=== PATIENT | female | born 1950 | race Caucasian/White ===

== ENCOUNTER → 2020-11-03 15:04 | Outpatient (BNVA) | payer OTHER, SELFPAY | PROVIDERS: PCP Internal Medicine; Visit Provider Surgery Vascular Surgery | DX: Z76.89 Persons encountering health services in other specified circumstances (principal) ==

== ENCOUNTER 2020-11-17 07:51 | Outpatient (REF) | payer OTHER, SELFPAY ==
--- NOTE | 2020-11-17 07:55 | US_ITS ---
EXAMINATION: RIGHT and LEFT LOWER EXTREMITY VENOUS ULTRASOUND (Reflux Exam) CLINICAL INDICATION: leg pain and varicose veins. COMPARISON: Previous exam most recent May 2020 TECHNIQUE: Color flow triplex imaging and compression Doppler was performed to evaluate both the deep and the superficial systems bilaterally. To evaluate the superficial system, the examination was performed in the upright position. Color-flow Doppler ultrasound and compression ultrasound were utilized. In addition, maneuvers were utilized to demonstrate reflux. FINDINGS: 1. DEEP VENOUS ULTRASOUND OF THE RIGHT LOWER EXTREMITY: Respiratory variation, normal compression and augmented flow are noted in the right common femoral vein as well as the right popliteal vein and there is no evidence of deep venous thrombosis at these locations. There is no evidence of reflux in the deep system in either the common femoral vein or the popliteal vein. There is no evidence of a Boykin's cyst. 2. SUPERFICIAL ULTRASOUND WITH DOPPLER OF RIGHT LOWER EXTREMITY: The right great saphenous vein at the saphenofemoral junction measures 6 mm, at the mid thigh 4 mm, [id number] 4 mm, [id number]-zia-[id number] 4 mm, at mid calf 4 mm and at the ankle measures 3 mm. There is no reflux demonstrated in the right great saphenous vein. The right small saphenous vein measures 3 mm and shows no reflux. There is an accessory medial greater saphenous vein that measures 3 mm and does not demonstrate reflux. There is a project technician in the mid calf that measures 3 mm and does not demonstrate reflux. There is a varicosity in the mid thigh that measures 3 mm and does not demonstrate reflux. 3. DEEP VENOUS ULTRASOUND OF THE LEFT LOWER EXTREMITY: Respiratory variation, normal compression and augmented flow are noted in the left common femoral vein as well as the left popliteal vein and there is no evidence of deep venous thrombosis at these locations. There is no evidence of reflux in the deep system in either the common femoral vein or the popliteal vein. . There is no evidence of a Boykin's cyst. 4. SUPERFICIAL ULTRASOUND WITH DOPPLER OF LEFT LOWER EXTREMITY: Left great saphenous vein at the saphenofemoral junction measures 9 mm, at the mid thigh 4 mm, [id number]-tfp-[id number] 5 mm, xacsd-pdi-hgrc 4 mm, at mid calf to mm and at the ankle measures 3 mm. There is no reflux demonstrated in the left great saphenous vein. The left small saphenous vein measures 3 mm and shows no reflux. There is a medial greater saphenous vein that measures 4 mm and does not demonstrate reflux. There is a project technician in the proximal calf that measures 1 mm and does not demonstrate reflux. There is a varicosity in the proximal thigh that measures 3 mm and does not demonstrate reflux. US/US venous duplex LE BI IMPRESSION: 1. No evidence of reflux or thrombus in the common femoral veins or popliteal veins bilaterally. 2. The saphenous systems are competent bilaterally.
--- NOTE | 2020-11-17 07:55 | US_ITS ---
EXAMINATION: US ABDOMINAL AORTA CLINICAL INFORMATION: Family history of abdominal aortic aneurysm. COMPARISON: None. TECHNIQUE: Grayscale, color Doppler and spectral Doppler evaluation of the abdominal aorta. FINDINGS: The aorta is normal in caliber. The measurements of the aorta in maximum AP and transverse dimensions respectively are as follows: PROXIMAL: 2.0 x 3.3 cm. MID: 1.9 x 2.0 cm. DISTAL: 2.0 x 1.9 cm. The measurements of the common iliac arteries in maximum AP dimension are as follows: RIGHT COMMON ILIAC ARTERY: 1.2 cm. LEFT COMMON ILIAC ARTERY: 1.2 cm. US/US abdominal aortic aneurysm IMPRESSION: Negative for abdominal aortic aneurysm.
== END 2020-11-17 07:52 | disposition home or self-care (01) ==
LOC: HO.US 07:51
PROVIDERS: Visit Provider Surgery Vascular Surgery
DX: I71.4 Abdominal aortic aneurysm, without rupture (principal); I83.893 Varicose veins of bilateral lower extremities with other complications; I83.12 Varicose veins of left lower extremity with inflammation
CPT/HCPCS: 76706; 93970

== ENCOUNTER → 2020-12-03 15:04 | Outpatient (BNVA) | payer OTHER, SELFPAY | PROVIDERS: PCP Internal Medicine; Visit Provider Surgery Vascular Surgery ==

== ENCOUNTER 2021-04-05 07:52 | Outpatient (REF) | payer OTHER, SELFPAY ==
[2021-04-05 08:51] LABS: Estimated Average Glucose 120 mg/dL; Hemoglobin A1c % 5.8 %
[2021-04-05 09:18] LABS: Alanine Aminotransferase 13 U/L (0-31); Albumin Level 3.9 g/dL (3.5-5.0); Alkaline Phosphatase 74 U/L (39-117); Aspartate Amino Transferase 17 U/L (5-31); Bilirubin Direct 0.2 mg/dL (0.0-0.5); Bilirubin Total 0.6 mg/dL (0.0-1.0); Cholesterol 181 mg/dL; Glucose Fasting 101 mg/dL (60-99); HDL Cholesterol 42 mg/dL; LDL Cholesterol Calculated 91 mg/dl; Total Protein 6.6 g/dL (6.5-8.0); Triglycerides 241 mg/dL
[2021-04-05 09:21] LABS: Reflex LDLD? No
== END 2021-04-05 07:53 | disposition home or self-care (01) ==
LOC: HO.LAB 07:52
PROVIDERS: PCP Internal Medicine; Visit Provider Internal Medicine
DX: R73.03 Prediabetes (principal); I70.90 Unspecified atherosclerosis; E78.00 Pure hypercholesterolemia, unspecified
CPT/HCPCS: 36415; 80061; 80076; 82947; 83036

== ENCOUNTER → 2021-04-08 15:04 | Outpatient (BNVA) | payer OTHER, SELFPAY | PROVIDERS: PCP Internal Medicine; Visit Provider Internal Medicine Cardiovascular Disease | DX: I47.1 Supraventricular tachycardia (principal); I10 Essential (primary) hypertension; R00.2 Palpitations | CPT/HCPCS: 93005 ==

== ENCOUNTER 2021-05-21 07:54 | Outpatient (REF) | payer OTHER, SELFPAY ==
[2021-05-21 09:34] LABS: Erythrocyte Sedimentation Rate 13 MM/HR (0-20)
[2021-05-21 09:38] LABS: Thyroid Stimulating Hormone 0.79 uIU/mL (0.32-4.0)
== END 2021-05-21 07:55 | disposition home or self-care (01) ==
LOC: HO.LAB 07:54
PROVIDERS: PCP Internal Medicine; Visit Provider Internal Medicine
DX: M35.3 Polymyalgia rheumatica (principal)
CPT/HCPCS: 36415; 84443; 85652

== ENCOUNTER 2021-06-14 15:03 | Outpatient (REF) | payer OTHER, SELFPAY ==
--- NOTE | ~2021-06-14 | MM_ITS ---
EXAMINATION: MM SCREENING DIGITAL BREAST TOMOSYNTHESIS, BILATERAL CLINICAL INFORMATION: Screening. Asymptomatic. The lifetime risk of breast cancer based on the Tyrer-Cuzick Model is 5%. COMPARISON: Mammography: 04/10/2020, 04/05/2019, 03/14/2018 TECHNIQUE: Digital breast tomosynthesis is performed in both the craniocaudal and mediolateral oblique views along with computer-aided detection (CAD). Synthesized 2D images are generated from the tomosynthesis. Additional bilateral CC and additional bilateral MLO views are provided. FINDINGS: There are scattered areas of fibroglandular density (ACR BI-RADS breast composition Category b). Parenchymal pattern is similar to prior exam. There is no developing density or interval mass or architectural abnormality. Again, there are bilateral vascular calcifications and some round and punctate calcifications anterior breasts. There is no three-dimensional grouping. The axilla and skin contours are unremarkable. No significant changes. MM/MM tomosynthesis screening BI IMPRESSION: There are no significant changes from prior study. ASSESSMENT: BI-RADS 2: Benign RECOMMENDATION: Routine annual mammography screening. This patient's information was entered into a reminder system with a target due date for their next mammogram.
== END 2021-06-14 15:04 | disposition home or self-care (01) ==
LOC: HO.MAMMO 15:03
PROVIDERS: Visit Provider Internal Medicine
DX: Z12.31 Encounter for screening mammogram for malignant neoplasm of breast (principal)
CPT/HCPCS: 77063; 77067

== ENCOUNTER → 2021-06-30 15:04 | Outpatient (BNVA) | payer OTHER, SELFPAY | PROVIDERS: PCP Internal Medicine; Visit Provider Physician Assistant ==

== ENCOUNTER → 2021-07-01 15:08 | Outpatient (BNVA) | payer OTHER, SELFPAY | PROVIDERS: PCP Internal Medicine; Visit Provider Hospitalist ==

== ENCOUNTER 2021-07-13 15:01 | Outpatient (REF) | payer OTHER, SELFPAY ==
--- NOTE | ~2021-07-13 | CT_ITS ---
EXAMINATION: CT CHEST WITHOUT CONTRAST CLINICAL INFORMATION: Small pulmonary nodules. Follow-up abnormal lung findings. COMPARISON: Chest CT from 08/07/2019 and 06/26/2020. TECHNIQUE: Multidetector volumetric CT imaging of the chest was done. Axial MIP volume rendering provided. Sagittal and coronal reformatted images were obtained. This CT examination was performed using dose optimization techniques as appropriate, variously including the following: *Automated exposure control *Adjustment of mA and/or kV according to patient size (this includes techniques or standardized protocols for targeted exams where dose is matched to indication/reason for exam; i.e. extremities or head) *Use of iterative reconstruction technique DLP: 211 mGy-cm FINDINGS: LOCALIZER IMAGES: Obese body habitus. LUNGS AND PLEURA: Trachea and central airways are widely patent and normal in caliber. No evidence of bronchiectasis. There are a few stable noncalcified micronodular foci of the right upper lobe, superior segment of right lower lobe, possibly secretions in peripheral airways. Also, there are old micronodular foci of the posterior left upper lobe along the major fissure (image 181, series 7) and along the pleura of the anterolateral left upper lobe (image 180, series 7) that remain unchanged. No new lung nodule, mass or consolidation. No interstitial lung disease. No pleural effusion. There are a few linear and/or hazy opacities of mild atelectasis in lower lobes and inferior lingula. CARDIOVASCULAR: The heart size is normal. Mild atherosclerosis of the thoracic aorta without aneurysm. Pulmonary arteries are unremarkable for noncontrast examination. No pericardial effusion. MEDIASTINUM AND LOWER NECK: The esophagus is unremarkable. Thyroid gland is not visualized. No mediastinal mass. LYMPHATICS: No pathologic sized lymph nodes. UPPER ABDOMEN: Gallbladder is surgically absent. SKELETAL AND CHEST WALL: Multilevel discovertebral degenerative change of the thoracic spine. No suspicious osseous lesion. CT/CT chest wo con IMPRESSION: * No evidence of interstitial lung disease. * There are a few old pulmonary micronodules that exhibit long-term stability, consistent with benign findings. There are no suspicious nodules that require imaging follow-up.
== END 2021-07-13 15:02 | disposition home or self-care (01) ==
LOC: HO.US 15:01
PROVIDERS: PCP Internal Medicine; Visit Provider Internal Medicine
DX: J96.10 Chronic respiratory failure, unspecified whether with hypoxia or hypercapnia (principal); R91.8 Other nonspecific abnormal finding of lung field; Z82.3 Family history of stroke
CPT/HCPCS: 71250

== ENCOUNTER 2021-07-28 15:07 | Outpatient (REF) | payer OTHER, SELFPAY ==
--- NOTE | ~2021-07-28 | US_ITS ---
EXAMINATION: US EXTRACRANIAL CAROTID DUPLEX, BILATERAL CLINICAL INFORMATION: Neck pain COMPARISON: None TECHNIQUE: Real-time ultrasound and Doppler techniques (integrating B-mode 2-D vascular images, Doppler spectral analysis and color-flow Doppler imaging) were utilized to interrogate the extracranial carotid arteries, the vertebral arteries and proximal subclavian arteries bilaterally. The degree of stenosis is determined by criteria similar to NASCET. FINDINGS: Right Side: 1. There is no atherosclerotic plaque seen in the bifurcation/proximal ICA region. The right ICA is tortuous. 2. The common carotid artery PSV proximally is 107 cm/s and distally 113 cm/s. 3. The proximal internal carotid artery velocities are 83 cm/s systolic and 16 cm/s diastolic. 4. The proximal external carotid artery PSV is 172 cm/s. 5. The vertebral artery shows antegrade flow. 6. The subclavian artery waveforms are normal. Left Side: 1. There is no atherosclerotic plaque seen in the bifurcation/proximal ICA region. 2. The common carotid artery PSV proximally is 97 cm/s and distally 93 cm/s. 3. The proximal internal carotid artery velocities are 106 cm/s systolic and 25 cm/s diastolic. 4. The proximal external carotid artery PSV is 99 cm/s. 5. The vertebral artery shows antegrade flow. 6. The subclavian artery waveforms are normal. US/US carotid duplex BI IMPRESSION: 1. RIGHT: No atherosclerotic plaque. Tortuous right ICA otherwise normal exam. 2. LEFT: No atherosclerotic plaque. Normal exam.
== END 2021-07-28 15:08 | disposition home or self-care (01) ==
LOC: HO.US 15:07
PROVIDERS: PCP Internal Medicine; Visit Provider Internal Medicine
DX: M54.2 Cervicalgia (principal); I10 Essential (primary) hypertension
CPT/HCPCS: 93880

== ENCOUNTER 2021-08-03 12:03 | Outpatient (REF) | payer OTHER, SELFPAY ==
[2021-08-03 15:36] LABS: Anion Gap 10 (12-20); Blood Urea Nitrogen 13 mg/dL (9-16); Calcium 9.1 mg/dL (8.4-10.2); Carbon Dioxide 30 mmol/L (22-29); Chloride 108 mmol/L (96-108); Estimated Glomerular Filt Rate > 60; Glucose Random 90 mg/dL (60-115); Potassium 4.4 mmol/L (3.3-5.1); Sodium 144 mmol/L (135-145)
== END 2021-08-03 12:04 | disposition home or self-care (01) ==
LOC: HO.LAB 12:03
PROVIDERS: PCP Internal Medicine; Visit Provider Hospitalist
DX: J96.10 Chronic respiratory failure, unspecified whether with hypoxia or hypercapnia (principal)
CPT/HCPCS: 36415; 80048

== ENCOUNTER 2021-08-17 07:00 | Outpatient (RCR) | payer OTHER, SELFPAY | END 2021-11-08 10:12 | disposition home or self-care (01) | LOC: HO.PTWFD 07:00 | PROVIDERS: Visit Provider Physician Assistant | DX: M77.8 Other enthesopathies, not elsewhere classified (principal) | CPT/HCPCS: 97035; 97110; 97140; 97150; 97163; 97530; 97535 ==

== ENCOUNTER → 2021-08-20 15:03 | Outpatient (BNVA) | payer OTHER, SELFPAY | PROVIDERS: PCP Internal Medicine; Visit Provider Hospitalist | DX: K21.9 Gastro-esophageal reflux disease without esophagitis (principal); J44.9 Chronic obstructive pulmonary disease, unspecified ==

== ENCOUNTER 2021-11-04 08:01 | Outpatient (REF) | payer OTHER, SELFPAY ==
[2021-11-04 09:15] LABS: Anion Gap 9 (12-20); Blood Urea Nitrogen 11 mg/dL (9-16); Calcium 9.5 mg/dL (8.4-10.2); Carbon Dioxide 31 mmol/L (22-29); Chloride 106 mmol/L (96-108); Estimated Glomerular Filt Rate > 60; Glucose Random 99 mg/dL (60-115); Potassium 4.7 mmol/L (3.3-5.1); Sodium 141 mmol/L (135-145)
== END 2021-11-04 08:02 | disposition home or self-care (01) ==
LOC: HO.LAB 08:01
PROVIDERS: PCP Internal Medicine; Visit Provider Hospitalist
DX: I10 Essential (primary) hypertension (principal)
CPT/HCPCS: 36415; 80048

== ENCOUNTER 2021-11-05 14:06 | Emergency (ER) | payer OTHER, SELFPAY ==
--- NOTE | ~2021-11-05 | XR_ITS ---
EXAMINATION: XR KNEE, LEFT CLINICAL INFORMATION: Pain. Difficulty ambulating. COMPARISON: AP view of both knees standing, 11/05/2019 TECHNIQUE: Four views of the left knee. FINDINGS: There is marked degenerative arthropathy of the knee joint. There is rpvy-fm-ybpo contact of the femur and tibia at the lateral femoral tibial joint. There is flattening and remodeling of the lateral tibial plateau. There are marginal bone spurs of the femur and tibia at this joint space. There are small bone spurs of the femur and tibia at the medial femoral tibial joint. Small degenerative spurs of patella and femur at the patellofemoral joint. No joint effusion. Compared to prior study 11/05/2019 no significant change. 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 No significant change since prior study 11/05/2019.
--- NOTE | ~2021-11-05 | US_ITS ---
EXAMINATION: US VENOUS ULTRASOUND WITH DOPPLER LOWER EXTREMITY, LEFT CLINICAL INFORMATION: Left lower extremity pain COMPARISON: None TECHNIQUE: Ultrasound of the deep veins is performed from the hip to the calf with compression sonography and color and pulse Doppler assessment. Spectral analysis with color-flow imaging is performed. FINDINGS: There is normal venous compression and respiratory variation and augmented flow. The visualized common femoral vein, superficial femoral vein, profunda femoral vein, popliteal vein, and the trifurcation region shows no evidence of deep venous thrombosis. There is no significant popliteal fossa cyst. If the patient's symptoms persist, followup ultrasound in 5 days 7 days might be of value to exclude proximal propagation from a non-visualized calf vein. US/US venous duplex LE LT IMPRESSION: No DVT demonstrated in the left lower extremity.
[2021-11-05 14:08] VITALS: BP 137/100; PULSE 89; RESP 18; TEMP 37.2; O2SAT 95; BMI 34.4
--- NOTE | 2021-11-05 15:47 | ED_ITS ---
HPI - Extremity Problem General Chief complaint: Extremity Problem Stated complaint: L leg pain Time Seen by Provider: 11/05/21 14:11 Source: patient Mode of arrival: ambulatory History of Present Illness HPI Narrative: 71-year-old female with a past medical history of COPD, HTN SVT, prior LLE DVT not on AC, presenting to the emergency department complaining of left lower leg/knee pain and swelling worsening x a couple weeks, exacerbated today with difficulty ambulating secondary to pain. Admits to slight trip around [place], denies direct knee trauma or fall, slipped on ice. Denies fever, chills, SOB, numbness/tingling/weakness. MD Complaint: extremity pain and joint paint Onset (ago): day(s) Pain Consistency: constant Related Data Home Medications Medication Instructions Recorded Confirmed levothyroxine 125 mcg tablet 125 mcg PO DAILY 12/03/20 04/08/21 rosuvastatin 20 mg tablet 20 mg PO BEDTIME 04/08/21 04/08/21 Previous Rx's Medication Instructions Recorded diclofenac sodium 75 mg 75 mg PO BID #60 tab 10/06/20 tablet,delayed release montelukast 10 mg tablet 10 mg PO BEDTIME 30 Days #30 tab 05/17/21 (Singulair) cholecalciferol (vitamin D3) 50 50 mcg PO DAILY 30 Days #30 cap 05/31/21 mcg (2,000 unit) capsule amlodipine 5 mg tablet 5 mg PO DAILY 90 Days #90 tab 06/09/21 Ventolin HFA 90 mcg/actuation 2 puff INHALATION Q4H PRN 30 Days 07/01/21 aerosol inhaler (albuterol sulfate) #8 g NS azithromycin 250 mg tablet 250 mg PO 3XW 28 Days #12 tab 07/01/21 fluticasone fur. 100 mcg-umeclid 1 ea PO DAILY 90 Days #180 ea 08/20/21 62.5 mcg-vilant 25 mcg inhalat.powder (Trelegy Ellipta) furosemide 20 mg tablet (Lasix) 10 mg PO QAM 30 Days #15 tab 08/20/21 metoprolol succinate 50 mg 50 mg PO DAILY #90 tab 08/23/21 tablet,extended release 24 hr Allergies Allergy/AdvReac Type Severity Reaction Status Date / Time aspirin [Aspirin] Allergy Severe TROUBLE Verified 08/20/21 15:07 BREATHING, vomiting Penicillins Allergy Severe THROAT Verified 08/20/21 15:07 CLOSES adhesive tape [ADHESIVE TAPE] Allergy Intermediate RASH/ITCH Verified 08/20/21 15:07 ibuprofen [From MOTRIN] Allergy Intermediate VOMITING Verified 08/20/21 15:07 latex [LATEX] Allergy Intermediate RASH Verified 08/20/21 15:07 penicillin V Allergy Unknown rash Verified 08/20/21 15:07 prednisone Allergy Unknown Unknown Verified 08/20/21 15:07 spider venom [SPIDER BITES] Allergy Unknown SWELLING Verified 08/20/21 15:07 clarithromycin [From Biaxin] AdvReac Intermediate PROJECTILE Verified 08/20/21 15:07 VOMITING Adhesive Tape Allergy Unknown rash Uncoded 07/01/21 15:47 Biaxin Allergy Unknown vomiting, Uncoded 07/01/21 15:47 abd pain eggs Allergy Unknown Unknown Uncoded 07/01/21 15:47 Latex Gloves Allergy Unknown rash Uncoded 07/01/21 15:47 Review of Systems Review of Systems: Constitutional: No Fever, No Chills ENT/Mouth: No Ear Pain, No Nasal Congestion, No sore throat, No Rhinorrhea, No Swallowing Difficulty Cardiovascular: No Chest Pain, No SOB, +Edema Respiratory: No Cough, No Sputum Gastrointestinal: No Nausea, No Vomiting, No Diarrhea, No Constipation, No Abdominal pain Musculoskeletal: + joint pain, No Myalgias, + Joint Swelling Skin: No Skin Lesions, No rash Neuro: No Weakness, No Numbness, No Paresthesias Yes all other systems are reviewed and are negative PMFSH Past Medical History Attestation statement: The following information was validated with the patient. 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[employer] [place] Physical Exam Vital Signs: Vital Signs: Last Vital Signs Temp 98.9 F 11/05/21 14:08 Pulse 89 11/05/21 14:08 Resp 18 11/05/21 14:08 BP 137/100 H 11/05/21 14:08 Pulse Ox 95 11/05/21 14:08 BMI result Body Mass Index 34.4 Const: General: cooperative, healthy appearing and no acute distress Orientation/consciousness: patient oriented x3 Limitations: no limitations HENMT: Head: Yes normal to inspection Ears: hearing grossly normal bilaterally General nose exam: Normal external nose present Face and sinus: Yes normal facial exam Eyes: General: appearance normal, both eyes and all related structures EOM: EOMs intact bilaterally Neck: Neck: Yes normal visual inspection and Yes no meningeal signs Resp: Effort & Inspection: normal respiratory effort and no respiratory distress Cardio: Rate: regular rate Peripheral pulses: dorsalis pedis present Skin: Rashes: no rashes Wounds: no wounds Neuro: General: patient oriented x3 and no meningeal signs Gait exam (Neuro): Normal gait present Extrem: Other: + left knee tenderness to palpation. Flexion and extension intact. Neurovascular intact distally. No deformity or warmth. + left calf tenderness to palpation. 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 No significant change since prior study 11/05/2019. ? US venous duplex LE LT IMPRESSION: No DVT demonstrated in the left lower extremity. >> results discussed with patient including worrisome signs and symptoms and strict return precautions. Nathan wrap applied for comfort/stability. Recommended orthopedic follow-up, she verbalized understanding & feels safe for discharge home MDM - Extremity (Nontraumatic) MDM Narrative Medical decision making narrative: 71-year-old female with a past medical history of COPD, HTN SVT, prior LLE DVT not on AC, presenting to the emergency department complaining of left lower leg/knee pain and swelling worsening x a couple weeks, exacerbated today with difficulty ambulating secondary to pain. On exam hypertensive likely from pain, NAD, physical exam as above, concern for DVT vs knee sprain/tendinitis/osteoarthritis. Low concern for fracture or CHF Plan: Venous duplex ultrasound, x-ray Differential Diagnosis Differential diagnosis: Likely lower extremity edema and deep vein thrombosis of lower extremity Medical Records Attestation: I reviewed the patient's medical records. Lab Data Attestation: I reviewed the patient's lab results. Discharge Plan Discharge Clinical Impression: Left leg pain Patient Disposition: Home, Self-Care Instructions: Leg Pain (ED) Additional Instructions: Your ultrasound was negative for a blood clot. If symptoms persist it is recommended you have a follow-up ultrasound in 5-7 days Your x-ray shows osteoarthritis Please follow-up with orthopedics. Ice and elevate her leg. Continue taking diclofenac and Tylenol at home If symptoms persist or worsen, pain becomes unbearable, if shortness of breath, weakness, numbness or tingling please return to the ED Prescriptions: No Action diclofenac sodium 75 mg tablet,delayed release (DR/EC) 75 mg PO BID Qty: 60 RF: 2 montelukast [Singulair] 10 mg tablet 10 mg PO BEDTIME 30 Days Qty: 30 RF: 11 cholecalciferol (vitamin D3) 50 mcg (2,000 unit) capsule 50 mcg PO DAILY 30 Days Qty: 30 RF: 6 amlodipine 5 mg tablet 5 mg PO DAILY 90 Days Qty: 90 RF: 1 metoprolol succinate 50 mg tablet extended release 24 hr 50 mg PO DAILY Qty: 90 RF: 1 levothyroxine 125 mcg tablet 125 mcg PO DAILY RF: 0 azithromycin 250 mg tablet 250 mg PO 3XW 28 Days Qty: 12 RF: 6 albuterol sulfate [Ventolin HFA] 90 mcg/actuation HFA aerosol inhaler 2 puff inhalation Q4H PRN (Reason: shortness of breath or wheezing) 30 Days Qty: 8 RF: 11 furosemide [Lasix] 20 mg tablet 10 mg PO QAM 30 Days Qty: 15 RF: 8 Trelegy Ellipta 100-62.5-25 mcg blister with device 1 ea PO DAILY 90 Days Qty: 180 RF: 3 rosuvastatin 20 mg tablet 20 mg PO BEDTIME RF: 0 Referrals: Surya Mora MD [Physician] - 1 week
== END 2021-11-05 15:57 | disposition home or self-care (01) ==
PROVIDERS: Emergency Provider Emergency Medicine; PCP Internal Medicine
DX: M79.605 Pain in left leg (principal); R60.0 Localized edema; I10 Essential (primary) hypertension; Z79.899 Other long term (current) drug therapy; Z87.891 Personal history of nicotine dependence
CPT/HCPCS: 73562; 93971; 99283; 99284

== ENCOUNTER → 2022-01-28 07:52 | Outpatient (BNVA) | payer OTHER, SELFPAY | PROVIDERS: PCP Internal Medicine; Visit Provider Internal Medicine Endocrinology, Diabetes & Metabolism | DX: Z13.89 Encounter for screening for other disorder (principal) ==

== ENCOUNTER → 2022-03-18 11:05 | Outpatient (BNVA) | payer OTHER, SELFPAY | PROVIDERS: PCP Internal Medicine; Visit Provider Dietitian, Registered | DX: E66.9 Obesity, unspecified (principal); Z68.35 Body mass index [BMI] 35.0-35.9, adult | CPT/HCPCS: 97802 ==

== ENCOUNTER 2022-03-25 07:58 | Outpatient (REF) | payer OTHER, SELFPAY ==
[2022-03-25 09:19] LABS: Phosphorus 3.9 mg/dL (2.7-4.5)
[2022-03-28 21:01] LABS: Prot Elec - Albumin 3.8 g/dL (3.8-4.8); Prot Elec - Alpha1 0.3 g/dL (0.2-0.3); Prot Elec - Alpha2 0.8 g/dL (0.5-0.9); Prot Elec - Beta 1 0.5 g/dL (0.4-0.6); Prot Elec - Beta 2 0.4 g/dL (0.2-0.5); Prot Elec - Total Protein 6.7 g/dL (6.1-8.1)
== END 2022-03-25 07:59 | disposition home or self-care (01) ==
LOC: HO.LAB 07:58
PROVIDERS: PCP Internal Medicine; Visit Provider Internal Medicine Endocrinology, Diabetes & Metabolism
DX: M81.0 Age-related osteoporosis without current pathological fracture (principal)
CPT/HCPCS: 84100; 84165; 86335

== ENCOUNTER 2022-05-04 07:38 | Outpatient (REF) | payer OTHER, SELFPAY ==
[2022-05-04 07:58] LABS: MANUAL DIFF FLAG NO
[2022-05-04 08:35] LABS: Basophils Absolute Auto 0.1 X10*3/uL (0.0-0.2); Basophils Percent Auto 0.8 % (0-2); Eosinophils Absolute Auto 0.2 X10*3/uL (0.0-0.4); Eosinophils Percent Auto 3.3 % (0-4); Hematocrit 42.5 % (37.0-47.0); Hemoglobin 13.5 g/dl (12.0-16.0); Imm Gran Abs Auto 0.01 X10*3/uL (0.00-0.03); Imm Gran Pct Auto 0.2 % (0.0-0.4); Lymphocytes Absolute Auto 1.5 X10*3/uL (1.2-4.9); Lymphocytes Percent Auto 22.1 % (20-40); Mean Corpuscular HGB Conc 31.8 g/dl (31.0-35.0); Mean Corpuscular Hemoglobin 28.7 pg (27.0-33.0); Mean Corpuscular Volume 90.2 fL (80.0-98.0); Mean Platelet Volume 11.5 fL (9.4-12.3); Monocytes Absolute Auto 0.7 X10*3/uL (0.1-1.2); Monocytes Percent Auto 11.1 % (2-11); Neutrophils Absolute Auto 4.2 x10*3/uL (2.0-8.3); Neutrophils Percent Auto 62.5 % (45-73); Platelet Count 206 X10*3/uL (160-400); Red Blood Count 4.71 X10*6/uL (4.20-5.50); Red Cell Distribution Width 12.9 % (11.0-16.0); White Blood Count 6.7 X10*3/uL (4.8-10.8)
[2022-05-04 08:48] LABS: Appearance Urine CLEAR; Color Urine YELLOW; Glucose Urine UA NEG (NEG); Leukocyte Esterase Urine 2+ (NEG); Nitrite Urine NEG (NEG); PH 5.5 (5.0-8.0); Specific Gravity - Urine >= 1.030 (1.005-1.025); Urine Blood NEG (NEG); Urine Ketones 5 MG/DL (NEG); Urine Protein NEG (NEG-TRACE)
[2022-05-04 08:58] LABS: Squamous Epithelial Cell Urine 4+ /LPF
[2022-05-04 08:58] LABS: Alanine Aminotransferase 12 U/L (0-31); Albumin Level 4.1 g/dL (3.5-5.0); Alkaline Phosphatase 74 U/L (39-117); Anion Gap 12 (12-20); Aspartate Amino Transferase 18 U/L (5-31); Bilirubin Total 0.8 mg/dL (0.0-1.0); Blood Urea Nitrogen 17 mg/dL (9-16); Calcium 9.2 mg/dL (8.4-10.2); Carbon Dioxide 28 mmol/L (22-29); Chloride 106 mmol/L (96-108); Cholesterol 181 mg/dL; Estimated Glomerular Filt Rate > 60; Glucose Fasting 104 mg/dL (60-99); HDL Cholesterol 50 mg/dL; LDL Cholesterol Calculated 99 mg/dl; Potassium 4.6 mmol/L (3.3-5.1); Sodium 141 mmol/L (135-145); Total Protein 6.9 g/dL (6.5-8.0); Triglycerides 164 mg/dL
[2022-05-04 08:59] LABS: Bacteria Urine TRACE /LPF; Mucus Urine 1+ /LPF; RBC Urine 0-2 /HPF (0)
[2022-05-04 09:20] LABS: TSH reflex Free T4 0.76 uIU/mL (0.32-4.0); Vitamin D 25-OH Total 38.6 ng/mL (>30)
== END 2022-05-04 07:39 | disposition home or self-care (01) ==
LOC: HO.LAB 07:38
PROVIDERS: PCP Internal Medicine; Visit Provider Internal Medicine
DX: Z00.00 Encounter for general adult medical examination without abnormal findings (principal); I10 Essential (primary) hypertension; E89.0 Postprocedural hypothyroidism; E78.00 Pure hypercholesterolemia, unspecified; E55.9 Vitamin D deficiency, unspecified; M35.3 Polymyalgia rheumatica
CPT/HCPCS: 36415; 80053; 80061; 81001; 82306; 84443; 85025

== ENCOUNTER → 2022-05-05 14:59 | Outpatient (BNVA) | payer OTHER, SELFPAY | PROVIDERS: PCP Internal Medicine; Referring Provider Internal Medicine; Visit Provider Internal Medicine Cardiovascular Disease | DX: I47.1 Supraventricular tachycardia (principal); R06.02 Shortness of breath | CPT/HCPCS: 93005 ==

== ENCOUNTER 2022-05-09 09:33 | Outpatient (REF) | payer OTHER, SELFPAY ==
[2022-05-09 10:09] LABS: Total Volume 24 Hour Urine 1600 mL
[2022-05-09 10:20] LABS: Creatinine, 24Hr Urine 0.7 G/Day (1.0-2.0); Creatinine, mg/dL 46.27
[2022-05-11 18:21] LABS: Calcium, 24 Hr Urine 147 mg/24 h; Calcium/Creatinine Ratio 196 mg/g creat (30-275); Creatinine 24Hr Urine 0.75 g/24 h (0.50-2.15)
== END 2022-05-09 09:34 | disposition home or self-care (01) ==
LOC: HO.LNP 09:33
PROVIDERS: Visit Provider Internal Medicine Endocrinology, Diabetes & Metabolism
DX: M81.0 Age-related osteoporosis without current pathological fracture (principal)
CPT/HCPCS: 82340; 82570

== ENCOUNTER 2022-05-27 08:09 | Outpatient (REF) | payer OTHER, SELFPAY ==
[2022-05-27 09:15] LABS: Hemoglobin 13.1 g/dl (12.0-16.0); Mean Corpuscular Hemoglobin 28.8 pg (27.0-33.0); Mean Corpuscular Volume 90.1 fL (80.0-98.0); Mean Platelet Volume 11.5 fL (9.4-12.3); Platelet Count 197 X10*3/uL (160-400); Red Blood Count 4.55 X10*6/uL (4.20-5.50); Red Cell Distribution Width 13.2 % (11.0-16.0)
[2022-05-27 10:09] LABS: Anion Gap 13 (12-20); Blood Urea Nitrogen 12 mg/dL (9-16); Carbon Dioxide 28 mmol/L (22-29); Chloride 106 mmol/L (96-108); Estimated Glomerular Filt Rate > 60; Glucose Random 101 mg/dL (60-115); Potassium 4.6 mmol/L (3.3-5.1); Sodium 142 mmol/L (135-145)
== END 2022-05-27 08:10 | disposition home or self-care (01) ==
LOC: HO.LAB 08:09
PROVIDERS: PCP Internal Medicine; Visit Provider Internal Medicine Cardiovascular Disease
DX: I10 Essential (primary) hypertension (principal)
CPT/HCPCS: 36415; 80048; 85027; 85610

== ENCOUNTER 2022-06-28 07:44 | Outpatient (REF) | payer OTHER, SELFPAY ==
[2022-06-28 07:53] LABS: MANUAL DIFF FLAG NO
[2022-06-28 08:50] LABS: Basophils Absolute Auto 0.1 X10*3/uL (0.0-0.2); Basophils Percent Auto 0.6 % (0-2); Eosinophils Absolute Auto 0.3 X10*3/uL (0.0-0.4); Eosinophils Percent Auto 3.8 % (0-4); Hematocrit 42.1 % (37.0-47.0); Hemoglobin 13.5 g/dl (12.0-16.0); Imm Gran Abs Auto 0.03 X10*3/uL (0.00-0.03); Imm Gran Pct Auto 0.4 % (0.0-0.4); Lymphocytes Absolute Auto 1.7 X10*3/uL (1.2-4.9); Lymphocytes Percent Auto 21.2 % (20-40); Mean Corpuscular HGB Conc 32.1 g/dl (31.0-35.0); Mean Corpuscular Hemoglobin 29.2 pg (27.0-33.0); Mean Corpuscular Volume 90.9 fL (80.0-98.0); Mean Platelet Volume 11.6 fL (9.4-12.3); Monocytes Absolute Auto 0.7 X10*3/uL (0.1-1.2); Monocytes Percent Auto 9.4 % (2-11); Neutrophils Absolute Auto 5.1 x10*3/uL (2.0-8.3); Neutrophils Percent Auto 64.6 % (45-73); Platelet Count 199 X10*3/uL (160-400); Red Blood Count 4.63 X10*6/uL (4.20-5.50); Red Cell Distribution Width 13.3 % (11.0-16.0); White Blood Count 7.9 X10*3/uL (4.8-10.8)
[2022-06-28 09:31] LABS: Erythrocyte Sedimentation Rate 7 MM/HR (0-20)
[2022-06-29 11:42] LABS: IgA 275 mg/dL (70-320); IgG 1043 mg/dL (600-1540); IgM 106 mg/dL (50-300)
== END 2022-06-28 07:45 | disposition home or self-care (01) ==
LOC: HO.LAB 07:44
PROVIDERS: PCP Internal Medicine; Visit Provider Hospitalist
DX: J45.909 Unspecified asthma, uncomplicated (principal)
CPT/HCPCS: 36415; 82784; 82785; 85025; 85652; 86003

== ENCOUNTER 2022-06-30 07:35 | Outpatient (REF) | payer OTHER, SELFPAY ==
--- NOTE | ~2022-06-30 | MM_ITS ---
EXAMINATION: MM SCREENING DIGITAL BREAST TOMOSYNTHESIS, BILATERAL CLINICAL INFORMATION: Screening. Asymptomatic. The lifetime risk of breast cancer based on the Tyrer-Cuzick Model is 5%. COMPARISON: Mammography: 06/14/2021, 04/10/2020, 04/05/2019 TECHNIQUE: Digital breast tomosynthesis is performed in both the craniocaudal and mediolateral oblique views along with computer-aided detection (CAD). Synthesized 2D images are generated from the tomosynthesis. FINDINGS: There are scattered areas of fibroglandular density (ACR BI-RADS breast composition Category b). There are no significant masses, abnormal calcifications, or other abnormalities. There is a dermal lesion again seen overlying the posterior upper left breast. Scattered bilateral punctate and vascular calcifications are again noted. The axilla are unremarkable. MM/MM tomosynthesis screening BI IMPRESSION: No mammographic evidence of malignancy. ASSESSMENT: BI-RADS 2: Benign RECOMMENDATION: Routine annual mammography screening. This patient's information was entered into a reminder system with a target due date for their next mammogram.
== END 2022-06-30 07:36 | disposition home or self-care (01) ==
LOC: HO.MAMMO 07:35
PROVIDERS: Visit Provider Internal Medicine
DX: Z12.31 Encounter for screening mammogram for malignant neoplasm of breast (principal)
CPT/HCPCS: 77063; 77067

== ENCOUNTER 2022-07-20 07:53 | Outpatient (REF) | payer OTHER, SELFPAY ==
--- NOTE | 2022-07-20 08:00 | PFT_ITS ---
FLOWS: FEV1 60% of predicted at 1.30 L. FVC 80% of predicted at 1.58 L. FEV1 to FVC ratio of 0.82. No bronchodilator response except in small to medium airways. LUNG VOLUMES: Slow vital capacity 54% of predicted at 1.53 L. The patient was unable to complete rest of lung volume maneuvers. Diffusion capacity is mildly decreased. Diffusion capacity corrects to normal after adjustment for alveolar ventilation. IMPRESSION: No obstructive ventilatory defect. Suggestion of underlying moderate restrictive ventilatory defect. No bronchodilator response except in small to medium airways. Decreased expiratory reserve volume suggests extrathoracic restriction likely secondary to abdominal obesity. Decreased diffusion capacity suggests emphysema. Nakul Gray MD AP/MODL / [id number]
== END 2022-07-20 07:54 | disposition home or self-care (01) ==
LOC: HO.RESP 07:53
PROVIDERS: PCP Internal Medicine; Visit Provider Hospitalist
DX: J44.9 Chronic obstructive pulmonary disease, unspecified (principal)
CPT/HCPCS: 94060; 94729

== ENCOUNTER → 2022-08-03 13:32 | Outpatient (REF) | payer OTHER, SELFPAY | LOC: HO.SL 13:32 | PROVIDERS: Visit Provider Hospitalist | DX: G47.33 Obstructive sleep apnea (adult) (pediatric) (principal) | CPT/HCPCS: 95806 ==

== ENCOUNTER 2022-09-20 08:16 | Emergency (ER) | payer OTHER, SELFPAY ==
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
[2022-09-20 08:17] VITALS: BP 158/63; PULSE 72; RESP 16; TEMP 37.1; O2SAT 96; BMI 35.5
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
[2022-09-20 12:28] VITALS: BP 153/80; PULSE 71; RESP 16; O2SAT 96
== END 2022-09-20 12:30 | disposition home or self-care (01) ==
PROVIDERS: Emergency Provider Emergency Medicine; PCP Internal Medicine
DX: S13.4XXA Sprain of ligaments of cervical spine, initial encounter (principal); R07.81 Pleurodynia; R51.9 Headache, unspecified; M54.2 Cervicalgia; V43.52XA Car driver injured in collision with other type car in traffic accident, initial encounter; Y93.9 Activity, unspecified; Y92.410 Unspecified street and highway as the place of occurrence of the external cause; Y99.9 Unspecified external cause status
CPT/HCPCS: 70450; 71101; 72125; 99283; 99284

== ENCOUNTER 2022-12-01 11:22 | Outpatient (REF) | payer OTHER, SELFPAY ==
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
[2022-12-01 12:59] LABS: MANUAL DIFF FLAG NO
[2022-12-01 14:38] LABS: Basophils Absolute Auto 0.1 X10*3/uL (0.0-0.2); Basophils Percent Auto 0.8 % (0-2); Eosinophils Absolute Auto 0.2 X10*3/uL (0.0-0.4); Hematocrit 41.1 % (37.0-47.0); Hemoglobin 13.5 g/dl (12.0-16.0); Imm Gran Abs Auto 0.01 X10*3/uL (0.00-0.03); Imm Gran Pct Auto 0.1 % (0.0-0.4); Lymphocytes Absolute Auto 2.1 X10*3/uL (1.2-4.9); Mean Corpuscular HGB Conc 32.8 g/dl (31.0-35.0); Mean Corpuscular Hemoglobin 29.4 pg (27.0-33.0); Mean Corpuscular Volume 89.5 fL (80.0-98.0); Mean Platelet Volume 11.1 fL (9.4-12.3); Monocytes Absolute Auto 0.8 X10*3/uL (0.1-1.2); Monocytes Percent Auto 8.9 % (2-11); Neutrophils Absolute Auto 5.5 x10*3/uL (2.0-8.3); Neutrophils Percent Auto 64.2 % (45-73); Platelet Count 209 X10*3/uL (160-400); Red Blood Count 4.59 X10*6/uL (4.20-5.50); White Blood Count 8.6 X10*3/uL (4.8-10.8)
[2022-12-01 15:02] LABS: Anion Gap 13 (12-20); Blood Urea Nitrogen 12 mg/dL (9-16); Calcium 9.5 mg/dL (8.4-10.2); Carbon Dioxide 28 mmol/L (22-29); Chloride 106 mmol/L (96-108); Estimated Glomerular Filt Rate > 60; Glucose Random 85 mg/dL (60-115); Potassium 4.1 mmol/L (3.3-5.1); Sodium 143 mmol/L (135-145)
[2022-12-01 15:09] LABS: Troponin-I High Sensitivity 3.5 ng/L (<3.5-17.0)
[2022-12-01 15:23] LABS: Erythrocyte Sedimentation Rate 12 MM/HR (0-20)
== END 2022-12-01 11:23 | disposition home or self-care (01) ==
LOC: HO.LAB 11:22
PROVIDERS: PCP Internal Medicine; Visit Provider Hospitalist
DX: R07.89 Other chest pain (principal)
CPT/HCPCS: 36415; 71046; 80048; 84484; 85025; 85652

== ENCOUNTER 2022-12-19 07:35 | Outpatient (REF) | payer OTHER, SELFPAY ==
[2022-12-19 08:46] LABS: Alanine Aminotransferase 16 U/L (0-31); Alkaline Phosphatase 77 U/L (39-117); Aspartate Amino Transferase 16 U/L (5-31); Bilirubin Direct 0.2 mg/dL (0.0-0.5); Bilirubin Total 0.9 mg/dL (0.0-1.0); Cholesterol 194 mg/dL; HDL Cholesterol 47 mg/dL; LDL Cholesterol Calculated 101 mg/dl; Total Protein 6.6 g/dL (6.5-8.0); Triglycerides 231 mg/dL
[2022-12-19 11:38] LABS: Reflex LDLD? No
== END 2022-12-19 07:36 | disposition home or self-care (01) ==
LOC: HO.LAB 07:35
PROVIDERS: PCP Internal Medicine; Visit Provider Internal Medicine
DX: E78.00 Pure hypercholesterolemia, unspecified (principal)
CPT/HCPCS: 36415; 80061; 80076

== ENCOUNTER → 2023-02-23 15:08 | Outpatient (BNVA) | payer OTHER, SELFPAY | PROVIDERS: PCP Internal Medicine; Visit Provider Hospitalist ==

== ENCOUNTER 2023-02-24 07:29 | Outpatient (REF) | payer OTHER, SELFPAY ==
--- NOTE | ~2023-02-24 | XR_ITS ---
EXAMINATION: XR CHEST CLINICAL INFORMATION: Cough. COMPARISON: None available. TECHNIQUE: 2 views of the chest were obtained. FINDINGS: The lungs are well-inflated and clear. The heart size and pulmonary vascularity is normal. No gross bony abnormality seen. XR/XR chest 2V IMPRESSION: Unremarkable chest exam.
== END 2023-02-24 07:30 | disposition home or self-care (01) ==
LOC: HO.XRAY 07:29
PROVIDERS: PCP Internal Medicine; Visit Provider Hospitalist
DX: R05.9 Cough, unspecified (principal)
CPT/HCPCS: 71046

== ENCOUNTER 2023-03-03 08:04 | Outpatient (REF) | payer OTHER, SELFPAY ==
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
== END 2023-03-03 08:05 | disposition home or self-care (01) ==
LOC: HO.CT 08:04
PROVIDERS: PCP Internal Medicine; Visit Provider Internal Medicine
DX: N20.0 Calculus of kidney (principal)
CPT/HCPCS: 74176

== ENCOUNTER 2023-05-28 18:22 | Emergency (ER) | payer OTHER, SELFPAY ==
[2023-05-28 18:32] VITALS: BP 170/56; PULSE 74; RESP 18; TEMP 36.8; O2SAT 96; BMI 35.4
--- NOTE | 2023-05-28 18:32 | ED.GENADULT ---
HPI - General Adult General Chief complaint: Abdominal Pain Stated complaint: Right flank pain radiates to the front Time Seen by Provider: 05/28/23 22:34 Source: patient Mode of arrival: ambulatory Limitations: no limitations History of Present Illness HPI narrative: Patient is a 72 year old assigned female at with a history of HTN and SVT presenting to the emergency department today with right flank pain. Patient states that she has had this issue intermittently over the last few months but it seems as though it has been worse lately. 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 Patient denies any dizziness, lightheadedness, nausea, vomiting, fever, chills, blurry vision, double vision, loss of vision, chest pain, difficulty breathing, shortness of breath, back pain, night sweats, pain with urination, increased urinary frequency, increased urinary urgency, blood in her urine or stool, syncope or a near syncopal episode, recent trauma or falls, bowel incontinence, bladder incontinence, bowel retention, bladder retention, or any other complaints at this time. Onset (ago): month(s) Location: right (flank) Severity: mild Relieving factors: none Exacerbating factors: none Associated symptoms: denies other symptoms Treatments prior to arrival: none Related Data Home Medications Medication Instructions Recorded Confirmed levothyroxine 125 mcg tablet 125 mcg PO DAILY 12/03/20 06/28/22 rosuvastatin 20 mg tablet 20 mg PO BEDTIME 04/08/21 06/28/22 ipratropium 0.5 mg-albuterol 3 mg ml inhalation 06/28/22 06/28/22 (2.5 mg base)/3 mL nebulization soln Previous Rx's Medication Instructions Recorded Trelegy Ellipta 200 mcg-62.5 1 inh inhalation DAILY #60 ea 08/15/22 mcg-25 mcg powder for inhalation (kifetoabpcm-cemertbck-hpeoerza) Ventolin HFA 90 mcg/actuation 2 puff PO Q4H PRN for wheezing #18 09/09/22 aerosol inhaler (albuterol sulfate) grams amlodipine 5 mg tablet 5 mg PO DAILY #90 tabs 09/09/22 acetaminophen 500 mg tablet 500 mg PO Q6H PRN fever or pain 09/20/22 (Tylenol Extra Strength) #14 tabs cyclobenzaprine 5 mg tablet 5 mg PO Q8H PRN pain (scale score 09/20/22 7-10) 5 days #14 tabs Daliresp 250 mcg tablet 250 mcg PO DAILY 30 days #30 tabs 10/10/22 (roflumilast) denosumab 60 mg/mL subcutaneous 60 mg subcut [id number] #1 mL 01/10/23 syringe (Prolia) metoprolol succinate 50 mg 50 mg PO DAILY #90 tabs 02/20/23 tablet,extended release 24 hr azithromycin 250 mg tablet 250 mg PO 3XW 28 days #12 tabs 02/23/23 cholecalciferol (vitamin D3) 50 50 mcg PO DAILY 30 days #30 caps 03/21/23 mcg (2,000 unit) capsule montelukast 10 mg tablet 10 mg PO BEDTIME 30 days #30 tabs 03/21/23 (Singulair) Allergies Allergy/AdvReac Type Severity Reaction Status Date / Time aspirin [Aspirin] Allergy Severe TROUBLE Verified 02/23/23 15:32 BREATHING, vomiting Penicillins Allergy Severe THROAT Verified 02/23/23 15:32 CLOSES adhesive tape [ADHESIVE TAPE] Allergy Intermediate RASH/ITCH Verified 02/23/23 15:32 ibuprofen [From MOTRIN] Allergy Intermediate VOMITING Verified 02/23/23 15:32 latex [LATEX] Allergy Intermediate RASH Verified 02/23/23 15:32 penicillin V Allergy Unknown rash Verified 02/23/23 15:32 prednisone Allergy Unknown Unknown Verified 02/23/23 15:32 spider venom [SPIDER BITES] Allergy Unknown SWELLING Verified 02/23/23 15:32 clarithromycin [From Biaxin] AdvReac Intermediate PROJECTILE Verified 02/23/23 15:32 VOMITING Adhesive Tape Allergy Unknown rash Uncoded 02/23/23 15:32 Biaxin Allergy Unknown vomiting, Uncoded 02/23/23 15:32 abd pain eggs Allergy Unknown Unknown Uncoded 02/23/23 15:32 Latex Gloves Allergy Unknown rash Uncoded 02/23/23 15:32 Review of Systems Constitutional: Constitutional: Reports no additional constitutional complaints, Denies chills, Denies fever(s) and Denies night sweats Eyes: Eyes: Reports no additional eye complaints, Denies blurry vision, Denies change in vision, Denies diplopia, Denies eye discharge, Denies loss of vision and Denies eye pain ENT: Denies dizziness Cardiovascular: Cardiovascular: Reports no additional cardiovascular complaints, Denies chest pain, Denies lightheadedness, Denies Loss of Consciousness and Denies dyspnea Respiratory: Respiratory: Reports no additional respiratory complaints and Denies dyspnea Gastrointestinal: Gastrointestinal: Reports no additional gastrointestinal complaints, Denies melena, Denies hematochezia, Denies change in bowel habits and Denies change in stool character Genitourinary: Genitourinary: Denies hematuria, Denies urinary frequency, Denies dysuria, Reports flank pain (right), Denies urinary incontinence, Denies urinary hesitancy and Denies urinary urgency Musculoskeletal: Musculoskeletal: Reports no additional musculoskeletal complaints, Denies numbness and Denies tingling Neurologic: Denies dizziness, Denies loss of vision, Denies numbness and Denies tingling Psychiatric: Psychiatric: Reports no additional psychiatric complaints Endocrine: Endocrine: Reports no additional endocrine complaints Hematologic/Lymphatic: Hematologic/Lymphatic: Reports no additional hematologic/lymphatic complaints Allergic/Immunologic: Allergic/Immunologic: Reports no additional allergic/immunologic complaints [facility] Past Medical History Attestation statement: The following information was validated with the patient. Source: old records reviewed and nursing notes reviewed Medical History Asthma Chest discomfort Chronic respiratory failure COPD (chronic obstructive pulmonary disease) Cough HTN (hypertension) Neck pain Nonsustained ventricular tachycardia Obesity Osteoporosis Pulmonary hypertension Pulmonary nodules SVT (supraventricular tachycardia) Surgical History History of surgery on arm Hx of appendectomy Hx of cardiac cath Hx of cholecystectomy Hx of hysterectomy Hx of knee surgery Family History Family History Father Lung cancer Mother CVA (cerebral vascular accident) Social History Social History Household Members: None Alcohol intake: never Patient Tobacco Use Status: Former Tobacco user Years Smoked: 30 Second Hand Smoke Exposure: No Current occupational status: employed 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 [employer] Physical Exam ED Vital Signs: Vital Signs - 24 hr 05/28/23 18:32 Temperature 98.3 F Pulse Rate 74 Respiratory Rate 18 Blood Pressure 170/56 H Pulse Oximetry 96 Oxygen Delivery Method Room Air BMI result Body Mass Index 35.4 Const General: cooperative, no acute distress, alert and awake Nutritional Appearance: well nourished Orientation/consciousness: patient oriented x3 Limitations: no limitations HENMT Head: Yes normal to inspection and Yes atraumatic Ears: hearing grossly normal bilaterally and external ears normal General nose exam: Normal external nose present, no nasal discharge noted and no epistaxis Face and sinus: Yes normal facial exam, No abrasion and No laceration Mouth: Normal oral and palatal mucosa present, no drooling and no muffled voice Eyes General: appearance normal, both eyes and all related structures Periorbital: periorbital findings normal Eyelids: Yes eyelids normal Conjunctivae: conjunctivae normal Pupils: Equal, round and reactive pupils present EOM: EOMs intact bilaterally Neck Neck: Yes normal visual inspection, Yes full ROM and Yes no lymphadenopathy Chest Chest palpation & inspection: normal inspection of the chest Resp Effort & Inspection: normal respiratory effort and able to speak in complete sentences GI Inspection: Yes normal to inspection Neuro General: patient oriented x3 and moves all extremities Cranial nerves: Yes Equal, round and reactive pupils present Cognition (Neuro): normal cognition Motor exam (neuro): 5/5 motor strength present throughout Sensory Exam: Normal double simultaneous stimulation for sensation Coordination: ozuvih-vz-uszn test normal Extrem General: Yes normal to inspection, Yes full ROM and Yes capillary refill normal Psych Appearance: grossly normal Mental Status: mental status grossly normal Affect: normal affect Attitude: cooperative Thought process: Normal thought process present Thought content: Normal thought content present Insight: Good insight present (Psych) Course Course Course Narrative: RME performed by Airam Randolph PA-C. Patient is a 72 year old assigned female at presenting to the emergency department with right flank pain. Patient states that she is not vaccinated against shingles and has had a CT scan in the past for this issue (03/03/2023). The patient states that she is concerned that cat scan was read wrong considering it comments on an appendix she has not had since she was 14 years old. Labs ordered. Patient placed back in the waiting room pending room availability and results. Medical Decision Making Medical Decision Making MDM Narrative: Patient is a 72 year old assigned female at with a history of HTN, COPD, and SVT presenting to the emergency department today with right flank pain. Patient's physical exam was unremarkable. Patient's blood work was unremarkable. Patient's urine showed no acute process. Patient eloped from the department prior to myself or any of the other emergency department providers were able to explain her physical exam findings, test results, or treatment / treatment plans. Differential Diagnosis Differential Diagnoses: The differential diagnosis associated with the presentation includes Shingles Renal calculi Flank pain Admission/Observation Consideration of admission/observation: Escalation of care including admission/observation considered Patient would have been admitted to the hospital had her work up had any findings where hospital admission was appropriate, her clinical presentation warranted hospital admission, and if she hadn't eloped from the department. Lab Data MDM Lab Attestation statement: I reviewed the patient's lab results. My interpretation of these studies and their corresponding values is that they are grossly normal. 05/28/23 19:14 05/28/23 19:14 Labs: Lab Results 05/28/23 05/28/23 05/28/23 Range/Units 19:14 19:14 19:14 WBC 8.2 (4.8-10.8) X10*3/uL RBC 4.63 (4.20-5.50) X10*6/uL Hgb 13.6 (12.0-16.0) g/dl Hct 42.1 (37.0-47.0) % MCV 90.9 (80.0-98.0) fL MCH 29.4 (27.0-33.0) pg MCHC 32.3 (31.0-35.0) g/dl RDW 13.1 (11.0-16.0) % Plt Count 210 (160-400) X10*3/uL MPV 10.7 (9.4-12.3) fL Immature Gran % (Auto) 0.2 (0.0-0.4) % Neut % (Auto) 63.4 (45-73) % Lymph % (Auto) 21.0 (20-40) % Rhea % (Auto) 11.4 H (2-11) % Eos % (Auto) 3.3 (0-4) % Baso % (Auto) 0.7 (0-2) % Lymph # (Auto) 1.7 (1.2-4.9) X10*3/uL Rhea # (Auto) 0.9 (0.1-1.2) X10*3/uL Eos # (Auto) 0.3 (0.0-0.4) X10*3/uL Baso # (Auto) 0.1 (0.0-0.2) X10*3/uL Abs Immat Gran (auto) 0.02 (0.00-0.03) X10*3/uL Absolute Neuts (auto) 5.2 (2.0-8.3) x10*3/uL Absolute Nucleated RBC 0.000 (0.0-0.012) X10*3/uL Nucleated RBC % (auto) 0.0 (0.0-0.2) /100WBC Sodium 143 (135-145) mmol/L Potassium 4.7 (3.3-5.1) mmol/L Chloride 106 (96-108) mmol/L Carbon Dioxide 25 (22-29) mmol/L Anion Gap 17 (12-20) BUN 14 (9-16) mg/dL Creatinine 0.71 (0.5-1.4) mg/dL Estim Creat Clear Calc 77.0 Estimated GFR > 60 Random Glucose 101 (60-115) mg/dL Calcium 10.0 (8.4-10.2) mg/dL Magnesium 2.3 (1.6-2.6) mg/dL Total Bilirubin 0.5 (0.0-1.0) mg/dL AST 18 (5-31) U/L ALT 15 (0-31) U/L Alkaline Phosphatase 80 (39-117) U/L Total Protein 7.3 (6.5-8.0) g/dL Albumin 4.0 (3.5-5.0) g/dL Urine Color Yellow Urine Appearance Clear Urine pH 5.5 (5.0-9.0) Ur Specific [place] 1.025 (1.005-1.025) Urine Protein Negative (Neg-Trace) mg/dL Urine Glucose (UA) Negative (Negative) mg/dL Urine Ketones Negative (Negative) mg/dL Urine Blood Negative (Negative) Urine Nitrite Negative (Negative) Ur Leukocyte Esterase Negative (Negative) Tests considered The following testing was considered but not selected: Imaging including CT scan was considered however, the patient eloped from the department prior to discussing the need for this type of testing. Chronic Conditions Patient?s care impacted by: Hypertension Discharge Plan Discharge Clinical Impression: Flank pain Patient Disposition: Elopement Prescriptions: No Action Josephlevamshi Ellipta 200-62.5-25 mcg blister with device 1 inh inhalation DAILY Qty: 60 11RF albuterol sulfate [Ventolin HFA] 90 mcg/actuation HFA aerosol inhaler 2 puff PO Q4H PRN (Reason: for wheezing) Qty: 18 12RF amlodipine 5 mg tablet 5 mg PO DAILY Qty: 90 2RF Daliresp 250 mcg tablet 250 mcg PO DAILY 30 Days Qty: 30 11RF Prolia 60 mg/mL syringe 60 mg subcut [id number] Qty: 1 2RF metoprolol succinate 50 mg tablet extended release 24 hr 50 mg PO DAILY Qty: 90 3RF cholecalciferol (vitamin D3) 50 mcg (2,000 unit) capsule 50 mcg PO DAILY 30 Days Qty: 30 6RF montelukast [Singulair] 10 mg tablet 10 mg PO BEDTIME 30 Days Qty: 30 11RF acetaminophen [Tylenol Extra Strength] 500 mg tablet 500 mg PO Q6H PRN (Reason: fever or pain) Qty: 14 0RF cyclobenzaprine 5 mg tablet 5 mg PO Q8H PRN (Reason: pain (scale score 7-10)) 5 Days Qty: 14 0RF levothyroxine 125 mcg tablet 125 mcg PO DAILY rosuvastatin 20 mg tablet 20 mg PO BEDTIME ipratropium-albuterol 0.5 mg-3 mg(2.5 mg base)/3 mL solution for nebulization inhalation azithromycin 250 mg tablet 250 mg PO 3XW 28 Days Qty: 12 6RF Rx Instructions: Take 1 tablet on Monday/Monday/Monday Discharge Date/Time: 05/28/23 23:05
--- NOTE | 2023-05-28 19:14 | MHC.EDTECH ---
This tech brought pt into triage area,labs and a urine specimen were obtained and sent to lab, patient brought back to waiting room.
[2023-05-28 19:20] LABS: MANUAL DIFF FLAG NO
[2023-05-28 19:22] LABS: Basophils Absolute Auto 0.1 X10*3/uL (0.0-0.2); Basophils Percent Auto 0.7 % (0-2); Eosinophils Absolute Auto 0.3 X10*3/uL (0.0-0.4); Eosinophils Percent Auto 3.3 % (0-4); Hematocrit 42.1 % (37.0-47.0); Hemoglobin 13.6 g/dl (12.0-16.0); Imm Gran Abs Auto 0.02 X10*3/uL (0.00-0.03); Imm Gran Pct Auto 0.2 % (0.0-0.4); Lymphocytes Absolute Auto 1.7 X10*3/uL (1.2-4.9); Mean Corpuscular HGB Conc 32.3 g/dl (31.0-35.0); Mean Corpuscular Hemoglobin 29.4 pg (27.0-33.0); Mean Corpuscular Volume 90.9 fL (80.0-98.0); Mean Platelet Volume 10.7 fL (9.4-12.3); Monocytes Absolute Auto 0.9 X10*3/uL (0.1-1.2); Monocytes Percent Auto 11.4 % (2-11); Neutrophils Absolute Auto 5.2 x10*3/uL (2.0-8.3); Neutrophils Percent Auto 63.4 % (45-73); Platelet Count 210 X10*3/uL (160-400); Red Blood Count 4.63 X10*6/uL (4.20-5.50); Red Cell Distribution Width 13.1 % (11.0-16.0); White Blood Count 8.2 X10*3/uL (4.8-10.8)
[2023-05-28 19:23] LABS: Appearance Urine Clear; Color Urine Yellow; Glucose Urine UA Negative (Negative); Leukocyte Esterase Urine Negative (Negative); Nitrite Urine Negative (Negative); PH 5.5 (5.0-9.0); Specific Gravity - Urine 1.025 (1.005-1.025); Urine Blood Negative (Negative); Urine Ketones Negative (Negative); Urine Protein Negative (Neg-Trace)
[2023-05-28 19:44] LABS: Alanine Aminotransferase 15 U/L (0-31); Alkaline Phosphatase 80 U/L (39-117); Anion Gap 17 (12-20); Aspartate Amino Transferase 18 U/L (5-31); Bilirubin Total 0.5 mg/dL (0.0-1.0); Blood Urea Nitrogen 14 mg/dL (9-16); Carbon Dioxide 25 mmol/L (22-29); Chloride 106 mmol/L (96-108); Estimated Glomerular Filt Rate > 60; Glucose Random 101 mg/dL (60-115); Magnesium 2.3 mg/dL (1.6-2.6); Potassium 4.7 mmol/L (3.3-5.1); Sodium 143 mmol/L (135-145); Total Protein 7.3 g/dL (6.5-8.0)
--- NOTE | 2023-05-28 23:04 | PC.NURSE ---
Pt left the bedside and reports will follow up with pcp in the morning as pain has resolved. Refuses vitals at this time. Ambulatory with steady gait.
== END 2023-05-28 23:05 | disposition left against medical advice (07) ==
PROVIDERS: Physician Assistant Medical; Emergency Provider Student in an Organized Health Care Education/Training Program; PCP Internal Medicine
DX: R10.9 Unspecified abdominal pain (principal); I10 Essential (primary) hypertension; Z87.891 Personal history of nicotine dependence; Z79.899 Other long term (current) drug therapy
CPT/HCPCS: 36415; 80053; 81003; 83735; 85025; 99282

== ENCOUNTER 2023-05-29 09:49 | Outpatient (REF) | payer OTHER, SELFPAY ==
--- NOTE | ~2023-05-29 | US_ITS ---
EXAMINATION: US ABDOMEN COMPLETE CLINICAL INFORMATION: Abdominal pain. COMPARISON: Ultrasound from 12/09/[address] scan from 03/03/2023 TECHNIQUE: Real-time imaging of the abdominal viscera. FINDINGS: PANCREAS: Tail obscured by the rest of pancreas is normal. ABDOMINAL AORTA: The proximal, mid, and distal segments are normal in caliber. INFERIOR VENA CAVA: Visualized portions are normal. LIVER: Liver is enlarged with the right lobe of the liver measured 18.4 cm without intrahepatic masses or ductal dilatation seen. GALLBLADDER: Gallbladder is surgically absent . COMMON BILE DUCT: Normal in caliber measuring 0.6 cm in diameter. RIGHT KIDNEY: 14.0 cm No hydronephrosis. No renal calculi or focal parenchymal lesions. There is thinning of cortex and calcifications most likely vascular. LEFT KIDNEY: 12.1 there is no hydronephrosis but caliectasis present. No calcifications masses or thickening of the cortex. . SPLEEN: Normal. The spleen measures 9.8 cm in maximum dimension. FREE FLUID: None. US/US abdomen complete IMPRESSION: Status post cholecystectomy. Mild hepatomegaly.
== END 2023-05-29 09:50 | disposition home or self-care (01) ==
LOC: HO.US 09:49
PROVIDERS: PCP Internal Medicine; Visit Provider Internal Medicine
DX: R10.9 Unspecified abdominal pain (principal)
CPT/HCPCS: 76700

== ENCOUNTER 2023-06-01 10:25 | Outpatient (REF) | payer OTHER, SELFPAY ==
[2023-06-01 13:52] LABS: MANUAL DIFF FLAG NO
[2023-06-01 15:23] LABS: Basophils Absolute Auto 0.1 X10*3/uL (0.0-0.2); Basophils Percent Auto 0.9 % (0-2); Eosinophils Absolute Auto 0.2 X10*3/uL (0.0-0.4); Eosinophils Percent Auto 2.4 % (0-4); Hematocrit 41.2 % (37.0-47.0); Hemoglobin 13.1 g/dl (12.0-16.0); Imm Gran Abs Auto 0.03 X10*3/uL (0.00-0.03); Imm Gran Pct Auto 0.4 % (0.0-0.4); Lymphocytes Absolute Auto 1.5 X10*3/uL (1.2-4.9); Mean Corpuscular HGB Conc 31.8 g/dl (31.0-35.0); Mean Corpuscular Hemoglobin 29.2 pg (27.0-33.0); Mean Platelet Volume 11.3 fL (9.4-12.3); Monocytes Absolute Auto 0.5 X10*3/uL (0.1-1.2); Monocytes Percent Auto 6.9 % (2-11); Neutrophils Absolute Auto 5.5 x10*3/uL (2.0-8.3); Neutrophils Percent Auto 70.4 % (45-73); Platelet Count 215 X10*3/uL (160-400); Red Blood Count 4.48 X10*6/uL (4.20-5.50); White Blood Count 7.8 X10*3/uL (4.8-10.8)
[2023-06-01 16:04] LABS: Alanine Aminotransferase 17 U/L (0-31); Albumin Level 4.1 g/dL (3.5-5.0); Alkaline Phosphatase 79 U/L (39-117); Aspartate Amino Transferase 22 U/L (5-31); Bilirubin Direct 0.2 mg/dL (0.0-0.5); Bilirubin Total 0.6 mg/dL (0.0-1.0); C Reactive Protein < 0.10 mg/dL (< or = 0.50); Total Protein 7.2 g/dL (6.5-8.0)
[2023-06-01 16:30] LABS: Erythrocyte Sedimentation Rate 16 MM/HR (0-20)
[2023-06-01 17:09] LABS: CDiff Gene PCR NEGATIVE (Negative)
[2023-06-01 22:04] LABS: Leukocytes Stool Qualitative NEGATIVE (NEGATIVE)
[2023-06-05 15:43] LABS: Immunoglobulin A 262 mg/dL (70-320)
[2023-06-05 20:28] LABS: Gliadin Deamidated IgA Ab 26.2 U/mL; Gliadin Deamidated IgG Ab 15.4 U/mL; Transglutaminase Ab IgG 2.7 U/mL; Transglutaminase IgA <1.0 U/mL
[2023-06-07 13:42] LABS: Endomysial IgA Antibody Negative (Negative)
== END 2023-06-01 10:26 | disposition home or self-care (01) ==
LOC: HO.LAB 10:25
PROVIDERS: PCP Internal Medicine; Visit Provider Internal Medicine
DX: R10.11 Right upper quadrant pain (principal); K90.0 Celiac disease; R19.7 Diarrhea, unspecified
CPT/HCPCS: 36415; 80076; 82784; 85025; 85652; 86140; 86231; 86258; 86364; 87493; 87507; 89055

== ENCOUNTER 2023-06-02 07:31 | Outpatient (REF) | payer OTHER, SELFPAY ==
[2023-06-02 11:47] LABS: Adenovirus F 40/41 Not Detected (Not Detect.); Astrovirus Not Detected (Not Detect.); Campylobacter Not Detected (Not Detect.); Cryptosporidium Not Detected (Not Detect.); Cyclospora cayetanensis Not Detected (Not Detect.); E. coli EAEC Not Detected (Not Detect.); E. coli EPEC Not Detected (Not Detect.); E. coli ETEC Not Detected (Not Detect.); E. coli STEC Not Detected (Not Detect.); Entamoeba histolytica Not Detected (Not Detect.); Giardia lamblia Not Detected (Not Detect.); Norovirus GI/GII Not Detected (Not Detect.); Plesiomonas shigelloides Not Detected (Not Detect.); Rotavirus A Not Detected (Not Detect.); Salmonella Not Detected (Not Detect.); Sapovirus Not Detected (Not Detect.); Shigella sp./EIEC Not Detected (Not Detect.); Vibrio Not Detected (Not Detect.); Vibrio Cholerae Not Detected (Not Detect.); Yersinia enterocolitica Not Detected (Not Detect.)
== END 2023-06-02 07:32 | disposition home or self-care (01) ==
LOC: HO.LAB 07:31
PROVIDERS: Visit Provider Internal Medicine
DX: R19.7 Diarrhea, unspecified (principal)
CPT/HCPCS: 87507

== ENCOUNTER 2023-06-12 07:18 | Outpatient (REF) | payer OTHER, SELFPAY ==
[2023-06-12 07:39] LABS: MANUAL DIFF FLAG NO
[2023-06-12 08:15] LABS: Basophils Absolute Auto 0.1 X10*3/uL (0.0-0.2); Basophils Percent Auto 0.8 % (0-2); Eosinophils Absolute Auto 0.2 X10*3/uL (0.0-0.4); Eosinophils Percent Auto 2.8 % (0-4); Hematocrit 41.7 % (37.0-47.0); Hemoglobin 13.3 g/dl (12.0-16.0); Imm Gran Abs Auto 0.03 X10*3/uL (0.00-0.03); Imm Gran Pct Auto 0.4 % (0.0-0.4); Lymphocytes Absolute Auto 1.6 X10*3/uL (1.2-4.9); Mean Corpuscular HGB Conc 31.9 g/dl (31.0-35.0); Mean Corpuscular Hemoglobin 29.4 pg (27.0-33.0); Mean Corpuscular Volume 92.3 fL (80.0-98.0); Mean Platelet Volume 11.1 fL (9.4-12.3); Monocytes Absolute Auto 0.7 X10*3/uL (0.1-1.2); Monocytes Percent Auto 8.6 % (2-11); Neutrophils Absolute Auto 5.4 x10*3/uL (2.0-8.3); Neutrophils Percent Auto 67.4 % (45-73); Platelet Count 215 X10*3/uL (160-400); Red Blood Count 4.52 X10*6/uL (4.20-5.50); Red Cell Distribution Width 12.8 % (11.0-16.0); White Blood Count 7.9 X10*3/uL (4.8-10.8)
[2023-06-12 08:55] LABS: Alanine Aminotransferase 13 U/L (0-31); Albumin Level 3.8 g/dL (3.5-5.0); Alkaline Phosphatase 70 U/L (39-117); Anion Gap 10 (12-20); Aspartate Amino Transferase 18 U/L (5-31); Bilirubin Total 0.5 mg/dL (0.0-1.0); Blood Urea Nitrogen 14 mg/dL (9-16); Calcium 9.5 mg/dL (8.4-10.2); Carbon Dioxide 29 mmol/L (22-29); Chloride 109 mmol/L (96-108); Cholesterol 163 mg/dL; Estimated Glomerular Filt Rate > 60; Glucose Fasting 91 mg/dL (60-99); HDL Cholesterol 48 mg/dL; LDL Cholesterol Calculated 80 mg/dl; Potassium 4.2 mmol/L (3.3-5.1); Sodium 144 mmol/L (135-145); Total Protein 6.8 g/dL (6.5-8.0); Triglycerides 178 mg/dL
[2023-06-12 09:04] LABS: Vitamin D 25-OH Total 48.7 ng/mL (>30)
[2023-06-12 09:56] LABS: Appearance Urine Cloudy; Color Urine Yellow; Glucose Urine UA Negative (Negative); Leukocyte Esterase Urine Negative (Negative); Nitrite Urine Negative (Negative); PH 5.5 (5.0-9.0); Urine Blood Negative (Negative); Urine Ketones Negative (Negative); Urine Protein Negative (Neg-Trace)
== END 2023-06-12 07:19 | disposition home or self-care (01) ==
LOC: HO.LAB 07:18
PROVIDERS: PCP Internal Medicine; Visit Provider Internal Medicine
DX: Z00.00 Encounter for general adult medical examination without abnormal findings (principal); I10 Essential (primary) hypertension; E55.9 Vitamin D deficiency, unspecified; E78.00 Pure hypercholesterolemia, unspecified; E89.0 Postprocedural hypothyroidism
CPT/HCPCS: 36415; 80053; 80061; 81003; 82306; 84443; 85025

== ENCOUNTER 2023-07-03 07:32 | Outpatient (REF) | payer OTHER, SELFPAY ==
--- NOTE | ~2023-07-03 | MM_ITS ---
EXAMINATION: MM SCREENING DIGITAL BREAST TOMOSYNTHESIS, BILATERAL CLINICAL INFORMATION: Screening. Asymptomatic. COMPARISON: Mammography: 07/10/2022, 06/14/2021, 04/10/2020, 04/05/2019, and dating back to 2016. TECHNIQUE: Digital breast tomosynthesis is performed in both the craniocaudal and mediolateral oblique views along with computer-aided detection (CAD). Synthesized 2D images are generated from the tomosynthesis. Added full-field 3-D right CC view was included. FINDINGS: There are scattered areas of fibroglandular density (ACR BI-RADS breast composition Category b). There are no suspicious masses, suspicious grouped calcifications, or areas of architectural distortion. The parenchymal pattern is stable from prior exams. There are bilateral vascular and scattered punctate benign-appearing calcifications, which have remained stable from 2016 exams. Dermal lesion again noted posterior upper left breast. No skin changes. No axillary abnormalities. MM/MM tomosynthesis screening BI IMPRESSION: No mammographic evidence of malignancy. Stable benign findings. ASSESSMENT: BI-RADS BI-RADS 2 - Benign Findings RECOMMENDATION: Routine annual mammography screening. 1 year F/U This examination should not preclude the clinical evaluation of a suspicious palpable abnormality. This patient's information was entered into a reminder system with a target due date for their next mammogram.
== END 2023-07-03 07:33 | disposition home or self-care (01) ==
LOC: HO.MAMMO 07:32
PROVIDERS: PCP Internal Medicine; Visit Provider Internal Medicine
DX: Z12.31 Encounter for screening mammogram for malignant neoplasm of breast (principal)
CPT/HCPCS: 77063; 77067

== ENCOUNTER → 2023-07-03 07:45 | Outpatient (BNV) | payer OTHER, SELFPAY | PROVIDERS: PCP Internal Medicine; Visit Provider Radiology Diagnostic Radiology | DX: Z12.31 Encounter for screening mammogram for malignant neoplasm of breast (principal) | CPT/HCPCS: 77063; 77067 ==

== ENCOUNTER 2023-07-04 15:04 | Outpatient (AMB) | payer OTHER, SELFPAY ==
--- NOTE | 2023-07-04 15:05 | A.OFFVIS_ITS ---
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 Allergies aspirin [Aspirin] Allergy (Severe, Verified 02/23/23 15:32) TROUBLE BREATHING, vomiting Penicillins Allergy (Severe, Verified 02/23/23 15:32) THROAT CLOSES adhesive tape [ADHESIVE TAPE] Allergy (Intermediate, Verified 02/23/23 15:32) RASH/ITCH ibuprofen [From MOTRIN] Allergy (Intermediate, Verified 02/23/23 15:32) VOMITING latex [LATEX] Allergy (Intermediate, Verified 02/23/23 15:32) RASH penicillin V Allergy (Unknown, Verified 02/23/23 15:32) rash prednisone Allergy (Unknown, Verified 02/23/23 15:32) Unknown spider venom [SPIDER BITES] Allergy (Unknown, Verified 02/23/23 15:32) SWELLING clarithromycin [From Biaxin] Adverse Reaction (Intermediate, Verified 02/23/23 15:32) PROJECTILE VOMITING Adhesive Tape Allergy (Unknown, Uncoded 02/23/23 15:32) rash Biaxin Allergy (Unknown, Uncoded 02/23/23 15:32) vomiting, abd pain eggs Allergy (Unknown, Uncoded 02/23/23 15:32) Unknown Latex Gloves Allergy (Unknown, Uncoded 02/23/23 15:32) rash Medication List - Last Reconciled 07/04/23 by Nabeel Mackenzie MD acetaminophen (Tylenol Extra Strength) 500 mg PO Q6H PRN amlodipine 5 mg PO DAILY azithromycin 250 mg PO 3XW 28 days cholecalciferol (vitamin D3) 50 mcg PO DAILY 30 days Daliresp (roflumilast) 250 mcg PO DAILY 30 days NS ipratropium-albuterol 0.5 mg-3 mg(2.5 mg base)/3 mL mL inhalation levothyroxine 125 mcg PO DAILY metoprolol succinate ER 50 mg PO DAILY montelukast (Singulair) 10 mg PO BEDTIME 30 days rosuvastatin 20 mg PO BEDTIME Trelegy Ellipta 200-62.5-25 mcg (obwqdtxuchk-klpwburkq-wmvujqfv) 1 inh inhalation DAILY NS Ventolin HFA 90 mcg/actuation (albuterol sulfate) 2 puffs PO Q4H PRN NS HPI HPI Comments History of Present Illness Details Sabine comes for follow-up. About 2 weeks ago at work at work she had sudden-onset shortness of breath. Rapid response was called at work, however she refused to go to the emergency room. She then took inhalers and steroids and symptoms improved. She denies any symptoms of prolonged palpitation irregular heartbeat. No exertional chest pain. Takes all her medications. [facility] Medical History Cough Chest discomfort Pulmonary hypertension Asthma Obesity Neck pain Chronic respiratory failure Pulmonary nodules Nonsustained ventricular tachycardia HTN (hypertension) SVT (supraventricular tachycardia) COPD (chronic obstructive pulmonary disease) Osteoporosis Surgical History Hx of cardiac cath Hx of knee surgery History of surgery on arm Hx of hysterectomy Hx of appendectomy Hx of cholecystectomy Family History Father Lung cancer Mother CVA (cerebral vascular accident) Social History Household Members: None Alcohol intake: never Patient Tobacco Use Status: Former Tobacco user Years Smoked: 30 Second Hand Smoke Exposure: No Current occupational status: employed 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 [employer] Review of Systems Const Denies chills, Denies fatigue, Denies fever(s), Denies frequent falls, Denies weakness, Denies weight gain and Denies weight loss ENT Denies dizziness Card Denies chest pain, Denies leg edema, Denies lightheadedness, Denies palpitations, Denies dyspnea, Denies dyspnea on exertion, Denies orthopnea and Denies other (loss of consciousness) Resp Denies cough, Denies dyspnea and Denies dyspnea on exertion GI Denies hematochezia and Denies change in stool character Musc Denies abnormal gait, Denies muscle weakness, Denies numbness, Denies radiating pain into limb and Denies tingling Neuro Denies abnormal gait, Denies dizziness, Denies frequent falls, Denies numbness, Denies tingling and Denies weakness Endo Denies fatigue and Denies palpitations Physical Exam Vital Signs: Last Vital Signs Pulse 52 07/04/23 15:06 BP 120/72 07/04/23 15:06 BMI result Body Mass Index 34.4 Const General: cooperative, comfortable, no acute distress, alert, awake and well groomed Nutritional Appearance: obese Orientation/consciousness: patient oriented x3 Limitations: no limitations Neck Neck: Yes trachea midline, Yes supple and Yes no JVD Resp Effort & Inspection: normal respiratory effort Auscultation: no rales, no wheezes and diminished lung sounds Cardio Jugular venous distension: no JVD Palpation: normal PMI Rate: regular rate Rhythm: regular rhythm Heart sounds: S1 normal heart sound present and S2 normal heart sound present GI Auscultation: normal bowel sounds Skin General skin exam: no rashes or lesions noted Neuro General: patient oriented x3 and no focal motor deficits Extrem General: Yes no clubbing, cyanosis or edema Office Procedures EKG Details: EKG shows normal sinus rhythm with sinus arrhythmia otherwise normal EKG [id number], Complete Assessment & Plan Assessment & Plan (1) CAD (coronary artery disease): Code(s): I25.10 - Atherosclerotic heart disease of [place] coronary artery without angina pectoris Plan: CAD nonobstructive by cardiac catheterization last year. Unlikely that a recent symptoms shortness of breath which was sudden and severe likely related to home on a heart issues. Most likely mucus plugging from a COPD. Advised to follow- up with the Pulmonary. Continue aggressive risk factor modification. LDL is significantly improved on statin therapy advised to continue the same. Continue aggressive blood pressure control which is currently well optimized. Advised to monitor blood pressure at home maintain a log. Goal blood pressure less than 130/84. (2) SVT (supraventricular tachycardia): Code(s): I47.1 - Supraventricular tachycardia Plan: SVT without any obvious clinical recurrence at this point time. Continue metoprolol therapy. Avoidance of stimulants was discussed. Vagal maneuvers were discussed. Follow up in the clinic in 1 year's time, sooner p.r.n.. Thank you for allowing me to partake in her care Coding Level of Care Code Est Pt Level 4 (19777) Diagnoses CAD (coronary artery disease) I25.10 SVT (supraventricular tachycardia) I47.1 CPT Codes EKG - CPT: 36127-[id number], Complete ([id number])
[2023-07-04 15:06] VITALS: BP 120/72; PULSE 52; BMI 34.4
== END 2023-07-04 15:36 | disposition home or self-care (01) ==
PROVIDERS: PCP Internal Medicine; Referring Provider Internal Medicine; Visit Provider Internal Medicine Cardiovascular Disease
DX: I25.10 Atherosclerotic heart disease of native coronary artery without angina pectoris (principal); I47.1 Supraventricular tachycardia
CPT/HCPCS: 93010; 99214

== ENCOUNTER → 2023-07-04 15:04 | Outpatient (BNVA) | payer OTHER, SELFPAY | PROVIDERS: PCP Internal Medicine; Referring Provider Internal Medicine; Visit Provider Internal Medicine Cardiovascular Disease | DX: I25.10 Atherosclerotic heart disease of native coronary artery without angina pectoris (principal); I47.1 Supraventricular tachycardia; Z79.899 Other long term (current) drug therapy | CPT/HCPCS: 93005 ==

== ENCOUNTER 2023-07-12 15:07 | Outpatient (AMB) | payer OTHER, SELFPAY ==
[2023-07-12 15:09] VITALS: BP 143/67; PULSE 47; BMI 34.7
--- NOTE | 2023-07-12 15:09 | MHC.OFFVIS ---
Intake Vital Signs 07/12/23 15:09 Height 5 ft 4 in Weight 202 lb BMI 34.7 BP 143/67 H Blood Pressure Location Rt brachial Position Sitting Pulse 47 L Intake Visit Reasons: skin lesions b/l arms Intake Note: This patient presents for an assessment for multiple skin lesion bilateral arms. Patient c/o; reports one lesion on left thigh and one skin lesion on the right thigh, reports lesion LT thigh changes color. 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 Accompanied by: Self / Same As Patient Allergies aspirin [Aspirin] Allergy (Severe, Verified 07/12/23 15:10) TROUBLE BREATHING, vomiting Penicillins Allergy (Severe, Verified 07/12/23 15:10) THROAT CLOSES adhesive tape [ADHESIVE TAPE] Allergy (Intermediate, Verified 07/12/23 15:10) RASH/ITCH ibuprofen [From MOTRIN] Allergy (Intermediate, Verified 07/12/23 15:10) VOMITING latex [LATEX] Allergy (Intermediate, Verified 07/12/23 15:10) RASH penicillin V Allergy (Unknown, Verified 07/12/23 15:10) rash prednisone Allergy (Unknown, Verified 07/12/23 15:10) Unknown spider venom [SPIDER BITES] Allergy (Unknown, Verified 07/12/23 15:10) SWELLING clarithromycin [From Biaxin] Adverse Reaction (Intermediate, Verified 07/12/23 15:10) PROJECTILE VOMITING Adhesive Tape Allergy (Unknown, Uncoded 07/12/23 15:10) rash Biaxin Allergy (Unknown, Uncoded 07/12/23 15:10) vomiting, abd pain eggs Allergy (Unknown, Uncoded 07/12/23 15:10) Unknown Latex Gloves Allergy (Unknown, Uncoded 07/12/23 15:10) rash Medication List - Last Reconciled 07/12/23 by Gustavo Park MD acetaminophen (Tylenol Extra Strength) 500 mg PO Q6H PRN amlodipine 5 mg PO DAILY azithromycin 250 mg PO 3XW 28 days cholecalciferol (vitamin D3) 50 mcg PO DAILY 30 days Daliresp (roflumilast) 250 mcg PO DAILY 30 days NS ipratropium-albuterol 0.5 mg-3 mg(2.5 mg base)/3 mL mL inhalation levothyroxine 125 mcg PO DAILY metoprolol succinate ER 50 mg PO DAILY montelukast (Singulair) 10 mg PO BEDTIME 30 days rosuvastatin 20 mg PO BEDTIME Trelegy Ellipta 200-62.5-25 mcg (pxbevoekhuy-ddlqyqfqq-oygctxrp) 1 inh inhalation DAILY NS Ventolin HFA 90 mcg/actuation (albuterol sulfate) 2 puffs PO Q4H PRN NS HPI skin lesions b/l arms HPI Details 73-year-old female here for skin lesions on both thighs. She says that she has had this for more than 5 years. She says that this often bleeds whenever they get irritated especially when scratched. She does not think that this have increased in size but this may have occasional changed in color. She wants this removed therefore. [facility] Medical History (Updated 07/12/23 @ 15:50 by Gustavo Park MD) Skin lesion of lower extremity Cough Chest discomfort Pulmonary hypertension Asthma Obesity Neck pain Chronic respiratory failure Pulmonary nodules Nonsustained ventricular tachycardia HTN (hypertension) SVT (supraventricular tachycardia) COPD (chronic obstructive pulmonary disease) Osteoporosis Surgical History Hx of cardiac cath Hx of knee surgery History of surgery on arm Hx of hysterectomy Hx of appendectomy Hx of cholecystectomy Family History Father Lung cancer Mother CVA (cerebral vascular accident) Social History Household Members: None Alcohol intake: never Patient Tobacco Use Status: Former Tobacco user Years Smoked: 30 Second Hand Smoke Exposure: No Current occupational status: employed 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[employer] [place] Review of Systems Const Denies chills and Denies fever(s) Card Denies chest pain, Denies dyspnea and Denies dyspnea on exertion Resp Denies cough, Denies dyspnea and Denies dyspnea on exertion GI Denies hematochezia and Denies change in bowel habits Denies hematuria Musc Denies back pain and Denies limited range of motion Neuro Denies focal weakness and Denies convulsions Psych Denies depression and Denies mood swings Physical Exam Vital Signs: Last Vital Signs Pulse 47 L 07/12/23 15:09 BP 143/67 H 07/12/23 15:09 BMI result Body Mass Index 34.7 Const General: comfortable and no acute distress Resp Effort & Inspection: normal respiratory effort Cardio Rate: regular rate GI Palpation (GI): Soft to palpation, not firm and nontender Extrem Other: Skin lesion on the left anterior thigh, elevated, about 6 mm in diameter, similar lesion on the right anterior thigh also of the same size Assessment & Plan Assessment & Plan (1) Skin lesion of lower extremity: Code(s): L98.9 - Disorder of the skin and subcutaneous tissue, unspecified Plan: She has skin lesions on the left anterior thigh and right anterior thigh as described above. She wants to proceed with excision. I explained the technique of excision under local anesthesia. I discussed the risks, benefits, and alternatives. I also reviewed with her what to expect postoperatively and she has given consent. This procedure will be done in the office on her next visit. Coding Level of Care Code New Pt Level 3 (73974) Diagnoses Skin lesion of lower extremity L98.9
== END 2023-07-12 15:59 | disposition home or self-care (01) ==
PROVIDERS: PCP Internal Medicine; Visit Provider Surgery
DX: L98.9 Disorder of the skin and subcutaneous tissue, unspecified (principal)
CPT/HCPCS: 99203

== ENCOUNTER → 2023-07-12 15:07 | Outpatient (BNVA) | payer OTHER, SELFPAY | PROVIDERS: PCP Internal Medicine; Visit Provider Surgery ==

== ENCOUNTER 2023-07-20 14:19 | Outpatient (REF) | payer OTHER, SELFPAY | END 2023-07-20 14:20 | disposition home or self-care (01) | LOC: HO.LNP 14:19 | PROVIDERS: PCP Internal Medicine; Visit Provider Surgery | DX: L98.9 Disorder of the skin and subcutaneous tissue, unspecified (principal) | CPT/HCPCS: 88305 ==

== ENCOUNTER 2023-07-27 15:02 | Outpatient (AMB) | payer OTHER, SELFPAY ==
[2023-07-27 15:14] VITALS: PULSE 60; O2SAT 95; BMI 34.7
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
== END 2023-07-27 15:43 | disposition home or self-care (01) ==
PROVIDERS: PCP Internal Medicine; Visit Provider Hospitalist
DX: J45.40 Moderate persistent asthma, uncomplicated (principal); R91.8 Other nonspecific abnormal finding of lung field; J96.11 Chronic respiratory failure with hypoxia; I27.20 Pulmonary hypertension, unspecified; G47.33 Obstructive sleep apnea (adult) (pediatric)
CPT/HCPCS: 99214

== ENCOUNTER → 2023-07-27 15:02 | Outpatient (BNVA) | payer OTHER, SELFPAY | PROVIDERS: PCP Internal Medicine; Visit Provider Hospitalist ==

== ENCOUNTER 2023-07-27 15:43 | Outpatient (REF) | payer OTHER, SELFPAY ==
--- NOTE | ~2023-07-27 | XR_ITS ---
EXAMINATION: XR SHOULDER, LEFT CLINICAL INFORMATION: Chronic obstructive pulmonary disease. COMPARISON: None available. TECHNIQUE: AP external rotation, Grashey, scapular Y, and axillary views of the left shoulder. FINDINGS: Bony alignment and mineralization are normal. The glenohumeral joint is intact and shows mild osteoarthritic change. The acromioclavicular and coracoclavicular intervals are normal. There is very mild osteoarthritic change of the left acromioclavicular joint. No acute fracture or dislocation is seen. There is an old, healed posterolateral left 6th rib fracture. There is no soft tissue calcification or foreign body. No left pneumothorax is seen. XR/XR shoulder LT min 2V IMPRESSION: 1. 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 2. There is very mild osteoarthritic change of the left acromioclavicular joint. 3. No fracture or dislocation is seen.
== END 2023-07-27 15:44 | disposition home or self-care (01) ==
LOC: HO.US 15:43
PROVIDERS: Absent Provider Hospitalist; PCP Internal Medicine; Visit Provider Surgery
DX: R60.0 Localized edema (principal); J44.9 Chronic obstructive pulmonary disease, unspecified
CPT/HCPCS: 73030; 93971

== ENCOUNTER 2023-08-02 06:42 | Outpatient (REF) | payer OTHER, SELFPAY ==
[2023-08-02 08:16] LABS: Anion Gap 15 (12-20); Blood Urea Nitrogen 14 mg/dL (9-16); Calcium 9.6 mg/dL (8.4-10.2); Carbon Dioxide 26 mmol/L (22-29); Chloride 107 mmol/L (96-108); Estimated Glomerular Filt Rate > 60; Glucose Random 96 mg/dL (60-115); Potassium 4.6 mmol/L (3.3-5.1); Sodium 143 mmol/L (135-145)
[2023-08-06 09:38] LABS: Anti Nuclear Antibody Screen NEGATIVE (NEGATIVE)
[2023-08-09 13:38] LABS: Cyclic Citrullinated Peptide <16 UNITS
== END 2023-08-02 06:43 | disposition home or self-care (01) ==
LOC: HO.LAB 06:42
PROVIDERS: Visit Provider Hospitalist
DX: R06.02 Shortness of breath (principal); J45.909 Unspecified asthma, uncomplicated
CPT/HCPCS: 36415; 80048; 85025; 85379; 86038; 86200

== ENCOUNTER 2023-08-03 13:01 | Outpatient (REF) | payer OTHER, SELFPAY ==
--- NOTE | ~2023-08-03 | CT_ITS ---
EXAMINATION: CT ANGIOGRAM OF THE CHEST WITH AND WITHOUT CONTRAST (CT PULMONARY ANGIOGRAM FOR PE) CLINICAL INFORMATION: Reason for Exam R06.02 - Shortness of breath COMPARISON: None available. TECHNIQUE: Prior to contrast administration, noncontrast localization images were obtained. Subsequently, multidetector volumetric imaging was performed from the thoracic inlet to below the diaphragms following the administration of 80 mL Omnipaque 350 intravenous contrast. No contrast reaction reported Sagittal, coronal, and MIP oblique sagittal reformatted images were obtained on the CT workstation, uploaded to PACS, and reviewed. This CT examination was performed using dose optimization techniques as appropriate, variously including the following: *Automated exposure control *Adjustment of mA and/or kV according to patient size (this includes techniques or standardized protocols for targeted exams where dose is matched to indication/reason for exam; i.e. extremities or head) *Use of iterative reconstruction technique Total exam dose-length product 321 mGy-cm FINDINGS: QUALITY OF STUDY/CONTRAST BOLUS: Satisfactory. PULMONARY ARTERIES: No pulmonary emboli. THORACIC AORTA: No aneurysm. LUNG: The lungs are hyperinflated and clear of acute pneumonic process. There are no pulmonary nodules, mass or consolidation. Minimal atelectatic changes are seen in lingula. PLEURA: No pleural effusion or pneumothorax. MEDIASTINUM: Normal heart size. No pericardial effusion. No hilar or mediastinal lymphadenopathy. No evidence of septal bowing or right heart strain. CORONARY ARTERY CALCIFICATION: None visualized on this study. CHEST WALL/AXILLA: No axillary or internal mammary lymphadenopathy. OSSEOUS STRUCTURES: There is exaggerated thoracic kyphosis. There is loss of disc height with ventral spondylosis throughout dorsal spine. No aggressive lytic or sclerotic process seen. UPPER ABDOMEN: Visualized liver and spleen appears unremarkable. No reflux of contrast into the hepatic veins to suggest elevated right heart pressures. CT/CT angio chest PE protocol IMPRESSION: 1. No evidence of PE. 2. No evidence of aortic aneurysm. 3. Hyperinflated lungs without acute process. VTE: negative. .
[2023-08-03] MEDS: iohexoL 350 MG/ML 100 ML INFUS..BTL IV (17:07)
== END 2023-08-03 13:02 | disposition home or self-care (01) ==
LOC: HO.CT 13:01
PROVIDERS: PCP Internal Medicine; Visit Provider Hospitalist
DX: R06.02 Shortness of breath (principal); R78.89 Finding of other specified substances, not normally found in blood; J45.909 Unspecified asthma, uncomplicated
CPT/HCPCS: 36415; 71275; 82785; 86003; Q9967

== ENCOUNTER 2023-08-03 15:04 | Outpatient (AMB) | payer OTHER, SELFPAY ==
--- NOTE | 2023-08-03 15:07 | A.OFFVIS_ITS ---
Intake Intake Visit Reasons: post excision of skin lesions b/l thighs Intake Note: This patient presents for a post-op assessment status post excision of skin lesions bilateral thighs. Patient c/o; reports no changes or complaints at this time. Technical Specialist Required: No Accompanied by: Self / Same As Patient Allergies aspirin [Aspirin] Allergy (Severe, Verified 08/03/23 15:07) TROUBLE BREATHING, vomiting Penicillins Allergy (Severe, Verified 08/03/23 15:07) THROAT CLOSES adhesive tape [ADHESIVE TAPE] Allergy (Intermediate, Verified 08/03/23 15:07) RASH/ITCH ibuprofen [From MOTRIN] Allergy (Intermediate, Verified 08/03/23 15:07) VOMITING latex [LATEX] Allergy (Intermediate, Verified 08/03/23 15:07) RASH penicillin V Allergy (Unknown, Verified 08/03/23 15:07) rash prednisone Allergy (Unknown, Verified 08/03/23 15:07) Unknown spider venom [SPIDER BITES] Allergy (Unknown, Verified 08/03/23 15:07) SWELLING clarithromycin [From Biaxin] Adverse Reaction (Intermediate, Verified 08/03/23 15:07) PROJECTILE VOMITING Adhesive Tape Allergy (Unknown, Uncoded 08/03/23 15:07) rash Biaxin Allergy (Unknown, Uncoded 08/03/23 15:07) vomiting, abd pain eggs Allergy (Unknown, Uncoded 08/03/23 15:07) Unknown Latex Gloves Allergy (Unknown, Uncoded 08/03/23 15:07) rash HPI post excision of skin lesions b/l thighs HPI Details She had undergone excision of skin lesions from both the left and right thighs under local anesthesia last 07/20/2023. She tolerated the procedure well. He currently denies significant complaints. [facility] Medical History (Updated 08/03/23 @ 08:42 by Wilder Mcpherson MD) Shortness of breath Skin lesion of lower extremity Cough Chest discomfort Pulmonary hypertension Asthma Obesity Neck pain Chronic respiratory failure Pulmonary nodules Nonsustained ventricular tachycardia HTN (hypertension) SVT (supraventricular tachycardia) COPD (chronic obstructive pulmonary disease) Osteoporosis Surgical History Hx of cardiac cath Hx of knee surgery History of surgery on arm Hx of hysterectomy Hx of appendectomy Hx of cholecystectomy Family History Father Lung cancer Mother CVA (cerebral vascular accident) Social History Household Members: None Alcohol intake: never Patient Tobacco Use Status: Former Tobacco user Years Smoked: 30 Second Hand Smoke Exposure: No Current occupational status: employed 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 Her path report shows that both skin lesions are verruca vulgaris. Her excision sites are well healed. Her sutures were removed. She can follow on a p.r.n. basis. Coding Level of Care Code Global (01956) Diagnoses Skin lesion of lower extremity L98.9
== END 2023-08-03 15:23 | disposition home or self-care (01) ==
PROVIDERS: PCP Internal Medicine; Visit Provider Surgery
DX: L98.9 Disorder of the skin and subcutaneous tissue, unspecified (principal)
CPT/HCPCS: 99024

== ENCOUNTER 2023-08-25 14:39 | Outpatient (AMB) | payer OTHER, SELFPAY ==
[2023-08-25 14:57] VITALS: PULSE 61; O2SAT 97; BMI 34.7
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
== END 2023-08-25 15:15 | disposition home or self-care (01) ==
PROVIDERS: PCP Internal Medicine; Visit Provider Hospitalist
DX: J45.40 Moderate persistent asthma, uncomplicated (principal); R91.8 Other nonspecific abnormal finding of lung field; J96.11 Chronic respiratory failure with hypoxia; I27.20 Pulmonary hypertension, unspecified; G47.33 Obstructive sleep apnea (adult) (pediatric)
CPT/HCPCS: 99214

== ENCOUNTER → 2023-08-25 14:39 | Outpatient (BNVA) | payer OTHER, SELFPAY | PROVIDERS: PCP Internal Medicine; Visit Provider Hospitalist | DX: K21.9 Gastro-esophageal reflux disease without esophagitis (principal) ==

== ENCOUNTER 2023-10-03 12:11 | Outpatient (REF) | payer OTHER, SELFPAY ==
--- NOTE | 2023-10-03 16:05 | PFT_ITS ---
Flows: FEV1: 83 % of predicted at 1.71 L FVC: 87 % of predicted at 2.33 L FEV1/FVC: 73 % Bronchodilator response: Present Volumes: Patient unable to perform lung volume maneuvers. Diffusion capacity: Normal Impression: Poor patient's effort with testing. Post bronchodilator spirometry is normal. Patient unable to perform lung volume maneuvers. Diffusion capacity is normal. MTDD
== END 2023-10-03 12:12 | disposition home or self-care (01) ==
LOC: HO.RESP 12:11
PROVIDERS: Visit Provider Hospitalist
DX: J44.9 Chronic obstructive pulmonary disease, unspecified (principal)
CPT/HCPCS: 94010; 94727; 94729

== ENCOUNTER → 2023-10-03 16:05 | Outpatient (BNV) | payer OTHER, SELFPAY | PROVIDERS: Visit Provider Internal Medicine Pulmonary Disease | DX: J44.9 Chronic obstructive pulmonary disease, unspecified (principal) | CPT/HCPCS: 94060; 94729 ==

== ENCOUNTER 2023-10-04 13:10 | Outpatient (AMB) | payer OTHER, SELFPAY ==
[2023-10-04 14:00] VITALS: BP 130/60; PULSE 67; TEMP 36.6; O2SAT 96; BMI 34.7
--- NOTE | 2023-10-04 14:00 | AM.OFFWIN_ITS ---
Intake Vital Signs 10/04/23 14:00 Height 5 ft 4 in Weight 202 lb BMI 34.7 BP 130/60 Blood Pressure Location Rt brachial Position Sitting Pulse 67 Pulse Source Pulse Oximeter Temp 97.8 F Temp Source Temporal Artery Scan Pulse Oximetry (%) 96 Oxygen Delivery Method Room Air Intake Visit Reasons: EST/right leg pain (lobby) Intake Note: pt is here today for rt leg pain started monday Patient Tobacco Use Status: Former Tobacco user Allergies aspirin [Aspirin] Allergy (Severe, Verified 10/04/23 14:00) TROUBLE BREATHING, vomiting Penicillins Allergy (Severe, Verified 10/04/23 14:00) THROAT CLOSES adhesive tape [ADHESIVE TAPE] Allergy (Intermediate, Verified 10/04/23 14:00) RASH/ITCH ibuprofen [From MOTRIN] Allergy (Intermediate, Verified 10/04/23 14:00) VOMITING latex [LATEX] Allergy (Intermediate, Verified 10/04/23 14:00) RASH penicillin V Allergy (Unknown, Verified 10/04/23 14:00) rash prednisone Allergy (Unknown, Verified 10/04/23 14:00) Unknown spider venom [SPIDER BITES] Allergy (Unknown, Verified 10/04/23 14:00) SWELLING clarithromycin [From Biaxin] Adverse Reaction (Intermediate, Verified 10/04/23 14:00) PROJECTILE VOMITING Adhesive Tape Allergy (Unknown, Uncoded 08/25/23 14:59) rash Biaxin Allergy (Unknown, Uncoded 08/25/23 14:59) vomiting, abd pain eggs Allergy (Unknown, Uncoded 08/25/23 14:59) Unknown Latex Gloves Allergy (Unknown, Uncoded 08/25/23 14:59) rash Do you need a note to return to daycare/school/sports/work: No HPI HPI Comments History of Present Illness Details Patient is a 73yo F who presents with R knee pain She has hx of LLE DVT unprovoked years ago, off of anticoags She said she recently had a LLE DVT study to r/o DVT due to chronic swelling which was negative Ongoing R knee pain x 6 months Worseing since monday no trauma, falls or recent injury No change in SOB from baseline No RLE swelling Pain with pushing on back of knee and medisl aspect Had leg cramps bilaterally last night which have resolved [facility] Medical History (Updated 10/04/23 @ 16:15 by Georgina Reynoso PA-C) Shortness of breath Skin lesion of lower extremity Cough Chest discomfort Pulmonary hypertension Asthma Obesity Neck pain Chronic respiratory failure Pulmonary nodules Nonsustained ventricular tachycardia HTN (hypertension) SVT (supraventricular tachycardia) COPD (chronic obstructive pulmonary disease) Osteoporosis Surgical History Hx of cardiac cath Hx of knee surgery History of surgery on arm Hx of hysterectomy Hx of appendectomy Hx of cholecystectomy Family History Father Lung cancer Mother CVA (cerebral vascular accident) Social History Household Members: None Alcohol intake: never Patient Tobacco Use Status: Former Tobacco user Years Smoked: 30 Second Hand Smoke Exposure: No Current occupational status: employed 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 [employer] Review of Systems Const Denies chills, Denies fever(s), Denies frequent falls, Denies headache(s) and Denies malaise ENT Denies headache(s) Card Denies chest pain, Denies chest pain at rest, Denies rapid heart rate, Denies leg edema (LLE edema at baseline post surgery and DVT), Denies lightheadedness and Denies dyspnea Resp Denies cough and Denies dyspnea Musc Denies back pain and Reports arthralgias (R knee) Neuro Denies frequent falls and Denies headache(s) Physical Exam Vital Signs: Last Vital Signs Temp 97.8 F 10/04/23 14:00 Pulse 67 10/04/23 14:00 BP 130/60 10/04/23 14:00 Pulse Ox 96 10/04/23 14:00 Oxygen Delivery Method Room Air 10/04/23 14:00 BMI result Body Mass Index 34.7 General: Non-toxic, NAD. Speaking full sentences. Skin: Warm dry throughout LLE edematous compared to R without pitting (pt said baseline) No erythema or ecchymosis or either lower extremity Cardiac: RRR. No calf tenderness bilaterally or pitting edema. MSK: Full ROM extremities.+ tenderness to palpation medial R knee joint line and posterior knee. No patellar tenderness. Neurology: A/O No aphasia or facial droop. Gait without abnormality Psych: Good mood and affect Assessment & Plan Assessment & Plan (1) Knee pain: Code(s): M25.569 - Pain in unspecified knee Qualifiers: Chronicity: acute Laterality: right Qualified Code(s): M25.561 - Pain in right knee (2) Osteoarthritis: Code(s): M19.90 - Unspecified osteoarthritis, unspecified site Qualifiers: Osteoarthritis location: knee Osteoarthritis type: unspecified Plan Patient seen and evaluated. No cellulitis or specific RLE calf tenderness on exam We reviewed xray images together + extensive narrowing medial joint line and osteophyte formation Discussed s/s that warrant ER eval for DVT r/o and she is aware she is aware one was not ruled out in office Ortho follow up Monday Patient gave verbal understanding and had no additional questions or concerns at time of discharge All questions answered Orders: Orders XR knee RT 3V 10/04/23 M25.569 - Pain in unspecified knee Coding Level of Care Code Est Pt Level 3 (58301) Diagnoses Acute pain of right knee M25.561 Chronicity: acute Laterality: right Osteoarthritis M19.90 Osteoarthritis location: knee Osteoarthritis type: unspecified
== END 2023-10-04 15:13 | disposition home or self-care (01) ==
PROVIDERS: PCP Internal Medicine; Visit Provider Physician Assistant
DX: M25.561 Pain in right knee (principal); M19.90 Unspecified osteoarthritis, unspecified site
CPT/HCPCS: 99213

== ENCOUNTER 2023-10-04 14:23 | Outpatient (REF) | payer OTHER, SELFPAY ==
--- NOTE | ~2023-10-04 | XR_ITS ---
EXAMINATION: XR KNEE, RIGHT CLINICAL INFORMATION: Knee pain. COMPARISON: None available. TECHNIQUE: Four views of the right knee. FINDINGS: The bone mineralization is within normal limits. There is moderate medial knee degenerative change with loss of joint space, subchondral sclerotic and cystic change as well as osteophyte formation. There is minimal lateral and patellofemoral degenerative change with minimal osteophyte formation and minimal loss of joint space. There is a minimal joint effusion. There is no acute fracture. The soft tissues are unremarkable. XR/XR knee RT 3V IMPRESSION: Moderate medial knee degenerative change. Minimal lateral and patellofemoral compartment degenerative change. Minimal joint effusion. No acute osseous abnormality. There appears to be minimal joint fluid.
== END 2023-10-04 14:24 | disposition home or self-care (01) ==
LOC: HO.HMGCX 14:23
PROVIDERS: PCP Internal Medicine; Visit Provider Physician Assistant
DX: M25.561 Pain in right knee (principal)
CPT/HCPCS: 73562

== ENCOUNTER 2023-11-07 06:31 | Emergency (ER) | payer OTHER, SELFPAY ==
--- NOTE | 2023-11-07 | ECG_ITS ---
Test Reason : CHEST PAIN Blood Pressure : / mmHG Vent. Rate : 072 BPM Atrial Rate : 072 BPM P-R Int : 124 ms QRS Dur : 084 ms QT Int : 370 ms P-R-T Axes : 058 -06 014 degrees QTc Int : 405 ms Normal sinus rhythm Normal ECG No previous ECGs available Referred By: Generic ED Physician Electronically Signed By:CHUY WISE
--- NOTE | ~2023-11-07 | CT_ITS ---
EXAMINATION: CT ANGIOGRAM OF THE CHEST WITH AND WITHOUT CONTRAST (CT PULMONARY ANGIOGRAM FOR PE) CLINICAL INFORMATION: concern for PE, chest pain COMPARISON: CTA chest August 03, 2023 TECHNIQUE: Prior to contrast administration, noncontrast localization images were obtained. Subsequently, multidetector volumetric imaging was performed from the thoracic inlet to below the diaphragms following the administration of 65 mL Omnipaque 350 intravenous contrast. No contrast reaction reported Sagittal, coronal, and MIP oblique sagittal reformatted images were obtained on the CT workstation, uploaded to PACS, and reviewed. This CT examination was performed using dose optimization techniques as appropriate, variously including the following: *Automated exposure control *Adjustment of mA and/or kV according to patient size (this includes techniques or standardized protocols for targeted exams where dose is matched to indication/reason for exam; i.e. extremities or head) *Use of iterative reconstruction technique Total exam dose-length product 341 mGy-cm FINDINGS: The heart is mildly enlarged. There is no pericardial effusion. No appreciable coronary artery calcifications. Normal caliber thoracic aorta. No pulmonary arterial filling defect to suggest pulmonary embolus. No gross mediastinal or hilar lymphadenopathy. No pathologically enlarged axillary lymph nodes. Central airways are patent although some mild peripheral mucous plugging is noted. Evaluation of fine parenchymal detail is limited due to respiratory motion artifact, however, no gross lobar consolidation is identified. No pleural effusion or pneumothorax is present. Some mild lingular atelectasis is suspected. Evaluation for pulmonary nodules is suboptimal given respiratory motion artifact, however, no large pulmonary mass is identified. Visualized portions of the upper abdomen are grossly unremarkable. Diffuse osteopenia. Mild to moderate degenerative changes of the spine. CT/CT angio chest PE protocol IMPRESSION: 1. No pulmonary arterial filling defect to suggest pulmonary embolus. 2. Evaluation of fine parenchymal detail is limited due to respiratory motion artifact, however, no gross lobar consolidation is identified.
[2023-11-07 06:58] VITALS: BP 152/73; PULSE 64; RESP 20; TEMP 36.7; O2SAT 95; BMI 36.1
[2023-11-07 06:58] LABS: MANUAL DIFF FLAG NO
--- NOTE | 2023-11-07 06:58 | ED.GENADULT ---
HPI - General Adult General Chief complaint: Chest Pain Stated complaint: chest pain Time Seen by Provider: 11/07/23 06:58 Source: patient and family Mode of arrival: ambulatory Limitations: no limitations History of Present Illness HPI narrative: Patient is a 73 year old assigned female at with a history of COPD, HTN, DVT (not currently anticoagulated), and SVT presenting to the emergency department today with epigastric pain. Patient states that yesterday she began to have epigastric pain that went into her chest, feels nauseous, and states that when she lays flat the pain is worse. Patient denies any dizziness, lightheadedness, vomiting, fever, chills, blurry vision, double vision, loss of vision, difficulty breathing, shortness of breath, back pain, night sweats, pain with urination, increased urinary frequency, increased urinary urgency, blood in her urine or stool, syncope or a near syncopal episode, recent trauma or falls, bowel incontinence, bladder incontinence, bowel retention, bladder retention, or any other complaints at this time. Onset (ago): hour(s) (2 hours) Location: chest and abdomen Pain Consistency: constant Relieving factors: none Exacerbating factors: none Associated symptoms: chest pain and nausea/vomiting Treatments prior to arrival: none Related Data Home Medications Medication Instructions Recorded Confirmed levothyroxine 125 mcg tablet 125 mcg PO DAILY 12/03/20 07/12/23 rosuvastatin 20 mg tablet 20 mg PO BEDTIME 04/08/21 07/12/23 ipratropium 0.5 mg-albuterol 3 mg ml inhalation 06/28/22 07/12/23 (2.5 mg base)/3 mL nebulization soln Previous Rx's Medication Instructions Recorded acetaminophen 500 mg tablet 500 mg PO Q6H PRN fever or pain 09/20/22 (Tylenol Extra Strength) #14 tabs metoprolol succinate 50 mg 50 mg PO DAILY #90 tabs 02/20/23 tablet,extended release 24 hr cholecalciferol (vitamin D3) 50 50 mcg PO DAILY 30 days #30 caps 03/21/23 mcg (2,000 unit) capsule montelukast 10 mg tablet 10 mg PO BEDTIME 30 days #30 tabs 03/21/23 (Singulair) amlodipine 5 mg tablet 5 mg PO DAILY #90 tabs 08/09/23 epinephrine 0.3 mg/0.3 mL 0.3 mg (0.3 mL) IM Q10M PRN 07/27/23 injection, auto-injector (EpiPen anaphylaxis 30 days #2 ea 2-Ken) roflumilast 500 mcg tablet 500 mcg PO DAILY 30 days #30 tabs 07/27/23 Trelegy Ellipta 200 mcg-62.5 1 inh inhalation DAILY #60 ea 08/21/23 mcg-25 mcg powder for inhalation (nftqfihskfy-qnirypbfj-dghnawsn) azithromycin 250 mg tablet 250 mg PO 3XW #12 tabs 10/24/23 Ventolin HFA 90 mcg/actuation 2 puff inhalation Q4H PRN for 10/26/23 aerosol inhaler (albuterol sulfate) wheezing 30 days #18 grams Allergies Allergy/AdvReac Type Severity Reaction Status Date / Time aspirin [Aspirin] Allergy Severe TROUBLE Verified 11/07/23 07:02 BREATHING, vomiting Penicillins Allergy Severe THROAT Verified 11/07/23 07:02 CLOSES adhesive tape [ADHESIVE TAPE] Allergy Intermediate RASH/ITCH Verified 11/07/23 07:02 ibuprofen [From MOTRIN] Allergy Intermediate VOMITING Verified 11/07/23 07:02 latex [LATEX] Allergy Intermediate RASH Verified 11/07/23 07:02 penicillin V Allergy Unknown rash Verified 11/07/23 07:02 prednisone Allergy Unknown Unknown Verified 11/07/23 07:02 spider venom [SPIDER BITES] Allergy Unknown SWELLING Verified 11/07/23 07:02 clarithromycin [From Biaxin] AdvReac Intermediate PROJECTILE Verified 11/07/23 07:02 VOMITING Adhesive Tape Allergy Unknown rash Uncoded 08/25/23 14:59 Biaxin Allergy Unknown vomiting, Uncoded 08/25/23 14:59 abd pain eggs Allergy Unknown Unknown Uncoded 08/25/23 14:59 Latex Gloves Allergy Unknown rash Uncoded 08/25/23 14:59 Review of Systems Constitutional: Constitutional: Reports no additional constitutional complaints, Denies chills, Denies fever(s) and Denies night sweats Eyes: Eyes: Reports no additional eye complaints, Denies blurry vision, Denies change in vision, Denies diplopia, Denies eye discharge, Denies loss of vision and Denies eye pain ENT: Denies dizziness Cardiovascular: Cardiovascular: Reports no additional cardiovascular complaints, Reports chest pain, Denies lightheadedness, Denies Loss of Consciousness and Denies dyspnea Respiratory: Respiratory: Reports no additional respiratory complaints and Denies dyspnea Gastrointestinal: Gastrointestinal: Reports no additional gastrointestinal complaints, Reports abdominal pain, Denies melena, Denies hematochezia, Denies change in bowel habits, Denies change in stool character, Reports nausea and Denies vomiting Genitourinary: Genitourinary: Denies hematuria, Denies urinary frequency, Denies dysuria, Denies urinary incontinence, Denies urinary hesitancy and Denies urinary urgency Musculoskeletal: Musculoskeletal: Reports no additional musculoskeletal complaints, Denies numbness and Denies tingling Neurologic: Denies dizziness, Denies loss of vision, Denies numbness and Denies tingling Psychiatric: Psychiatric: Reports no additional psychiatric complaints Endocrine: Endocrine: Reports no additional endocrine complaints Hematologic/Lymphatic: Hematologic/Lymphatic: Reports no additional hematologic/lymphatic complaints Allergic/Immunologic: Allergic/Immunologic: Reports no additional allergic/immunologic complaints PMFSH Past Medical History Attestation statement: The following information was validated with the patient. Source: old records reviewed and nursing notes reviewed Onset Date is defined in the Problem List Problems that require an onset date and time if occurred within 24 hrs of arrival to the ED Aortic Dissection and Rupture; Neurologic impairment; Cardiopulmonary Arrest; Endotracheal Intubation; Insertion or Replacement of Mechanical Circulatory Assist Device Medical History Shortness of breath Skin lesion of lower extremity Cough Chest discomfort Pulmonary hypertension Asthma Obesity Neck pain Chronic respiratory failure Pulmonary nodules Nonsustained ventricular tachycardia HTN (hypertension) SVT (supraventricular tachycardia) COPD (chronic obstructive pulmonary disease) Osteoporosis Surgical History Hx of cardiac cath Hx of knee surgery History of surgery on arm Hx of hysterectomy Hx of appendectomy Hx of cholecystectomy Family History Family History Father Lung cancer Mother CVA (cerebral vascular accident) Social History Social History Household Members: None Alcohol intake: never Patient Tobacco Use Status: Former Tobacco user Years Smoked: 30 Smoked in Last 30 Days: No Second Hand Smoke Exposure: No Use of substances other than those prescribed or required for medical reasons: No Advance Directives: Yes Advance Directives Information Provided: Yes Advance Directives on File: No Current occupational status: employed 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[employer] [place] Physical Exam ED Vital Signs: Vital Signs - 24 hr 11/07/23 06:58 11/07/23 07:28 11/07/23 09:49 Temperature 98.1 F 97.8 F Pulse Rate 64 67 61 Respiratory Rate 20 18 17 Blood Pressure 152/73 H 143/56 H 142/60 H Pulse Oximetry 95 97 95 Oxygen Delivery Method Room Air Room Air Room Air BMI result Body Mass Index 36.1 Const General: cooperative, no acute distress, alert and awake Nutritional Appearance: well nourished Orientation/consciousness: patient oriented x3 Limitations: no limitations HENMT Head: Yes normal to inspection and Yes atraumatic Ears: hearing grossly normal bilaterally and external ears normal General nose exam: Normal external nose present, no nasal discharge noted and no epistaxis Face and sinus: Yes normal facial exam, No abrasion and No laceration Mouth: Normal oral and palatal mucosa present, no drooling and no muffled voice Eyes General: appearance normal, both eyes and all related structures Periorbital: periorbital findings normal Eyelids: Yes eyelids normal Conjunctivae: conjunctivae normal Pupils: Equal, round and reactive pupils present EOM: EOMs intact bilaterally Neck Neck: Yes normal visual inspection, Yes full ROM and Yes no lymphadenopathy Chest Chest palpation & inspection: normal inspection of the chest Resp Effort & Inspection: normal respiratory effort and able to speak in complete sentences Auscultation: clear to auscultation bilaterally Cardio Rate: regular rate Rhythm: regular rhythm GI Inspection: Yes normal to inspection Palpation (GI): Soft to palpation, not firm, nontender and no guarding Neuro General: patient oriented x3 and moves all extremities Cranial nerves: Yes Equal, round and reactive pupils present Cognition (Neuro): normal cognition Motor exam (neuro): 5/5 motor strength present throughout Sensory Exam: Normal double simultaneous stimulation for sensation Coordination: fqtemh-[id number] test normal Extrem General: Yes normal to inspection, Yes full ROM and Yes capillary refill normal Psych Appearance: grossly normal Mental Status: mental status grossly normal Affect: normal affect Attitude: cooperative Thought process: Normal thought process present Thought content: Normal thought content present Insight: Good insight present (Psych) Medications Administered Discontinued Medications Generic Name Dose Route Start Last Admin Trade Name Suhail PRN Reason Stop Dose Admin Al Hydroxide/Mg Hydroxide 15 ml 11/07/23 09:23 11/07/23 09:56 Magnesium Hydrox/Alum Hydrox 30 Ml Oral.Susp PO 11/07/23 09:24 Not Given ONCE ONE Iohexol 65 ml 11/07/23 08:42 11/07/23 08:42 Iohexol 350 Mg/Ml 75 Ml Infus..Btl IV 11/07/23 08:43 65 ml ONCE ONE Administration Pantoprazole Sodium 40 mg 11/07/23 09:23 11/07/23 09:57 Pantoprazole Sodium 40 Mg/10 Ml Vial IVPUSH 11/07/23 09:24 40 mg ONCE ONE Administration Medical Decision Making Medical Decision Making [facility] Narrative: Patient is a 73 year old assigned female at with a history of COPD, HTN, DVT (not currently anticoagulated), and SVT presenting to the emergency department today with epigastric pain that radiates into the chest. Patient's physical exam was unremarkable. Patient's blood work was unremarkable. Patient's EKG was unremarkable. Patient's chest CT PE study showed no acute process. I explained my physical exam findings as well as all test results to the patient. I answered all questions asked by the patient. I stressed the importance of the patient taking her medication as prescribed. I stressed the importance of the patient following up with her primary care provider. I stressed the importance of the patient returning to the emergency department immediately if her symptoms were to worsen or if she were to develop any dizziness, shortness of breath, difficulty breathing, chest pain, blurry vision, loss of vision, nausea, vomiting, abdominal pain, fever, chills, back pain, or any other complaints. Patient verbalized agreement and understanding with this treatment plan and discharge. Differential Diagnosis Differential Diagnoses: The differential diagnosis associated with the presentation includes STEMI NSTEMI Chest pain Epigastric pain GERD Admission/Observation Consideration of admission/observation: Escalation of care including admission/observation considered Patient would have been admitted to the hospital had her work up had any findings where hospital admission was appropriate and her clinical presentation warranted hospital admission. Lab Data [facility] Lab Attestation statement: I reviewed the patient's lab results. My interpretation of these results are in the [facility] Rationale portion of this note. 11/07/23 06:52 11/07/23 06:52 Labs: Lab Results 11/07/23 11/07/23 Range/Units 06:52 08:52 WBC 6.7 (4.8-10.8) X10*3/uL RBC 4.49 (4.20-5.50) X10*6/uL Hgb 13.0 (12.0-16.0) g/dl Hct 40.3 (37.0-47.0) % MCV 89.8 (80.0-98.0) fL MCH 29.0 (27.0-33.0) pg MCHC 32.3 (31.0-35.0) g/dl RDW 13.2 (11.0-16.0) % Plt Count 202 (160-400) X10*3/uL MPV 10.8 (9.4-12.3) fL Immature Gran % (Auto) 0.3 (0.0-0.4) % Neut % (Auto) 65.3 (45-73) % Lymph % (Auto) 22.0 (20-40) % [place] % (Auto) 8.4 (2-11) % Eos % (Auto) 3.2 (0-4) % Baso % (Auto) 0.8 (0-2) % Lymph # (Auto) 1.5 (1.2-4.9) X10*3/uL [place] # (Auto) 0.6 (0.1-1.2) X10*3/uL Eos # (Auto) 0.2 (0.0-0.4) X10*3/uL Baso # (Auto) 0.1 (0.0-0.2) X10*3/uL Abs Immat Gran (auto) 0.02 (0.00-0.03) X10*3/uL Absolute Neuts (auto) 4.4 (2.0-8.3) x10*3/uL Absolute Nucleated RBC 0.000 (0.0-0.012) X10*3/uL Nucleated RBC % (auto) 0.0 (0.0-0.2) /100WBC Sodium 142 (135-145) mmol/L Potassium 4.3 (3.3-5.1) mmol/L Chloride 108 (96-108) mmol/L Carbon Dioxide 29 (22-29) mmol/L Anion Gap 9 L (12-20) BUN 12 (9-16) mg/dL Creatinine 0.71 (0.5-1.4) mg/dL Estim Creat Clear Calc 65.7 Estimated GFR > 60 Random Glucose 116 H (60-115) mg/dL Calcium 9.2 (8.4-10.2) mg/dL Total Bilirubin 0.5 (0.0-1.0) mg/dL AST 16 (5-31) U/L ALT 13 (0-31) U/L Alkaline Phosphatase 69 (39-117) U/L Troponin I High Sens < 2.7 < 2.7 (<3.5-17.0) ng/L B-Natriuretic Peptide 68 (<100) pg/mL Total Protein 6.9 (6.5-8.0) g/dL Albumin 3.8 (3.5-5.0) g/dL Independent Interpretation I performed an independent interpretation of an: EKG and CT Scan Interpretation: My interpretation is in agreement with the radiologist's impression of this imaging study. EXAMINATION: CT ANGIOGRAM OF THE CHEST WITH AND WITHOUT CONTRAST (CT PULMONARY ANGIOGRAM FOR PE) CLINICAL INFORMATION: concern for PE, chest pain COMPARISON: CTA chest August 03, 2023 TECHNIQUE: Prior to contrast administration, noncontrast localization images were obtained. Subsequently, multidetector volumetric imaging was performed from the thoracic inlet to below the diaphragms following the administration of 65 mL Omnipaque 350 intravenous contrast. No contrast reaction reported Sagittal, coronal, and MIP oblique sagittal reformatted images were obtained on the CT workstation, uploaded to PACS, and reviewed. This CT examination was performed using dose optimization techniques as appropriate, variously including the following: *Automated exposure control *Adjustment of mA and/or kV according to patient size (this includes techniques or standardized protocols for targeted exams where dose is matched to indication/reason for exam; i.e. extremities or head) *Use of iterative reconstruction technique Total exam dose-length product 341 mGy-cm FINDINGS: The heart is mildly enlarged. There is no pericardial effusion. No appreciable coronary artery calcifications. Normal caliber thoracic aorta. No pulmonary arterial filling defect to suggest pulmonary embolus. No gross mediastinal or hilar lymphadenopathy. No pathologically enlarged axillary lymph nodes. Central airways are patent although some mild peripheral mucous plugging is noted. Evaluation of fine parenchymal detail is limited due to respiratory motion artifact, however, no gross lobar consolidation is identified. No pleural effusion or pneumothorax is present. Some mild lingular atelectasis is suspected. Evaluation for pulmonary nodules is suboptimal given respiratory motion artifact, however, no large pulmonary mass is identified. Visualized portions of the upper abdomen are grossly unremarkable. Diffuse osteopenia. Mild to moderate degenerative changes of the spine. CT/CT angio chest PE protocol IMPRESSION: 1. No pulmonary arterial filling defect to suggest pulmonary embolus. 2. Evaluation of fine parenchymal detail is limited due to respiratory motion artifact, however, no gross lobar consolidation is identified. Dictated By: Kayode Trivedi MD Signed By: Electronically signed by Kayode Trivedi MD 11/07/23 0911 Vent. Rate: 072 BPM Atrial Rate: 072 BPM P-R Int: 124 ms QRS Dur: 084 ms QT Int: 370 ms P-R-T Axes: 058 -06 014 degrees QTc Int: 405 ms Normal sinus rhythm Normal ECG No previous ECGs available DD/ [id number] Radiology Impression Discussion of test interpretation with radiology: I have reviewed the radiologist's reading. Chronic Conditions Patient?s care impacted by: Hypertension Critical Care Time Critical Care Time Critical Care Time: Yes Total Critical Care Time: 35 Attestation: I spent 35 minutes of Critical Care Time with this patient. This does not include time spent on separately reported billable procedures. Discharge Plan Discharge Clinical Impression: Epigastric pain Patient Disposition: Home, Self-Care Instructions: Epigastric Pain (ED) Additional Instructions: Follow up with your primary care provider and a GI specailist. Return to the emergency department immediately if your symptoms worsen or if you develop any dizziness, shortness of breath, difficulty breathing, chest pain, blurry vision, loss of vision, nausea, vomiting, abdominal pain, fever, chills, back pain, or any other complaints. Prescriptions: No Action metoprolol succinate 50 mg tablet extended release 24 hr 50 mg PO DAILY Qty: 90 3RF cholecalciferol (vitamin D3) 50 mcg (2,000 unit) capsule 50 mcg PO DAILY 30 Days Qty: 30 6RF montelukast [Singulair] 10 mg tablet 10 mg PO BEDTIME 30 Days Qty: 30 11RF amlodipine 5 mg tablet 5 mg PO DAILY Qty: 90 3RF Trelegy Ellipta 200-62.5-25 mcg blister with device 1 inh inhalation DAILY Qty: 60 11RF azithromycin 250 mg tablet 250 mg PO 3XW Qty: 12 0RF albuterol sulfate [Ventolin HFA] 90 mcg/actuation HFA aerosol inhaler 2 puff inhalation Q4H PRN (Reason: for wheezing) 30 Days Qty: 18 11RF acetaminophen [Tylenol Extra Strength] 500 mg tablet 500 mg PO Q6H PRN (Reason: fever or pain) Qty: 14 0RF levothyroxine 125 mcg tablet 125 mcg PO DAILY rosuvastatin 20 mg tablet 20 mg PO BEDTIME ipratropium-albuterol 0.5 mg-3 mg(2.5 mg base)/3 mL solution for nebulization inhalation epinephrine [EpiPen 2-Ken] 0.3 mg/0.3 mL auto-injector 0.3 mg IM Q10M PRN (Reason: anaphylaxis) 30 Days Qty: 2 6RF Rx Instructions: for 2 doses roflumilast 500 mcg tablet 500 mcg PO DAILY 30 Days Qty: 30 11RF Referrals: [facility] [place] Gastroenterology Services [Provider Group] (Call to establish and follow up with a GI specialist. ) Wili Caballero MD [Primary Care Provider] - Stand Alone Forms: Work/School Release Interventions: ED Discharge Assessment Last Done: 11/07/23 10:05 Discharge Date/Time: 11/07/23 10:06 Print Language: Polish
[2023-11-07 07:03] LABS: Basophils Absolute Auto 0.1 X10*3/uL (0.0-0.2); Basophils Percent Auto 0.8 % (0-2); Eosinophils Absolute Auto 0.2 X10*3/uL (0.0-0.4); Eosinophils Percent Auto 3.2 % (0-4); Hematocrit 40.3 % (37.0-47.0); Imm Gran Abs Auto 0.02 X10*3/uL (0.00-0.03); Imm Gran Pct Auto 0.3 % (0.0-0.4); Lymphocytes Absolute Auto 1.5 X10*3/uL (1.2-4.9); Mean Corpuscular HGB Conc 32.3 g/dl (31.0-35.0); Mean Corpuscular Volume 89.8 fL (80.0-98.0); Mean Platelet Volume 10.8 fL (9.4-12.3); Monocytes Absolute Auto 0.6 X10*3/uL (0.1-1.2); Monocytes Percent Auto 8.4 % (2-11); Neutrophils Absolute Auto 4.4 x10*3/uL (2.0-8.3); Neutrophils Percent Auto 65.3 % (45-73); Platelet Count 202 X10*3/uL (160-400); Red Blood Count 4.49 X10*6/uL (4.20-5.50); Red Cell Distribution Width 13.2 % (11.0-16.0); White Blood Count 6.7 X10*3/uL (4.8-10.8)
[2023-11-07 07:12] LABS: Alanine Aminotransferase 13 U/L (0-31); Albumin Level 3.8 g/dL (3.5-5.0); Alkaline Phosphatase 69 U/L (39-117); Anion Gap 9 (12-20); Aspartate Amino Transferase 16 U/L (5-31); Bilirubin Total 0.5 mg/dL (0.0-1.0); Blood Urea Nitrogen 12 mg/dL (9-16); Calcium 9.2 mg/dL (8.4-10.2); Carbon Dioxide 29 mmol/L (22-29); Chloride 108 mmol/L (96-108); Creatinine Clr Calc Pharmacy 65.7; Estimated Glomerular Filt Rate > 60; Glucose Random 116 mg/dL (60-115); Potassium 4.3 mmol/L (3.3-5.1); Sodium 142 mmol/L (135-145); Total Protein 6.9 g/dL (6.5-8.0)
[2023-11-07 07:21] LABS: Troponin-I High Sensitivity < 2.7 ng/L (<3.5-17.0)
[2023-11-07 07:28] VITALS: BP 143/56; PULSE 67; RESP 18; O2SAT 97
--- NOTE | 2023-11-07 07:50 | PC.NURSE ---
20g iv inserted LAC. pt tolerated well, line patent. pt reports 6/10 mid-sternal pain, she says the pain is less than it was prior to coming in. pt waiting to go to CT scan at this time.
[2023-11-07 07:54] LABS: B Type Natriuretic Peptide 68 pg/mL (<100)
--- NOTE | 2023-11-07 08:35 | PC.NURSE ---
pt was taken to CT and she was brought back by the bag presser that reported her iv infiltrated. RAC swollen and tender to touch, no redness present. compress applied. iv was removed, new iv placed in LAC, pt tolerated well, line patent. pt back to CT scan at this time.
[2023-11-07] MEDS: iohexoL 350 MG/ML 75 ML INFUS..BTL 65 ML IV (08:42)
[2023-11-07 09:37] LABS: Troponin-I High Sensitivity < 2.7 ng/L (<3.5-17.0)
[2023-11-07 09:49] VITALS: BP 142/60; PULSE 61; RESP 17; TEMP 36.6; O2SAT 95
[2023-11-07] MEDS: Pantoprazole Sodium 40 MG/10 ML VIAL IVPUSH (09:57)
== END 2023-11-07 10:06 | disposition home or self-care (01) ==
PROVIDERS: Physician Assistant Medical; Emergency Provider Emergency Medicine; PCP Internal Medicine
DX: R10.13 Epigastric pain (principal); R11.2 Nausea with vomiting, unspecified; R06.02 Shortness of breath; I10 Essential (primary) hypertension; J44.9 Chronic obstructive pulmonary disease, unspecified
CPT/HCPCS: 36415; 71275; 80053; 83880; 84484; 85025; 93005; 96374; 99284; 99285; C9113; Q9967

== ENCOUNTER → 2023-11-07 06:39 | Outpatient (BNV) | payer OTHER, SELFPAY | PROVIDERS: Emergency Provider Emergency Medicine; PCP Internal Medicine; Visit Provider Internal Medicine | DX: R07.9 Chest pain, unspecified (principal) | CPT/HCPCS: 93010 ==

== ENCOUNTER → 2023-12-12 14:58 | Outpatient (REF) | payer OTHER, SELFPAY ==
--- NOTE | 2023-12-12 15:01 | CA_ITS ---
Transthoracic Echocardiogram Patient (Last, First, Middle): Sabine Mosqueda A Gender: Female Date of : 1950 Age: 73 Procedure Date: 12/12/2023 Procedure Type: Transthoracic Echocardiogram Location: OP Height: 162.56 cm Weight: 90.72 kg BSA: 1.96 m2 Heart Rate: bpm BP: 136 / 68 mmHg Machine Assistant: MAKENZIE Referring MD: Nabeel Mackenzie MD Vessel Captain: Nabeel Mackenzie MD Symptoms: I25.10 - Atherosclerotic heart disease of [place] coronary artery without... Study Quality: Technically Difficult ECG Rhythm: Sinus Conclusions: - 1. Normal LV ejection fraction 55-60% 2. Mildly dilated left atrium 3. Cardiac valvular Dopplers within normal limits 4. Normal RV systolic pressure Findings Left Ventricle Normal left ventricular size, thickness, and systolic function. The visually estimated ejection fraction is between 55-60%. Spectral Doppler is indicative of a normal filling pattern. Right Ventricle The right ventricle was not well visualized. Atria The left atrium is mildly dilated. Interatrial shunt cannot be excluded. The right atrium was not well visualized. Aortic Valve The aortic valve was not well visualized. There is no aortic valve stenosis. There is no aortic valve regurgitation. Mitral Valve Likely normal mitral valve structure and function. There is no mitral valve regurgitation. There is no mitral valve stenosis. Pulmonic Valve The pulmonic valve was not well visualized. There is trace pulmonic valve regurgitation. Tricuspid Valve Likely normal tricuspid valve structure and function. There is trace tricuspid valve regurgitation. The right ventricular systolic pressure is normal. The right ventricular systolic pressure is 23 mmHg. Normal right atrial pressure. There is no evidence of pulmonary hypertension. Great Vessels All visible segments of the aorta are normal in size. The pulmonary artery was not well visualized. There is no dilatation of the ascending aorta measuring 3.40 cm. Venous The inferior vena cava is normal in size and collapses greater than 50% with inspiration. Pericardium/Pleural The pericardium was not well visualized. Measurements 2D Linear Measurements IVSd: 1.05 0.6-0.9/0.6-1.0 cm LVIDd: 4.17 3.9-5.3/4.2-5.9 cm LVIDd Index: 2.13 2.4-3.2/2.2-3.1 cm/m2 LVIDs: 2.31 2.0-3.6 cm LVPWd: 0.76 0.7-1.1 cm LA Diam: 3.20 2.7-3.8/3.0-4.0 cm LAIDs Index: 1.63 1.5-2.3 cm/m2 LV Mass: 146.43 67-162/88-224 g LV Mass Index: 74.71 43-95/49-115 g/m2 LVOT Diam: 2.00 3.0+(-)1.3 cm 2D Systolic Function EF 4C: 55.90 >55% EF 2C: 60.40 >55% EF BiP: 57.40 >55% Mitral Valve MV Pk E: 0.76 MV PK A: 0.63 MV Decel Time: 244.00 E/A: 1.20 E'Lateral: 10.80 E'Medial: 7.51 E/E' Med: 10.10 E/E' Lat: 7.00 PHT: 72.00 MVA PHT: 3.06 Decel [place]: 3.10 Aortic Valve AoV Pk Mika: 1.55 AoV Mn Mika: 1.01 AoV VTI: 0.37 AoV Pk Grad: 10.00 Aov Mn Grad: 5.00 ELIANE Cont.VTI: 2.44 LVOT LVOT Pk Mika: 1.13 LVOT Mn Mika: 0.70 LVOT VTI: 0.29 LVOT Pk Grad: 5.00 LVOT Mn Grad: 2.00 LVOT Diam: 2.00 LVOT Area: 3.14 Diastolic Function MV Pk E: 0.76 MV Pk A: 0.63 E/A: 1.20 E'Medial: 7.51 E/E' Med: 10.10 E' Laterial: 10.80 E/E' Lat: 7.00 Right Ventricle TAPSE (mm): 21.20 TVS' Mika: 10.70 Tricuspid Valve TR Pk Mika: 2.21 TR Pk Grad: 20.00 RA Press: 3.00 RVSP: 23.00 Great Vessels Aorta Sinus of Valsalva: 3.31 2.0-3.[address] [place]: 2.70 1.7-3.4 cm Ao Asc: 3.40 2.1-3.4 cm Updated in Other Vendor System with Status of Final Nabeel Mackenzie MD electronically signed on 12/13/2023 1:20:12 PM with status of Final
== END ==
LOC: HO.CARD 14:58
PROVIDERS: PCP Internal Medicine; Visit Provider Internal Medicine Cardiovascular Disease
DX: I25.10 Atherosclerotic heart disease of native coronary artery without angina pectoris (principal); I27.20 Pulmonary hypertension, unspecified; G47.33 Obstructive sleep apnea (adult) (pediatric)
CPT/HCPCS: 93306

== ENCOUNTER → 2023-12-12 15:01 | Outpatient (BNV) | payer OTHER, SELFPAY | PROVIDERS: PCP Internal Medicine; Visit Provider Internal Medicine Cardiovascular Disease | DX: I25.10 Atherosclerotic heart disease of native coronary artery without angina pectoris (principal) | CPT/HCPCS: 93306 ==

== ENCOUNTER 2023-12-15 07:27 | Outpatient (REF) | payer OTHER, SELFPAY ==
[2023-12-15 09:08] LABS: Alanine Aminotransferase 12 U/L (0-31); Albumin Level 3.9 g/dL (3.5-5.0); Alkaline Phosphatase 70 U/L (39-117); Aspartate Amino Transferase 16 U/L (5-31); Bilirubin Direct 0.2 mg/dL (0.0-0.5); Bilirubin Total 0.5 mg/dL (0.0-1.0); Cholesterol 177 mg/dL (<200); HDL Cholesterol 47 mg/dL (>40); LDL Cholesterol Calculated 99 mg/dL (<100); Total Protein 6.9 g/dL (6.5-8.0); Triglycerides 159 mg/dL (<150)
[2023-12-15 09:37] LABS: Reflex LDLD? No
== END 2023-12-15 07:28 | disposition home or self-care (01) ==
LOC: HO.LAB 07:27
PROVIDERS: PCP Internal Medicine; Visit Provider Internal Medicine
DX: E78.00 Pure hypercholesterolemia, unspecified (principal)
CPT/HCPCS: 36415; 80061; 80076

== ENCOUNTER → 2023-12-25 07:51 | Outpatient (REF) | payer OTHER, SELFPAY ==
--- NOTE | 2023-12-25 07:54 | CA_ITS ---
Acquisition Time: 2023-12-25 08:06:14 Total Exercise Time: 00:02:14 Test Indications: CHEST PAIN Medications: LEVOTHYROXINE ALBUTEROL METOPROLOL AMLODIPINE TRELOGY ELLIPTA ROFLUMILAST Protocol: SHONDA Max HR: 110 BPM 75% of Pred: 145 BPM Max BP: 180/048 mmHG Max Work Load: 4.6 METS Exercise stress test exercise 2 min 14 sec of Shonda protocol achieving 73% MPHR, with moderate to severe SOB, no change in chronic 3/10 chest pain, with isolated PVCs, with resting 132/68 and peak BP 180/48, with nondiagnositic EKGs. Breathing returned to normal with rest. Test reviewed with Dr. Molina. Pharmacological stress test recomended if further testing is required. Referred By: Wili Caballero Overread By: Nathalie Downing
== END ==
LOC: HO.CARD 07:51
PROVIDERS: PCP Internal Medicine; Visit Provider Internal Medicine
DX: R07.2 Precordial pain (principal)
CPT/HCPCS: 93017

== ENCOUNTER → 2023-12-25 07:54 | Outpatient (BNV) | payer OTHER, SELFPAY | PROVIDERS: PCP Internal Medicine; Visit Provider Nurse Practitioner | DX: R07.9 Chest pain, unspecified (principal); R06.02 Shortness of breath | CPT/HCPCS: 93016; 93018 ==

== ENCOUNTER 2023-12-26 07:22 | Outpatient (REF) | payer OTHER, SELFPAY ==
[2023-12-26 08:27] LABS: TSH reflex Free T4 1.73 uIU/mL (0.32-4.0)
== END 2023-12-26 07:23 | disposition home or self-care (01) ==
LOC: HO.LAB 07:22
PROVIDERS: PCP Internal Medicine; Visit Provider Internal Medicine
DX: E89.0 Postprocedural hypothyroidism (principal)
CPT/HCPCS: 36415; 84443

== ENCOUNTER 2024-01-16 14:47 | Outpatient (AMB) | payer OTHER, SELFPAY ==
[2024-01-16 14:50] VITALS: BMI 36.1
--- NOTE | 2024-01-16 14:50 | A.OFFVIS_ITS ---
Intake Vital Signs 01/16/24 14:50 Height 5 ft Weight 185 lb BMI 36.1 Intake Visit Reasons: Newprob- Rt knee pain Intake Note: Sbaine is a 73 year old female who presents with complaints of progressively worsening right knee pain. She describes her pain as sharp and severe in nature, 08/01. Her pain has gotten worse over the last few years in spite of continued non operative treatments. She has had injections in the past which gave her minimal relief. She states that her right knee will give out several times per day. She has taken Tylenol and anti-inflammatory medicines which gave her minimal relief. The patient's has done physical therapy exercises which aggravated her symptoms. She has difficulty walking even short distances be cause of her pain. At this point her right knee pain is interfering with her activities of daily living and her ability to sleep well through the night. Patient reports her pain has been going on for about 2 years and is a 10 on the 1-10 pain scale. She reports she has broken her knee twice about 10 years ago. She states she has had cortisone injections that did not help.. Allergies aspirin [Aspirin] Allergy (Severe, Verified 01/16/24 15:00) TROUBLE BREATHING, vomiting Penicillins Allergy (Severe, Verified 01/16/24 15:00) THROAT CLOSES adhesive tape [ADHESIVE TAPE] Allergy (Intermediate, Verified 01/16/24 15:00) RASH/ITCH ibuprofen [From MOTRIN] Allergy (Intermediate, Verified 01/16/24 15:00) VOMITING latex [LATEX] Allergy (Intermediate, Verified 01/16/24 15:00) RASH penicillin V Allergy (Unknown, Verified 01/16/24 15:00) rash prednisone Allergy (Unknown, Verified 01/16/24 15:00) Unknown spider venom [SPIDER BITES] Allergy (Unknown, Verified 01/16/24 15:00) SWELLING clarithromycin [From Biaxin] Adverse Reaction (Intermediate, Verified 01/16/24 15:00) PROJECTILE VOMITING Adhesive Tape Allergy (Unknown, Uncoded 08/25/23 14:59) rash Biaxin Allergy (Unknown, Uncoded 08/25/23 14:59) vomiting, abd pain eggs Allergy (Unknown, Uncoded 08/25/23 14:59) Unknown Latex Gloves Allergy (Unknown, Uncoded 08/25/23 14:59) rash Medication List - Last Reconciled 01/16/24 by Chemo Wallis MD acetaminophen (Tylenol Extra Strength) 500 mg PO Q6H PRN amlodipine 5 mg PO DAILY azithromycin 250 mg PO 3XW cholecalciferol (vitamin D3) 50 mcg PO DAILY 30 days doxycycline hyclate 100 mg PO BID 10 days epinephrine (EpiPen 2-Ken) 0.3 mg (0.3 mL) IM Q10M PRN 30 days ipratropium-albuterol 0.5 mg-3 mg(2.5 mg base)/3 mL mL inhalation levothyroxine 125 mcg PO DAILY metoprolol succinate ER 50 mg PO DAILY montelukast (Singulair) 10 mg PO BEDTIME 30 days prednisone PO daily; Take 2 tabs daily x 5 days, then 1 tab daily x 5 days 10 days roflumilast 500 mcg PO DAILY 30 days rosuvastatin 20 mg PO BEDTIME Trelegy Ellipta 200-62.5-25 mcg ([id number]) 1 inh inhalation DAILY NS Ventolin HFA 90 mcg/actuation (albuterol sulfate) 2 puffs inhalation Q4H PRN 30 days NS PFSH Medical History Shortness of breath Skin lesion of lower extremity Cough Chest discomfort Pulmonary hypertension Asthma Obesity Neck pain Chronic respiratory failure Pulmonary nodules Nonsustained ventricular tachycardia HTN (hypertension) SVT (supraventricular tachycardia) COPD (chronic obstructive pulmonary disease) Osteoporosis Surgical History Hx of cardiac cath Hx of knee surgery History of surgery on arm Hx of hysterectomy Hx of appendectomy Hx of cholecystectomy Family History Father Lung cancer Mother CVA (cerebral vascular accident) Social History Household Members: None Alcohol intake: never Patient Tobacco Use Status: Former Tobacco user Years Smoked: 30 Second Hand Smoke Exposure: No Current occupational status: employed 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[employer] [place] Physical Exam Vital Signs: BMI result Body Mass Index 36.1 Const Other: Well-nourished well-developed very friendly female awake alert and oriented x3 in no acute distress Extrem Other: Bilateral lower extremity examination shows good capillary refill, no skin lesions noted, normal sensation light touch Right knee examination shows a minimal effusion, palpable crepitus with range of motion, pain with range of motion, range of motion from -3 degrees to 115 degrees, no instability Results Reviewed Results Reviewed: X-rays of the patient's right knee show end-stage degenerative joint disease with grade 4 [id number] arthritis in the medial compartment, subchondral sclerosis, osteophyte formation, no acute bony abnormalities Assessment & Plan Assessment & Plan (1) Arthritis of right knee: Code(s): M17.11 - Unilateral primary osteoarthritis, right knee Plan Ms. Mosqueda presents with right knee pain due to end-stage degenerative joint disease. I had a lengthy discussion with the patient regarding the treatment options. At this point she has failed continued non operative treatments. The risks and benefits of right total knee replacement surgery were discussed at length with the patient. The patient is interested in proceeding with surgery later this year. She will contact my office to pick a surgery date. I will see her back prior to her surgery to answer any final questions that she might have. Feel free to call me at any time should questions regarding her orthopedic management arise. Thank you very much for asking me to see this very friendly patient. I spent 20 minutes in reviewing the patient's records and imaging studies, seeing the patient and documenting in the medical record. Coding Level of Care Code New Pt Level 2 (00281) Diagnoses Arthritis of right knee M17.11
== END 2024-01-16 15:28 | disposition home or self-care (01) ==
PROVIDERS: PCP Internal Medicine; Visit Provider Orthopaedic Surgery
DX: M17.11 Unilateral primary osteoarthritis, right knee (principal)
CPT/HCPCS: 99202

== ENCOUNTER → 2024-01-16 14:47 | Outpatient (BNVA) | payer OTHER, SELFPAY | PROVIDERS: PCP Internal Medicine; Visit Provider Orthopaedic Surgery ==

== ENCOUNTER 2024-02-12 08:29 | Outpatient (AMB) | payer OTHER, SELFPAY ==
--- NOTE | 2024-02-12 08:37 | MHC.OFFVIS ---
Vital Signs 02/12/24 08:41 Weight 200 lb Intake Visit Reasons: ?PRP Candidate: R TKA сергей/ 07/29/24 Intake Note: Sabine is a 73 year old female who presents today for a follow up visit to discuss having PRP in the right knee. She is booked for a Right TKA 07/29/24. She would like to postpone the TKA as long as possible so she is looking to have PRP in the right knee Allergies aspirin [Aspirin] Allergy (Severe, Verified 02/12/24 08:41) TROUBLE BREATHING, vomiting Penicillins Allergy (Severe, Verified 02/12/24 08:41) THROAT CLOSES adhesive tape [ADHESIVE TAPE] Allergy (Intermediate, Verified 02/12/24 08:41) RASH/ITCH ibuprofen [From MOTRIN] Allergy (Intermediate, Verified 02/12/24 08:41) VOMITING latex [LATEX] Allergy (Intermediate, Verified 02/12/24 08:41) RASH penicillin V Allergy (Unknown, Verified 02/12/24 08:41) rash prednisone Allergy (Unknown, Verified 02/12/24 08:41) Unknown spider venom [SPIDER BITES] Allergy (Unknown, Verified 02/12/24 08:41) SWELLING clarithromycin [From Biaxin] Adverse Reaction (Intermediate, Verified 02/12/24 08:41) PROJECTILE VOMITING Adhesive Tape Allergy (Unknown, Uncoded 08/25/23 14:59) rash Biaxin Allergy (Unknown, Uncoded 08/25/23 14:59) vomiting, abd pain eggs Allergy (Unknown, Uncoded 08/25/23 14:59) Unknown Latex Gloves Allergy (Unknown, Uncoded 08/25/23 14:59) rash HPI HPI ?PRP Candidate: R LUANNE rushing/ 07/29/24: Details: Sabine is a 73 year old female who presents today for a follow up visit to discuss having PRP in the right knee. She is booked for a Right TKA 07/29/24. She would like to postpone the TKA as long as possible so she is looking to have PRP in the right knee. [facility] Medical History Shortness of breath Skin lesion of lower extremity Cough Chest discomfort Pulmonary hypertension Asthma Obesity Neck pain Chronic respiratory failure Pulmonary nodules Nonsustained ventricular tachycardia HTN (hypertension) SVT (supraventricular tachycardia) COPD (chronic obstructive pulmonary disease) Osteoporosis Surgical History Hx of cardiac cath Hx of knee surgery History of surgery on arm Hx of hysterectomy Hx of appendectomy Hx of cholecystectomy Family History Father Lung cancer Mother CVA (cerebral vascular accident) Social History Household Members: None Alcohol intake: never Patient Tobacco Use Status: Former Tobacco user Years Smoked: 30 Second Hand Smoke Exposure: No Current occupational status: employed 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 Right knee medial compartment loss of joint space and c/w moderate to severe OA Assessment & Plan Assessment & Plan (1) Arthritis of right knee: Code(s): M17.11 - Unilateral primary osteoarthritis, right knee Category: Medical Plan: This is a 73 yo with right knee OA. We discussed non surgical treatment options including PRP. Her quality of life is diminished. She was under the impression that PRP is curative which it is not. I recommend she continue with TKA as scheduled. She agrees.
== END 2024-02-12 08:59 | disposition home or self-care (01) ==
PROVIDERS: PCP Internal Medicine; Visit Provider Orthopaedic Surgery
DX: M17.11 Unilateral primary osteoarthritis, right knee (principal)
CPT/HCPCS: 99214

== ENCOUNTER → 2024-02-12 08:29 | Outpatient (BNVA) | payer OTHER, SELFPAY | PROVIDERS: PCP Internal Medicine; Visit Provider Orthopaedic Surgery ==

== ENCOUNTER 2024-02-13 15:00 | Outpatient (AMB) | payer OTHER, SELFPAY ==
[2024-02-13 15:07] VITALS: PULSE 62; O2SAT 96; BMI 38.8
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
== END 2024-02-13 15:58 | disposition home or self-care (01) ==
PROVIDERS: PCP Internal Medicine; Visit Provider Hospitalist
DX: J45.40 Moderate persistent asthma, uncomplicated (principal); R91.8 Other nonspecific abnormal finding of lung field; J96.11 Chronic respiratory failure with hypoxia; I27.20 Pulmonary hypertension, unspecified; G47.33 Obstructive sleep apnea (adult) (pediatric)
CPT/HCPCS: 99214

== ENCOUNTER → 2024-02-13 15:00 | Outpatient (BNVA) | payer OTHER, SELFPAY | PROVIDERS: PCP Internal Medicine; Visit Provider Hospitalist ==

== ENCOUNTER → 2024-03-19 08:21 | Outpatient (REF) | payer OTHER, SELFPAY ==
--- NOTE | ~2024-03-19 | NM_ITS ---
Lexiscan Myocardial perfusion study Indication: Chest pain, preoperative evaluation Technique: The patient was brought in for a Lexiscan perfusion study on 03/19/2024 and was injected 0.4 mg of Lexiscan intravenously. Within a minute of this injection 30 mCi of sestamibi was given intravenously. Images were obtained using the SPECT gamma camera interlaced with the gating device. Images were obtained in supine position. Resting perfusion study was performed on 03/21/2024. Patient was administered 30 mCi of sestamibi intravenously at rest. Images were then obtained in supine position. Images were processed with the software and compared side to side in short axis, horizontal long axis and vertical long axis views. Total DLP 153mGy-cm. Findings: Raw acquisition reviewed. The stress perfusion study showed diminished tracer uptake in the lateral wall. There is improvement with CT attenuation correction seen just to of soft tissue attenuation artifact. The gated study shows normal LV systolic function-gated LVEF 45%, but visually appears in the normal range. LV cavity is normal in size. The gated study shows normal wall thickening and contraction of segments. Resting study shows no significant perfusion abnormality stress that diminished tracer uptake in the inferolateral wall. There is improvement with CT attenuation correction is a distal of diaphragmatic attenuation artifact. Gating at rest reveals normal wall motion with ejection fraction at 58%. The findings are consistent with no clear reversible or fixed perfusion abnormality. NM/NM radha perf SPECT rest & str Impression: 1. Myocardial perfusion imaging study shows normal myocardial perfusion. 2. Gated LVEF is 58% during rest. Visually normal during stress. 3. Transient ischemic dilatation not present. EKG component of the test reported separately.
--- NOTE | 2024-03-19 08:25 | CA_ITS ---
Acquisition Time: 2024-03-19 08:20:55 Total Exercise Time: 00:02:00 Test Indications: Chest Pain Medications: SEE EMAR Protocol: LEXISCAN Max HR: 090 BPM 62% of Pred: 145 BPM Max BP: 152/064 mmHG Max Work Load: 1.0 METS Pharmacological stress test with Lexiscan injeciton while sititng and kicking her legs, with mild to moderate SOB, no chest discomfort, without arrhythmias, with normotensive response to injection, with nondiagnoisitic EKGs. Aminophylline 75mg IVP given to reverse Lexiscan. Nuclear images pending. Test reviewed with Dr. Russell. Referred By: Wili Caballero Overread By: Nathalie Downing
== END ==
LOC: HO.CARD 08:21
PROVIDERS: PCP Internal Medicine; Visit Provider Internal Medicine
DX: R07.2 Precordial pain (principal)
CPT/HCPCS: 78452; 93017; A9500; J0280; J2785

== ENCOUNTER → 2024-03-19 08:25 | Outpatient (BNV) | payer OTHER, SELFPAY | PROVIDERS: PCP Internal Medicine; Visit Provider Nurse Practitioner | DX: R07.9 Chest pain, unspecified (principal) | CPT/HCPCS: 78452; 93016; 93018 ==

== ENCOUNTER 2024-05-08 06:51 | Outpatient (REF) | payer OTHER, SELFPAY ==
[2024-05-08 09:33] LABS: Erythrocyte Sedimentation Rate 19 MM/HR (0-20)
== END 2024-05-08 06:52 | disposition home or self-care (01) ==
LOC: HO.LAB 06:51
PROVIDERS: Visit Provider Internal Medicine
DX: R13.19 Other dysphagia (principal)
CPT/HCPCS: 36415; 85652

== ENCOUNTER 2024-06-14 07:01 | Outpatient (REF) | payer OTHER, SELFPAY ==
[2024-06-14 07:11] LABS: MANUAL DIFF FLAG NO
[2024-06-14 07:41] LABS: Basophils Absolute Auto 0.1 X10*3/uL (0.0-0.2); Basophils Percent Auto 0.9 % (0-2); Eosinophils Absolute Auto 0.2 X10*3/uL (0.0-0.4); Hemoglobin 13.8 g/dl (12.0-16.0); Imm Gran Abs Auto 0.03 X10*3/uL (0.00-0.03); Imm Gran Pct Auto 0.4 % (0.0-0.4); Lymphocytes Absolute Auto 1.5 X10*3/uL (1.2-4.9); Lymphocytes Percent Auto 19.5 % (20-40); Mean Corpuscular HGB Conc 32.9 g/dl (31.0-35.0); Mean Corpuscular Hemoglobin 29.7 pg (27.0-33.0); Mean Corpuscular Volume 90.5 fL (80.0-98.0); Mean Platelet Volume 10.8 fL (9.4-12.3); Monocytes Absolute Auto 0.7 X10*3/uL (0.1-1.2); Monocytes Percent Auto 8.7 % (2-11); Neutrophils Absolute Auto 5.3 x10*3/uL (2.0-8.3); Neutrophils Percent Auto 67.5 % (45-73); Platelet Count 208 X10*3/uL (160-400); Red Blood Count 4.64 X10*6/uL (4.20-5.50); Red Cell Distribution Width 13.2 % (11.0-16.0); White Blood Count 7.9 X10*3/uL (4.8-10.8)
[2024-06-14 07:54] LABS: Appearance Urine Cloudy; Color Urine Yellow; Glucose Urine UA Negative (Negative); Leukocyte Esterase Urine Negative (Negative); Nitrite Urine Negative (Negative); PH 6.5 (5.0-9.0); Specific Gravity - Urine 1.015 (1.005-1.025); Urine Blood Negative (Negative); Urine Ketones Negative (Negative); Urine Protein Negative (Neg-Trace)
[2024-06-14 08:07] LABS: Alanine Aminotransferase 11 U/L (0-31); Albumin Level 3.8 g/dL (3.5-5.0); Alkaline Phosphatase 74 U/L (39-117); Anion Gap 11 (12-20); Aspartate Amino Transferase 15 U/L (5-31); Bilirubin Total 0.5 mg/dL (0.0-1.0); Blood Urea Nitrogen 12 mg/dL (9-16); Calcium 9.6 mg/dL (8.4-10.2); Carbon Dioxide 30 mmol/L (22-29); Chloride 107 mmol/L (96-108); Cholesterol 175 mg/dL (<200); Estimated Glomerular Filt Rate > 60; Glucose Fasting 111 mg/dL (60-99); HDL Cholesterol 53 mg/dL (>40); LDL Cholesterol Calculated 83 mg/dL (<100); Sodium 144 mmol/L (135-145); Total Protein 6.8 g/dL (6.5-8.0); Triglycerides 199 mg/dL (<150)
[2024-06-14 08:11] LABS: Bacteria Urine None Seen (None Seen); Hyaline Casts Urine 0-2 /LPF (0-2); RBC Urine 0-2 /HPF (0-2); WBC Urine 0-5 /HPF (0-5)
[2024-06-14 08:23] LABS: TSH reflex Free T4 1.06 uIU/mL (0.32-4.0); Vitamin D 25-OH Total 45.1 ng/mL (>30)
== END 2024-06-14 07:02 | disposition home or self-care (01) ==
LOC: HO.LAB 07:01
PROVIDERS: PCP Internal Medicine; Visit Provider Internal Medicine
DX: Z00.00 Encounter for general adult medical examination without abnormal findings (principal); E55.9 Vitamin D deficiency, unspecified; I10 Essential (primary) hypertension; E78.00 Pure hypercholesterolemia, unspecified; E89.0 Postprocedural hypothyroidism
CPT/HCPCS: 36415; 80053; 80061; 81001; 82306; 84443; 85025

== ENCOUNTER 2024-06-30 09:39 | Emergency (ER) | payer OTHER, SELFPAY ==
--- NOTE | ~2024-06-30 | XR_ITS ---
EXAMINATION: XR CHEST CLINICAL INFORMATION: Chest pain COMPARISON: Chest radiograph 02/24/2023 TECHNIQUE: 2 views of the chest were obtained. FINDINGS: Unchanged minimal left basilar atelectasis or scarring. Otherwise clear lungs. No pleural effusion or pneumothorax. Cardiomediastinal silhouette is unchanged. Redemonstrated remote, healed left posterolateral fifth and sixth rib fractures. XR/XR chest 2V IMPRESSION: No acute cardiopulmonary abnormality. Electronically signed by: Maximilian Alexander MD 06/30/2024 10:37 AM EDT
--- NOTE | ~2024-06-30 | CT_ITS ---
EXAMINATION: CT ANGIOGRAM CHEST CLINICAL INFORMATION: Shortness of breath. Chest pain. COMPARISON: Multiple priors with last chest CT of 11/07/2023 TECHNIQUE: Multiple axial images were obtained through the chest after the administration of 65 mL of Omnipaque 350 intravenous contrast. Extensive vascular post-processing including two-dimensional and three-dimensional reformatted images were created and reviewed on an independent workstation. This CT examination was performed using dose optimization techniques as appropriate, variously including the following: *Automated exposure control *Adjustment of mA and/or kV according to patient size (this includes techniques or standardized protocols for targeted exams where dose is matched to indication/reason for exam; i.e. extremities or head) *Use of iterative reconstruction technique DLP: 439 mGy-cm FINDINGS: There is satisfactory opacification pulmonary arterial tree. There is no evidence of pulmonary embolism. Aorta is normal in caliber. No definite coronary artery calcifications are noted on this examination. Cardiac size is normal. No pericardial or pleural effusions. No pneumothorax. No evidence of pathologically enlarged mediastinal or hilar lymph nodes. Trachea and central bronchi are well aerated. No evidence of significant pulmonary nodule, masses or opacities. Streaky densities in the lingula and anterior left lower lobe at the lung bases represent atelectasis. A 0.3 cm pleural-based nodule in the left upper lobe anterolaterally (series 6 image 140) is a stable finding since multiple previous CT scans including CT scan of 08/07/2019 and no further imaging follow-up of this finding is warranted. There is no evidence of axillary or internal mammary chain adenopathy. Visualized chest wall soft tissues are unremarkable. Left renal peripelvic cysts are noted. No adrenal mass. CT/CT angio chest PE protocol IMPRESSION: No evidence of pulmonary embolism. No acute pulmonary process. VTE: Negative Fleischner guidelines were followed. Electronically signed by: Jenn Townsend MD 06/30/2024 01:54 PM EDT
--- NOTE | 2024-06-30 09:41 | ECG_ITS ---
Test Reason : cp Blood Pressure : / mmHG Vent. Rate : 088 BPM Atrial Rate : 088 BPM P-R Int : 080 ms QRS Dur : 086 ms QT Int : 356 ms P-R-T Axes : 109 -15 063 degrees QTc Int : 430 ms Sinus rhythm with short NJ Minimal voltage criteria for LVH, may be normal variant ( R in aVL ) Nonspecific ST abnormality Abnormal ECG When compared with ECG of 07-NOV-2023 06:39, NJ interval has decreased ST now depressed in Lateral leads Referred By: Generic ED Physician Electronically Signed By:VICKI LOGAN
[2024-06-30 09:51] VITALS: BP 148/77; PULSE 88; RESP 19; TEMP 36.6; O2SAT 95; BMI 34.3
[2024-06-30 10:03] VITALS: BP 156/70; PULSE 90; RESP 16; TEMP 37; O2SAT 95
[2024-06-30 10:05] VITALS: PULSE 83
[2024-06-30 10:17] LABS: MANUAL DIFF FLAG NO
[2024-06-30 10:18] LABS: Basophils Percent Auto 0.2 % (0-2); Eosinophils Absolute Auto 0.1 X10*3/uL (0.0-0.4); Eosinophils Percent Auto 1.1 % (0-4); Hematocrit 43.3 % (37.0-47.0); Imm Gran Abs Auto 0.04 X10*3/uL (0.00-0.03); Imm Gran Pct Auto 0.4 % (0.0-0.4); Lymphocytes Absolute Auto 0.9 X10*3/uL (1.2-4.9); Lymphocytes Percent Auto 8.2 % (20-40); Mean Corpuscular HGB Conc 32.3 g/dl (31.0-35.0); Mean Corpuscular Volume 89.6 fL (80.0-98.0); Mean Platelet Volume 10.5 fL (9.4-12.3); Monocytes Absolute Auto 0.7 X10*3/uL (0.1-1.2); Monocytes Percent Auto 6.4 % (2-11); Neutrophils Absolute Auto 9.5 x10*3/uL (2.0-8.3); Neutrophils Percent Auto 83.7 % (45-73); Platelet Count 201 X10*3/uL (160-400); Red Blood Count 4.83 X10*6/uL (4.20-5.50); White Blood Count 11.3 X10*3/uL (4.8-10.8)
[2024-06-30 10:25] LABS: INTERNATIONAL NORM RATIO 0.9 (0.9-1.1)
[2024-06-30 10:31] LABS: Alanine Aminotransferase 15 U/L (0-31); Albumin Level 4.2 g/dL (3.5-5.0); Alkaline Phosphatase 79 U/L (39-117); Anion Gap 15 (12-20); Aspartate Amino Transferase 21 U/L (5-31); Bilirubin Total 0.8 mg/dL (0.0-1.0); Blood Urea Nitrogen 10 mg/dL (9-16); Calcium 9.8 mg/dL (8.4-10.2); Carbon Dioxide 26 mmol/L (22-29); Chloride 107 mmol/L (96-108); Creatinine Clr Calc Pharmacy 67.9; Estimated Glomerular Filt Rate > 60; Glucose Random 110 mg/dL (60-115); Potassium 4.9 mmol/L (3.3-5.1); Sodium 143 mmol/L (135-145); Total Protein 7.4 g/dL (6.5-8.0)
[2024-06-30 10:38] LABS: Troponin-I High Sensitivity 4.9 ng/L (<3.5-17.0)
--- NOTE | 2024-06-30 11:22 | ED_ITS ---
HPI - Chest Pain General Chief Complaint: Chest Pain Stated Complaint: Chest pain Time Seen by Provider: 06/30/24 11:20 Source: patient Mode of arrival: ambulatory Limitations: no limitations History of Present Illness ED Provider: Airam Randolph PA-C HPI narrative: Patient is a 73 year old assigned female at with a history of COPD, HTN, DVT (not currently anticoagulated), and SVT presenting to the emergency department today with chest pain. Patient states that she has had chest pain on and off for the last 4 months. Patient states that she had a stress test that was normal and saw a GI specialist who said it is not acid reflux. Patient denies any dizziness, lightheadedness, abdominal pain, nausea, vomiting, fever, chills, blurry vision, double vision, loss of vision, difficulty breathing, shortness of breath, back pain, night sweats, pain with urination, increased urinary frequency, increased urinary urgency, blood in her urine or stool, syncope or a near syncopal episode, recent trauma or falls, bowel incontinence, bladder incontinence, or any other complaints at this time. Pain radiation: none Relieving factors: nothing Exacerbating factors: nothing Related Data Home Medications ?Medication ?Instructions ?Recorded ?Confirmed levothyroxine 125 mcg tablet 125 mcg PO DAILY 12/03/20 01/16/24 rosuvastatin 20 mg tablet 20 mg PO BEDTIME 04/08/21 01/16/24 ipratropium 0.5 mg-albuterol 3 mg ml inhalation 06/28/22 01/16/24 (2.5 mg base)/3 mL nebulization soln omeprazole 20 mg capsule,delayed 20 mg PO DAILY 02/13/24 release Previous Rx's ?Medication ?Instructions ?Recorded acetaminophen 500 mg tablet 500 mg PO Q6H PRN fever or pain 09/20/22 (Tylenol Extra Strength) #14 tabs cholecalciferol (vitamin D3) 50 50 mcg PO DAILY 30 days #30 caps 03/21/23 mcg (2,000 unit) capsule epinephrine 0.3 mg/0.3 mL 0.3 mg (0.3 mL) IM Q10M PRN 07/27/23 injection, auto-injector (EpiPen anaphylaxis 30 days #2 ea 2-Ken) Trelegy Ellipta 200 mcg-62.5 1 inh inhalation DAILY #60 ea 08/21/23 mcg-25 mcg powder for inhalation (zhyhlfzjnex-jmwsrgkkf-rwylpkqu) Ventolin HFA 90 mcg/actuation 2 puff inhalation Q4H PRN for 10/26/23 aerosol inhaler (albuterol sulfate) wheezing 30 days #18 grams metoprolol succinate 50 mg 50 mg PO DAILY #90 tabs 03/04/24 tablet,extended release 24 hr doxycycline hyclate 100 mg capsule 100 mg PO BID 10 days #20 caps 04/01/24 prednisone 10 mg tablet See Rx Instructions PO DAILY 10 04/01/24 days #15 tabs amlodipine 5 mg tablet 5 mg PO DAILY #90 tabs 06/03/24 azithromycin 250 mg tablet 250 mg PO 3XW #12 tabs 06/08/24 roflumilast 500 mcg tablet 500 mcg PO DAILY 30 days #30 tabs 06/21/24 montelukast 10 mg tablet 10 mg PO BEDTIME #30 tabs 06/27/24 Allergies Allergy/AdvReac Type Severity Reaction Status Date / Time aspirin [Aspirin] Allergy Severe TROUBLE Verified 06/30/24 09:53 BREATHING, vomiting Penicillins Allergy Severe THROAT Verified 06/30/24 09:53 CLOSES adhesive tape [ADHESIVE TAPE] Allergy Intermediate RASH/ITCH Verified 06/30/24 09:53 ibuprofen [From MOTRIN] Allergy Intermediate VOMITING Verified 06/30/24 09:53 latex [LATEX] Allergy Intermediate RASH Verified 06/30/24 09:53 penicillin V Allergy Unknown rash Verified 06/30/24 09:53 spider venom [SPIDER BITES] Allergy Unknown SWELLING Verified 06/30/24 09:53 chlorhexidine Allergy Rash, Verified 06/30/24 09:53 itchiness peanut Allergy Angioedema Verified 06/30/24 09:53 clarithromycin [From Biaxin] AdvReac Intermediate PROJECTILE Verified 06/30/24 09:53 VOMITING Adhesive Tape Allergy Unknown rash Uncoded 06/30/24 09:53 Biaxin Allergy Unknown vomiting, Uncoded 06/30/24 09:53 abd pain eggs Allergy Unknown Unknown Uncoded 06/30/24 09:53 Latex Gloves Allergy Unknown rash Uncoded 06/30/24 09:53 Review of Systems 2 Constitutional: Constitutional: Reports no additional constitutional complaints, Denies chills, Denies fever(s) and Denies night sweats Eyes: Eyes: Reports no additional eye complaints, Denies blurry vision, Denies change in vision, Denies diplopia, Denies eye discharge, Denies loss of vision and Denies eye pain ENT: Denies dizziness Cardiovascular: Cardiovascular: Reports no additional cardiovascular complaints, Reports chest pain, Denies lightheadedness, Denies Loss of Consciousness and Denies dyspnea Respiratory: Respiratory: Reports no additional respiratory complaints and Denies dyspnea Gastrointestinal: Gastrointestinal: Reports no additional gastrointestinal complaints, Denies abdominal pain, Denies melena, Denies hematochezia, Denies change in bowel habits and Denies change in stool character Genitourinary: Genitourinary: Denies hematuria, Denies urinary frequency, Denies dysuria, Denies urinary incontinence, Denies urinary hesitancy and Denies urinary urgency Musculoskeletal: Musculoskeletal: Reports no additional musculoskeletal complaints, Denies numbness and Denies tingling Neurologic: Denies dizziness, Denies loss of vision, Denies numbness and Denies tingling Psychiatric: Psychiatric: Reports no additional psychiatric complaints Endocrine: Endocrine: Reports no additional endocrine complaints Hematologic/Lymphatic: Hematologic/Lymphatic: Reports no additional hematologic/lymphatic complaints Allergic/Immunologic: Allergic/Immunologic: Reports no additional allergic/immunologic complaints [facility] Past Medical History Attestation statement: The following information was validated with the patient. Source: old records reviewed and nursing notes reviewed Medical History Shortness of breath Skin lesion of lower extremity Cough Chest discomfort Pulmonary hypertension Asthma Obesity Neck pain Chronic respiratory failure Pulmonary nodules Nonsustained ventricular tachycardia HTN (hypertension) SVT (supraventricular tachycardia) COPD (chronic obstructive pulmonary disease) Osteoporosis Surgical History Hx of cardiac cath Hx of knee surgery History of surgery on arm Hx of hysterectomy Hx of appendectomy Hx of cholecystectomy Family History Family History Father Lung cancer Mother CVA (cerebral vascular accident) Social History Social History Household Members: None Alcohol intake: never Patient Tobacco Use Status: Former Tobacco user Years Smoked: 30 Smoked in Last 30 Days: No Second Hand Smoke Exposure: No Use of substances other than those prescribed or required for medical reasons: No Advance Directives: No Advance Directives Information Provided: No Do you have a plan to hurt others: No Plan Current occupational status: employed 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 [place] Physical Exam 2 Vital Signs: Vital Signs: Last Vital Signs Temp 98.3 F 06/30/24 14:14 Pulse 67 06/30/24 14:14 Resp 16 06/30/24 14:14 BP 145/67 H 06/30/24 14:14 Pulse Ox 97 06/30/24 14:14 O2 Del Method Room Air 06/30/24 14:14 BMI result Body Mass Index 34.3 Const: General: cooperative, no acute distress, alert and awake Nutritional Appearance: well nourished Orientation/consciousness: patient oriented x3 Limitations: no limitations HEENT: Head: Yes normal to inspection and Yes atraumatic Ears: hearing grossly normal bilaterally and external ears normal General nose exam: Normal external nose present, no nasal discharge noted and no epistaxis Face and sinus: Yes normal facial exam, No abrasion and No laceration Mouth: Normal oral and palatal mucosa present, no drooling and no muffled voice Eyes: General: appearance normal, both eyes and all related structures P eriorbital: periorbital findings normal Eyelids: Yes eyelids normal C onjunctivae: conjunctivae normal Pupils: Equal, round and reactive pupils present EOM: EOMs intact bilaterally Neck: Neck: Yes normal visual inspection, Yes full ROM and Yes no lymphadenopathy Chest: Chest palpation & inspection: normal inspection of the chest Resp: Effort & Inspection: normal respiratory effort and able to speak in complete sentences GI: Inspection: Yes normal to inspection Neuro: General: patient oriented x3 and moves all extremities Cranial nerves: Yes Equal, round and reactive pupils present Cognition (Neuro): n ormal cognition Extrem: General: Yes normal to inspection, Yes full ROM and Yes capillary refill normal Psych: Appearance: grossly normal Mental Status: mental status grossly normal Affect: normal affect Attitude: cooperative Thought process: N ormal thought process present Thought content: Normal thought content present Insight: Good insight present (Psych) Medications Administered Discontinued Medications Generic Name Dose Route Start Last Admin Trade Name Freq PRN Reason Stop Dose Admin Iohexol 65 ml 06/30/24 12:06 06/30/24 12:06 Iohexol 350 Mg/Ml 100 Ml Infus..Btl IV 06/30/24 12:07 65 ml ONCE ONE Administration Medical Decision Making Medical Decision Making [facility] Narrative: Patient is a 73 year old assigned female at with a history of COPD, HTN, DVT (not currently anticoagulated), and SVT presenting to the emergency department today with chest pain. Patient's physical exam was unremarkable. Patient's blood work was unremarkable. Patient's EKG was unremarkable. Patient's chest x-ray and CT PE showed no acute process. I explained my physical exam findings as well as all test results to the patient. I answered all questions asked by the patient. I stressed the importance of the patient taking her medication as directed (either prescribed or as the over the counter packaging recommends). 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 I stressed the importance of the patient returning to the emergency department immediately if her symptoms were to worsen or if she were to develop any dizziness, shortness of breath, difficulty breathing, chest pain, blurry vision, loss of vision, nausea, vomiting, abdominal pain, fever, chills, back pain, or any other complaints. Patient verbalized agreement and understanding with this treatment plan and discharge. Differential Diagnosis Differential Diagnoses: The differential diagnosis associated with the presentation includes Chest pain NSTEMI STEMI Costochondritis GERD Admission/Observation Consideration of admission/observation: Escalation of care including admission/observation considered Patient would have been admitted to the hospital had her work up had any findings where hospital admission was appropriate and her clinical presentation warranted hospital admission. Lab Data [facility] Lab Attestation statement: I reviewed the patient's lab results. My interpretation of these results are in the [facility] Rationale portion of this note. 06/30/24 10:12 06/30/24 10:12 Labs: Lab Results 06/30/24 06/30/24 06/30/24 Range/Units 10:12 11:43 13:21 WBC 11.3 H (4.8-10.8) X10*3/uL RBC 4.83 (4.20-5.50) X10*6/uL Hgb 14.0 (12.0-16.0) g/dl Hct 43.3 (37.0-47.0) % MCV 89.6 (80.0-98.0) fL MCH 29.0 (27.0-33.0) pg MCHC 32.3 (31.0-35.0) g/dl RDW 13.0 (11.0-16.0) % Plt Count 201 (160-400) X10*3/uL MPV 10.5 (9.4-12.3) fL Immature Gran % (Auto) 0.4 (0.0-0.4) % Neut % (Auto) 83.7 H (45-73) % Lymph % (Auto) 8.2 L (20-40) % Bracken % (Auto) 6.4 (2-11) % Eos % (Auto) 1.1 (0-4) % Baso % (Auto) 0.2 (0-2) % Lymph # (Auto) 0.9 L (1.2-4.9) X10*3/uL Bracken # (Auto) 0.7 (0.1-1.2) X10*3/uL Eos # (Auto) 0.1 (0.0-0.4) X10*3/uL Baso # (Auto) 0.0 (0.0-0.2) X10*3/uL Abs Immat Gran (auto) 0.04 H (0.00-0.03) X10*3/uL Absolute Neuts (auto) 9.5 H (2.0-8.3) x10*3/uL Absolute Nucleated RBC 0.000 (0.0-0.012) X10*3/uL Nucleated RBC % (auto) 0.0 (0.0-0.2) /100WBC PT 11.0 L (11.1-13.3) SEC INR 0.9 (0.9-1.1) Sodium 143 (135-145) mmol/L Potassium 4.9 D (3.3-5.1) mmol/L Chloride 107 (96-108) mmol/L Carbon Dioxide 26 (22-29) mmol/L Anion Gap 15 (12-20) BUN 10 (9-16) mg/dL Creatinine 0.78 (0.5-1.4) mg/dL Estim Creat Clear Calc 67.9 Estimated GFR > 60 Random Glucose 110 (60-115) mg/dL Calcium 9.8 (8.4-10.2) mg/dL Total Bilirubin 0.8 (0.0-1.0) mg/dL AST 21 (5-31) U/L ALT 15 (0-31) U/L Alkaline Phosphatase 79 (39-117) U/L Troponin I High Sens 4.9 D 10.0 D 6.6 (<3.5-17.0) ng/L Total Protein 7.4 (6.5-8.0) g/dL Albumin 4.2 (3.5-5.0) g/dL Independent Interpretation I performed an independent interpretation of an: EKG, Plain X-Ray and CT Scan Interpretation: My interpretation is in agreement with the radiologist's impression of these imaging studies. - EXAMINATION: XR CHEST CLINICAL INFORMATION: Chest pain COMPARISON: Chest radiograph 02/24/2023 TECHNIQUE: 2 views of the chest were obtained. FINDINGS: Unchanged minimal left basilar atelectasis or scarring. Otherwise clear lungs. No pleural effusion or pneumothorax. Cardiomediastinal silhouette is unchanged. Redemonstrated remote, healed left posterolateral fifth and sixth rib fractures. XR/XR chest 2V IMPRESSION: No acute cardiopulmonary abnormality. Electronically signed by: Maximilian Alexander MD 06/30/2024 10:37 AM EDT Dictated By: Maximilian Alexander MD Signed By: Electronically signed by Maximilian Alexander MD 06/30/24 1037 - EXAMINATION: CT ANGIOGRAM CHEST CLINICAL INFORMATION: Shortness of breath. Chest pain. COMPARISON: Multiple priors with last chest CT of 11/07/2023 TECHNIQUE: Multiple axial images were obtained through the chest after the administration of 65 mL of Omnipaque 350 intravenous contrast. Extensive vascular post- processing including two-dimensional and three-dimensional reformatted images were created and reviewed on an independent workstation. This CT examination was performed using dose optimization techniques as appropriate, variously including the following: *Automated exposure control *Adjustment of mA and/or kV according to patient size (this includes techniques or standardized protocols for targeted exams where dose is matched to indication/reason for exam; i.e. extremities or head) *Use of iterative reconstruction technique DLP: 439 mGy-cm FINDINGS: There is satisfactory opacification pulmonary arterial tree. There is no evidence of pulmonary embolism. Aorta is normal in caliber. No definite coronary artery calcifications are noted on this examination. Cardiac size is normal. No pericardial or pleural effusions. No pneumothorax. No evidence of pathologically enlarged mediastinal or hilar lymph nodes. Trachea and central bronchi are well aerated. No evidence of significant pulmonary nodule, masses or opacities. Streaky densities in the lingula and anterior left lower lobe at the lung bases represent atelectasis. A 0.3 cm pleural-based nodule in the left upper lobe anterolaterally (series 6 image 140) is a stable finding since multiple previous CT scans including CT scan of 08/07/2019 and no further imaging follow-up of this finding is warranted. There is no evidence of axillary or internal mammary chain adenopathy. Visualized chest wall soft tissues are unremarkable. Left renal peripelvic cysts are noted. No adrenal mass. CT/CT angio chest PE protocol IMPRESSION: No evidence of pulmonary embolism. No acute pulmonary process. VTE: Negative Fleischner guidelines were followed. Electronically signed by: Jenn Townsend MD 06/30/2024 01:54 PM EDT Dictated By: Jenn Townsend MD Signed By: Electronically signed by Jenn Townsend MD 06/30/24 1354 - Vent. Rate: 088 BPM Atrial Rate: 088 BPM P-R Int: 080 ms QRS Dur: 086 ms QT Int: 356 ms P-R-T Axes: 109 -15 063 degrees QTc Int: 430 ms Sinus rhythm with short MS Minimal voltage criteria for LVH, may be normal variant (R in aVL) Borderline ECG When compared with ECG of 07-NOV-2023 06:39, MS interval has decreased ST now depressed in Lateral leads DD/ [id number] Radiology Impression Discussion of test interpretation with radiology: I have reviewed the radiologist's reading. Chronic Conditions Patient?s care impacted by: Hypertension Discharge Plan Discharge Clinical Impression: Chest pain Patient Disposition: Home, Self-Care Instructions: Chest Pain (DC) Additional Instructions: Follow up with your primary care provider. Return to the emergency department immediately if your symptoms worsen or if you develop any dizziness, shortness of breath, difficulty breathing, chest pain, blurry vision, loss of vision, nausea, vomiting, abdominal pain, fever, chills, back pain, or any other complaints. Prescriptions: No Action cholecalciferol (vitamin D3) 50 mcg (2,000 unit) capsule 50 mcg PO DAILY 30 Days Qty: 30 6RF Trelegy Ellipta 200-62.5-25 mcg blister with device 1 inh inhalation DAILY Qty: 60 11RF albuterol sulfate [Ventolin HFA] 90 mcg/actuation HFA aerosol inhaler 2 puff inhalation Q4H PRN (Reason: for wheezing) 30 Days Qty: 18 11RF metoprolol succinate 50 mg tablet extended release 24 hr 50 mg PO DAILY Qty: 90 1RF prednisone 10 mg tablet See Rx Instructions PO DAILY 10 Days Qty: 15 0RF Rx Instructions: PO daily; Take 2 tabs daily x 5 days, then 1 tab daily x 5 days doxycycline hyclate 100 mg capsule 100 mg PO BID 10 Days Qty: 20 0RF amlodipine 5 mg tablet 5 mg PO DAILY Qty: 90 3RF azithromycin 250 mg tablet 250 mg PO 3XW Qty: 12 0RF roflumilast 500 mcg tablet 500 mcg PO DAILY 30 Days Qty: 30 11RF montelukast 10 mg tablet 10 mg PO BEDTIME Qty: 30 0RF acetaminophen [Tylenol Extra Strength] 500 mg tablet 500 mg PO Q6H PRN (Reason: fever or pain) Qty: 14 0RF levothyroxine 125 mcg tablet 125 mcg PO DAILY rosuvastatin 20 mg tablet 20 mg PO BEDTIME ipratropium-albuterol 0.5 mg-3 mg(2.5 mg base)/3 mL solution for nebulization inhalation epinephrine [EpiPen 2-Ken] 0.3 mg/0.3 mL auto-injector 0.3 mg IM Q10M PRN (Reason: anaphylaxis) 30 Days Qty: 2 6RF Rx Instructions: for 2 doses omeprazole 20 mg capsule,delayed release(DR/EC) 20 mg PO DAILY Referrals: Wili Caballero MD [Primary Care Provider] - Interventions: ED Discharge Assessment Last Done: 06/30/24 14:14 Discharge Date/Time: 06/30/24 14:15 Print Language: Swedish
[2024-06-30 12:00] VITALS: BP 137/69; PULSE 69; RESP 20; O2SAT 96
[2024-06-30] MEDS: iohexoL 350 MG/ML 100 ML INFUS..BTL 65 ML IV (12:06)
[2024-06-30 13:44] LABS: Troponin-I High Sensitivity 6.6 ng/L (<3.5-17.0)
[2024-06-30 14:14] VITALS: BP 145/67; PULSE 67; RESP 16; TEMP 36.8; O2SAT 97
== END 2024-06-30 14:15 | disposition home or self-care (01) ==
PROVIDERS: Physician Assistant Medical; Emergency Provider Emergency Medicine Emergency Medical Services; PCP Internal Medicine
DX: R07.89 Other chest pain (principal); R06.02 Shortness of breath; I10 Essential (primary) hypertension; Z86.718 Personal history of other venous thrombosis and embolism; Z87.891 Personal history of nicotine dependence; Z79.899 Other long term (current) drug therapy
CPT/HCPCS: 36415; 71046; 71275; 80053; 84484; 85025; 85610; 93005; 99284; 99285; Q9967

== ENCOUNTER 2024-07-04 15:07 | Outpatient (AMB) | payer OTHER, SELFPAY ==
--- NOTE | 2024-07-04 15:10 | MHC.OFFVIS ---
Vital Signs 07/04/24 15:12 Height 5 ft 4 in Weight 200 lb 9.93 oz BMI 34.4 BP 110/68 Blood Pressure Location Lt brachial Position Sitting Pulse 59 Intake Visit Reasons: 1yr follow up/Pre-op Rt TKA w/ Dr. Wallis 07/29 Intake Note: 1 year follow-up Pre-op Rt TKA on 07/29 c/o pain in chest and tight needs was in the ED last week [employer] Installer Required: No Allergies aspirin [Aspirin] Allergy (Severe, Verified 06/30/24 09:53) TROUBLE BREATHING, vomiting Penicillins Allergy (Severe, Verified 06/30/24 09:53) THROAT CLOSES adhesive tape [ADHESIVE TAPE] Allergy (Intermediate, Verified 06/30/24 09:53) RASH/ITCH ibuprofen [From MOTRIN] Allergy (Intermediate, Verified 06/30/24 09:53) VOMITING latex [LATEX] Allergy (Intermediate, Verified 06/30/24 09:53) RASH penicillin V Allergy (Unknown, Verified 06/30/24 09:53) rash spider venom [SPIDER BITES] Allergy (Unknown, Verified 06/30/24 09:53) SWELLING chlorhexidine Allergy (Verified 06/30/24 09:53) Rash, itchiness peanut Allergy (Verified 06/30/24 09:53) Angioedema clarithromycin [From Biaxin] Adverse Reaction (Intermediate, Verified 06/30/24 09:53) PROJECTILE VOMITING Adhesive Tape Allergy (Unknown, Uncoded 06/30/24 09:53) rash Biaxin Allergy (Unknown, Uncoded 06/30/24 09:53) vomiting, abd pain eggs Allergy (Unknown, Uncoded 06/30/24 09:53) Unknown Latex Gloves Allergy (Unknown, Uncoded 06/30/24 09:53) rash Medication List - Last Reconciled 07/04/24 by Nabeel Mackenzie MD acetaminophen (Tylenol Extra Strength) 500 mg PO Q6H PRN amlodipine 5 mg PO DAILY azithromycin 250 mg PO 3XW cholecalciferol (vitamin D3) 50 mcg PO DAILY 30 days epinephrine (EpiPen 2-Ken) 0.3 mg (0.3 mL) IM Q10M PRN 30 days ipratropium-albuterol 0.5 mg-3 mg(2.5 mg base)/3 mL mL inhalation levothyroxine 125 mcg PO DAILY metoprolol succinate ER 50 mg PO DAILY montelukast 10 mg PO BEDTIME omeprazole 20 mg PO DAILY prednisone PO daily; Take 2 tabs daily x 5 days, then 1 tab daily x 5 days 10 days roflumilast 500 mcg PO DAILY 30 days rosuvastatin 20 mg PO BEDTIME Trelegy Ellipta 200-62.5-25 mcg (endpqummlot-ivteckbow-iunmfqtl) 1 inh inhalation DAILY NS Ventolin HFA 90 mcg/actuation (albuterol sulfate) 2 puffs inhalation Q4H PRN 30 days NS HPI Comments Details: Sabine comes for follow-up. She continues to have intermittent episode of severe chest pressure mostly happening at nighttime when she wakes up from it and recently went to the hospital for the same. Her troponins are within normal limits. EKG did not show any acute ischemic changes. She got concerned about the symptoms and comes for follow-up. She was scheduled for a knee surgery but is currently thinking about it. She had a myocardial perfusion imaging in February which was within normal limits. She is taking all her medications. No prolonged palpitation irregular heartbeat. No lightheadedness, syncope. [facility] Medical History Shortness of breath Skin lesion of lower extremity Cough Chest discomfort Pulmonary hypertension Asthma Obesity Neck pain Chronic respiratory failure Pulmonary nodules Nonsustained ventricular tachycardia HTN (hypertension) SVT (supraventricular tachycardia) COPD (chronic obstructive pulmonary disease) Osteoporosis Surgical History Hx of cardiac cath Hx of knee surgery History of surgery on arm Hx of hysterectomy Hx of appendectomy Hx of cholecystectomy Family History Father Lung cancer Mother CVA (cerebral vascular accident) Social History Household Members: None Alcohol intake: never Patient Tobacco Use Status: Former Tobacco user Years Smoked: 30 Second Hand Smoke Exposure: No Current occupational status: employed 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[employer] [place] Review of Systems Const Denies chills, Denies fatigue, Denies fever(s), Denies frequent falls, Denies weakness, Denies weight gain and Denies weight loss ENT Denies dizziness Card Denies chest pain, Denies leg edema, Denies lightheadedness, Denies palpitations, Denies dyspnea, Denies dyspnea on exertion, Denies orthopnea and Denies other (loss of consciousness) Resp Denies cough, Denies dyspnea and Denies dyspnea on exertion GI Denies hematochezia and Denies change in stool character Musc Denies abnormal gait, Denies muscle weakness, Denies numbness, Denies radiating pain into limb and Denies tingling Neuro Denies abnormal gait, Denies dizziness, Denies frequent falls, Denies numbness, Denies tingling and Denies weakness Endo Denies fatigue and Denies palpitations Physical Exam Vital Signs: Last Vital Signs Pulse 59 07/04/24 15:12 BP 110/68 07/04/24 15:12 BMI result Body Mass Index 34.4 Const General: cooperative, comfortable, no acute distress, alert, awake and well groomed Nutritional Appearance: obese Orientation/consciousness: patient oriented x3 Limitations: no limitations Neck Neck: Yes trachea midline, Yes supple and Yes no JVD Resp Effort & Inspection: normal respiratory effort Auscultation: no rales, no wheezes and diminished lung sounds Cardio Jugular venous distension: no JVD Palpation: normal PMI Rate: regular rate Rhythm: regular rhythm Heart sounds: S1 normal heart sound present and S2 normal heart sound present GI Auscultation: normal bowel sounds Skin General skin exam: no rashes or lesions noted Neuro General: patient oriented x3 and no focal motor deficits Extrem General: Yes no clubbing, cyanosis or edema Assessment & Plan Assessment & Plan (1) Recurrent chest pain: Code(s): R07.9 - Chest pain, unspecified Plan: Recurrent chest pain this elderly woman who is very anxious about this issue. She was recently presented emergency room with severe chest pain with negative troponins and no significant EKG changes. A myocardial perfusion imaging in February is within normal limits. I do not think her chest pain is cardiac in origin but would consider coronary CTA for extreme precautions if she is interested. She says she knows that this is not cardiac in origin. She has also had GI workup in his been told that the pain is not GI in origin. Consider esophageal spasm. Will discuss with Dr. Choi about the same. (2) SVT (supraventricular tachycardia): Code(s): I47.1 - Supraventricular tachycardia Category: Medical Plan: SVT without any obvious clinical recurrence at this point time. Continue metoprolol therapy. Avoidance of stimulants was discussed. No change in therapy. Vagal maneuvers were discussed. (3) CAD (coronary artery disease): Code(s): I25.10 - Atherosclerotic heart disease of [place] coronary artery without angina pectoris Category: Medical Plan: CAD nonobstructive by cardiac catheterization 2 years ago with follow-up myocardial perfusion imaging last year which is within normal limits. Unlikely that her chest pain syndrome as about represents myocardial ischemia. Continue aggressive risk factor modification. Low-dose aspirin therapy and high-intensity statin therapy to continue. Target goal LDL less than 70 mg/dL. Blood pressure is well optimized. Continue maintain activity level as tolerated. She has to undergo noncardiac surgery with knee replacement, she is currently optimized to undergo the procedure with low risk for perioperative cardiovascular morbidity mortality. Will follow up in the clinic in 1 year's time, sooner p.r.n.. Thank you for allowing me to partake in her care Coding Level of Care Code Est Pt Level 4 (90751) Diagnoses Recurrent chest pain R07.9 SVT (supraventricular tachycardia) I47.1 CAD (coronary artery disease) I25.10
[2024-07-04 15:12] VITALS: BP 110/68; PULSE 59; BMI 34.4
== END 2024-07-04 15:44 | disposition home or self-care (01) ==
PROVIDERS: PCP Internal Medicine; Visit Provider Internal Medicine Cardiovascular Disease
DX: R07.9 Chest pain, unspecified (principal); I47.10 Supraventricular tachycardia, unspecified; I25.10 Atherosclerotic heart disease of native coronary artery without angina pectoris
CPT/HCPCS: 99214

== ENCOUNTER → 2024-07-04 15:07 | Outpatient (BNVA) | payer OTHER, SELFPAY | PROVIDERS: PCP Internal Medicine; Visit Provider Internal Medicine Cardiovascular Disease ==

== ENCOUNTER 2024-07-08 07:29 | Outpatient (REF) | payer OTHER, SELFPAY ==
--- NOTE | ~2024-07-08 | MM_ITS ---
EXAMINATION: MM SCREENING DIGITAL BREAST TOMOSYNTHESIS, BILATERAL CLINICAL INFORMATION: Screening. Asymptomatic. COMPARISON: Mammography: Comparison is made with available priors TECHNIQUE: Digital breast mammography with tomosynthesis is performed in both the craniocaudal and mediolateral oblique views along with computer-aided detection (CAD). FINDINGS: There are scattered areas of fibroglandular density (ACR BI-RADS breast composition Category b). There are no significant masses, abnormal calcifications, or other abnormalities. MM/MM tomosynthesis screening BI IMPRESSION: No mammographic evidence of malignancy. ASSESSMENT: BI-RADS BI-RADS 1 - Negative RECOMMENDATION: Routine annual mammography screening. 1 year F/U This examination should not preclude the clinical evaluation of a suspicious palpable abnormality. This patient's information was entered into a reminder system with a target due date for their next mammogram. Electronically signed by: Shannan Swanson DO 07/19/2024 09:11 AM EDCal
== END 2024-07-08 07:30 | disposition home or self-care (01) ==
LOC: HO.MAMMO 07:29
PROVIDERS: PCP Internal Medicine; Visit Provider Internal Medicine
DX: Z12.31 Encounter for screening mammogram for malignant neoplasm of breast (principal)
CPT/HCPCS: 77063; 77067

== ENCOUNTER → 2024-07-08 07:45 | Outpatient (BNV) | payer OTHER, SELFPAY | PROVIDERS: PCP Internal Medicine; Visit Provider Internal Medicine | DX: Z12.31 Encounter for screening mammogram for malignant neoplasm of breast (principal) | CPT/HCPCS: 77063; 77067 ==

== ENCOUNTER 2024-07-12 14:51 | Outpatient (AMB) | payer OTHER, SELFPAY ==
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
[2024-07-12 14:55] VITALS: BP 124/70; PULSE 60; O2SAT 97; BMI 34.3
== END 2024-07-12 15:49 | disposition home or self-care (01) ==
PROVIDERS: PCP Internal Medicine; Visit Provider Hospitalist
DX: J45.40 Moderate persistent asthma, uncomplicated (principal); R91.8 Other nonspecific abnormal finding of lung field; J96.11 Chronic respiratory failure with hypoxia; I27.20 Pulmonary hypertension, unspecified; G47.33 Obstructive sleep apnea (adult) (pediatric)
CPT/HCPCS: 99214

== ENCOUNTER → 2024-07-12 14:51 | Outpatient (BNVA) | payer OTHER, SELFPAY | PROVIDERS: PCP Internal Medicine; Visit Provider Hospitalist ==

== ENCOUNTER 2024-08-26 12:48 | Outpatient (AMB) | payer OTHER, SELFPAY ==
--- NOTE | 2024-08-26 12:50 | A.OFFVIS_ITS ---
Vital Signs 08/26/24 13:01 Height 5 ft 4 in Weight 202 lb BMI 34.7 BP 123/62 Blood Pressure Location Rt brachial Position Sitting Respiration 16 Pulse 85 Pulse Source Pulse Oximeter Pulse Oximetry (%) 98 Oxygen Delivery Method Room Air Intake Visit Reasons: RT hand pain/CM Intake Note: Patient presents for RT hand pain. Feeling pain on both arm and spine. Been feeling chronic pain for 3 years. Prednisone works only short term. Allergies aspirin [Aspirin] Allergy (Severe, Verified 07/12/24 14:58) TROUBLE BREATHING, vomiting Penicillins Allergy (Severe, Verified 07/12/24 14:58) THROAT CLOSES adhesive tape [ADHESIVE TAPE] Allergy (Intermediate, Verified 07/12/24 14:58) RASH/ITCH ibuprofen [From MOTRIN] Allergy (Intermediate, Verified 07/12/24 14:58) VOMITING latex [LATEX] Allergy (Intermediate, Verified 07/12/24 14:58) RASH penicillin V Allergy (Unknown, Verified 07/12/24 14:58) rash spider venom [SPIDER BITES] Allergy (Unknown, Verified 07/12/24 14:58) SWELLING chlorhexidine Allergy (Verified 07/12/24 14:58) Rash, itchiness peanut Allergy (Verified 07/12/24 14:58) Angioedema clarithromycin [From Biaxin] Adverse Reaction (Intermediate, Verified 07/12/24 14:58) PROJECTILE VOMITING Adhesive Tape Allergy (Unknown, Uncoded 07/12/24 14:58) rash Biaxin Allergy (Unknown, Uncoded 07/12/24 14:58) vomiting, abd pain eggs Allergy (Unknown, Uncoded 07/12/24 14:58) Unknown Latex Gloves Allergy (Unknown, Uncoded 07/12/24 14:58) rash Medication List - Last Reconciled 08/26/24 by Clifford Rosenberg MD acetaminophen (Tylenol Extra Strength) 500 mg PO Q6H PRN albuterol sulfate 2.5 mg (3 mL) inhalation Q6H PRN 30 days amlodipine 5 mg PO DAILY azithromycin 250 mg PO 3XW cholecalciferol (vitamin D3) 50 mcg PO DAILY 30 days epinephrine (EpiPen 2-Ken) 0.3 mg (0.3 mL) IM Q10M PRN 30 days ipratropium-albuterol 0.5 mg-3 mg(2.5 mg base)/3 mL mL inhalation levothyroxine 125 mcg PO DAILY metoprolol succinate ER 50 mg PO DAILY montelukast 10 mg PO BEDTIME prednisone PO daily; Take 2 tabs daily x 5 days, then 1 tab daily x 5 days 10 days roflumilast (Daliresp) 500 mcg PO DAILY rosuvastatin 20 mg PO BEDTIME Trelegy Ellipta 200-62.5-25 mcg (qfmjxqrijpn-hdhpwwtlg-jiqxyrrj) 1 inh inhalation DAILY NS Ventolin HFA 90 mcg/actuation (albuterol sulfate) 2 puffs inhalation Q4H PRN 30 days NS HPI Comments Details: This is a 74-year-old female who presents for evaluation of arm pain. She states that it started in 2019 after her COVID vaccine. She states that she has a constant right arm pain. She has generalized morning stiffness lasting 90 minutes. Denies any swollen joints. She states that Tylenol provides little relief. She was prescribed print courses of prednisone for arthritis and for her known COPD. Prednisone generally provide some relief. [facility] Medical History Shortness of breath Skin lesion of lower extremity Cough Chest discomfort Pulmonary hypertension Asthma Obesity Neck pain Chronic respiratory failure Pulmonary nodules Nonsustained ventricular tachycardia HTN (hypertension) SVT (supraventricular tachycardia) COPD (chronic obstructive pulmonary disease) Osteoporosis Surgical History Hx of cardiac cath Hx of knee surgery History of surgery on arm Hx of hysterectomy Hx of appendectomy Hx of cholecystectomy Family History Father Lung cancer Mother CVA (cerebral vascular accident) Social History Household Members: None Alcohol intake: never Patient Tobacco Use Status: Former Tobacco user Years Smoked: 30 Second Hand Smoke Exposure: No Current occupational status: employed 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[employer] [place] Review of Systems Musc Details: Muscle pain Reports arthralgias, Denies joint swelling and Reports stiffness Physical Exam Vital Signs: Last Vital Signs Pulse 85 08/26/24 13:01 Resp 16 08/26/24 13:01 BP 123/62 08/26/24 13:01 Pulse Ox 98 08/26/24 13:01 Oxygen Delivery Method Room Air 08/26/24 13:01 BMI result Body Mass Index 34.7 Const General: cooperative, healthy appearing and comfortable Nutritional Appearance: obese Orientation/consciousness: patient oriented x3 Limitations: no limitations HEENT Head: Yes normocephalic and Yes atraumatic Mouth: moist mucous membranes Resp Effort & Inspection: normal respiratory effort and able to speak in complete sentences Cardio Rate: regular rate Skin General skin exam: no rashes or lesions noted Neuro General: patient oriented x3 Extrem Other: Significant osteoarthritic changes of both hand but no active synovitis Normal Range of motion of hands, shoulders without pain Right elbow pain with full flexion and extension Slightly limited neck rotation to the left Tenderness in the right trapezius muscle area Proximal muscle strength 5/5 all 4 extremities Negative empty can test, infraspinatus test, Speed's test and lift-off test bilaterally Normal nailfold capillaroscopy Assessment & Plan Assessment & Plan (1) Generalized osteoarthritis: Code(s): M15.9 - Polyosteoarthritis, unspecified Category: Medical Plan: This is a 74-year-old female who presents for evaluation of bilateral arm pain. Upon evaluation I do not see any signs suggestive of an autoimmune rheumatic disease. Clinical picture rather consistent with generalized osteoarthritis. I will order PT for neck, shoulders, occupational therapy for right tennis elbow. Advised patient to finish therapy and if there is no improvement I will refer her to pain management Follow-up with Rheumatology as needed Plan I spent 30 minutes reviewing patient's chart, evaluating patient, counseling patient and documenting in the chart Orders: Orders PT Evaluation and Treatment Today M19.011 - Primary osteoarthritis, right shoulder, M19.012 - Primary osteoarthritis, left shoulder, M50.30 - Other cervical disc degeneration, unspecified cervical region OT Evaluation and Treatment Today M77.11 - Lateral epicondylitis, right elbow Coding Level of Care Code New Pt Level 3 (81844) Diagnoses Generalized osteoarthritis M15.9
[2024-08-26 13:01] VITALS: BP 123/62; PULSE 85; RESP 16; O2SAT 98; BMI 34.7
== END 2024-08-26 13:26 | disposition home or self-care (01) ==
LOC: HO.RHE 12:49
PROVIDERS: PCP Internal Medicine; Visit Provider Student in an Organized Health Care Education/Training Program
DX: M15.9 Polyosteoarthritis, unspecified (principal)
CPT/HCPCS: 99203

== ENCOUNTER → 2024-08-26 12:48 | Outpatient (BNVA) | payer OTHER, SELFPAY | PROVIDERS: PCP Internal Medicine; Visit Provider Student in an Organized Health Care Education/Training Program ==

== ENCOUNTER 2024-10-15 07:00 | Outpatient (RCR) | payer OTHER, SELFPAY ==
[2024-09-23 08:46] VITALS: BP 110/60; PULSE 52; O2SAT 94
--- NOTE | 2024-09-23 12:14 | MHC.PT.EP ---
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 Pt exhibits signs and sx consistent with cervical radiculopathy, C5/C6 region/OA/postural syndrome. Pt was trialed with manual C-tx with relief of these levels with centralization expressed of R UE>L UE. 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 Pt would benefit from attending skilled PT services at a frequency of 2x/week x 4-6 weeks to address impairments, implement HEP to reduce neck/arm pain. Pt was educated re: impact of postural sx. Pt was advised to trial a lumbar support roll, initiate postural awareness, was educated re: posture and impact of radiating sx. Frequency and Duration: The patient will be seen 2x/week x 4-6 weeks Short Term Goals: 1.Centralize burning sx of R UE radiating to height of the lateral shoulder (IR: radiating down below forearm). 2.Pt will implement postural awareness for work station/ADLs/IADLS/home setting. 3. Pt will improve strength of erector spinae to maintain erect posture. 4. Pt will reduce frequency of sleep disturbance secondary to radiating neck sx. 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 Pt will demonstrate I HEP and self care program. 2. Pt will demonstrate strength of R shoulder ER to 4-/5 B. 3. Pt will demonstrate sit to stand on first attempt with R shoulder pain <2/10. 4. Pt will strengthen middle trap. Treatment Plan: Modalities to reduce pain, spasms and effusion. Manual therapy to restore motion and function. Therapeutic exercise to improve strength and flexibility. Neuromuscular re-education for posture and balance. Therapeutic activities to return to functional activities of daily living. Electronically signed by: Georgina Jones PT, DPT Please sign and return to therapist. Thank you for your referral.
== END 2024-11-15 08:44 | disposition home or self-care (01) ==
LOC: HO.PTWFD 07:00
PROVIDERS: PCP Internal Medicine; Visit Provider Student in an Organized Health Care Education/Training Program
DX: M50.30 Other cervical disc degeneration, unspecified cervical region (principal); M19.011 Primary osteoarthritis, right shoulder; M19.012 Primary osteoarthritis, left shoulder
CPT/HCPCS: 97110; 97140; 97162; 97535

== ENCOUNTER 2024-10-30 07:15 | Outpatient (RCR) | payer OTHER, SELFPAY ==
--- NOTE | 2024-09-09 08:20 | MHC.OT.EP ---
[address] [phone] Occupational Therapy Plan of Care Patient Name: Sabine Mosqueda Date of Evaluation: 09/09/24 Diagnosis: Right Tennis Elbow Pain Location: Constant discomfort, ache right arm Still waking up from nighttime Tenderness over right lateral eblow and dorsal forearm at WAD Pain Score: 3 Pain Scale Used: Numeric (0 - 10) Aggravating Factors: Sleeping on her right side Alleviating Factors: Tylenol PRN, (prednisone in the past w/ good relief), heating pad occasionally Assessment: 74 yo female presents w/ right shoulder pain, radiates from under arm at times and also reports burning pain in her right elbow. She has had PT for frozen shoulder in the past, and has referral to PT for shoulder (scheduled Sep 23). Dr Rosenberg has referred her to OT for assessment of tennis elbow. On assessment today, she has s/s consistent with right lateral epicondylitis, including tenderness over lat epi and dorsal forearm over extensor wad. 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 We will continue OT services to address elbow pain, I anticipate she will do well and has PT scheduled for further management of right shoulder and neck. Frequency and Duration: The patient will be seen 2x/wk for 4 werks Short Term Goals: Ind w/ HEP Ind w/ CFB wear Pt to complete self work site assessment and discuss concerns w/ OT Ind w/ use of ice and heat appropriately Long-Term Goals: Progress to strengthening problem Right GG >20lb Good follow through w/ joint protection technqiues Treatment Plan: Therapeutic Exercise Therapeutic Activity Home Exercise Program Splinting Patient Education ADL Training Ultrasound Iontophoresis MHP Joint Mobilization Soft Tissue Mobilization Kinesiotaping CFB wear, work site assessment PRN Electronically Signed By: Kelsey Hayward OTR/L CHT Please Sign and return to therapist. Thank you once again for your referral.
== END 2024-12-20 10:04 | disposition home or self-care (01) ==
LOC: HO.OT 07:15
PROVIDERS: PCP Internal Medicine; Visit Provider Student in an Organized Health Care Education/Training Program
DX: M77.11 Lateral epicondylitis, right elbow (principal)
CPT/HCPCS: 97035; 97110; 97140; 97165; 97535

== ENCOUNTER 2024-11-14 15:04 | Outpatient (AMB) | payer OTHER, SELFPAY ==
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
[2024-11-14 15:20] VITALS: BP 140/66; PULSE 59; O2SAT 95; BMI 33.7
== END 2024-11-14 16:04 | disposition home or self-care (01) ==
PROVIDERS: PCP Internal Medicine; Visit Provider Hospitalist
DX: J45.41 Moderate persistent asthma with (acute) exacerbation (principal); R91.8 Other nonspecific abnormal finding of lung field; J96.11 Chronic respiratory failure with hypoxia; I27.20 Pulmonary hypertension, unspecified; G47.33 Obstructive sleep apnea (adult) (pediatric)
CPT/HCPCS: 99214

== ENCOUNTER → 2024-11-14 15:04 | Outpatient (BNVA) | payer OTHER, SELFPAY | PROVIDERS: PCP Internal Medicine; Visit Provider Hospitalist ==

== ENCOUNTER 2024-11-15 07:46 | Outpatient (REF) | payer OTHER, SELFPAY ==
[2024-11-15 10:27] LABS: Erythrocyte Sedimentation Rate 14 MM/HR (0-20)
[2024-11-15 11:14] LABS: Vitamin B12 201 pg/mL (200-900)
[2024-11-18 15:04] LABS: IgA 270 mg/dL (70-320); IgG 971 mg/dL (600-1540); IgM 92 mg/dL (50-300)
[2024-11-19 01:38] LABS: VITAMIN D (1,25 OH) D3 49 pg/mL; Vit D (1,25-Dihydroxy) Total 49 pg/mL (18-72); Vitamin D (1,25 OH) D2 <8 pg/mL
[2024-11-19 06:43] LABS: Immunoglobulin E 7 kU/L (<OR=114)
[2024-11-20 15:08] LABS: Vitamin D 25-OH, D2 <4 ng/mL; Vitamin D 25-OH, D3 37 ng/mL; Vitamin D 25-OH, Total 37 ng/mL (30-100)
== END 2024-11-15 07:47 | disposition home or self-care (01) ==
LOC: HO.LAB 07:46
PROVIDERS: PCP Internal Medicine; Visit Provider Hospitalist
DX: R05.9 Cough, unspecified (principal); J45.41 Moderate persistent asthma with (acute) exacerbation
CPT/HCPCS: 36415; 82306; 82607; 82652; 82746; 82784; 82785; 85652

== ENCOUNTER 2024-11-24 15:54 | Emergency (ER) | payer OTHER, SELFPAY ==
--- NOTE | ~2024-11-24 | XR_ITS ---
CLINICAL HISTORY: Pneumonia? 1 view chest x-ray Comparison: 06/30/2024 Findings: The lungs are clear. Heart size is normal. No acute fracture. IMPRESSION: 1. No acute findings. This document has been electronically signed by: Bryce Fagan MD on 11/24/2024 16:46:36
[2024-11-24 16:05] VITALS: BP 120/55; PULSE 74; RESP 22; TEMP 37.2; O2SAT 95; BMI 33.5
--- NOTE | 2024-11-24 16:09 | ECG_ITS ---
Test Reason : SOB Blood Pressure : */* mmHG Vent. Rate : 71 BPM Atrial Rate : 71 BPM P-R Int : 118 ms QRS Dur : 84 ms QT Int : 370 ms P-R-T Axes : 58 -3 32 degrees QTcB Int : 402 ms Normal sinus rhythm Normal ECG When compared with ECG of 30-Jun-2024 09:39, AR interval has increased ST no longer depressed in Lateral leads Referred By: Adi Hart Electronically Signed By: Maxi Molina
--- NOTE | 2024-11-24 16:10 | ED.GENADULT ---
HPI - General Adult General Chief complaint: Dyspnea Stated complaint: COPD/SOB Time Seen by Provider: 11/24/24 16:34 Source: patient Mode of arrival: ambulatory Limitations: no limitations History of Present Illness ED Provider: Jaqueline Fields NP HPI narrative: Patient is a 74-year-old female with past medical history of COPD, pulmonary hypertension, hypertension, DVT no chronic anticoagulation, SVT, osteoporosis presenting to emergency department for evaluation of shortness of breath and cough. She states that she has been ill for approximately 1 month now she has been followed by her television cameraman. She was initially prescribed a course of doxycycline and prednisone 20 mg to be taken daily, although she does admit that she only takes 10 daily due to the 20 mg preventing her from being able to sleep at night. She was not noticing much improvement. She followed back up with her television cameraman 10 days ago, reports that she was given again additional course of prednisone 20 mg daily of which she is only taking 10 mg, and a 2nd antibiotic she states that she was advised ?it may cause trouble with your joints? and she ultimately elected not to take it as she is currently undergoing physical therapy due to joint pain and did not want to make matters worse. She reports that last night she noticed her cough and shortness of breath to be increased from what it has been. She states she did not have a ride here otherwise she would have came last night. She has had intermittent tactile fever, with productive cough clear phlegm. Symptoms worse on exertion, associated orthopnea. Admits that she has not had her nebulizer machine for a few months as it is broken but she has been taking her rescue inhalers. Denies PND. Denies sore throat, difficulty swallowing, neck pain palpitations, nausea, vomiting, abdominal pain, numbness or tingling of the extremities, recent lower extremity pain or swelling. Related Data Home Medications ?Medication ?Instructions ?Recorded ?Confirmed levothyroxine 125 mcg tablet 125 mcg PO DAILY 12/03/20 07/04/24 rosuvastatin 20 mg tablet 20 mg PO BEDTIME 04/08/21 07/04/24 ipratropium 0.5 mg-albuterol 3 mg ml inhalation 06/28/22 07/04/24 (2.5 mg base)/3 mL nebulization soln roflumilast 500 mcg tablet 500 mcg PO DAILY 08/26/24 (Daliresp) Previous Rx's ?Medication ?Instructions ?Recorded acetaminophen 500 mg tablet 500 mg PO Q6H PRN fever or pain 09/20/22 (Tylenol Extra Strength) #14 tabs cholecalciferol (vitamin D3) 50 50 mcg PO DAILY 30 days #30 caps 03/21/23 mcg (2,000 unit) capsule epinephrine 0.3 mg/0.3 mL 0.3 mg (0.3 mL) IM Q10M PRN 07/27/23 injection, auto-injector (EpiPen anaphylaxis 30 days #2 ea 2-Ken) prednisone 10 mg tablet See Rx Instructions PO DAILY 10 04/01/24 days #15 tabs amlodipine 5 mg tablet 5 mg PO DAILY #90 tabs 06/03/24 azithromycin 250 mg tablet 250 mg PO 3XW #12 tabs 07/08/24 albuterol sulfate 2.5 mg/3 mL 2.5 mg (3 mL) inhalation Q6H PRN 07/12/24 (0.083 %) solution for nebulization shortness of breath or wheezing 30 days #180 mL metoprolol succinate 50 mg 50 mg PO DAILY #90 tabs 09/04/24 tablet,extended release 24 hr doxycycline hyclate 100 mg capsule 100 mg PO BID 10 days #20 caps 10/22/24 prednisone 20 mg tablet 20 mg PO DAILY 10 days #15 tabs 10/22/24 azelastine 137 mcg (0.1 %) nasal 2 spray intranasal BID 30 days #30 11/14/24 spray mL levofloxacin 500 mg tablet 500 mg PO DAILY 8 days #8 tabs 11/14/24 prednisone 20 mg tablet See Rx Instructions PO DAILY 10 11/14/24 days #15 tabs Trelegy Ellipta 200 mcg-62.5 1 ea PO DAILY #60 ea 11/20/24 mcg-25 mcg powder for inhalation (xayajkvvzgk-hwjkupgho-pvftsrom) Ventolin HFA 90 mcg/actuation 2 puff inhalation Q4H PRN for 11/21/24 aerosol inhaler (albuterol sulfate) wheezing 30 days #18 grams montelukast 10 mg tablet 10 mg PO BEDTIME #30 tabs 11/21/24 oseltamivir 75 mg capsule (Tamiflu) 75 mg PO BID 5 days #10 caps 11/24/24 Allergies Allergy/AdvReac Type Severity Reaction Status Date / Time aspirin [Aspirin] Allergy Severe TROUBLE Verified 11/24/24 16:07 BREATHING, vomiting Penicillins Allergy Severe THROAT Verified 11/24/24 16:07 CLOSES adhesive tape [ADHESIVE TAPE] Allergy Intermediate RASH/ITCH Verified 11/24/24 16:07 ibuprofen [From MOTRIN] Allergy Intermediate VOMITING Verified 11/24/24 16:07 latex [LATEX] Allergy Intermediate RASH Verified 11/24/24 16:07 penicillin V Allergy Unknown rash Verified 11/24/24 16:07 spider venom [SPIDER BITES] Allergy Unknown SWELLING Verified 11/24/24 16:07 chlorhexidine Allergy Rash, Verified 11/24/24 16:07 itchiness peanut Allergy Angioedema Verified 11/24/24 16:07 clarithromycin [From Biaxin] AdvReac Intermediate PROJECTILE Verified 11/24/24 16:07 VOMITING garlic Allergy Mild Flushing Uncoded 11/14/24 15:24 Adhesive Tape Allergy Unknown rash Uncoded 11/14/24 15:24 Biaxin Allergy Unknown vomiting, Uncoded 11/14/24 15:24 abd pain eggs Allergy Unknown Unknown Uncoded 11/14/24 15:24 Latex Gloves Allergy Unknown rash Uncoded 11/14/24 15:24 Review of Systems Review of Systems: Yes all other systems are reviewed and are negative PMFSH Past Medical History Attestation statement: The following information was validated with the patient. Source: old records reviewed Medical History Shortness of breath Skin lesion of lower extremity Cough Chest discomfort Pulmonary hypertension Asthma Obesity Neck pain Chronic respiratory failure Pulmonary nodules Nonsustained ventricular tachycardia HTN (hypertension) SVT (supraventricular tachycardia) COPD (chronic obstructive pulmonary disease) Osteoporosis Surgical History Hx of cardiac cath Hx of knee surgery History of surgery on arm Hx of hysterectomy Hx of appendectomy Hx of cholecystectomy Family History Family History Father Lung cancer Mother CVA (cerebral vascular accident) Social History Social History Household Members: None Alcohol intake: never Patient Tobacco Use Status: Former Tobacco user Years Smoked: 30 Second Hand Smoke Exposure: No Advance Directives: No Advance Directives Information Provided: No Do you have a plan to hurt others: No Plan Current occupational status: employed 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 No acute distress.?Normal affect. Eyes: Pupils equal, round and reactive to light.? ENT: Pharynx normal.?? Neck: Normal inspection.? Neck supple.?? CVS: Heart sounds normal. Normal heart rate and rhythm.? Pulses normal.?? Respiratory: No respiratory distress.? Lung sounds tight with expiratory wheezing Abdomen: Soft and non-tender. Normoactive bowel sounds. Skin: Skin warm and dry.? Normal skin color.? Extremities: No lower extremity edema.? No calf ttp? Neuro: Moves all extremities spontaneously. Sensation intact bilaterally. No focal neuro deficits. Ambulates with normal steady gait. Course Course Course Narrative: RmE: 24-year-old female presents to ED for coughing shortness of breath fever and chills. Patient has history of COPD. Patient is not hypoxic but not speaking in full sentences. Mild tripoding. Case discussed with charge nurse for patient to be brought to the ED. Reevaluation(s) Reevaluation #1: CBC is without leukocytosis anemia or thrombocytopenia. No electrolyte derangement. No MARTHA. LFTs within normal range. High sensitive troponin within normal range. She is influenza A positive. CXR is without evidence of pneumonia. I suspect this is likely exacerbating her COPD, discussed use of Tamiflu indications for use and potential side effects and continued use of her prednisone. Unfortunately she does not have a nebulizer machine which I feel that she would benefit from, she who with her television cameraman to get a new 1 prescribed. Medications Administered Discontinued Medications Generic Name Dose Route Start Last Admin Trade Name Freq PRN Reason Stop Dose Admin Acetaminophen 975 mg 11/24/24 17:32 11/24/24 18:26 Acetaminophen 325 Mg Tablet PO 11/24/24 17:33 975 mg ONCE ONE Administration Albuterol Sulfate 5 mg/ 0 mg 11/24/24 16:54 11/24/24 16:58 Albuterol/Ipratropium 3 ml INHALE 11/24/24 16:55 7.5 each ONCE ONE Administration Methylprednisolone Sodium Succinate 80 mg 11/24/24 16:54 11/24/24 17:27 Methylprednisolone Sod Succ 125 Mg/2 Ml Vial IVPUSH 11/24/24 16:55 80 mg ONCE ONE Administration Medical Decision Making Medical Decision Making MDM Narrative: Patient is a 74-year-old female with past medical history of COPD, pulmonary hypertension, hypertension, DVT no chronic anticoagulation, SVT, osteoporosis who presents emergency department for evaluation of ongoing shortness of breath and cough over the past month as per HPI. She has taken a single course of doxycycline that was prescribed on 10/22/2024 for a 10 day course, she is currently taking prednisone 10 mg daily and has a few days left, although of note her television cameraman has advised that she take 20 mg daily but due to her insomnia she has elected to take a lower dose. She is notably dyspneic with minimal exertion but improves quickly once sitting. She has no room-air hypoxia, she is not tachypneic, she is able to speak clear full sentences. She has an audible bronchospastic cough intermittently. No tachycardia. She is afebrile. Currently does not appear to be in respiratory distress, there was mentioned during initial triage that she had presented tripoding though she did walk into the emergency department. No rashes or lesions urticaria no angioedema, not consistent with allergic reaction/anaphylaxis as etiology for her symptoms. Denies associated chest pain, lower extremity redness pain or swelling, history of VTE/malignancy to suggest ACS, CHF, pericardial effusion, or pulmonary embolism. No palpitations or history of known arrhythmias. No recent trauma or injury, no tracheal deviation, unlikely tension pneumothorax. No acute bleeding or known anemia, no associated dizziness fatigue or chest pain to suggest acute anemia. With history of COPD, may be persistent COPD exacerbation. Differential Diagnosis Differential Diagnoses: The differential diagnosis associated with the presentation includes (See narrative above) Admission/Observation Consideration of admission/observation: Escalation of care including admission/observation considered (See narrative above and course narrative for further detail) Lab Data [facility] Lab Attestation statement: I reviewed the patient's lab results. (See course narrative) 11/24/24 16:33 11/24/24 16:33 Labs: Lab Results 11/24/24 Range/Units 16:33 WBC 6.9 (4.8-10.8) X10*3/uL RBC 4.46 (4.20-5.50) X10*6/uL Hgb 12.9 (12.0-16.0) g/dl Hct 39.0 (37.0-47.0) % MCV 87.4 (80.0-98.0) fL MCH 28.9 (27.0-33.0) pg MCHC 33.1 (31.0-35.0) g/dl RDW 13.1 (11.0-16.0) % Plt Count 169 (160-400) X10*3/uL MPV 10.3 (9.4-12.3) fL Immature Gran % (Auto) 0.3 (0.0-0.4) % Neut % (Auto) 83.8 H (45-73) % Lymph % (Auto) 5.9 L (20-40) % [place] % (Auto) 9.5 (2-11) % Eos % (Auto) 0.1 (0-4) % Baso % (Auto) 0.4 (0-2) % Lymph # (Auto) 0.4 L (1.2-4.9) X10*3/uL [place] # (Auto) 0.7 (0.1-1.2) X10*3/uL Eos # (Auto) 0.0 (0.0-0.4) X10*3/uL Baso # (Auto) 0.0 (0.0-0.2) X10*3/uL Abs Immat Gran (auto) 0.02 (0.00-0.03) X10*3/uL Absolute Neuts (auto) 5.8 (2.0-8.3) x10*3/uL Absolute Nucleated RBC 0.000 (0.0-0.012) X10*3/uL Nucleated RBC % (auto) 0.0 (0.0-0.2) /100WBC PT 10.9 (10.9-12.4) SEC INR 0.9 (0.9-1.1) APTT 26.9 (26.0-36.8) SEC Sodium 140 (135-145) mmol/L Potassium 4.5 (3.3-5.1) mmol/L Chloride 107 (96-108) mmol/L Carbon Dioxide 25 (22-29) mmol/L Anion Gap 13 (12-20) BUN 10 (9-16) mg/dL Creatinine 0.67 (0.5-1.4) mg/dL Estim Creat Clear Calc 76.9 Estimated GFR > 60 Random Glucose 104 (60-115) mg/dL Calcium 9.5 (8.4-10.2) mg/dL Total Bilirubin 0.4 (0.0-1.0) mg/dL AST 31 (5-31) U/L ALT 12 (0-31) U/L Alkaline Phosphatase 83 (39-117) U/L Troponin I High Sens 4.4 (<3.5-17.0) ng/L B-Natriuretic Peptide 211 H (<100) pg/mL Total Protein 7.2 (6.5-8.0) g/dL Albumin 3.9 (3.5-5.0) g/dL Influenza Type A (PCR) POSITIVE A (Negative) Influenza Type B (PCR) NEGATIVE (Negative) RSV RNA Qual (PCR) NEGATIVE (Negative) SARS-CoV-2 RNA (RT-PCR) NEGATIVE (Negative) Independent Interpretation I performed an independent interpretation of an: EKG (EKG revealing normal sinus rhythm with ventricular rate of 71, QTC 402, no ST elevation) and Plain X-Ray (No consolidation or infiltrate) Radiology Impression Discussion of test interpretation with radiology: I have reviewed the radiologist's reading. Radiologist Impression: 1 view chest x-ray Comparison: 06/30/2024 Findings: The lungs are clear. Heart size is normal. No acute fracture. IMPRESSION: 1. No acute findings. External Record Review External record reviewed: Outpatient record Chronic Conditions Patient?s care impacted by: Other (See narrative above) Discharge Plan Discharge Clinical Impression: Influenza A COPD (chronic obstructive pulmonary disease) Qualifiers: COPD type: chronic bronchitis Chronic bronchitis type: simple Qualified Code(s): J41.0 - Simple chronic bronchitis Patient Disposition: Home, Self-Care Instructions: Influenza (ED), COPD (Chronic Obstructive Pulmonary Disease) (ED) Prescriptions: New oseltamivir [Tamiflu] 75 mg capsule 75 mg PO BID 5 Days Qty: 10 0RF No Action cholecalciferol (vitamin D3) 50 mcg (2,000 unit) capsule 50 mcg PO DAILY 30 Days Qty: 30 6RF prednisone 10 mg tablet See Rx Instructions PO DAILY 10 Days Qty: 15 0RF Rx Instructions: PO daily; Take 2 tabs daily x 5 days, then 1 tab daily x 5 days amlodipine 5 mg tablet 5 mg PO DAILY Qty: 90 3RF azithromycin 250 mg tablet 250 mg PO 3XW Qty: 12 3RF metoprolol succinate 50 mg tablet extended release 24 hr 50 mg PO DAILY Qty: 90 3RF doxycycline hyclate 100 mg capsule 100 mg PO BID 10 Days Qty: 20 0RF prednisone 20 mg tablet 20 mg PO DAILY 10 Days Qty: 15 0RF Rx Instructions: Take 2 tabs daily x 5 days, then 1 tablet daily x 5 days Trelegy Ellipta 200-62.5-25 mcg blister with device 1 ea PO DAILY Qty: 60 0RF montelukast 10 mg tablet 10 mg PO BEDTIME Qty: 30 0RF albuterol sulfate [Ventolin HFA] 90 mcg/actuation HFA aerosol inhaler 2 puff inhalation Q4H PRN (Reason: for wheezing) 30 Days Qty: 18 10RF acetaminophen [Tylenol Extra Strength] 500 mg tablet 500 mg PO Q6H PRN (Reason: fever or pain) Qty: 14 0RF levothyroxine 125 mcg tablet 125 mcg PO DAILY rosuvastatin 20 mg tablet 20 mg PO BEDTIME ipratropium-albuterol 0.5 mg-3 mg(2.5 mg base)/3 mL solution for nebulization inhalation levofloxacin 500 mg tablet 500 mg PO DAILY 8 Days Qty: 8 0RF prednisone 20 mg tablet See Rx Instructions PO DAILY 10 Days Qty: 15 0RF Rx Instructions: PO daily; Take 2 tabs daily x 5 days, then 1 tablet daily x 5 days azelastine 137 mcg (0.1 %) spray,non-aerosol 2 spray intranasal BID 30 Days Qty: 30 6RF Rx Instructions: administer into each nostril epinephrine [EpiPen 2-Ken] 0.3 mg/0.3 mL auto-injector 0.3 mg IM Q10M PRN (Reason: anaphylaxis) 30 Days Qty: 2 6RF Rx Instructions: for 2 doses albuterol sulfate 2.5 mg /3 mL (0.083 %) solution for nebulization 2.5 mg inhalation Q6H PRN (Reason: shortness of breath or wheezing) 30 Days Qty: 180 11RF roflumilast [Daliresp] 500 mcg tablet 500 mcg PO DAILY Referrals: Wili Caballero MD [Primary Care Provider] - Stand Alone Forms: Work/School Release Interventions: ED Discharge Assessment Last Done: 11/24/24 18:55 Discharge Date/Time: 11/24/24 18:56 Print Language: Icelandic
[2024-11-24 16:39] LABS: MANUAL DIFF FLAG NO
[2024-11-24 16:45] LABS: Basophils Percent Auto 0.4 % (0-2); Eosinophils Percent Auto 0.1 % (0-4); Hemoglobin 12.9 g/dl (12.0-16.0); Imm Gran Abs Auto 0.02 X10*3/uL (0.00-0.03); Imm Gran Pct Auto 0.3 % (0.0-0.4); Lymphocytes Absolute Auto 0.4 X10*3/uL (1.2-4.9); Lymphocytes Percent Auto 5.9 % (20-40); Mean Corpuscular HGB Conc 33.1 g/dl (31.0-35.0); Mean Corpuscular Hemoglobin 28.9 pg (27.0-33.0); Mean Corpuscular Volume 87.4 fL (80.0-98.0); Mean Platelet Volume 10.3 fL (9.4-12.3); Monocytes Absolute Auto 0.7 X10*3/uL (0.1-1.2); Monocytes Percent Auto 9.5 % (2-11); Neutrophils Absolute Auto 5.8 x10*3/uL (2.0-8.3); Neutrophils Percent Auto 83.8 % (45-73); Platelet Count 169 X10*3/uL (160-400); Red Blood Count 4.46 X10*6/uL (4.20-5.50); Red Cell Distribution Width 13.1 % (11.0-16.0); White Blood Count 6.9 X10*3/uL (4.8-10.8)
[2024-11-24 16:55] LABS: INTERNATIONAL NORM RATIO 0.9 (0.9-1.1); Prothrombin Time 10.9 SEC (10.9-12.4)
[2024-11-24 16:58] VITALS: PULSE 68; RESP 18; O2SAT 95
[2024-11-24 16:58] LABS: Partial Thromboplastin Time 26.9 SEC (26.0-36.8)
[2024-11-24] MEDS: Albuterol Sulfate 5 MG, Albuterol/Iprat 2.5/0.5MG 3 ML 3 ML INHALE (16:58)
[2024-11-24 17:01] LABS: B Type Natriuretic Peptide 211 pg/mL (<100)
[2024-11-24 17:02] LABS: Troponin-I High Sensitivity 4.4 ng/L (<3.5-17.0)
[2024-11-24 17:03] LABS: Alanine Aminotransferase 12 U/L (0-31); Albumin Level 3.9 g/dL (3.5-5.0); Anion Gap 13 (12-20); Aspartate Amino Transferase 31 U/L (5-31); Bilirubin Total 0.4 mg/dL (0.0-1.0); Blood Urea Nitrogen 10 mg/dL (9-16); Calcium 9.5 mg/dL (8.4-10.2); Carbon Dioxide 25 mmol/L (22-29); Chloride 107 mmol/L (96-108); Creatinine Clr Calc Pharmacy 76.9; Estimated Glomerular Filt Rate > 60; Glucose Random 104 mg/dL (60-115); Potassium 4.5 mmol/L (3.3-5.1); Sodium 140 mmol/L (135-145); Total Protein 7.2 g/dL (6.5-8.0)
[2024-11-24 17:23] LABS: Alkaline Phosphatase 83 U/L (39-117)
[2024-11-24] MEDS: methylPREDNISolone Sod Succ 125 MG/2 ML VIAL 80 MG IVPUSH (17:27)
[2024-11-24 17:55] LABS: Influenza A PCR POSITIVE (Negative); Influenza B PCR NEGATIVE (Negative); Resp Syncy Virus RNA Qual PCR NEGATIVE (Negative); SARS COV2 PCR INHOUSE NEGATIVE (Negative)
[2024-11-24] MEDS: Acetaminophen 325 MG TABLET 975 MG PO (18:26)
[2024-11-24 18:55] VITALS: BP 146/99; PULSE 89; RESP 14; TEMP 3.2; TEMP 37.7; O2SAT 96
== END 2024-11-24 18:56 | disposition home or self-care (01) ==
PROVIDERS: Physician Assistant; Emergency Provider Emergency Medicine; PCP Internal Medicine
DX: J10.1 Influenza due to other identified influenza virus with other respiratory manifestations (principal); J44.9 Chronic obstructive pulmonary disease, unspecified; R06.02 Shortness of breath; R05.9 Cough, unspecified; R50.9 Fever, unspecified; Z03.818 Encounter for observation for suspected exposure to other biological agents ruled out; Z87.891 Personal history of nicotine dependence; Z86.718 Personal history of other venous thrombosis and embolism
CPT/HCPCS: 0241U; 36415; 71045; 80053; 83880; 84484; 85025; 85610; 85730; 93005; 94640; 96374; 99284; J2919

== ENCOUNTER → 2024-11-24 16:09 | Outpatient (BNV) | payer OTHER, SELFPAY | PROVIDERS: Emergency Provider Emergency Medicine; PCP Internal Medicine; Visit Provider Specialist | DX: R06.02 Shortness of breath (principal) | CPT/HCPCS: 71045 ==

== ENCOUNTER 2024-12-12 07:17 | Outpatient (REF) | payer OTHER, SELFPAY ==
--- OUTSIDE RECORDS SUMMARY | 2024-12-12 07:19 | XMS_ITS ---
Author Organization Wili Caballero MD Address [address] [place], [place] [id number] Care Team Providers Care Heel Gummer Name Role Phone Ada Wili Primary Care Provider [phone] REASON FOR VISIT refill Medications Medication SIG (Take, Route, Fr equency, Duration) Notes Start Date End Date Status predniSONE 10 MG 1 tablet Orally Once a day for 5 days 11/29/2024 Active Encounters Encounter Location Date Provider Diagnosis Wili Caballero MD [address] [place], [place] [id number] 11/29/2024 Wili Caballero Plan Of Treatment Medication Medication Name Sig Start Date Stop Date Notes predniSONE 10 MG 1 tablet Orally Once a day for 5 days 04/2025 Next Appt Details Provider Name:Wili robin, 03/25/2025 10:00:00 AM, [address], [address] [place] [address], [phone], Provider Name:Wili Grey ier, 06/24/2025 07:15:00 AM, [address], [address], [place], [phone], Provider Name:Wili Grey ier, 06/30/2025 03:30:00 PM, [address], [address], [place], [phone], Progress Notes * BEBE PARKDOB:1950 (74 yo F)Acc No.[id number]:11/29/2024 Patient:?BEBE PARK :1950???Age:74 Y???Sex:Female Address:[address] [place] [address], [place], [address] * Refills? Start predniSONE Tablet, 10 MG, Orally, 5 Tablet, 1 tablet, Once a day, 5 days * true * Date:? Generated for Isela avendano/Ila/eTransmitting on:?12/12/2024 07:19 AM EST
--- OUTSIDE RECORDS SUMMARY | 2024-12-12 07:19 | XMS_ITS ---
Author Organization [facility] Address [address] [place] [phone] Care Team Providers Care Edge Beader Name Role Phone Ada CARRILLO, Wili Primary Care Provider Jake Vazquez [phone] REASON FOR VISIT Patient presents today for epigastric pain Encounters Encounter Location Date Provider Diagnosis [facility] [address] [place] [address] 09/24/2024 Jake Choi PLAN OF TREATMENT No Information
--- OUTSIDE RECORDS SUMMARY | 2024-12-12 07:19 | XMS_ITS ---
Author Organization Wili Caballero MD Address [address] [place] [id number] Care Team Providers Care Scrub Tech Name Role Phone Ada Wili Primary Care Provider [phone] REASON FOR VISIT FASTING LIPIDS Encounters Encounter Location Date Provider Diagnosis Wili Caballero MD [address] [place] [id number] 12/12/2024 Wili Caballero Pure hypercholestero lemia E78.00 Assessments Encounter Date Diagnosis (ICD Code) Assessment Notes Treatment Notes Treatment Clinical Notes Section Notes 12/12/2024 Pure hypercholesterolemia (ICD-10 - E78.00) Plan Of Treatment Pending Test Test Name Order Date Liver Panel 12/12/2024 Lipid Panel with Reflex 12/12/2024 Next Appt Details Provider Name:Wili Grey ier, 03/25/2025 10:00:00 AM, [address], [address] [place] [address], [phone], Provider Name:Wili Grey ier, 06/24/2025 07:15:00 AM, [address], [address], [place], [phone], Provider Name:Wili Grey ier, 06/30/2025 03:30:00 PM, [address], [address], [place], [phone], Progress Notes * KOREY PARKNIKDOB:1950 (74 yo F)Acc No.[id number]:12/12/2024 Progress Note Patient:?BEBE PARK Provider:?Wili Caballero MD :1950???Age:74 Y???Sex:Female D ate:12/12/2024 Address:[address] [place], [place] [id number] Subjective: * Chief Complaints: * ???1. FASTING LIPIDS. * Medical History:? Objective: * Vitals:? Assessment: * Assessment: 1.?Pure hypercholesterolemia - E78.00 (Primary)??? Plan: * Treatment: * * The named appointment provid er may or may not be the originator of this progress note, and it is not deemed complete until electronically signed by the appointment provider. Sign off status: Pending * Provider:?Wili Caballero MD Date:?0 12/12/2024 Generated for Isela avendano/Ila/Codiesmitting on:?12/12/2024 07:19 AM EST
--- OUTSIDE RECORDS SUMMARY | 2024-12-12 07:20 | XMS_ITS | Clinical Summary ---
Author Organization [facility] Address [address] [place] [address] Care Team Providers Care Cosmetology Educator Name Role Phone Wili Caballero MD Primary Care Provider [phone] Social History Tobacco Use Types Packs/Day Years Used Date Smoking Tobacco: Never Assessed Comments Unknown Sex and Gender Information Value Date Recorded Sex Assigned at Not on file Legal Sex Female 3:06 PM EDT Gender Identity Not on file Sexual Orientation Not on file Plan of Treatment Health Maintenance Due Date Last Done Comments Bone Density Screening 1950 HIV Screening 1950 DTaP,Tdap,and Td Vaccines (1 - Tdap) 1966 Zoster Vaccines (1 of 2) 1998 Pneumococcal Vaccine, 65+ Ye ars (1 of 1 - PCV) 2013 COVID-19 Vaccine (2023-2 5 season) 2024 Influenza Vaccine (#1) 2024 Colorectal Cancer Screening Discontinued FIT-DNA (Cologuard) Discontinued 01/19/2022 CT Colonography Discontinued Colonoscopy Discontinued FIT Discontinued FOBT Discontinued Flex Sigmoidoscopy - 5y Discontinued HPV Vaccines Aged Out No longer eligi ble based on patient's age to complete this topic Hepatitis A Vaccines Aged Out No long er eligible based on patient's age to complete this topic Meningococcal Vaccine Aged Out No margarita laura eligible based on patient's age to complete this topic Insurance ANTHEM - OUT OF STATE MEDICARE PART A ONLY Care Teams Cosmetology Educator Relationship Specialty Start Date End Date Wili Caballero MD [address] [place] [address] DRIVE [address] [place] [address] PCP - General Internal Medicine 03/31/22
--- OUTSIDE RECORDS SUMMARY | 2024-12-12 07:20 | XMS_ITS ---
Author Organization [facility] Address [address] [place] [address] Care Team Providers Care Aviation Electrician Name Role Phone Wili Caballero MD Primary Care Provider Jake Vazquez Unavailable [phone] REASON FOR VISIT medication that you gave her Encounters Encounter Location Date Provider Diagnosis [facility] [address] [place] [address] 11/12/2024 Jake Choi PLAN OF TREATMENT No Information
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
--- OUTSIDE RECORDS SUMMARY | 2024-12-12 07:20 | XMS_ITS ---
Author Organization [facility] Address [address] [place] [address] Care Team Providers Care Medical Insurance Clerk Name Role Phone Ada CARRILLO, Wili Primary Care Provider Jake Vazquez Unavailable [phone] ALLERGIES Allergen (clinical drug ingredient) Drug/Non Drug [...] Unknown Drug Allergy Activ e REASON FOR VISIT Patient presents today for epigastric pain MEDICATIONS Medication SIG (Take, Route, Frequency, Duration) Notes Start Date End Date Status Omeprazole 20 MG 1 Orally Every morni ng for 30 day(s) 12/01/2023 Active Vitamin D 50 MCG (2000 UT) 1 capsule Ora lly Once a day for 30 day(s) Active Trelegy Ellipta 200-62.5-25 MCG/ACT INHALE 1 PUFF BY MOUTH ONCE DAILY Inhalation for 30 Active Azithromycin 250 MG Oral for 28 Active amLODIPine Besylate 5 MG TAKE 1 TABLET B Y MOUTH ONCE DAILY Oral for 30 Active Metoprolol Succinate ER 50 MG 1 tablet Orally Once a day Active Ventolin HFA 108 (90 Base) MCG/ACT 2 puffs as needed Inhalation every 4 hrs/prn Active Omeprazole 20 MG take 1 in the early evening every evening or every other evening Orally Once every evening or every other evening for 30 day(s) 11/12/2024 Active Montelukast Sodium 10 MG 1 tablet in the evening Orally Once a day Active predniSONE 5 MG 3 tablet Orally prn Active Levothyroxine Sodium 125 MCG 1 tablet on an empty stomach in the morning Orally Once a day Active Rosuvastatin Calcium 20 MG 1 tablet Oral ly Once a day Active SOCIAL HISTORY Tobacco Use: Social History Observation [...] W/U Status Risk SNOMED Code Notes Problem Xiphoid pain (R07.89) Active confirmed Chest pain (53672906) Problem Colon cancer screening (Z12.11) Active confirmed Colon cancer screening (521959774) VITAL SIGNS BMI 33.47 kg/m2 11/12/2024 Blood pressure systolic 00 mm Hg 11/12/19 25 Blood pressure diastolic 00 mm Hg 025 Height 64 in 11/12/2024 Weight 195 lbs 11/12/2024 Encounters Encounter Location Date Provider Diagnosis [facility] [address] [place] [address] 11/12/2024 Jake Choi Nausea R11.0 ; Abdominal pain, epigastric R10.13 ; GERD without esophagitis K21.9 ; Xiphoid pain R07.89 and Colon cancer screening Z12.11 ASSESSMENTS Encounter Date Diagnosis Assessment Notes Treatment [...] definitely need a colonoscopy PLAN OF TREATMENT Medication Medication Name Sig Start Date Stop Date Notes Omeprazole 20 MG take 1 in the early evening every evening or every other evening Orally Once every evening or every other evening for 30 day(s) 11/12/2024 Treatment Notes Assessment Notes Nausea Use a 20mg omeprazol e every other evening to try to prevent any night time reflux and morning nausea/vomiting. Let me know if you need a prescription Xiphoid pain Use a heating pad an d Tylenol for the xiphoid pain under the breastbone Colon cancer screening Get a Cologuard t est through Dr. Caballero's office and let me know the results either way_ _if it is positive you would definitely need a colonoscopy Next Appt Details Follow Up: prn, Reason: Progress Notes * Examination Category Sub-Category Detail Notes General Examination GENERAL APPEARANCE: pleasant , well nourished, well developed, in no acute distress EYES: sclera non-icteric NECK/THYROID: no cervical lymphade nopathy, neck supple HEART: S1, S2 normal CHEST: She does have tender ness to palpation along the costochondral joints at the sternum LUNGS: clear to auscultatio n bilaterally ABDOMEN: normal bowel sounds, no guarding or rigidity, no guarding or rigidity, no masses palpable, soft, nontender, nondistended NEUROLOGIC: alert and oriented SKIN: nonjaundiced, no spi hemanth angiomata EXTREMITIES: no edema ORAL CAVITY: mucosa moist
--- OUTSIDE RECORDS SUMMARY | 2024-12-12 07:20 | XMS_ITS ---
Author Organization Wili Caballero MD Address [address] [place], [place] [id number] Care Team Providers Care Certified Retinal Angiographer Name Role Phone Wili Caballero Primary Care Provider Allergies Allergen (clinical drug ingredient) Drug/Non Drug Allergy documented on EMR Reaction Allergy Type Onset Date Status Biaxin vomiting Drug Allergy Active aspirin Aspirin vomiting Drug Allergy Active eggs (uncoded) throat swelling Allergy Active Spider Bites welt Allergy Active peanut oil Peanut Oil tongue swells Drug Allergy A ctive Penicillin G Benzathine throat closes Drug Allergy Active Motrin vomiting Drug Allergy Active atorvastatin Lipitor myalgia Drug Allergy Acti ve REASON FOR VISIT follow up appt from telehealth visit from 11-26-2024, c/o cough Medications Medication SIG (Take, Route, Frequency, Duration) Notes Start Date End Date Status amLODIPine Besylate 5 MG 1 tablet Orally Once a day Active Vitamin D3 50 MCG (1999) 1 capsule Orally once a aday 05/15/2018 Active Rosuvastatin Calcium 20 MG Take 1 tablet by mouth once daily Active Roflumilast 500 MCG 1 tablet Orally Once a day for 30 day(s) Active Omeprazole 20 MG 1 capsule 30 minutes before morning meal Orally Once a day for 30 day(s) Active Tamiflu 75 MG 1 capsule Orally Twi ce a day Not-Taking Metoprolol Succinate ER 50 MG 1 tablet Orally Once a day Active Doxycycline Hyclate 100 MG 1 capsule Ora lly Twice a day for 10 days 09/06/2024 Not-Taking Daliresp 500 MCG 1 tablet Orally QOD Not-Taking predniSONE 10 MG 1 tablet Orally Once a day for 5 days 11/29/2024 Active Azithromycin 250 MG 1 tab QOD QOD Active Levothyroxine Sodium 125 MCG TAKE 1 TABLET BY MOUTH ONCE DAILY IN THE MORNING ON AN EMPTY STOMACH for 90 Active Ventolin HFA 108 (90 Base) MCG/ACT 2 puffs as needed Inhalation every 4 hrs Active Trelegy Ellipta 100-62.5-25 MCG/INH 1 puff Inhalation Once a day Active Ipratropium-Albuterol 0.5-2.5 (3) MG/3ML 3 ml Inhalation Four times a day 11/18/2016 Active Montelukast Sodium 10 MG 1 tablet in the evening Orally Once a day Active Encounters Encounter Location Date Provider Diagnosis Wili Caballero MD [address] [place] [address] [place] [phone] 12/02/2024 Wili Caballero Mild persistent asthma without complication J45.30 Assessments Encounter Date Diagnosis (ICD Code) Assessment Notes Treatment Notes Treatment Clinical Notes Section Notes 12/02/2024 Mild persistent asthma without complication (ICD-10 - J45.30) is tdoing well/ coming off prednisone Plan Of Treatment Treatment Notes Assessment Notes Mild persistent asthma without complicat ion is tdoing well/ coming off prednisone Next Appt Details Provider Name:Wili robin, 03/25/2025 10:00:00 AM, [address] [place] [address], [address], [phone], Provider Name:Wili robin, 06/24/2025 07:15:00 AM, [address] [place] [address], [place] [address], [place], [phone], Provider Name:Wili Grey ier, 06/30/2025 03:30:00 PM, [address] [facility], [address], [place], [place], [phone], Progress Notes * BEBE PARKDOB:1950 (74 yo F)Acc No.[id number]:12/02/2024 Patient:?BEBE PARK Provider:?Wili Caballero MD :1950???Age:74 Y???Sex:Female D ate:12/02/2024 Address:[address] [place] [address], [id number] Subjective: * Chief Complaints: * ???Follow up appt from teleh ealth visit from 5C/o cough * HPI: ???Symptom(s):?Telehealth?Location of provider rendering services:?[address], [address],?Location of patient:?at address listed in demographics for today's visit,?Patient identification confirmed using:?Name, ,?Telehealth method:?Telephone only. Patient not visible to care provider.,?Consent:?Patient verbally consented to treatment, Patient verbally consented to billing insurance company, Patient informed of any privacy concerns related to method of visit,?Total time spend talking with patient (minutes)?18.?patient is a 74 yo female audio telehealth visit? here for follow up of recent visit. is back at work. breathing better. feels safer at work. prednisone has 2 left. and will stop. after next 2 pills. * ROS:?General/Constitutional:?Denies?Chills.?Denies?Fatigue.?Denies?Fever.?Denies?Headache.?ENT:?Patient denies?decreased sense of smell, any loss of taste, sore throat.?Denies?Sore throat.?Respiratory:?Admits?Cough.?Denies?Shortness of breath at rest.?Admits?Shortness of breath with exertion.?Admits?Sputum production.?Admits?Wheezing.?Gastrointestinal:?Denies?Diarrhea.?Denies?Nausea.?Musculoskeletal:?Patient denies?muscle aches.?Peripheral Vascular:?Patient denies?red and blue toes.? * Medical History:? * Surgical History:? * Hospitalization/Major Diagno stic Procedure:? * Medications:?TakingMetoprolo l Succinate ER 50 MG Tablet Extended Release 24 Hour 1 tablet Orally Once a day amLODIPine Besylate 5 MG Tablet 1 tablet Orally Once a day Vitamin D3 50 MCG (1999 UT) Capsule 1 capsule Orally once a aday Rosuvastatin Calcium 20 MG Tablet Take 1 tablet by mouth once daily Roflumilast 500 MCG Tablet 1 tablet Orally Once a day Omeprazole 20 MG Capsule Delayed Release 1 capsule 30 minutes before morning meal Orally Once a day Montelukast Sodium 10 MG Tablet 1 tablet in the evening Orally Once a day Azithromycin 250 MG Tablet 1 tab QOD QOD M W F Levothyroxine Sodium 125 MCG Tablet TAKE 1 TABLET BY MOUTH ONCE DAILY IN THE MORNING ON AN EMPTY STOMACH Ventolin HFA 108 (90 Base) MCG/ACT Aerosol Solution 2 puffs as needed Inhalation every 4 hrs Trelegy Ellipta 100-62.5-25 MCG/INH Aerosol Powder Breath Activated 1 puff Inhalation Once a day Ipratropium-Albuterol 0.5-2.5 (3) MG/3ML Solution 3 ml Inhalation Four times a day predniSONE 10 MG Tablet 1 tablet Orally Once a day Taking Metoprolol Succinate ER 50 MG Tablet Extended Release 24 Hour 1 tablet Orally Once a day Taking amLODIPine Besylate 5 MG Tablet 1 tablet Orally Once a day Taking Vitamin D3 50 MCG (1999 UT) Capsule 1 capsule Orally once a aday Taking Rosuvastatin Calcium 20 MG Tablet Take 1 tablet by mouth once daily Taking Roflumilast 500 MCG Tablet 1 tablet Orally Once a day Taking Omeprazole 20 MG Capsule Delayed Release 1 capsule 30 minutes before morning meal Orally Once a day Taking Montelukast Sodium 10 MG Tablet 1 tablet in the evening Orally Once a day Taking Azithromycin 250 MG Tablet 1 tab QOD QOD M W F Taking Levothyroxine Sodium 125 MCG Tablet TAKE 1 TABLET BY MOUTH ONCE DAILY IN THE MORNING ON AN EMPTY STOMACH Taking Ventolin HFA 108 (90 Base) MCG/ACT Aerosol Solution 2 puffs as needed Inhalation every 4 hrs Taking Trelegy Ellipta 100-62.5-25 MCG/INH Aerosol Powder Breath Activated 1 puff Inhalation Once a day Taking Ipratropium-Albuterol 0.5- 2.5 (3) MG/3ML Solution 3 ml Inhalation Four times a day Taking predniSONE 10 MG Tablet 1 tablet Orally Once a day Not-Taking/PRNTamiflu 75 MG Capsule 1 capsule Orally Twice a day Doxycycline Hyclate 100 MG Capsule 1 capsule Orally Twice a day Daliresp 500 MCG Tablet 1 tablet Orally QOD Medication List reviewed and reconciled with the patientNot-Taking/PRN Tamiflu 75 MG Capsule 1 capsule Orally Twice a day Not-Taking/PRN Doxycycline Hyclate 100 MG Capsule 1 capsule Orally Twice a day Not-Taking/PRN Daliresp 500 MCG Tablet 1 tablet Orally QOD Medication List reviewed and reconciled with the patient * Allergies:?Penicillin G Anant athine: throat closesAspirin: vomitingMotrin: vomitingBiaxin: vomitingLipitor: myalgiaeggs: throat swellingSpider Bites: weltPeanut Oil: tongue swellsyes[Allergies Verified] Objective: * Vitals:? Assessment: * Assessment: 1.?Mild persistent asthma wi thout complication - J45.30 (Primary)??? Plan: * Treatment: * Procedure Codes:? * * Sign off status: Completed true * Provider:?Wili Caballero MD Date:?0 12/02/2024 Generated for Isela avendano/Ila/eTransmitting on:?12/12/2024 07:20 AM EST History and Physical Notes * HPI (History of Present Illness) Category Sub-Category Detail Notes Category Not es Symptom(s) Telehealth Location of [facility] ider rendering services:: [address], [address] patient is a 74 yo female audio telehealth visit here for follow up of recent visit. is back at work. breathing better. feels safer at work. prednisone has 2 left. and will stop. after next 2 pills Location of patient:: at address listed in demographics for today's visit Patient identification confirmed using:: Name, Telehealth method:: Telephone only. Deepa ent not visible to care provider. Consent:: Patient verbally c onsented to treatment, Patient verbally consented to billing insurance company, Patient informed of any privacy concerns related to method of visit Total time spend talking with patient (m inutes): 18
[2024-12-12 07:49] LABS: Alanine Aminotransferase 14 U/L (0-31); Albumin Level 3.9 g/dL (3.5-5.0); Alkaline Phosphatase 82 U/L (39-117); Aspartate Amino Transferase 21 U/L (5-31); Bilirubin Direct 0.3 mg/dL (0.0-0.5); Bilirubin Total 0.8 mg/dL (0.0-1.0); Cholesterol 169 mg/dL (<200); HDL Cholesterol 55 mg/dL (>40); LDL Cholesterol Calculated 84 mg/dL (<100); Total Protein 7.4 g/dL (6.5-8.0); Triglycerides 152 mg/dL (<150)
[2024-12-12 08:36] LABS: Reflex LDLD? No
== END 2024-12-12 07:18 | disposition home or self-care (01) ==
LOC: HO.LAB 07:17
PROVIDERS: PCP Internal Medicine; Visit Provider Internal Medicine
DX: E78.00 Pure hypercholesterolemia, unspecified (principal)
CPT/HCPCS: 36415; 80061; 80076

== ENCOUNTER 2024-12-24 15:02 | Outpatient (AMB) | payer OTHER, SELFPAY ==
[2024-12-24 15:14] VITALS: BP 136/60; PULSE 53; O2SAT 95; BMI 33.9
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
--- OUTSIDE RECORDS SUMMARY | 2024-12-24 19:04 | XMS_ITS | Clinical Summary ---
Author Organization [facility] Address [address] [place] [address] Care Team Providers Care Wincher Name Role Phone Wili Caballero MD Primary Care Provider Social History Tobacco Use Types Packs/Day Years [...] STATE MEDICARE PART A ONLY Care Teams Wincher Relationship Specialty Start Date End Date Wili Caballero MD [address] [place] [address] DRIVE [address] [place] [address] PCP - General Internal Medicine 03/31/22
== END 2024-12-24 15:49 | disposition home or self-care (01) ==
PROVIDERS: PCP Internal Medicine; Visit Provider Hospitalist
DX: M79.89 Other specified soft tissue disorders (principal); J45.41 Moderate persistent asthma with (acute) exacerbation; R91.8 Other nonspecific abnormal finding of lung field; J96.11 Chronic respiratory failure with hypoxia; I27.20 Pulmonary hypertension, unspecified; G47.33 Obstructive sleep apnea (adult) (pediatric); R53.82 Chronic fatigue, unspecified
CPT/HCPCS: 99214

== ENCOUNTER → 2024-12-24 15:02 | Outpatient (BNVA) | payer OTHER, SELFPAY | PROVIDERS: PCP Internal Medicine; Visit Provider Hospitalist ==

== ENCOUNTER 2024-12-26 15:14 | Outpatient (REF) | payer OTHER, SELFPAY ==
--- NOTE | ~2024-12-26 | US_ITS ---
EXAMINATION: US TRIPLEX LOWER EXTREMITY, LEFT CLINICAL INFORMATION: Pain and edema and left lower extremity. COMPARISON: DVT ultrasound dated July 27, 2023. TECHNIQUE: Color-flow triplex imaging with spectral analysis and compression Doppler were performed on the left lower extremity. FINDINGS: There is normal phasic flow on color stability in the left common femoral vein and left greater saphenous vein. There is no phasic flow or compressibility throughout the remaining interrogated vessels from the left superficial femoral vein, profunda, popliteal or posterior tibialis vein. . There is no Boykin's cyst. US/US venous duplex LE LT IMPRESSION: Acute extensive thrombus extending from the left superficial femoral vein profunda to the popliteal veins. Positive exam. Dr. Wilder Mcpherson medical record coder, Venita, received the results by the radiologist Dr. Sprague, via telephone on December 26, 2024 at 3:51 PM Electronically signed by: Case Sprague MD 12/26/2024 03:51 PM [facility]
--- OUTSIDE RECORDS SUMMARY | 2024-12-26 18:43 | XMS_ITS ---
Author Organization Wili Caballero MD Address [address] [place], [place] [phone] Care Team Providers Care Monogram Operator Name Role Phone Ada Wili Primary Care Provider REASON FOR VISIT refill Medications Medication SIG (Take, Route, Fr equency, Duration) Notes Start Date End Date Status predniSONE 10 MG 1 tablet Orally Once a day for 5 days 11/29/2024 Active Encounters Encounter Location Date Provider Diagnosis Wili Caballero MD [address] [place], [place] [phone] 11/29/2024 Wili Caballero Plan Of Treatment Medication Medication Name Sig Start Date Stop Date Notes predniSONE 10 MG 1 tablet Orally Once a day for 5 days 04/2025 Next Appt Details Provider Name:Wili robin, 03/25/2025 10:00:00 AM, [address], [address] [place] [address], [phone], Provider Name:Wili Grey ier, 06/24/2025 07:15:00 AM, [address], [address], [place], [phone], Provider Name:Wili Grey ier, 06/30/2025 03:30:00 PM, [address], [address], [place], [phone], Progress Notes * BEBE PARKDOB:1950 (74 yo F)Acc No.[id number]:11/29/2024 Patient:?BEBE PARK :1950???Age:74 Y???Sex:Female Address:[address] [place] [address], [place], [address] * Refills? Start predniSONE Tablet, 10 MG, Orally, 5 Tablet, 1 tablet, Once a day, 5 days * true * Date:? Generated for Isela avendano/Ila/eTransmitting on:?12/26/2024 06:42 PM EST
--- OUTSIDE RECORDS SUMMARY | 2024-12-26 18:43 | XMS_ITS ---
Author Organization [facility] Address [address] [place] [phone] Care Team Providers Care Electric Motor Assembler Name Role Phone Ada CARRILLO, Wili Primary Care Provider Jake Vazquez [phone] REASON FOR VISIT Patient presents today for epigastric pain Encounters Encounter Location Date Provider Diagnosis [facility] [address] [facility] [address] [place] [phone] 09/24/2024 Jake Choi Plan Of Treatment No Information Progress Notes * VIVIAN BEBE ADOB: [birth year] (74 yo F)Acc No.[id number]:09/24/2024 Progress Notes Patient:?BEBE PARK Provider:?Jake Choi MD :1950???Age:74 Y???Sex:Female D ate:09/24/2024 Address:[address] [place], [place] [phone] Pcp:Wili Caballero MD Subjective: * Chief Complaints: * ???1. Patient presents today for epigastric pain. * Medical History:? Objective: * Vitals:? Assessment: Plan: * Treatment: * * The named appointment provid er may or may not be the originator of this progress note, and it is not deemed complete until electronically signed by the appointment provider. Sign off status: Pending * Provider:?Jake Choi MD Date:? 024 Generated for Isela avendano/Ila/eTransmitting on:?12/26/2024 06:42 PM EST
--- OUTSIDE RECORDS SUMMARY | 2024-12-26 18:43 | XMS_ITS ---
Author Organization Wili Caballero MD Address [address] [place], [place] [phone] Care Team Providers Care Elevator Supervisor Name Role Phone Wili Caballero Primary Care Provider Results Component Value Reference Range Notes Liver Panel Reviewed date:12/12/2024 04:57:08 PM Interpretation: Performing Lab:[facility], [address] [place] [id number] Notes/Report: Bilirubin Total 0.8 0.0-1.0 mg/dL Bilirubin Direct 0.3 0.0-0.5 mg/dL Aspartate Amino Transferase 21 5-31 U/L Alanine Aminotransferase 14 0-31 U/L Total Protein 7.4 6.5-8.0 g/dL Albumin Level 3.9 3.5-5.0 g/dL Alkaline Phosphatase 82 39-117 U/L Lipid Panel with Reflex Reviewed date:12/12/2024 04:57:32 PM Interpretation: Performing Lab:[facility], [address] [place] [phone] Notes/Report: Triglycerides 152 <150 mg/dL Desirable Triglyceride: less than 150 mg/dL Borderline High Triglyceride 150-199 mg/dL High Triglyceride: 200-499 mg/dL Very High Triglyceride: greater than or equal to 5OO mg/dL Cholesterol 169 <200 mg/dL Desirable Cholesterol: less than 200 mg/dL Borderline High Cholesterol: 200-239 mg/dL High Cholesterol: greater than 239 mg/dL LDL Cholesterol Calculated 84 <100 mg/dL Desirable LDL: less than 100 mg/dL Near Optimal/Above Optimal LDL: 110-129 mg/dL Borderline High LDL: 130-159 mg/dL High LDL: 160-189 mg/dL Very High LDL: greater than or equal to 190 mg/dL HDL Cholesterol 55 >40 mg/dL Desirable HDL: greater than 40 mg/dL Note: This HDL assay may give artificially low results in patients with liver disease. REASON FOR VISIT FASTING LIPIDS Encounters Encounter Location Date Provider Diagnosis Wili Caballero MD [address] [place] [address] [place] [phone] 12/12/2024 Wili Caballero Pure hypercholestero lemia E78.00 Assessments Encounter Date Diagnosis (ICD Code) Assessment Notes Treatment Notes Treatment Clinical Notes Section Notes 12/12/2024 Pure hypercholesterolemia (ICD-10 - E78.00) Plan Of Treatment Next Appt Details Provider Name:Wili robin, 03/25/2025 10:00:00 AM, [address] [place] [address], [address], [phone], Provider Name:Wili robin, 06/24/2025 07:15:00 AM, [address] [place] [address], [address], [phone], Provider Name:Wili robin, 06/30/2025 03:30:00 PM, [address] [place] [address], [address], [phone], Progress Notes * JOSSUE PARK:1950 (74 yo F)Acc No.[id number]:12/12/2024 Progress Note Patient:?BEBE PARK Number:[id number] Provider:?Wili Caballero MD :1950???Age:74 Y???Sex:Female D ate:12/12/2024 Address:[address] [place], [place] [address] Subjective: * Chief Complaints: * ???1. FASTING [...] Caballero MD Date:?0 12/12/2024 Generated for Isela avendano/Ila/Aminahitting on:?12/26/2024 06:42 PM EST
--- OUTSIDE RECORDS SUMMARY | 2024-12-26 18:43 | XMS_ITS | Clinical Summary ---
Author Organization [facility] Address [address] [place] [address] Care Team Providers Care Mechanical Design Technician Name Role Phone Wili Caballero MD Primary [...] STATE MEDICARE PART A ONLY Care Teams Mechanical Design Technician Relationship Specialty Start Date End Date Wili Caballero MD [address] [place] [address] DRIVE [address] [place] [address] PCP - General Internal Medicine 03/31/22
--- OUTSIDE RECORDS SUMMARY | 2024-12-26 18:43 | XMS_ITS ---
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 2022, recent normal laboratories, her clinical history, and good clinical appearance, I don't think she needs any further imaging studies or laboratories at this time in regard to the discomfort, nausea, and vomiting. In regard to her somewhat irregular bowel movements and presumed diagnosis of celiac disease we did review that it would be best to stay on a gluten-free diet. However, she has not stayed on a gluten-free diet since the diagnosis over 5 years ago and does not describe any plan or desire to do so. We did review colorectal cancer screening and I did recommend again that she undergo a colonoscopy since she has never had one done and that is felt to be the best preventive for colon cancer. However, she does not want to do the procedure and I therefore recommended she at least obtain a Cologuard test through your office. I did advise her to let me know the results either way, but if it is positive she would definitely need a colonoscopy on that basis. At this point, if things otherwise remain stable from a GI standpoint, I advised Bebe to see me on a p.r.n. basis. Bebe was very comfortable with this plan. Thank you again for allowing me to have participated in Bebe's care. Please do not hesitate to contact me if I can be of any further assistance in the future. Plan: * Treatment: 2.?GERD without esophagitis? Start Omeprazole Capsule Delayed Release, 20 MG, take 1 in the early evening every evening or every other evening, Orally, Once every evening or every other evening, 30 day(s), 30, Refills 11.?? 3.?Xiphoid pain? Notes: Use a heating pad and Tylenol for the xiphoid pain under the breastbone?? 4.?Colon cancer screening? Notes: Get a Cologuard test through Dr. Caballero's office and let me know the results either way_ _if it is positive you would definitely need a colonoscopy?? * Procedure Codes:?1036F TOBAC CO NON-TXHYU0890 BP SCR NOT PRFRM REC REASON NOS * Preventive Medicine:? ??Counseling:?Care goal follow-up plan:?Above Normal BMI Follow-up?Giving encouragement to exercise,?BMI management provided?No.? ??Urinary Incontinence:?Urinary Incontinence?Assessment:?Present,?Plan of care documented:?No, reason not specified.? ??Screenings:?Fall Risk Screening?Fall Risk Assessment:?No falls in the past year,?Screening:?No falls in the past year,?Assessment:?Not performed, no reason specified,?Plan of Care:?Not documented, no reason specified.? * Follow Up:?prn * * Sign off status: Completed true * Provider:?Jake Choi MD Date:? 025 Generated for Isela avendano/Ila/Christel on:?12/26/2024 06:43 PM EST History and Physical Notes * HPI (History of Present Illness) Category Sub-Category Detail Notes Category Not es incontinence I saw Bebe in followup today in regard to her intermittent nausea and vomiting, epigastric discomfort, celiac disease, and discussion of colorectal cancer screening. I last saw Bebe in November of 2023, at which time she was having issues with some upper abdominal and lower chest discomfort that I ultimately felt was related to some costochondritis as opposed to any specific GI problem. Prior to that she did have some studies in 2022, including an abdominal ultrasound and CT scan, both of which were negative for any findings to suggest an etiology of abdominal discomfort. Specifically, there was no evidence of any biliary or pancreatic disease. She also saw her grazing aide, Dr. Mackenzie, in June of 2024 who did not feel her symptoms were related to any cardiac source either. She does continue to have intermittent symptoms of epigastric discomfort that she actually localizes to the region of the xiphoid process. She also has some intermittent discomfort under her right ribs that she notices with coughing. The discomfort around the xiphoid process is intermittent and not particularly associated with eating. She describes that if the discomfort is there and she eats a meal it will not particularly worsen. However, the discomfort in the area of the xiphoid process will worsen if she pushes on the area with her hand. She describes that her bowel movements are fairly regular although she does have occasional diarrhea. She has not noticed any hematochezia nor melena. She has never had a colonoscopy due to her refusal of the procedure. However, she did turn in a negative Cologuard test in 2018. She did have duodenal biopsies consistent with celiac disease but does not adhere to anything close to a strict gluten-free diet by her description. Aside from the discomfort in the region of the xiphoid process she really does not have any other abdominal pains or discomfort. She denies any associated jaundice, increasing abdominal distention, nor any unintentional weight loss. She does describe at least several episodes per week of some morning nausea and vomiting. This will not awaken her but she does notice it to come on after being awake for a while. She denies any nocturnal symptoms of heartburn and does try not to eat too close to bedtime. She denies any significant heartburn nor dysphagia. She uses omeprazole only very occasionally and sporadically. Laboratories several months ago revealed a normal CBC, chemistries and renal function, and LFTs. Examination Category Sub-Category Detail Notes Category Not es General Examination GENERAL APPEARANCE: pleasant , well nourished, well developed, in no acute distress A EYES: sclera non-icteric NECK/THYROID: no cervical lymphade [...]
--- OUTSIDE RECORDS SUMMARY | 2024-12-26 18:43 | XMS_ITS ---
Author Organization [facility] Address [address] [place] [address] Care Team Providers Care Embedded Firmware Engineer Name Role Phone Ada CARRILLO, Wili Primary Care Provider Jake Vazquez [phone] REASON FOR VISIT medication that you gave her Encounters Encounter Location Date Provider Diagnosis [facility] [address] [place] [address] 11/12/2024 Jake Choi Plan Of Treatment No Information Progress Notes * BEBE PARK ADOB: [birth year] (74 yo F)Acc No.[id number]:11/12/2024 Patient:?BEBE PARK :1950???Age:74 Y???Sex:Female Address:[address] [place] [address] * true * Date:? Generated for Isela avendano/Ila/eTransmitting on:?12/26/2024 06:43 PM EST
--- OUTSIDE RECORDS SUMMARY | 2024-12-26 18:43 | XMS_ITS | Patient Health Record ---
Author Organization [facility] Address [address] [place] [address] Care Team Providers Care Data Analyst Etl Developer Name Role Phone Ada CARRILLO, Wili Primary Care Provider Jkae Vazquez Unavailable [phone] Allergies Allergen (clinical drug ingredient) Drug/Non Drug [...] Activ e Penicillin Unknown Drug Allergy Active Reason For Referral No Information Medications Medication SIG (Take, Route, Frequency, Duration) [...] 5 MG 3 tablet Orally prn Active Immunizations Vaccine Route Administration Date Status Comme nts Influenza Unknown 04/05/2019 Refused Social History Tobacco Use: Social History Observation [...] Notes: Nonsmoker since 1989; no alc ohol Nonsmoker since 1989; no alc ohol Nonsmoker since 1989; no alc ohol Nonsmoker since 1989; no alc ohol Nonsmoker since 1989; no alc ohol Problems Problem Type SNOMED Code ICD Code Onset Dates Problem Status W/U Status Risk Notes Problem Colon cancer screening (932046678) Colon cancer screening (Z12.11) Active confirmed Problem 745850892 Celiac disease (K90.0) Active confirmed Problem 73625764 Intestinal malabsorption, 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) Active confirmed Problem 41439827 Other chest pain (R07.89) Active confirmed Problem 471106697 Nausea (R11.0) Active confirmed Problem 62450543 Abdominal pain, epigastric (R10.13) Active confirmed Problem 416189926 Abdominal pain, right upper quadrant (R10.11) Active confirmed Problem 89027042 Diarrhea, unspecified type (R19.7) Active confirmed Problem 088335010 GERD without esophagitis (K21.9) Active confirmed Problem 49481164 Mucosal abnormality of duodenum (K31.9) Active confirmed Problem 60717208 Diarrhea of presumed infectious origin (R19.7) Active confirmed Problem Chest pain (45180919) Xiphoid pain (R07.89) Active confirmed Vital Signs Blood pressure diastolic 00 mm Hg 11/12/2024 Height 64 in 11/12/2024 Blood pressure systolic 00 mm Hg 11/12/2024 Weight 195 lbs 11/12/2024 BMI 33.47 kg/m2 11/12/2024 Encounters Encounter Location Date Provider Diagnosis [facility] [address] [place] [address] 11/12/2024 Jake Choi Nausea R11.0 ; Abdominal pain, epigastric R10.13 ; GERD without esophagitis K21.9 ; Xiphoid pain R07.89 and Colon cancer screening Z12.11 [facility] [address] [facility] [place] [address] 05/01/2024 Jake Choi [facility] [address] [place] [address] 08/20/2024 Jake Choi [facility] [address] [place], [place] [address] [place] [address] 09/24/2024 Jake Choi [facility] [address] [place] [phone] 11/12/2024 Jake Choi Assessments Encounter Date Diagnosis (ICD Code) Assessment [...] did advise her that this may be employee's representative of some nocturnal reflux that is [...] did advise her that this may be employee's representative of some nocturnal reflux that is [...] did advise her that this may be employee's representative of some nocturnal reflux that is [...] did advise her that this may be employee's representative of some nocturnal reflux that is [...] did advise her that this may be employee's representative of some nocturnal reflux that is [...] assistance in the future. Plan Of Treatment Pending Test Test Name Order Date LIVER PROFILE 05/31/2023 CRP 05/31/2023 CBC w DIFF 05/31/2023 SED RATE (ESR) 05/31/2023 CELIAC PANEL #10 10/19/2017 CELIAC PANEL #10 05/31/2023 STOOL WBC 05/31/2023 C DIFFICILE RFLX PCR 05/31/2023 Future Test Test Name Order Date UPPER GI ENDOSCOPY 07/07/2017 Insurance Providers Payer Name Payer Address Payer Phone Subscriber Number Group Number Insured Name Patient Relationship to Insured Coverage Start Date Coverage End Date [employer] [place] [address] [address] [place] [address] [id number] BEBE PARK Self - patient is the insured Medical (General) History Medical History History ICD Code Denies SC,DM,CVA,renal disease SVT COPD Hypertension Cardiac cath approx [...]
--- OUTSIDE RECORDS SUMMARY | 2024-12-26 18:44 | XMS_ITS ---
Author Organization Wili Caballero MD Address [address] [place], [place] [phone] Care Team Providers Care Loin Puller Name Role Phone Wili Caballero Primary Care Provider Allergies Allergen (clinical drug ingredient) Drug/Non Drug Allergy documented on EMR Reaction Allergy Type Onset Date Status Motrin vomiting Drug Allergy Active atorvastatin Lipitor myalgia Drug Allergy Acti ve Biaxin vomiting Drug Allergy Active aspirin Aspirin vomiting Drug Allergy Active eggs (uncoded) throat swelling Allergy Active Spider Bites welt Allergy Active peanut oil Peanut Oil tongue swells Drug Allergy A ctive Penicillin G Benzathine throat closes Drug Allergy Active REASON FOR VISIT follow up appt from [...] Location Date Provider Diagnosis Wili Caballero MD [address] [place] [address] [place] [phone] 12/02/2024 Wili Caballero Mild persistent asthma without [...] Details Provider Name:Wili robin, 03/25/2025 10:00:00 AM, [address] [place] [address], [address], [phone], Provider Name:Wili robin, 06/24/2025 07:15:00 AM, [address] [place] [address], [place] [address], [place], [place], [phone], Provider Name:Wili Grey ier, 06/30/2025 03:30:00 PM, [address] [facility], [address], [place], [place], [phone], Progress Notes * BEBE PARKDOB:1950 (74 yo F)Acc No.[id number]:12/02/2024 Patient:?BEBE PARK Provider:?Wili Caballero MD :1950???Age:74 Y???Sex:Female D ate:12/02/2024 Address:[address] [place] [address], [facility] Subjective: * Chief Complaints: * ???Follow up appt from teleh ealth visit from 5C/o cough * HPI: ???Symptom(s):?Telehealth?Location of provider rendering services:?[address], [address],?Location of patient:?at address listed [...] * Sign off status: Completed true * Provider:?iWli Caballero MD Date:?0 12/02/2024 Generated for Isela avendano/Ila/eTransmitting on:?12/26/2024 06:43 PM EST History and Physical Notes * HPI (History of Present Illness) Category Sub-Category Detail Notes Category Not es Symptom(s) Telehealth Location of [facility] ider rendering services:: [address], [address] [...]
== END 2024-12-26 15:15 | disposition home or self-care (01) ==
LOC: HO.HMGCX 15:14
PROVIDERS: PCP Internal Medicine; Visit Provider Hospitalist
DX: R60.0 Localized edema (principal)
CPT/HCPCS: 93971

== ENCOUNTER → 2024-12-26 15:15 | Outpatient (BNV) | payer OTHER, SELFPAY | PROVIDERS: PCP Internal Medicine; Visit Provider Radiology Diagnostic Radiology | DX: I82.412 Acute embolism and thrombosis of left femoral vein (principal) | CPT/HCPCS: 93971 ==

== ENCOUNTER 2025-01-27 07:19 | Outpatient (REF) | payer OTHER, SELFPAY ==
--- NOTE | ~2025-01-27 | US_ITS ---
CLINICAL HISTORY: I82.409 - Acute embolism and thrombosis of unspecified deep veins of uns... Venous duplex ultrasound left lower extremity Comparison: 01/15/2025 Findings: The visualized deep veins are fully compressible with normal Doppler color flow and spectral tracings. There is recanalization of a chronic left popliteal deep vein thrombosis. No popliteal cyst. IMPRESSION: 1. Negative for acute left lower extremity deep vein thrombosis. This document has been electronically signed by: Bryce Fagan MD on 01/27/2025 08:55:35
--- OUTSIDE RECORDS SUMMARY | 2025-01-27 07:22 | XMS_ITS ---
Author Organization Wili Caballero MD Address [address] [place] [phone] Care Team Providers Care Presto Log Operator Name Role Phone Ada Wili Primary Care Provider REASON FOR VISIT DT Encounters Encounter Location Date Provider Diagnosis Wili Caballero MD [address] [place] [address] [address] [place] [phone] 12/27/2024 Wili Caballero Plan Of Treatment Next Appt Details Provider Name:Wili Grey ier, 03/25/2025 10:00:00 AM, [address] [place] [address], [place] [address], [place], [place], [phone], Provider Name:Wili robin, 06/24/2025 07:15:00 AM, [address] [place] [address], [address] [place] [address], [phone], Provider Name:Wili robin, 06/30/2025 03:30:00 PM, [address], [address], [place], [phone], Progress Notes * BEBE PARKDOB:1950 (74 yo F)Acc No.[id number]:12/27/2024 Patient:?BEBE PARK :1950???Age:74 Y???Sex:Female Address:[address] [place] [address], [place], [address] * true * Date:? Generated for Isela avendano/Ila/eTransmitting on:?01/27/2025 07:22 AM EDT
--- OUTSIDE RECORDS SUMMARY | 2025-01-27 07:22 | XMS_ITS ---
Author Organization [facility] Address [address] [place] [address] Care Team Providers Care Black Oxide Coating Equipment Tender Name Role Phone Ada CARRILLO, Wili Primary Care Provider Jake Vazquez Unavailable [phone] Allergies Allergen (clinical drug ingredient) Drug/Non Drug [...] W/U Status Risk Notes Problem Chest pain (83041225) Xiphoid pain (R07.89) Active confirmed Problem Colon cancer screening (469791737) Colon cancer screening (Z12.11) Active confirmed Vital Signs Blood pressure systolic 00 mm Hg 11/12/19 25 Blood pressure diastolic 00 mm Hg 025 Height 64 in 11/12/2024 Weight 195 lbs 11/12/2024 BMI 33.47 kg/m2 11/12/2024 Encounters Encounter Location Date Provider Diagnosis [facility] [address] [place] [phone] 11/12/2024 Jake Choi Nausea R11.0 ; Abdominal [...] did advise her that this may be outside sales account representative of some nocturnal reflux that is [...] did advise her that this may be outside sales account representative of some nocturnal reflux that is [...] did advise her that this may be outside sales account representative of some nocturnal reflux that is [...] did advise her that this may be outside sales account representative of some nocturnal reflux that is [...] did advise her that this may be outside sales account representative of some nocturnal reflux that is [...] BEBE PARK ADOB: [birth year] (74 yo F)Acc No.[id number]:11/12/2024 Progress Notes Patient:?BEBE PARK A Provider:?Jake Choi MD :1950???Age:74 Y???Sex:Female D ate:11/12/2024 Address:[id number] Pcp:Wili Caballero MD Subjective: * Chief Complaints: [...] or pancreatic disease. She also saw her admissions manager, Dr. Mackenzie, in June of 2024 who [...] year??No,?Points?0,?Interpretation?Negative.?Miscellaneous:?Marital status: . 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 ???Nonsmoker since 1989; [...] did advise her that this may be outside sales account representative of some nocturnal reflux that is [...] a colonoscopy?? * Procedure Codes:?1036F TOBAC CO NON-RDTYX3007 BP SCR NOT PRFRM REC REASON NOS [...] MD Date:? 025 Generated for Isela avendano/Ila/Christel on:?01/27/2025 07:22 AM EDT History and Physical Notes * HPI (History [...] or pancreatic disease. She also saw her admissions manager, Dr. Mackenzie, in June of 2024 who [...]
--- OUTSIDE RECORDS SUMMARY | 2025-01-27 07:22 | XMS_ITS ---
Author Organization [facility] Address [address] [place] [address] Care Team Providers Care Footwear Machinery Instructor Name Role Phone Ada CARRILLO, Wili Primary Care Provider Jake Vazquez [phone] REASON FOR VISIT Patient presents today for epigastric pain Encounters Encounter Location Date Provider Diagnosis [facility] [address] [place] [address] 09/24/2024 Jake Choi Plan Of Treatment No Information Progress Notes * VIVIAN BEBE ADOB: [birth year] (74 yo F)Acc No.[id number]:09/24/2024 Progress Notes Patient:?BEBE PARK Provider:?Jake Choi MD :1950???Age:74 Y???Sex:Female D ate:09/24/2024 Address:[address] [place], [place] [phone] Pcp:Wili Caballero MD Subjective: * Chief Complaints: [...] MD Date:? 024 Generated for Isela avendano/Ila/eTransmitting on:?01/27/2025 07:21 AM EDT
--- OUTSIDE RECORDS SUMMARY | 2025-01-27 07:22 | XMS_ITS ---
Author Organization [facility] Address [address] [place] [address] Care Team Providers Care Locomotive Oiler Name Role Phone Ada CARRILLO, Wili Primary Care Provider Jake Vazquez [phone] REASON FOR VISIT medication that you gave her Encounters Encounter Location Date Provider Diagnosis [facility] [address] [place] [address] 11/12/2024 Jake Choi Plan Of Treatment No Information Progress Notes * BEBE PARK ADOB: [birth year] (74 yo F)Acc No.[id number]:11/12/2024 Patient:?BEBE PARK :1950???Age:74 Y???Sex:Female Address:[address] [place] [address] * true * Date:? Generated for Isela avendano/Ila/eTransmitting on:?01/27/2025 07:22 AM EDT
--- OUTSIDE RECORDS SUMMARY | 2025-01-27 07:22 | XMS_ITS ---
Author Organization Wili Caballero MD Address [address] [place] [phone] Care Team Providers Care Hi Low Truck Driver Name Role Phone Ada Wili Primary Care Provider REASON FOR VISIT COLOGUARD Encounters Encounter Location Date Provider Diagnosis Wili Caballero MD [address] [place] [phone] 01/09/2025 Wili Caballero Colon cancer screening Z12.11 Assessments Encounter Date Diagnosis (ICD Code) Assessment Notes Treatment Notes Treatment Clinical Notes Section Notes 01/09/2025 Colon cancer screening (ICD-10 - Z12.11) Plan Of Treatment Pending Test Test Name Order Date COLOGUARD 01/09/2025 Next Appt Details Provider Name:Wili robin, 03/25/2025 10:00:00 AM, [address], [address] [place] [address], [phone], Provider Name:Wili Grey ier, 06/24/2025 07:15:00 AM, [address], [address], [place], [place], [phone], Provider Name:Wili Grey ier, 06/30/2025 03:30:00 PM, [address], [address], [place], [phone], Progress Notes * BEBE PARKDOB:1950 (74 yo F)Acc No.[id number]:01/09/2025 Patient:?BEBE PARK :1950???Age:74 Y???Sex:Female Address:[address] [place] [address], [place], [address] Subjective: * Chief Complaints: * ???COLOGUARD * Medical History:? * Surgical History:? * Hospitalization/Major Diagno stic Procedure:? * Medications:? Objective: * Vitals:? * Physical Examination:? Assessment: * Assessment: 1.?Colon cancer screening - Z12.11??? Plan: * Treatment: * Procedure Codes:? * true * Date:? Generated for Isela avendano/Ila/eTransmitting on:?01/27/2025 07:21 AM EDT
--- OUTSIDE RECORDS SUMMARY | 2025-01-27 07:22 | XMS_ITS ---
Author Organization Wili Caballero MD Address [address] [place], [place] [phone] Care Team Providers Care Warp Dyeing Vat Tender Name Role Phone Wili Caballero Primary Care Provider [phone] Results Component Value Reference Range Notes Liver Panel Reviewed date:12/12/2024 04:57:08 PM Interpretation: Performing Lab:[facility], [address] [place] [id number] Notes/Report: Bilirubin Total 0.8 0.0-1.0 mg/dL Bilirubin Direct 0.3 0.0-0.5 mg/dL Aspartate Amino Transferase 21 5-31 U/L Alanine Aminotransferase 14 0-31 U/L Total Protein 7.4 6.5-8.0 g/dL Albumin Level 3.9 3.5-5.0 g/dL Alkaline Phosphatase 82 39-117 U/L Lipid Panel with Reflex Reviewed date:12/12/2024 04:57:32 PM Interpretation: Performing Lab:[facility], [address] [place] [address] Notes/Report: Triglycerides 152 <150 mg/dL Desirable Triglyceride: [...] Location Date Provider Diagnosis Wili Caballero MD [address] [place] [address] [place] [phone] 12/12/2024 Wili Caballero Pure hypercholestero lemia E78.00 Assessments Encounter Date Diagnosis (ICD Code) Assessment Notes Treatment Notes Treatment Clinical Notes Section Notes 12/12/2024 Pure hypercholesterolemia (ICD-10 - E78.00) Plan Of Treatment Next Appt Details Provider Name:Wili robin, 03/25/2025 10:00:00 AM, [address] [place] [address], [address], [phone], Provider Name:Wili robin, 06/24/2025 07:15:00 AM, [address] [place] [address], [address], [phone], Provider Name:Wili robin, 06/30/2025 03:30:00 PM, [address] [place] [address], [address], [phone], Progress Notes * JOSSUE PARK:1950 (74 yo F)Acc No.[id number]:12/12/2024 Progress Note Patient:?BEBE PARK Number:[id number] Provider:?Wili Caballero MD :1950???Age:74 Y???Sex:Female D ate:12/12/2024 Address:[address] [place], [place] [address] [facility] Subjective: * Chief Complaints: * ???1. FASTING [...] MD Date:?0 12/12/2024 Generated for Isela avendano/Ila/Aminahitting on:?01/27/2025 07:21 AM EDT
--- OUTSIDE RECORDS SUMMARY | 2025-01-27 07:22 | XMS_ITS | Patient Health Record ---
Author Organization [facility] Address [address] [place] [id number] Care Team Providers Care Stereoplotter Operator Name Role Phone Ada CARRILLO, Wili Primary Care Provider Jake Vazquez Unavailable [phone] Allergies Allergen (clinical drug ingredient) Drug/Non Drug [...] roflumilast Daliresp Unknown Drug Allergy Activ e Reason For Referral No Information Medications Medication [...] Status Risk Notes Problem Colon cancer screening (768973849) Colon cancer screening (Z12.11) Active confirmed Problem 207181990 Celiac disease (K90.0) Active confirmed Problem 95355963 Intestinal malabsorption, 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) Active confirmed Problem 63152713 Other chest pain (R07.89) Active confirmed Problem 213901395 Nausea (R11.0) Active confirmed Problem 06056260 Abdominal pain, epigastric (R10.13) Active confirmed Problem 704626418 Abdominal pain, right upper quadrant (R10.11) Active confirmed Problem 97947444 Diarrhea, unspecified type (R19.7) Active confirmed Problem 301334973 GERD without esophagitis (K21.9) Active confirmed Problem 47017762 Mucosal abnormality of duodenum (K31.9) Active confirmed Problem 22204464 Diarrhea of presumed infectious origin (R19.7) Active confirmed Problem Chest pain (92224612) Xiphoid pain (R07.89) Active confirmed Vital Signs Blood pressure diastolic 00 mm Hg 11/12/2024 Height 64 in 11/12/2024 Blood pressure systolic 00 mm Hg 11/12/2024 Weight 195 lbs 11/12/2024 BMI 33.47 kg/m2 11/12/2024 Encounters Encounter Location Date Provider Diagnosis [facility] [address] [place] [address] 11/12/2024 Jake Choi Nausea R11.0 ; Abdominal pain, epigastric R10.13 ; GERD without esophagitis K21.9 ; Xiphoid pain R07.89 and Colon cancer screening Z12.11 [facility] [address] [facility] [place] [address] 05/01/2024 Jake Choi [facility] [address] [place] [phone] 08/20/2024 Jake Choi [facility] [address] [place], [place] [address] [place] [address] 09/24/2024 Jake Choi [facility] [address] [place] [phone] 11/12/2024 Jake Choi Assessments Encounter Date Diagnosis [...] did advise her that this may be insurance account representative of some nocturnal reflux that [...] did advise her that this may be insurance account representative of some nocturnal reflux that [...] did advise her that this may be insurance account representative of some nocturnal reflux that [...] did advise her that this may be insurance account representative of some nocturnal reflux that [...] did advise her that this may be insurance account representative of some nocturnal reflux that [...] Coverage End Date [employer] [place] [address] [address] [place] [address] [id number] [place] Self - patient is the insured Medical (General) History Medical History History ICD Code Denies VA,DM,CVA,renal disease SVT COPD Hypertension Cardiac cath approx [...]
--- OUTSIDE RECORDS SUMMARY | 2025-01-27 07:22 | XMS_ITS ---
Author Name 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
--- OUTSIDE RECORDS SUMMARY | 2025-01-27 07:22 | XMS_ITS | Clinical Summary ---
Author Organization [facility] Address [address] [place] [address] Care Team Providers Care Edge Polisher Name Role Phone Wili Caballero MD Primary Care Provider [phone] Social History Tobacco Use Types Packs/Day Years [...] DTaP,Tdap,and Td Vaccines (1 - Tdap) 1966 Pneumococcal Vaccine, 50+ Ye ars (1 of 1 - PCV) 1998 Zoster Vaccines (1 of 2) 1998 COVID-19 Vaccine ( - 2023-2 5 season) 2024 Influenza Vaccine (Season Ended) 2025 Colorectal Cancer Screening Discontinued FIT-DNA (Cologuard) Discontinued [...] patient's age [place] [address] ANTHEM - OUT OF STATE MEDICARE PART A ONLY Care Teams Edge Polisher Relationship Specialty Start Date End Date Wili Caballero MD [address] [place] [address] [address] [place] [address] PCP - General Internal Medicine 03/31/22
== END 2025-01-27 07:20 | disposition home or self-care (01) ==
LOC: HO.US 07:19
PROVIDERS: PCP Internal Medicine; Visit Provider Hospitalist
DX: I82.402 Acute embolism and thrombosis of unspecified deep veins of left lower extremity (principal)
CPT/HCPCS: 93971

== ENCOUNTER → 2025-01-27 07:21 | Outpatient (BNV) | payer OTHER, SELFPAY | PROVIDERS: PCP Internal Medicine; Visit Provider Specialist | DX: I82.402 Acute embolism and thrombosis of unspecified deep veins of left lower extremity (principal) | CPT/HCPCS: 93971 ==

== ENCOUNTER 2025-02-06 15:08 | Outpatient (AMB) | payer OTHER, SELFPAY ==
[2025-02-06 15:17] VITALS: BMI 33.8
--- NOTE | 2025-02-06 15:17 | A.OFFVIS_ITS ---
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 First r/o DVT US this year done on 12/27/24 and 01/27/25. Pt has Left LE swelling and discoloration. Potato Chip Processing Supervisor Required: No Accompanied by: Self / Same As Patient Allergies aspirin [Aspirin] Allergy (Severe, Verified 02/06/25 15:28) TROUBLE BREATHING, vomiting Penicillins Allergy (Severe, Verified 02/06/25 15:28) THROAT CLOSES adhesive tape [ADHESIVE TAPE] Allergy (Intermediate, Verified 02/06/25 15:28) RASH/ITCH banana Allergy (Intermediate, Verified 02/06/25 15:28) Hives ibuprofen [From MOTRIN] Allergy (Intermediate, Verified 02/06/25 15:28) VOMITING latex [LATEX] Allergy (Intermediate, Verified 02/06/25 15:28) RASH penicillin V Allergy (Unknown, Verified 02/06/25 15:28) rash spider venom [SPIDER BITES] Allergy (Unknown, Verified 02/06/25 15:28) SWELLING chlorhexidine Allergy (Verified 02/06/25 15:28) Rash, itchiness peanut Allergy (Verified 02/06/25 15:28) Angioedema clarithromycin [From Biaxin] Adverse Reaction (Intermediate, Verified 02/06/25 15:28) PROJECTILE VOMITING garlic Allergy (Mild, Uncoded 02/06/25 15:28) Flushing Adhesive Tape Allergy (Unknown, Uncoded 02/06/25 15:28) rash Biaxin Allergy (Unknown, Uncoded 02/06/25 15:28) vomiting, abd pain eggs Allergy (Unknown, Uncoded 02/06/25 15:28) Unknown Latex Gloves Allergy (Unknown, Uncoded 02/06/25 15:28) rash HPI HPI 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 She had actually seen us back in 2020 regarding venous insufficiency. At that time it was noted that she had a prior history of DVT in 2016. Most recently she had been worked up by pulmonology and was noted to have a new acute DVT on 12/26/2024. It was extensive thrombus from the left SFV profundus and popliteal veins. She had a follow-up ultrasound on 01/27/2025. She now presents for routine lower extremity evaluation. [facility] Medical History DVT (deep venous thrombosis) Shortness of breath Skin lesion of lower extremity Cough Chest discomfort Pulmonary hypertension Asthma Obesity Neck pain Chronic respiratory failure Pulmonary nodules Nonsustained ventricular tachycardia HTN (hypertension) SVT (supraventricular tachycardia) COPD (chronic obstructive pulmonary disease) Osteoporosis Surgical History Hx of cardiac cath Hx of knee surgery History of surgery on arm Hx of hysterectomy Hx of appendectomy Hx of cholecystectomy Family History Father Lung cancer Mother CVA (cerebral vascular accident) Social History Household Members: None Alcohol intake: never Patient Tobacco Use Status: Former Tobacco user Years Smoked: 30 Second Hand Smoke Exposure: No Current occupational status: employed 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[employer] [place] Review of Systems Const All systems reviewed & are unremarkable except as noted in HPI and below Reports no additional complaints ENT Reports Normal hearing present Card Denies chest pain, Denies chest pain at rest, Denies chest pain with activity and Denies pedal edema Resp Denies cough GI Denies abdominal pain Musc Denies abnormal gait, Denies muscle cramps and Denies radiating pain into limb Skin/Breast Denies skin ulcer and Denies wounds Neuro Reports Normal hearing present and Denies abnormal gait Psych Reports no additional complaints Physical Exam Vital Signs: BMI result Body Mass Index 33.8 Const General: cooperative, healthy appearing and comfortable Orientation/consciousness: oriented to person, oriented to place and oriented to time HEENT Head: Yes normal to inspection Neck Neck: Yes normal visual inspection Carotids: no bruits Chest Chest palpation & inspection: normal inspection of the chest Resp Effort & Inspection: normal respiratory effort and able to speak in complete sentences Auscultation: clear to auscultation bilaterally, no crackles, no rales, no rhonchi and no wheezes Cardio Rate: regular rate Rhythm: regular rhythm Heart sounds: S1 normal heart sound present and S2 normal heart sound present Bruits: no carotid bruits Peripheral pulses: Peripheral pulses 2+ throughout GI Inspection: Yes normal to inspection Skin Wounds: no wounds Hair: normal Neuro General: oriented to person, oriented to place and oriented to time Cranial nerves: Yes CN's II-XII intact bilaterally and Yes Normal hearing present Cognition (Neuro): normal cognition Motor exam (neuro): 5/5 motor strength present throughout Extrem Other: venous exam: +2 edema left lower extremity General: No clubbing, No cyanosis and Yes edema Psych Appearance: grossly normal Mental Status: mental status grossly normal Speech and movement: Normal speech and movement present Results Reviewed Results Reviewed: Venous ultrasounds from 12/26 and 01/27/2025 were both reviewed. Written report and images Assessment & Plan Assessment & Plan (1) DVT (deep venous thrombosis): Code(s): I82.409 - Acute embolism and thrombosis of unspecified deep veins of unspecified lower extremity Category: Medical Qualifiers: DVT location: lower extremity Affected thrombotic vein of extremity: femoral Chronicity: chronic Laterality: left Qualified Code(s): I82.512 - Chronic embolism and thrombosis of left femoral vein Plan: In short patient recurrent DVT of the left lower extremity. Unclear etiology of this. At the current time would recommend routine conservative measures including compression, elevation and exercise. I did provide her written information and also information regarding appropriate use of compression and where to purchase compression as well. In terms of the DVT I do believe anticoagulation is appropriate for her. I have placed a consultation for Hematology-Oncology regarding this recurrent DVT and potential hypercoagulable states. In terms of a colonoscopy I would wait 6 months from the positive finding of 12/26/2024. I do think she would be stable for colonoscopy after 06/28/2025. This is subject to Hematology-Oncology workup and results. This was all related to the patient. Thank you for allowing us to assist in her care. If there are any questions or concerns please do not hesitate to contact us. Orders: Referrals Hematology & Oncology Referral I82.512 - Chronic embolism and thrombosis of left femoral vein Coding Level of Care Code Est Pt Level 4 (59256) Diagnoses Chronic deep vein thrombosis (DVT) of femoral vein of left lower extremity I82.512 DVT location: lower extremity Affected thrombotic vein of extremity: femoral Chronicity: chronic Laterality: left
--- OUTSIDE RECORDS SUMMARY | 2025-02-06 17:53 | XMS_ITS | Clinical Summary ---
Author Organization [facility] Address [address] [place] [address] Care Team Providers Care Farm Labor Contractor Name Role Phone Wili Caballero MD Primary [...] [place] [address] AN[employer]M - OUT OF STATE MEDICARE PART A ONLY Care Teams Farm Labor Contractor Relationship Specialty Start Date End Date Wili Caballero MD [address] [place] [address] [address] [place] [address] PCP - General Internal Medicine 03/31/22
== END 2025-02-06 16:19 | disposition home or self-care (01) ==
LOC: HO.HVS 15:09
PROVIDERS: PCP Internal Medicine; Visit Provider Surgery Vascular Surgery
DX: I82.512 Chronic embolism and thrombosis of left femoral vein (principal)
CPT/HCPCS: 99214

== ENCOUNTER → 2025-02-20 08:02 | Outpatient (BNV) | payer OTHER, SELFPAY | PROVIDERS: PCP Internal Medicine; Visit Provider Internal Medicine Medical Oncology | DX: I82.402 Acute embolism and thrombosis of unspecified deep veins of left lower extremity (principal) | CPT/HCPCS: 99204 ==

== ENCOUNTER 2025-03-27 09:46 | Outpatient (REF) | payer OTHER, SELFPAY ==
--- OUTSIDE RECORDS SUMMARY | 2025-03-27 11:04 | XMS_ITS | Clinical Summary ---
Author Organization [facility] Address [address] [place] [address] Care Team Providers Care Ring Attacher Name Role Phone Wili Caballero MD Primary Care Provider [phone] Social History Tobacco Use Types Packs/Day Years [...] [place] this [place] [address] [employer] - OUT OF STATE MEDICARE PART A ONLY Care Teams Ring Attacher Relationship Specialty Start Date End Date Wili Caballero MD [address] [place] [address] [address] [place] [address] PCP - General Internal Medicine 03/31/22
== END 2025-03-27 09:47 | disposition home or self-care (01) ==
LOC: HO.LAB 09:46
PROVIDERS: PCP Internal Medicine; Visit Provider Nurse Practitioner Family
DX: R89.9 Unspecified abnormal finding in specimens from other organs, systems and tissues (principal)
CPT/HCPCS: 36415; 82378

== ENCOUNTER 2025-03-28 15:02 | Outpatient (AMB) | payer OTHER, SELFPAY ==
[2025-03-28 15:10] VITALS: BP 132/50; PULSE 73; O2SAT 96; BMI 32.4
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
== END 2025-03-28 15:52 | disposition home or self-care (01) ==
PROVIDERS: PCP Internal Medicine; Visit Provider Hospitalist
DX: K92.2 Gastrointestinal hemorrhage, unspecified (principal); R63.4 Abnormal weight loss; R10.84 Generalized abdominal pain; M79.89 Other specified soft tissue disorders; J45.41 Moderate persistent asthma with (acute) exacerbation; R91.8 Other nonspecific abnormal finding of lung field; J96.11 Chronic respiratory failure with hypoxia; I27.20 Pulmonary hypertension, unspecified; G47.33 Obstructive sleep apnea (adult) (pediatric); R53.82 Chronic fatigue, unspecified
CPT/HCPCS: 99215; 99417

== ENCOUNTER → 2025-03-28 15:02 | Outpatient (BNVA) | payer OTHER, SELFPAY | PROVIDERS: PCP Internal Medicine; Visit Provider Hospitalist | DX: M79.89 Other specified soft tissue disorders (principal) ==

== ENCOUNTER → 2025-04-08 07:16 | Outpatient (BNV) | payer OTHER, SELFPAY | PROVIDERS: PCP Internal Medicine; Visit Provider Radiology Diagnostic Radiology | DX: I82.512 Chronic embolism and thrombosis of left femoral vein (principal); I82.532 Chronic embolism and thrombosis of left popliteal vein | CPT/HCPCS: 93971 ==

== ENCOUNTER 2025-04-08 08:27 | Outpatient (REF) | payer OTHER, SELFPAY ==
--- NOTE | ~2025-04-08 | US_ITS ---
EXAMINATION: US TRIPLEX LOWER EXTREMITY, LEFT CLINICAL INFORMATION: Left leg DVT. COMPARISON: Ultrasound left leg venous study 01/27/2025 04/11/2025. TECHNIQUE: Color-flow triplex imaging with spectral analysis and compression Doppler were performed on the left lower extremity. FINDINGS: This persistent chronic clot visualized in the duplicated mid and distal superficial femoral vein extending to the popliteal vein there is flow visualized around the clot in the popliteal as well as superficial femoral veins. The common femoral, distal popliteal, posterior tibial and peroneal veins are patent. There is no Boykin's cyst. US/US venous duplex LE IMPRESSION: Chronic clot within the mid, distal SFV and popliteal veins. Electronically signed by: Endy Cohen MD 04/08/2025 08:18 AM EDT
[2025-04-08 15:58] LABS: Anion Gap 11 (12-20); Blood Urea Nitrogen 14 mg/dL (9-16); Calcium 9.9 mg/dL (8.4-10.2); Carbon Dioxide 29 mmol/L (22-29); Chloride 107 mmol/L (96-108); Estimated Glomerular Filt Rate > 60; Glucose Random 102 mg/dL (60-115); Potassium 4.6 mmol/L (3.3-5.1); Sodium 142 mmol/L (135-145)
== END 2025-04-08 08:28 | disposition home or self-care (01) ==
LOC: HO.US 08:27
PROVIDERS: PCP Internal Medicine; Visit Provider Hospitalist
DX: R10.9 Unspecified abdominal pain (principal); I82.402 Acute embolism and thrombosis of unspecified deep veins of left lower extremity
CPT/HCPCS: 36415; 80048; 93971

== ENCOUNTER 2025-04-09 10:27 | Outpatient (REF) | payer OTHER, SELFPAY ==
--- NOTE | ~2025-04-09 | CT_ITS ---
EXAMINATION: CT ABDOMEN AND PELVIS WITH CONTRAST CLINICAL INFORMATION: Abdominal pain COMPARISON: March 03, 2023 TECHNIQUE: Multidetector volumetric images were obtained from the superior aspect of the liver through the pubic symphysis following administration 85 mL of Omnipaque 350 intravenous contrast. Sagittal and coronal reformatted images were obtained on the technologist's workstation. Oral contrast: No This CT examination was performed using dose optimization techniques as appropriate, variously including the following: *Automated exposure control *Adjustment of mA and/or kV according to patient size (this includes techniques or standardized protocols for targeted exams where dose is matched to indication/reason for exam; i.e. extremities or head) *Use of iterative reconstruction technique DLP: 448 mGY*cm FINDINGS: LUNG BASES: Minimal focal opacity is present in the lingula adjacent to major fissure, unchanged. LIVER, GALLBLADDER, AND BILIARY TREE: There is decreased attenuation of the liver consistent with fatty change. The gallbladder is surgically absent. Cholecystectomy clips are present. PANCREAS: Unremarkable. SPLEEN: Unremarkable. ADRENAL GLANDS: Unremarkable. KIDNEYS AND URETERS: Parapelvic cysts are present bilaterally. There is a simple renal cyst in the lower pole right kidney. There is no hydronephrosis or hydroureter. BLADDER: Unremarkable. GASTROINTESTINAL TRACT: The small and large bowel are unremarkable. The appendix is not well demonstrated. No inflammatory changes are present near the cecum. ABDOMINAL WALL: Small umbilical hernia contains low attenuating adipose tissue. LYMPH NODES: Normal. VASCULAR: Mild multifocal atherosclerotic calcific lesions are present in the abdominal aorta and iliac arteries. PELVIC VISCERA: The left ovary is unremarkable. The right ovary and uterus are not visualized. OSSEOUS STRUCTURES: Again noted are degenerative changes in the lumbar spine with sclerosis and vacuum phenomena with endplate osteophytes and disc space narrowing L4-5 and L5-S1. Mild changes are also present at T12-L1. There is also facet sclerosis and osteophytes at L4-5 and L5-S1. There are small marginal osteophytes involving the joints. There is vacuum phenomenon and osteophytes involving the SI joints, more on the left. CT/CT abdomen pelvis w IV con IMPRESSION: No acute abnormality. Fatty liver, mild Hysterectomy and suspected right oophorectomy. 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 Fleischner guidelines were followed. Electronically signed by: Liang Dang MD 04/09/2025 11:20 AM EDT
[2025-04-09] MEDS: iohexoL 350 MG/ML 100 ML INFUS..BTL 85 ML IV (11:01)
--- OUTSIDE RECORDS SUMMARY | 2025-04-09 11:54 | XMS_ITS | Clinical Summary ---
Author Organization [facility]ly [facility] Address [address] [place] [address] Care Team Providers Care Geothermal Technician Name Role Phone Wili Caballero MD [...] [place] this [place] [address] [employer] - OUT OF STATE MEDICARE PART A ONLY Care Teams Geothermal Technician Relationship Specialty Start Date End Date Wili Caballero MD [address] [place] [address] [address] [place] [address] PCP - General Internal Medicine 03/31/22
== END 2025-04-09 10:28 | disposition home or self-care (01) ==
LOC: HO.CT 10:27
PROVIDERS: PCP Internal Medicine; Visit Provider Hospitalist
DX: R10.9 Unspecified abdominal pain (principal); K92.2 Gastrointestinal hemorrhage, unspecified; R63.4 Abnormal weight loss
CPT/HCPCS: 74177; Q9967

== ENCOUNTER → 2025-04-09 10:29 | Outpatient (BNV) | payer OTHER, SELFPAY | PROVIDERS: PCP Internal Medicine; Visit Provider Radiology Diagnostic Radiology | DX: M46.1 Sacroiliitis, not elsewhere classified (principal); M16.10 Unilateral primary osteoarthritis, unspecified hip | CPT/HCPCS: 74177 ==

== ENCOUNTER 2025-05-09 11:35 | Outpatient (AMB) | payer OTHER, SELFPAY ==
--- NOTE | 2025-05-09 11:47 | MHC.OFFVIS ---
Vital Signs 05/09/25 11:48 Height 5 ft 4 in Weight 184 lb BMI 31.6 BP 138/62 Blood Pressure Location Lt brachial Position Sitting Pulse 63 Pulse Oximetry (%) 97 Oxygen Delivery Method Room Air Intake Visit Reasons: positive cologuard Intake Note: Patient new consult for positive cologuard. Patient cc: abdominal cramps with bloating, chronic cough due COPD, and between diarrhea and constipation on and off with some spot of blood. Refrigeration Systems Installer Required: No Accompanied by: Self / Same As Patient Allergies aspirin (Aspirin) Allergy (Severe, Verified 05/09/25 11:53) TROUBLE BREATHING, vomiting Penicillins Allergy (Severe, Verified 05/09/25 11:53) THROAT CLOSES adhesive tape (ADHESIVE TAPE) Allergy (Intermediate, Verified 05/09/25 11:53) RASH/ITCH banana Allergy (Intermediate, Verified 05/09/25 11:53) Hives ibuprofen (From MOTRIN) Allergy (Intermediate, Verified 05/09/25 11:53) VOMITING latex (LATEX) Allergy (Intermediate, Verified 05/09/25 11:53) RASH penicillin V Allergy (Unknown, Verified 05/09/25 11:53) rash spider venom (SPIDER BITES) Allergy (Unknown, Verified 05/09/25 11:53) SWELLING chlorhexidine Allergy (Verified 05/09/25 11:53) Rash, itchiness garlic Allergy (Verified 05/09/25 11:53) Sneezing peanut Allergy (Verified 05/09/25 11:53) Angioedema clarithromycin (From Biaxin) Adverse Reaction (Intermediate, Verified 05/09/25 11:53) PROJECTILE VOMITING garlic Allergy (Mild, Uncoded 02/06/25 15:28) Flushing Adhesive Tape Allergy (Unknown, Uncoded 02/06/25 15:28) rash Biaxin Allergy (Unknown, Uncoded 02/06/25 15:28) vomiting, abd pain eggs Allergy (Unknown, Uncoded 02/06/25 15:28) Unknown Latex Gloves Allergy (Unknown, Uncoded 02/06/25 15:28) rash HPI HPI positive cologuard: Details: 74 year old? female with past medical history of DVT, osteoarthritis, CAD, GARRET, pulmonary hypertension, asthma, palpitations, hypertension, SVT, AAA, lymphedema, COPD, osteoporosis is here today for pre colonoscopy screening.? Patient was sent to us by her PCP.? This is her first colonoscopy screening.? Patient had positive Cologuard. Patient reports diagnosed with celiac disease. Patient is not following gluten free diet. Reports occasional abdominal bloating and epigastric pain. Bowels very sometimes loose and frequent sometimes constipation. Denies any personal or family history of gastrointestinal disease, colon polyps, or CRC.? Denies history of difficulty with sedation or anesthesia in the past.? History of sleep apnea.? History of stents in the past. Patient currently is on Xarelto. Has appointment with her autotransfusionist in June. Will call for risk stratification. Patient is also seen gas welder apprentice. She has a history of asthma and COPD. Uses inhalers as needed. Patient noticed that since she started Xarelto she is using the inhalers less..?? No history of infectious? diseases like hepatitis A, B, C, HIV or tuberculosis.? FOR[facility]LY [facility], [facility] Medical History (Updated 05/09/25 @ 19:05 by Tiny Mera [facility]) Celiac disease GERD (gastroesophageal reflux disease) Abdominal pain DVT (deep venous thrombosis) Shortness of breath Skin lesion of lower extremity Cough Chest discomfort Pulmonary hypertension Asthma Obesity Neck pain Chronic respiratory failure Pulmonary nodules Nonsustained ventricular tachycardia HTN (hypertension) SVT (supraventricular tachycardia) COPD (chronic obstructive pulmonary disease) Osteoporosis Surgical History Hx of cardiac cath Hx of knee surgery History of surgery on arm Hx of hysterectomy Hx of appendectomy Hx of cholecystectomy Family History Father Lung cancer Mother CVA (cerebral vascular accident) Social History Household Members: None Housing: Condominium Are you a primary personal care worker to a significant other at home: Yes Do you presently have visiting nurse or other home services: No Alcohol intake: never Patient Tobacco Use Status: Former Tobacco user Tobacco use type: Cigarette Years Smoked: 30 Second Hand Smoke Exposure: No service: No Current occupational status: employed 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 [employer] Review of Systems Const Denies weight gain and Denies weight loss ENT Reports no additional complaints, Denies dysphagia and Denies odynophagia Card Reports no additional complaints Resp Reports no additional complaints GI Reports abdominal pain, Denies belching, Denies melena, Reports bloating, Denies change in bowel habits, Reports constipation, Denies dysphagia, Denies excessive flatus, Denies dyspepsia, Denies heartburn, Denies diarrhea, Reports loose stools (Occasional), Denies nausea, Denies odynophagia and Denies vomiting Reports no additional complaints Musc Reports no additional complaints Neuro Reports no additional complaints Psych Reports no additional complaints Endo Reports no additional complaints Physical Exam Vital Signs: Last Vital Signs Pulse 63 05/09/25 11:48 BP 138/62 05/09/25 11:48 Pulse Ox 97 05/09/25 11:48 Oxygen Delivery Method Room Air 05/09/25 11:48 BMI result Body Mass Index 31.6 Const General: healthy appearing, no acute distress and well developed Nutritional Appearance: well nourished and obese Orientation/consciousness: patient oriented x3 Resp Effort & Inspection: normal respiratory effort, able to speak in complete sentences, no tracheal deviation and symmetric chest movement Auscultation: clear to auscultation bilaterally Cardio Rate: regular rate GI Inspection: Yes normal to inspection, No distended and Yes obesity Palpation (GI): Soft to palpation, not firm, nontender and No hepatosplenomegaly present Auscultation: normal bowel sounds General: Yes no CVA tenderness Back/Spine/Pelvis Back: no CVA tenderness Skin General skin exam: elasticity normal, turgor normal and dry skin Neuro General: patient oriented x3 Psych Appearance: grossly normal Mental Status: mental status grossly normal Assessment & Plan Assessment & Plan (1) Abdominal pain: Code(s): R10.9 - Unspecified abdominal pain Category: Medical Qualifiers: Abdominal location: generalized Qualified Code(s): R10.84 - Generalized abdominal pain (2) Screen for colon cancer: Code(s): Z12.11 - Encounter for screening for malignant neoplasm of colon (3) Positive colorectal cancer screening using Cologuard test: Code(s): R19.5 - Other fecal abnormalities (4) GERD (gastroesophageal reflux disease): Code(s): K21.9 - Gastro-esophageal reflux disease without esophagitis Category: Medical Qualifiers: Esophagitis presence: esophagitis presence not specified Qualified Code(s): K21.9 - Gastro-esophageal reflux disease without esophagitis (5) Celiac disease: Code(s): K90.0 - Celiac disease Category: Medical Plan Patient denies any GI, cardiac or respiratory symptoms. However patient does reports chronic postprandial loose stools and then constipation. History of cholecystectomy in 2016.? Denies any issues with anesthesia in the past.? History of sleep apnea.? No history infectious diseases in the past or present.? Patient is on Xarelto. Patient may stop Xarelto 2 days before procedure. Message will be sent to Dr. Mackenzie for risk stratification before procedure.? No family or personal history of colon cancer or polyps.? Patient denies melena, hematochezia, unintentional weight loss or ribbon like stools.? Discussed at length the pre-procedure,? prep, diet & medications as well as what to expect prior, during and after the procedure.?? Stressed the importance of good bowel prep.? Recommended the use of Vaseline or Calmoseptine OTC & baby wipes with bowel movements to promote comfort.? ?Patient verbalizes understanding and agrees to plan of care.? She was given the opportunity to ask questions and all questions answered.? We will see her after the procedure.? Orders: Orders Transglutaminase Ab IgG Today R10.9 - Unspecified abdominal pain Vitamin B12 and Folate Today R19.7 - Diarrhea, unspecified Transglutaminase IgA Today R10.9 - Unspecified abdominal pain Vitamin D 25-OH (D2 and D3) Today E55.9 - Vitamin D deficiency, unspecified Medications: New bisacodyl (Dulcolax (bisacodyl)) Start taking 2 tablet every night 7 days before the procedure and 1 day before procedure take 4 tablets at noon time followed by MiraLax prep 10 mg (2 x 5 mg) PO BEDTIME 16 tabs 0RF Z12.11 - Encounter for screening for malignant neoplasm of colon polyethylene glycol 3350 (Miralax) As directed by gastroenterology department at [facility] 238 grams PO ONCE 238 grams 0RF Z12.11 - Encounter for screening for malignant neoplasm of colon Coding Level of Care Code New Pt Level 3 (10080) Diagnoses Generalized abdominal pain R10.84 Abdominal location: generalized Screen for colon cancer Z12.11 Positive colorectal cancer screening using Cologuard test R19.5 Gastroesophageal reflux disease, unspecified whether esophagitis present K21.9 Esophagitis presence: esophagitis presence not specified Celiac disease K90.0 Time Spent (min) 50 Comment 35 minutes spent with patient and additional 15 minutes spent reviewing her records
[2025-05-09 11:48] VITALS: BP 138/62; PULSE 63; O2SAT 97; BMI 31.6
--- OUTSIDE RECORDS SUMMARY | 2025-05-09 11:58 | XMS_ITS ---
Author Name [facility] Organization Unknown Encounters Encounter Type Encounter Reason Primary Diagnosis Location Date Ambulatory Age-related oste oporosis without current pathological fracture [facility] 04/26/2022 Care Team Organization Name Specialty Phone Email Start Date End Da te [facility] Primary Care 202104/26/2022 [facility] JERMAINE BRUCE Primary Care 2021
--- OUTSIDE RECORDS SUMMARY | 2025-05-09 11:58 | XMS_ITS | Clinical Summary ---
Author Organization [facility] Address [address] [place] [address] Care Team Providers Care Field Foreman Name Role Phone Wili Caballero MD Primary [...] - 2023-2 5 season) 2024 Influenza Vaccine (#1) 2025 Colorectal Cancer Screening Discontinued FIT-DNA (Cologuard) [...] to [place] [address] ANTHEM - OUT OF STATE MEDICARE PART A ONLY Care Teams Field Foreman Relationship Specialty Start Date End Date Wili Caballero MD [address] [place] [address] [address]IVE [address] [place] [address] PCP - General Internal Medicine 03/31/22
== END 2025-05-09 12:51 | disposition home or self-care (01) ==
LOC: HO.HGI 11:35
PROVIDERS: PCP Internal Medicine; Visit Provider Nurse Practitioner Family
DX: R10.84 Generalized abdominal pain (principal); R19.5 Other fecal abnormalities; K21.9 Gastro-esophageal reflux disease without esophagitis; K90.0 Celiac disease
CPT/HCPCS: 99203

== ENCOUNTER 2025-05-14 06:38 | Outpatient (REF) | payer OTHER, SELFPAY ==
--- NOTE | ~2025-05-14 | XR_ITS ---
EXAMINATION: XR CHEST 2 VIEWS HISTORY: R05.9 - Cough, unspecified COMPARISON: Comparison is made with the prior examination dated 11/24/2024. FINDINGS: PA and lateral views of the chest are submitted. There is linear scarring in the lingula. The lungs are otherwise clear. There is no pleural effusion, pneumothorax, or pulmonary vascular congestion. The heart is enlarged. The aorta is calcified. There is degenerative disc disease of the spine. XR/XR chest 2V IMPRESSION: Cardiomegaly. No acute cardiopulmonary abnormality. Electronically signed by: Jake Thomas MD 05/14/2025 07:14 AM EDT
--- OUTSIDE RECORDS SUMMARY | 2025-05-14 06:41 | XMS_ITS | Clinical Summary ---
Author Organization [facility] Address [address] [place] [address] Care Team Providers Care Glass Etcher Helper Name Role Phone Wili Caballero MD Primary [...] to [place] [address] ANTHEM - OUT OF STATE MEDICARE PART A ONLY Care Teams Glass Etcher Helper Relationship Specialty Start Date End Date Wili Caballero MD [address] [place] [address] [address]IVE [address] [place] [address] PCP - General Internal Medicine 03/31/22
== END 2025-05-14 06:39 | disposition home or self-care (01) ==
LOC: HO.XRAY 06:38
PROVIDERS: PCP Internal Medicine; Visit Provider Internal Medicine
DX: R05.9 Cough, unspecified (principal); J45.41 Moderate persistent asthma with (acute) exacerbation
CPT/HCPCS: 71046

== ENCOUNTER → 2025-05-14 06:45 | Outpatient (BNV) | payer OTHER, SELFPAY | PROVIDERS: PCP Internal Medicine; Visit Provider Radiology Diagnostic Radiology | DX: R05.9 Cough, unspecified (principal) | CPT/HCPCS: 71046 ==

== ENCOUNTER 2025-05-27 14:18 | Outpatient (AMB) | payer OTHER, SELFPAY ==
--- NOTE | 2025-05-27 14:44 | AM.OFFWIN_ITS ---
Intake Vital Signs 05/27/25 14:47 Height 5 ft 4 in Weight 188 lb BMI 32.3 BP 136/58 L Blood Pressure Location Rt brachial Position Sitting Pulse 59 Pulse Source Pulse Oximeter Temp 97.9 F Temp Source Oral Pulse Oximetry (%) 95 Intake Visit Reasons: EP Pain behind ear, down cheek + eye Intake Note: presents pain with pain behind right ear to base of earlobe and up into jawline, also notes RT eye blurriness- pain worsens with head rotation to the right. Also c/o occasionally protruding lump between breasts. Patient Tobacco Use Status: Former Tobacco user Allergies aspirin (Aspirin) Allergy (Severe, Verified 05/27/25 14:50) TROUBLE BREATHING, vomiting Penicillins Allergy (Severe, Verified 05/27/25 14:50) THROAT CLOSES adhesive tape (ADHESIVE TAPE) Allergy (Intermediate, Verified 05/27/25 14:50) RASH/ITCH banana Allergy (Intermediate, Verified 05/27/25 14:50) Hives ibuprofen (From MOTRIN) Allergy (Intermediate, Verified 05/27/25 14:50) VOMITING latex (LATEX) Allergy (Intermediate, Verified 05/27/25 14:50) RASH penicillin V Allergy (Unknown, Verified 05/27/25 14:50) rash spider venom (SPIDER BITES) Allergy (Unknown, Verified 05/27/25 14:50) SWELLING chlorhexidine Allergy (Verified 05/27/25 14:50) Rash, itchiness garlic Allergy (Verified 05/27/25 14:50) Sneezing peanut Allergy (Verified 05/27/25 14:50) Angioedema clarithromycin (From Biaxin) Adverse Reaction (Intermediate, Verified 05/27/25 14:50) PROJECTILE VOMITING garlic Allergy (Mild, Uncoded 02/06/25 15:28) Flushing Adhesive Tape Allergy (Unknown, Uncoded 02/06/25 15:28) rash Biaxin Allergy (Unknown, Uncoded 02/06/25 15:28) vomiting, abd pain eggs Allergy (Unknown, Uncoded 02/06/25 15:28) Unknown Latex Gloves Allergy (Unknown, Uncoded 02/06/25 15:28) rash Medication List - Last Reconciled 05/27/25 by Jeana Castillo PA-C acetaminophen (Tylenol Extra Strength) 500 mg PO Q6H PRN albuterol sulfate 2.5 mg (3 mL) inhalation Q6H PRN 30 days amlodipine 5 mg PO DAILY azithromycin 250 mg PO 3XW bisacodyl (Dulcolax (bisacodyl)) 10 mg (2 x 5 mg) PO BEDTIME cholecalciferol (vitamin D3) 50 mcg PO DAILY 30 days enoxaparin (Lovenox) 80 mg (0.8 mL) subcut Q12H 3 days epinephrine (EpiPen 2-Ken) 0.3 mg (0.3 mL) IM Q10M PRN 30 days ipratropium-albuterol 0.5 mg-3 mg(2.5 mg base)/3 mL 0.5 mL inhalation DAILY levothyroxine 125 mcg PO DAILY metoprolol succinate ER 50 mg PO DAILY montelukast 10 mg PO BEDTIME polyethylene glycol 3350 (Miralax) 238 grams PO ONCE rivaroxaban (Xarelto) 20 mg PO DAILY roflumilast (Daliresp) 500 mcg PO DAILY rosuvastatin 20 mg PO BEDTIME Trelegy Ellipta 200-62.5-25 mcg (llxxudayvvc-nfgdywhvu-uczxubfc) 1 ea PO DAILY NS Ventolin HFA 90 mcg/actuation (albuterol sulfate) 2 puffs inhalation Q4H PRN 30 days NS Do you need a note to return to daycare/school/sports/work: No HPI HPI Comments History of Present Illness Details History - The patient is a 74-year-old female pr esenting with pain behind the right ear and swelling of the mastoid bone. - Worsening pain located on the mastoid bone, present for weeks. - Associated swelling causes discomfort with glasses. - Pain extends to jaw and cheek, has ass ociated blurry vision, clarified this was not just watery eyes. denies other visual changes. - No fever or drainage, echo sensation n oted but no changes in hearing. - History of blood clots, currently on R ivaroxaban. - No hx of diabetes. Physical Exam General: Cooperative, healthy appearing, comfortable, no acute distress and well developed Orientation: Patient oriented x3 Limitations: No limitations Head: Swelling and pain noted on the mastoid bone behind the ear Ears: Hearing grossly normal bilaterally, TMs normal, EAC's normal, TTP right mastoid with some edema Nose: Normal External nose present Face and sinus: Normal facial exam, no sinus tenderness Mouth: normal, moist oral mucosa Eyes: Blurry vision reported Neck: Normal visual inspection and Yes full ROM Respiratory: Normal respiratory effort and able to speak in complete sentences. Skin: no rashes or lesions noted Neuro: Patient oriented x3 Extremities: moving all extremities normally [facility] Medical History (Updated 05/27/25 @ 15:08 by Jeana Castillo PA-C) Celiac disease GERD (gastroesophageal reflux disease) Abdominal pain DVT (deep venous thrombosis) Shortness of breath Skin lesion of lower extremity Cough Chest discomfort Pulmonary hypertension Asthma Obesity Neck pain Chronic respiratory failure Pulmonary nodules Nonsustained ventricular tachycardia HTN (hypertension) SVT (supraventricular tachycardia) COPD (chronic obstructive pulmonary disease) Osteoporosis Surgical History Hx of cardiac cath Hx of knee surgery History of surgery on arm Hx of hysterectomy Hx of appendectomy Hx of cholecystectomy Family History Father Lung cancer Mother CVA (cerebral vascular accident) Social History Household Members: None Housing: Condominium Are you a primary care professionals to a significant other at home: Yes Do you presently have visiting nurse or other home services: No Alcohol intake: never Patient Tobacco Use Status: Former Tobacco user Tobacco use type: Cigarette Years Smoked: 30 Second Hand Smoke Exposure: No service: No Current occupational status: employed 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 [employer] Review of Systems Const All systems reviewed & are unremarkable except as noted in HPI and below Physical Exam Vital Signs: Last Vital Signs Temp 97.9 F 05/27/25 14:47 Pulse 59 05/27/25 14:47 BP 136/58 L 05/27/25 14:47 Pulse Ox 95 05/27/25 14:47 BMI result Body Mass Index 32.3 Assessment & Plan Assessment & Plan (1) Pain of mastoid region: Code(s): H92.09 - Otalgia, unspecified ear Qualifiers: Laterality: right Qualified Code(s): H92.01 - Otalgia, right ear Plan: Plan Patient was informed and verbally consented to the use of an ambient scribe for clinic note documentation during this visit 1. possbile mastoiditis - No evidence of OM or OE bilaterally. - Urgent CT scan recommended. - Emergency room visit advised to rule out mastoiditis. - Called [employer] [facility] [facility] [employer] ED with expect at 3:10pm, spoke with DASHAWN Frias Coding Level of Care Code Est Pt Level 5 (70922) Diagnoses Pain of right mastoid H92.01 Laterality: right
[2025-05-27 14:47] VITALS: BP 136/58; PULSE 59; TEMP 36.6; O2SAT 95; BMI 32.3
--- OUTSIDE RECORDS SUMMARY | 2025-05-27 14:58 | XMS_ITS | Clinical Summary ---
Author Organization [facility] Address [address] [place] [address] Care Team Providers Care Story Teller Name Role Phone Wili Caballero MD Primary [...] to [place] [address] AN[employer]M - OUT OF STATE MEDICARE PART A ONLY Care Teams Story Teller Relationship Specialty Start Date End Date Wili Caballero MD [address] [place] [address] [address]IVE [address] [place] [address] PCP - General Internal Medicine 03/31/22
== END 2025-05-27 16:10 | disposition home or self-care (01) ==
PROVIDERS: PCP Internal Medicine; Visit Provider Physician Assistant
DX: H92.01 Otalgia, right ear (principal)

== ENCOUNTER 2025-05-27 15:25 | Emergency (ER) | payer OTHER, SELFPAY ==
--- NOTE | ~2025-05-27 | CT_ITS ---
CT TEMPORAL BONES WITHOUT CONTRAST HISTORY: Right mastoid pain. TECHNIQUE: CT scan of the temporal bones was performed without intravenous contrast. Coronal and sagittal reformations were generated. COMPARISON: None available. FINDINGS: RIGHT TEMPORAL BONE: On the right, the external auditory canal is intact. The middle ear cavity is normally pneumatized and aerated. Tegmen tympani is intact. The ossicles are unremarkable. The 7th cranial nerve canal demonstrates a normal course. The mastoid air cells are unremarkable. The mastoid antrum is aerated. No inner ear dysplasia is seen. The bony otic capsule is normally mineralized. The cochlea has the appropriate number of turns. No evidence of semicircular canal dehiscence. LEFT TEMPORAL BONE: On the left, the external auditory canal is intact. The middle ear cavity is normally pneumatized and aerated. The tegmen tympani is intact. The ossicles are unremarkable. The 7th cranial nerve canal demonstrates a normal course. The mastoid air cells are unremarkable. The mastoid antrum is aerated. No inner ear dysplasia is seen. The bony otic capsule is normally mineralized. The cochlea has the appropriate number of turns. No evidence of semicircular canal dehiscence. PARANASAL SINUSES: Normal in pneumatized bilaterally. CT/CT mastoid IMPRESSION: Normal CT temporal bones. Electronically signed by: Naman Downing MD 05/27/2025 04:46 PM EDT
--- NOTE | 2025-05-27 15:27 | ED_ITS ---
HPI - General Adult General Chief complaint: Ear Problems Stated complaint: Behind R ear pain/sent from Time Seen by Provider: 05/27/25 20:05 Source: patient, RN notes reviewed and old records reviewed Limitations: no limitations History of Present Illness ED Provider: Monica Mcrae PA-C HPI narrative: 74 yo female with history of DVT, CAD, GARRET, HTN, SVT, COPD presenting from Urgent Care for evaluation of acute on chronic right mastoid pain, r/o mastoiditis. she has seen Dr. Soares in the past for similar pain, it started several months ago. yesterday pain got worse and now radiates into the face, neck and eye. mild right blurred vision in the right eye this morning. no fevers. no redness or warmth of the area. she reports pain when she wears her glasses. no hearing loss, drainage. no URI symptoms. no lymphadenopathy MD complaint: right mastoid pain and swelling Onset (ago): day(s) Severity: moderate Severity scale (1-10): 6 Quality: aching Pain Consistency: intermittent Relieving factors: none Exacerbating factors: other (palpation) Associated symptoms: denies other symptoms Treatments prior to arrival: none Related Data Home Medications ?Medication ?Instructions ?Recorded ?Confirmed levothyroxine 125 mcg tablet 125 mcg PO DAILY 12/03/20 05/27/25 rosuvastatin 20 mg tablet 20 mg PO BEDTIME 04/08/21 ipratropium 0.5 mg-albuterol 3 mg 0.5 ml inhalation DA MAHNAZ 06/28/22 05/27/25 (2.5 mg base)/3 mL nebulization soln roflumilast 500 mcg tablet 500 mcg PO DAILY 08/26/24 0 05/27/25 (Daliresp) Previous Rx's ?Medication ?Instructions ?Recorded acetaminophen 500 mg tablet 500 mg PO Q6H PRN fever or pain 09/20/22 (Tylenol Extra Strength) #14 tabs cholecalciferol (vitamin D3) 50 50 mcg PO DAILY 30 day s #30 caps 03/21/23 mcg (2,000 unit) capsule epinephrine 0.3 mg/0.3 mL 0.3 mg (0.3 mL) IM Q10M PRN 07/27/23 injection, auto-injector (EpiPen anaphylaxis 30 days # 2 ea 2-Ken) amlodipine 5 mg tablet 5 mg PO DAILY #90 tabs 06/03 albuterol sulfate 2.5 mg/3 mL 2.5 mg (3 mL) inhalation Q6H PRN 07/12/24 (0.083 %) solution for nebulization shortness of breat h or wheezing 30 days #180 mL metoprolol succinate 50 mg 50 mg PO DAILY #90 tabs tablet,extended release 24 hr Ventolin HFA 90 mcg/actuation 2 puff inhalation Q4H MI N for 11/21/24 aerosol inhaler (albuterol sulfate) wheezing 30 days # 18 grams rivaroxaban 20 mg tablet (Xarelto) 20 mg PO DAILY #30 tabs 04/10/25 Trelegy Ellipta 200 mcg-62.5 1 ea PO DAILY #60 ea 07/05/16 mcg-25 mcg powder for inhalation (kvnocuzfaax-pehbntwyy-ehgcitwp) bisacodyl 5 mg tablet,delayed 10 mg (2 x 5 mg) PO BEDT MARY #16 05/09/25 release (Dulcolax (bisacodyl)) tabs polyethylene glycol 3350 17 238 g PO ONCE #238 grams 0 05/09/25 gram/dose oral powder (Miralax) enoxaparin 80 mg/0.8 mL 80 mg (0.8 mL) subcut Q12H 3 days 05/13/25 subcutaneous syringe (Lovenox) #4.8 mL azithromycin 250 mg tablet 250 mg PO 3XW #12 tabs 04/23 07/17 montelukast 10 mg tablet 10 mg PO BEDTIME #30 tabs azithromycin 250 mg tablet See Rx Instructions PO .COM PLEX #6 05/27/25 (Zithromax Z-Ken) tabs Allergies Allergy/AdvReac Type Severity Reaction Status Date / Time aspirin (Aspirin) Allergy Severe TROUBLE Verified 05/27/25 15:32 BREATHING, vomiting Penicillins Allergy Severe THROAT Verified 05/27/25 15:32 CLOSES adhesive tape (ADHESIVE TAPE) Allergy Intermediate RASH/ITCH Verified 05/27/25 15:32 banana Allergy Intermediate Hives Verified 05/27/25 15:32 ibuprofen (From MOTRIN) Allergy Intermediate VOMITING Verified 05/27/25 15:32 latex (LATEX) Allergy Intermediate RASH Verified 05/27/25 15:32 penicillin V Allergy Unknown rash Verified 05/27/25 15:32 spider venom (SPIDER BITES) Allergy Unknown SWELLING Verified 05/27/25 15:32 chlorhexidine Allergy Rash, Verified 05/27/25 15:32 itchiness garlic Allergy Sneezing Verified 05/27/25 15:32 peanut Allergy Angioedema Verified 05/27/25 15:32 clarithromycin (From Biaxin) AdvReac Intermediate PROJECTILE Verified 05/27/25 15:32 VOMITING garlic Allergy Mild Flushing Uncoded 02/06/25 15:28 Adhesive Tape Allergy Unknown rash Uncoded 02/06/25 15:28 Biaxin Allergy Unknown vomiting, Uncoded 02/06/25 15:28 abd pain eggs Allergy Unknown Unknown Uncoded 02/06/25 15:28 Latex Gloves Allergy Unknown rash Uncoded 02/06/25 15:28 Review of Systems Review of Systems: Yes all other systems are reviewed and are negative PMFSH Past Medical History Medical History (Updated 05/27/25 @ 20:06 by LIBAN Lui) Celiac disease GERD (gastroesophageal reflux disease) Abdominal pain DVT (deep venous thrombosis) Shortness of breath Skin lesion of lower extremity Cough Chest discomfort Pulmonary hypertension Asthma Obesity Neck pain Chronic respiratory failure Pulmonary nodules Nonsustained ventricular tachycardia HTN (hypertension) SVT (supraventricular tachycardia) COPD (chronic obstructive pulmonary disease) Osteoporosis Surgical History Hx of cardiac cath Hx of knee surgery History of surgery on arm Hx of hysterectomy Hx of appendectomy Hx of cholecystectomy Family History Family History Father Lung cancer Mother CVA (cerebral vascular accident) Social History Social History Household Members: None Housing: Condominium Are you a primary customer care agent to a significant other at home: Yes Do you presently have visiting nurse or other home services: No Alcohol intake: never Patient Tobacco Use Status: Former Tobacco user Tobacco use type: Cigarette Years Smoked: 30 Second Hand Smoke Exposure: No Advance Directives: Yes Advance Directives Information Provided: No Advance Directives on File: No service: No Current occupational status: employed 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 Oriented X3. No acute distress. Head: normocephalic, atraumatic. Eyes: Pupils equal, round and reactive to light. EOMI, no scleral injection ENT: Pharynx normal. No tonsillar swelling or exudate. normal inspection of bilateral external ears, EAC and TMs. right mastoid with mild fullness/gen swelling and tenderness. no erythema, no warmth, no crepitus. nontender left mastoid Neck: Normal inspection. Neck supple. no LAD. CVS: Normal heart rate and rhythm. Respiratory: No respiratory distress. speaking in complete sentences Skin: Skin warm and dry. Normal skin color. Normal skin turgor. No rashes. Extremities: No lower extremity edema. No joint swelling. Neuro/psych: Oriented X 3. grossly normal. nonfocal. Normal speech and cognition. Vital Signs: Vital Signs - 24 hr 05/27/25 15:30 Temperature 98.2 F Pulse Rate 88 Respiratory Rate 16 Blood Pressure 156/66 H Pulse Oximetry 96 Oxygen Delivery Method Room Air BMI result Body Mass Index 32.3 Medical Decision Making Medical Decision Making MDM Narrative: 74-year-old female presents to the ER for evaluation of acute on chronic right mastoid pain. She reports the pain for the last couple of days has been radiating to the face, eye, down the neck slightly. She reports pain with wearing her glasses and swelling in the area. No dental pain. No fevers. No erythema or warmth on examination. She does have tenderness over the right mastoid compared to the left. She was sent in from urgent care for a CT scan. CT scan of the mastoid was unremarkable. She is on prophylactic azithromycin for severe pulmonary disease. She has multiple antibiotic allergies. She may have lymphadenopathy contributing to tenderness and swelling in this area. No overt infection. Patient currently denying vision changes, stating she is using her glasses and vision is at her baseline. Declining visual acuity test at this time. She would like to be discharged home. Will prescribe empiric Z-Ken for potential lymphadenitis. She was encouraged to follow up with her primary care doctor and ear nose and throat provider. Return precautions were discussed. Patient agrees with plan all questions were answered. Differential Diagnosis Differential Diagnoses: The differential diagnosis associated with the presentation includes mastoiditis, lymphadenopathy, otitis media, otitis externa. soft tissue or bony mass Independent Interpretation I performed an independent interpretation of an: CT Scan Interpretation: mastoid appears normal Radiology Impression Discussion of test interpretation with radiology: I have reviewed the radiologist's reading. External Record Review External record reviewed: Prior outpatient radiology and Primary care record Prescription Management I considered prescription management with: Pain Medication and Antibiotic Chronic Conditions Patient?s care impacted by: Other (COPD) Critical Care Time Critical Care Time Critical Care Time: No Discharge Plan Discharge Clinical Impression: Ear pain, right Patient Disposition: Home, Self-Care Instructions: Earache (ED) Additional Instructions: Your CT scan was normal Take the Z-pack as prescribed then resume your /W/ schedule two days later Follow up with your doctor as soon as possible If you develop new or worsening symptoms call 911 or come back to the ER for further evaluation. Prescriptions: New azithromycin [Zithromax Z-Ken] 250 mg tablet See Rx Instructions .ROUTE .COMPLEX Qty: 6 0RF Rx Instructions: take 500 mg today (day 1), then 250 mg for 4 days (days 2-5) No Action cholecalciferol (vitamin D3) 50 mcg (2,000 unit) capsule 50 mcg PO DAILY 30 Days Qty: 30 6RF amlodipine 5 mg tablet 5 mg PO DAILY Qty: 90 3RF metoprolol succinate 50 mg tablet extended release 24 hr 50 mg PO DAILY Qty: 90 3RF albuterol sulfate [Ventolin HFA] 90 mcg/actuation HFA aerosol inhaler 2 puff inhalation Q4H PRN (Reason: for wheezing) 30 Days Qty: 18 10RF Xarelto 20 mg tablet 20 mg PO DAILY Qty: 30 11RF Rx Instructions: must administer with evening meal Trelegy Ellipta 200-62.5-25 mcg blister with device 1 ea PO DAILY Qty: 60 0RF enoxaparin [Lovenox] 80 mg/0.8 mL syringe 80 mg subcut Q12H 3 Days Qty: 4.8 0RF Rx Instructions: start 24 hours after stopping the Xarelto. azithromycin 250 mg tablet 250 mg PO 3XW Qty: 12 0RF montelukast 10 mg tablet 10 mg PO BEDTIME Qty: 30 0RF acetaminophen [Tylenol Extra Strength] 500 mg tablet 500 mg PO Q6H PRN (Reason: fever or pain) Qty: 14 0RF levothyroxine 125 mcg tablet 125 mcg PO DAILY rosuvastatin 20 mg tablet 20 mg PO BEDTIME ipratropium-albuterol 0.5 mg-3 mg(2.5 mg base)/3 mL solution for nebulization 0.5 ml inhalation DAILY bisacodyl [Dulcolax (bisacodyl)] 5 mg tablet,delayed release (DR/EC) 10 mg PO BEDTIME Qty: 16 0RF Rx Instructions: Start taking 2 tablet every night 7 days before the procedure and 1 day before procedure take 4 tablets at noon time followed by MiraLax prep polyethylene glycol 3350 [Miralax] 17 gram/dose powder 238 g PO ONCE Qty: 238 0RF Rx Instructions: As directed by gastroenterology department at [facility] epinephrine [EpiPen 2-Ken] 0.3 mg/0.3 mL auto-injector 0.3 mg IM Q10M PRN (Reason: anaphylaxis) 30 Days Qty: 2 6RF Rx Instructions: for 2 doses albuterol sulfate 2.5 mg /3 mL (0.083 %) solution for nebulization 2.5 mg inhalation Q6H PRN (Reason: shortness of breath or wheezing) 30 Days Qty: 180 11RF roflumilast [Daliresp] 500 mcg tablet 500 mcg PO DAILY Print Language: Uzbek
[2025-05-27 15:30] VITALS: BP 156/66; PULSE 88; RESP 16; TEMP 36.8; O2SAT 96; BMI 32.3
[2025-05-28 01:20] VITALS: BP 156/66; PULSE 88; RESP 16; TEMP 36.8; O2SAT 96
== END 2025-05-27 20:18 | disposition home or self-care (01) ==
PROVIDERS: Emergency Provider Emergency Medicine Emergency Medical Services; PCP Internal Medicine
DX: H92.01 Otalgia, right ear (principal); G47.33 Obstructive sleep apnea (adult) (pediatric); J44.9 Chronic obstructive pulmonary disease, unspecified; I10 Essential (primary) hypertension; I25.10 Atherosclerotic heart disease of native coronary artery without angina pectoris
CPT/HCPCS: 70481; 99282; 99284

== ENCOUNTER → 2025-05-27 15:26 | Outpatient (BNV) | payer OTHER, SELFPAY | PROVIDERS: PCP Internal Medicine; Visit Provider Radiology Diagnostic Radiology | DX: H95.89 Other postprocedural complications and disorders of the ear and mastoid process, not elsewhere classified (principal) | CPT/HCPCS: 70481 ==

== ENCOUNTER 2025-06-12 06:20 | Day surgery (SDC) | payer OTHER, SELFPAY ==
--- OUTSIDE RECORDS SUMMARY | 2025-05-14 14:49 | XMS_ITS | Clinical Summary ---
Author Organization [facility] Address [address] [place] [address] Care Team Providers Care Respiratory Therapy Director Name Role Phone iWli Caballero MD Primary Care Provider [phone] Social History Tobacco Use Types Packs/Day Years [...] to [place] this [place] [address] [employer]M - OUT OF STATE MEDICARE PART A ONLY Care Teams Respiratory Therapy Director Relationship Specialty Start Date End Date Wili Caballero MD [address] [place] [address] [address] [place] [address] PCP - General Internal Medicine 03/31/22
[2025-06-10 08:38] VITALS: BMI 31.6
--- NOTE | 2025-06-11 09:05 | P.CONAN_ITS ---
HPI - Anesthesia Eval Consult details Narrative: 74yo F for Upper Endoscopy and Colonoscopy Pulmo optmized. Follow[place] [facility] [place] Pulmo for COPD. Stable pulmo at 03/2025 office visit Cardiac optimized per workload. Follows [facility] [place] Cardiology for unobstructive CAD, SVT without recurrence. Stable at 06/2024 office visit with 1 year f/u Xarelto with lovenox bridge for unprovoked DVT PMFSH Active Problems Active Problems: All Active Problems Pain of mastoid region (Acute) Weight loss (Acute) GIB (gastrointestinal bleeding) (Acute) Deep vein thrombosis, lower left extremity (Acute) Chronic fatigue (Acute) Leg swelling (Acute) Generalized osteoarthritis (Acute) Arthritis of right knee (Acute) Osteoarthritis (Acute) Knee pain (Acute) Blood D-dimer assay positive (Acute) Shortness of breath (Acute) Swelling of extremity (Acute) Skin lesion of lower extremity (Acute) CAD (coronary artery disease) (Acute) Cough (Acute) GARRET (obstructive sleep apnea) (Acute) Tendonitis of both shoulders (Acute) Palpitations (Acute) AAA (abdominal aortic aneurysm) without rupture (Acute) Lymphedema (Acute) Varicose veins of left lower extremity with inflammation (Acute) Celiac disease (Acute) GERD (gastroesophageal reflux disease) (Acute) Abdominal pain (Acute) DVT (deep venous thrombosis) (Acute) Chest discomfort (Acute) Pulmonary hypertension (Acute) Asthma (Acute) Neck pain (Acute) Chronic respiratory failure (Acute) Pulmonary nodules (Acute) HTN (hypertension) (Acute) SVT (supraventricular tachycardia) (Acute) COPD (chronic obstructive pulmonary disease) (Acute) Osteoporosis (Acute) Past Medical History Medical History CAD (coronary artery disease) AAA (abdominal aortic aneurysm) without rupture GARRET (obstructive sleep apnea) Celiac disease GERD (gastroesophageal reflux disease) Abdominal pain DVT (deep venous thrombosis) Pulmonary hypertension Asthma Obesity Neck pain Chronic respiratory failure Pulmonary nodules Nonsustained ventricular tachycardia HTN (hypertension) SVT (supraventricular tachycardia) COPD (chronic obstructive pulmonary disease) Osteoporosis Family History Family History Father Lung cancer Mother CVA (cerebral vascular accident) Surgical History Surgical History Hx of cardiac cath Hx of knee surgery History of surgery on arm Hx of hysterectomy Hx of appendectomy Hx of cholecystectomy Social History Social History Household Members: None Housing: Condominium Are you a primary healthcare administrative assistant to a significant other at home: Yes Do you presently have visiting nurse or other home services: No Alcohol intake: never Patient Tobacco Use Status: Former Tobacco user Tobacco use type: Cigarette Years Smoked: 30 Second Hand Smoke Exposure: No service: No Current occupational status: employed 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[place] Meds Allergies Allergy/AdvReac Type Severity Reaction Status Date / Time aspirin (Aspirin) Allergy Severe TROUBLE Verified 06/12/25 06:45 BREATHING, vomiting peanut Allergy Severe Angioedema Verified 06/12/25 06:45 Penicillins Allergy Severe THROAT Verified 06/12/25 06:45 CLOSES adhesive tape (ADHESIVE TAPE) Allergy Intermediate RASH/ITCH Verified 06/12/25 06:45 banana Allergy Intermediate Hives Verified 06/12/25 06:45 chlorhexidine Allergy Intermediate Rash, Verified 06/12/25 06:45 itchiness ibuprofen (From MOTRIN) Allergy Intermediate VOMITING Verified 06/12/25 06:45 latex (LATEX) Allergy Intermediate RASH Verified 06/12/25 06:45 spider venom (SPIDER BITES) Allergy Intermediate SWELLING Verified 06/12/25 06:45 garlic Allergy Mild Sneezing Verified 06/12/25 06:45 penicillin V Allergy Mild rash Verified 06/12/25 06:45 clarithromycin (From Biaxin) AdvReac Intermediate PROJECTILE Verified 06/12/25 06:45 VOMITING Adhesive Tape Allergy Intermediate rash Uncoded 06/10/25 08:28 Biaxin Allergy Intermediate vomiting, Uncoded 06/10/25 08:28 abd pain Latex Gloves Allergy Intermediate rash Uncoded 06/10/25 08:28 garlic Allergy Mild Flushing Uncoded 02/06/25 15:28 eggs Allergy Unknown Unknown Uncoded 02/06/25 15:28 Home Medications ?Medication ?Instructions ?Recorded ?Confirmed ?Last Taken ?Type levothyroxine 125 mcg tablet 125 mcg PO DAILY 12/03/20 06/12/25 06/12/25 05:30 History rosuvastatin 20 mg tablet 20 mg PO BEDTIME 04/08/21 Unknown History ipratropium 0.5 mg-albuterol 3 mg 0.5 ml inhalation DA MAHNAZ 06/28/22 06/12/25 Unknown History (2.5 mg base)/3 mL nebulization soln roflumilast 500 mcg tablet 500 mcg PO DAILY 08/26/24 0 06/12/25 06/12/25 05:30 History (Daliresp) Exam Height,Weight and Vital Signs: Height 5 ft 4 in Weight 83.461 kg Narrative Narrative: EKG 11/2024 Vent. Rate : 71 BPM Atrial Rate : 71 BPM P-R Int : 118 ms QRS Dur : 84 ms QT Int : 370 ms P-R-T Axes : 58 -3 32 degrees QTcB Int : 402 ms Normal sinus rhythm Normal ECG When compared with ECG of 30-Jun-2024 09:39, GA interval has increased ST no longer depressed in Lateral leads ECHO 2023 Conclusions: - 1. Normal LV ejection fraction 55-60% 2. Mildly dilated left atrium 3. Cardiac valvular Dopplers within normal limits 4. Normal RV systolic pressure NM radha perf SPECT rest & str 2023 Impression: 1. Myocardial perfusion imaging study shows normal myocardial perfusion. 2. Gated LVEF is 58% during rest. Visually normal during stress. 3. Transient ischemic dilatation not present. Cardiac Cath 2021 Assessment and Plan Assessment Anesthesia Assessment: Chart Reviewed
[2025-06-12 06:53] VITALS: BMI 31.7
[2025-06-12 06:57] VITALS: BP 122/64; PULSE 73; RESP 15; TEMP 36.9; O2SAT 96
[2025-06-12] MEDS: Lactated Ringers 1,000 ML 100 ML IVCONT (07:11)
--- NOTE | 2025-06-12 07:35 | P.CONAN_ITS ---
[facility] Active Problems Active Problems: All Active Problems (Updated 06/12/25 @ 06:44 by Frieda Patel RN) Pain of mastoid region (Acute) Weight loss (Acute) GIB (gastrointestinal bleeding) (Acute) Deep vein thrombosis, lower left extremity (Acute) Chronic fatigue (Acute) Leg swelling (Acute) Generalized osteoarthritis (Acute) Arthritis of right knee (Acute) Osteoarthritis (Acute) Knee pain (Acute) Blood D-dimer assay positive (Acute) Shortness of breath (Acute) Swelling of extremity (Acute) Skin lesion of lower extremity (Acute) CAD (coronary artery disease) (Acute) Cough (Acute) Chest discomfort (Acute) GARRET (obstructive sleep apnea) (Acute) Tendonitis of both shoulders (Acute) Palpitations (Acute) AAA (abdominal aortic aneurysm) without rupture (Acute) Lymphedema (Acute) Varicose veins of left lower extremity with inflammation (Acute) Celiac disease (Acute) GERD (gastroesophageal reflux disease) (Acute) Abdominal pain (Acute) DVT (deep venous thrombosis) (Acute) Pulmonary hypertension (Acute) Asthma (Acute) Neck pain (Acute) Chronic respiratory failure (Acute) Pulmonary nodules (Acute) HTN (hypertension) (Acute) SVT (supraventricular tachycardia) (Acute) COPD (chronic obstructive pulmonary disease) (Acute) Osteoporosis (Acute) Past Medical History Medical History CAD (coronary artery disease) AAA (abdominal aortic aneurysm) without rupture GARRET (obstructive sleep apnea) Celiac disease GERD (gastroesophageal reflux disease) Abdominal pain DVT (deep venous thrombosis) Pulmonary hypertension Asthma Obesity Neck pain Chronic respiratory failure Pulmonary nodules Nonsustained ventricular tachycardia HTN (hypertension) SVT (supraventricular tachycardia) COPD (chronic obstructive pulmonary disease) Osteoporosis Functional capacity: independent ambulation Family History Family History Father Lung cancer Mother CVA (cerebral vascular accident) Family history of problems with anesthesia: No Surgical History Surgical History Hx of cardiac cath Hx of knee surgery History of surgery on arm Hx of hysterectomy Hx of appendectomy Hx of cholecystectomy History of Problems with Anesthesia: No Social History Social History Household Members: None Housing: Condominium Are you a primary restorative care technician to a significant other at home: Yes Do you presently have visiting nurse or other home services: No Alcohol intake: never Patient Tobacco Use Status: Former Tobacco user Tobacco use type: Cigarette Years Smoked: 30 Second Hand Smoke Exposure: No Use of substances other than those prescribed or required for medical reasons: No Are you DNR?: No Advance Directives: No Advance Directives Information Provided: Yes service: No Current occupational status: employed 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[place] Meds Allergies Allergy/AdvReac Type Severity Reaction Status Date / Time aspirin (Aspirin) Allergy Severe TROUBLE Verified 06/12/25 06:45 BREATHING, vomiting peanut Allergy Severe Angioedema Verified 06/12/25 06:45 Penicillins Allergy Severe THROAT Verified 06/12/25 06:45 CLOSES adhesive tape (ADHESIVE TAPE) Allergy Intermediate RASH/ITCH Verified 06/12/25 06:45 banana Allergy Intermediate Hives Verified 06/12/25 06:45 chlorhexidine Allergy Intermediate Rash, Verified 06/12/25 06:45 itchiness ibuprofen (From MOTRIN) Allergy Intermediate VOMITING Verified 06/12/25 06:45 latex (LATEX) Allergy Intermediate RASH Verified 06/12/25 06:45 spider venom (SPIDER BITES) Allergy Intermediate SWELLING Verified 06/12/25 06:45 garlic Allergy Mild Sneezing Verified 06/12/25 06:45 penicillin V Allergy Mild rash Verified 06/12/25 06:45 clarithromycin (From Biaxin) AdvReac Intermediate PROJECTILE Verified 06/12/25 06:45 VOMITING Adhesive Tape Allergy Intermediate rash Uncoded 06/10/25 08:28 Biaxin Allergy Intermediate vomiting, Uncoded 06/10/25 08:28 abd pain Latex Gloves Allergy Intermediate rash Uncoded 06/10/25 08:28 garlic Allergy Mild Flushing Uncoded 02/06/25 15:28 eggs Allergy Unknown Unknown Uncoded 02/06/25 15:28 Active Medications: Current Medications Albuterol Sulfate (Albuterol Sulfate (0.083%) 2.5 Mg/3 Ml Vial.Neb) 2.5 mg INHALE ONCE PRN PRN Reason: Shortness of Breath/Wheezing Lactated Ringer's (Lr) 1,000 mls @ 100 mls/hr IVCONT .Q10H MARY Last Admin: 06/12/25 07:11 Dose: 100 mls/hr Home Medications ?Medication ?Instructions ?Recorded ?Confirmed ?Last Taken ?Type levothyroxine 125 mcg tablet 125 mcg PO DAILY 12/03/20 06/12/25 06/12/25 05:30 History rosuvastatin 20 mg tablet 20 mg PO BEDTIME 04/08/21 Unknown History ipratropium 0.5 mg-albuterol 3 mg 0.5 ml inhalation DA MAHNAZ 06/28/22 06/12/25 Unknown History (2.5 mg base)/3 mL nebulization soln roflumilast 500 mcg tablet 500 mcg PO DAILY 08/26/24 0 06/12/25 06/12/25 05:30 History (Daliresp) Exam Height,Weight and Vital Signs: Height 5 ft 4 in Weight 83.9 kg Last Vital Signs Temp 98.5 F 06/12/25 06:57 Pulse 73 06/12/25 06:57 Resp 15 06/12/25 06:57 BP 122/64 06/12/25 06:57 Pulse Ox 96 06/12/25 06:57 O2 Del Method Room Air 06/12/25 06:57 Airway Mallampati Class: III TM Dist: >3cm Neck ROM: Full Heart: RRR Lungs: CTA Assessment and Plan Assessment Anesthesia Assessment: Anesthesia Plan Discussed and Chart Reviewed Final Anesthetic Review Family History of Problems with Anesthesia: No History of Problems with Anesthesia: No NPO: Yes ASA Class: III Final Preanesthetic Review: Meds/Allgs Chart Reviewed, Consent Obtained/Reviewed and Anes Risks/Benef Reviewed Patient Risk: Intermediate Procedure Risk: Low Anesthetic Plan Anesthetic Plan: MAC: Disposition: Standard PACU
--- NOTE | 2025-06-12 07:46 | MHC.SHP ---
Pre-Procedural Eval Section A - 24 Hr Update-Section A only Date of Service: 06/12/25 Section B - Complete if H&P > 30 days Chief Complaint: positive cologuard, celiac Details of Present Illness: Celiac disease GERD (gastroesophageal reflux disease) Abdominal pain DVT (deep venous thrombosis) Shortness of breath Skin lesion of lower extremity Cough Chest discomfort Pulmonary hypertension Asthma Obesity Neck pain Chronic respiratory failure Pulmonary nodules Nonsustained ventricular tachycardia HTN (hypertension) SVT (supraventricular tachycardia) COPD (chronic obstructive pulmonary disease) Osteoporosis Surgical History Hx of cardiac cath Hx of knee surgery History of surgery on arm Hx of hysterectomy Hx of appendectomy Hx of cholecystectomy Allergies: Allergies Allergy/AdvReac Type Severity Reaction Status Date / Time aspirin (Aspirin) Allergy Severe TROUBLE Verified 05/27/25 15:32 BREATHING, vomiting peanut Allergy Severe Angioedema Verified 06/10/25 08:28 Penicillins Allergy Severe THROAT Verified 05/27/25 15:32 CLOSES adhesive tape (ADHESIVE TAPE) Allergy Intermediate RASH/ITCH Verified 05/27/25 15:32 banana Allergy Intermediate Hives Verified 05/27/25 15:32 chlorhexidine Allergy Intermediate Rash, Verified 06/10/25 08:28 itchiness ibuprofen (From MOTRIN) Allergy Intermediate VOMITING Verified 05/27/25 15:32 latex (LATEX) Allergy Intermediate RASH Verified 05/27/25 15:32 spider venom (SPIDER BITES) Allergy Intermediate SWELLING Verified 06/10/25 08:28 garlic Allergy Mild Sneezing Verified 06/10/25 08:28 penicillin V Allergy Mild rash Verified 06/10/25 08:28 clarithromycin (From Biaxin) AdvReac Intermediate PROJECTILE Verified 05/27/25 15:32 VOMITING Adhesive Tape Allergy Intermediate rash Uncoded 06/10/25 08:28 Biaxin Allergy Intermediate vomiting, Uncoded 06/10/25 08:28 abd pain Latex Gloves Allergy Intermediate rash Uncoded 06/10/25 08:28 garlic Allergy Mild Flushing Uncoded 02/06/25 15:28 eggs Allergy Unknown Unknown Uncoded 02/06/25 15:28 Review of Systems Review of Systems Comment: 10 point ROS negative Exam Exam Comment: Gen appear: No acute distress HEENT: no icterus Chest: No overt resp distress Abd: soft, nontender, nondistended Psych: Stable affect, answering questions appropriately Neuro: A/Ox3 noted to move all extremities spontaneously Ext: no peripheral edema Plan Diagnosis/Plan: Unchanged I have reviewed the history and physical and performed a pertinent physical examination on my patient. No changes have occurred unless specified. Time Spent With Patient Time: Total time managing care of this patient today ____ minutes.
--- NOTE | 2025-06-12 08:39 | P.OPN-COLO_ITS ---
Colonoscopy Operative Note Operative Note Date of Service: 06/12/25 Narrative: Procedure: Upper endoscopy and colonoscopy Indication: Celiac disease, positive cologuard Endoscopist: Lesa Donis MD Anesthesia Provider: Dr Shanon Denny Anesthesia type: MAC Instrument: [id number] and [id number]-[id number] EGD Procedure:?? The procedure, indications, preparation and potential complications were reviewed with the patient, who indicated understanding and gave written informed consent to proceed. The endoscope was introduced through the mouth, and advanced to the 2nd part of the duodenum. The mucosa was carefully examined on slow withdrawal of the endoscope. The patient tolerated the procedure well. There were no immediate complications.? EGD Findings:? * Esophagus:? Normal esophageal mucosa was noted. The Z-line was at 36 cm. * Stomach:?Erythema and erosions in the antrum with prominent gastric folds. Retroflexion was performed in the cardia. Cold forceps biopsies were taken from the stomach body and antrum. * Duodenum:? Normal duodenal mucosa. Cold forceps biopsies were taken from the duodenal bulb and 2nd portion of the duodenum to rule out celiac sprue. Colonoscopy Procedure:? The patient was then turned for the colonoscopy. A digital rectal exam was performed which was normal.? A distal attachment cap was affixed to the tip of the scope and the colonoscope was then inserted through the anus and advanced through the colon and advanced to the cecum at 70 cm.? Appendiceal orifice and ileocecal valve were identified. Mucosa was carefully examined under high definition white light as the instrument was slowly withdrawn in a retrograde panoramic fashion. Retroflexion was performed in rectum. The procedure was not difficult. The quality of the prep was BBPS: 3+2+3 = adequate Withdrawal time 25 minutes Limitations: No limitations Findings: Mucosa: Normal colon and terminal ileum mucosa. Protruding lesions: * 5 sessile polyps of size 2-4 mm noted in cecum. Cold snare polypectomy was p erformed. The polyps were completely removed and retrieved. * 1 sessile polyp of size 3 mm in ascending colon. Cold snare polypectomy was performed. The polyps were completely removed and retrieved. * 3 pedunculated polyps of size 7-15 mm in transverse colon. Hot snare polypectomy was performed. The polyps were completely removed and retrieved. The larger polyp (15 mm) site at 65 cm was tattooed with endo fay. A resolution 360 clip was also placed at the polypectomy defect to prevent post polypectomy bleeding. * 1 sessile polyp of size 2 mm in rectum. Cold snare polypectomy was performed. The polyps were completely removed and retrieved. * Medium internal hemorrhoids without stigmata of recent bleeding. Excavated lesions: * Moderate diverticulosis of left colon. Impression: 1. Normal esophagus 2. Gastritis (biopsy) 3. Normal duodenum (biopsy) 4. Normal colon mucosa 5. Total of 10 polyps removed today 6. Internal hemorrhoids 7. Diverticulosis Recommendations:?? * Follow-up path results * Avoid NSAIDs * Start famotidine 20 mg once daily x 8-12 weeks * Resume anticoagulation after 48 hours * Repeat colonoscopy for polyp surveillance in 1 year.
[2025-06-12 08:48] VITALS: BP 127/57; PULSE 67; RESP 16; TEMP 36.8; O2SAT 93
[2025-06-12 09:03] VITALS: BP 130/50; PULSE 57; RESP 16; TEMP 36.8; O2SAT 96
--- NOTE | 2025-06-12 11:44 | HO.POSTANES ---
Post Anesthesia Evaluation Post Anesthesia Evaluation Date of Service: 06/12/25 Vital Signs: Vital Signs Temp Pulse Resp BP Pulse Ox O2 Del Method O2 Flow Rate 06/12/25 09:03 98.3 F 57 16 130/50 L 96 Room Air 06/12/25 08:48 98.2 F 67 16 127/57 L 93 Simple Mask 6 06/12/25 06:57 98.5 F 73 15 122/64 96 Room Air Anesthesia: Monitored Mental Status: Awake Pain Control: Satisfactory Nausea/Vomiting: None Hydration: Adequate Anesthesia-Related Issues: No Anes. Related Issues
== END 2025-06-12 09:49 | disposition home or self-care (01) ==
PROVIDERS: PCP Internal Medicine; Visit Provider Internal Medicine
PROC: (CPT 45385; principal; 2025-06-12 07:30)
DX: R19.5 Other fecal abnormalities (principal); D12.0 Benign neoplasm of cecum; D12.2 Benign neoplasm of ascending colon; D12.3 Benign neoplasm of transverse colon; D12.4 Benign neoplasm of descending colon; D36.16 Benign neoplasm of peripheral nerves and autonomic nervous system of pelvis; K57.30 Diverticulosis of large intestine without perforation or abscess without bleeding; K64.8 Other hemorrhoids; K90.0 Celiac disease; K29.60 Other gastritis without bleeding; K31.89 Other diseases of stomach and duodenum; K21.9 Gastro-esophageal reflux disease without esophagitis; I10 Essential (primary) hypertension; J44.9 Chronic obstructive pulmonary disease, unspecified; G47.33 Obstructive sleep apnea (adult) (pediatric); Z86.718 Personal history of other venous thrombosis and embolism; Z87.891 Personal history of nicotine dependence; Z79.899 Other long term (current) drug therapy; Z79.01 Long term (current) use of anticoagulants
CPT/HCPCS: 45385; 45381; 43239; 88305; 88313; 88342; J2003; J2704

== ENCOUNTER → 2025-06-12 06:20 | Outpatient (BNV) | payer OTHER, SELFPAY | PROVIDERS: PCP Internal Medicine; Visit Provider Internal Medicine | DX: Z12.11 Encounter for screening for malignant neoplasm of colon (principal); R19.5 Other fecal abnormalities; K90.0 Celiac disease; D12.0 Benign neoplasm of cecum; D12.2 Benign neoplasm of ascending colon; D12.3 Benign neoplasm of transverse colon; D12.8 Benign neoplasm of rectum; K57.90 Diverticulosis of intestine, part unspecified, without perforation or abscess without bleeding; K64.8 Other hemorrhoids; K29.70 Gastritis, unspecified, without bleeding | CPT/HCPCS: 43239; 45381; 45385 ==

== ENCOUNTER 2025-06-24 07:16 | Outpatient (REF) | payer OTHER, SELFPAY ==
--- OUTSIDE RECORDS SUMMARY | 2025-06-24 07:19 | XMS_ITS | Clinical Summary ---
Author Organization [facility] Address [address] [place] [address] Care Team Providers Care Layboy Tender Name Role Phone Wili Caballero MD Primary Care Provider [phone] Social History Tobacco Use Types Packs/Day Years [...] Vaccines (1 of 2) 1998 COVID-19 Vaccine (1 - 2023-2 5 season) 2025 Influenza Vaccine (#1) 2025 Colorectal Cancer Screening [...] [place] [address] AN[employer] - OUT OF STATE MEDICARE PART A ONLY Care Teams Layboy Tender Relationship Specialty Start Date End Date Wili Caballero MD [address] [place] [address] [address] [place] [address] PCP - General Internal Medicine 03/31/22
[2025-06-24 07:46] LABS: MANUAL DIFF FLAG NO
[2025-06-24 08:25] LABS: Hematocrit 41.3 % (37.0-47.0); Hemoglobin 13.1 g/dl (12.0-16.0); Imm Gran Abs Auto 0.04 X10*3/uL (0.00-0.03); Imm Gran Pct Auto 0.4 % (0.0-0.4); Lymphocytes Absolute Auto 2.3 X10*3/uL (1.2-4.9); Mean Corpuscular HGB Conc 31.7 g/dl (31.0-35.0); Mean Corpuscular Hemoglobin 28.5 pg (27.0-33.0); Mean Corpuscular Volume 89.8 fL (80.0-98.0); NRBC Abs Auto 0.000 X10*3/uL (0.0-0.012); NRBC Pct Auto 0.0 /100WBC (0.0-0.2); Platelet Count 245 X10*3/uL (160-400); Red Blood Count 4.60 X10*6/uL (4.20-5.50); White Blood Count 10.0 X10*3/uL (4.8-10.8)
[2025-06-24 08:35] LABS: Appearance Urine Clear; Glucose Urine UA Negative (Negative); PH 5.5 (5.0-9.0); Specific Gravity - Urine 1.015 (1.005-1.025); UMIC TRIGGER UACC YES
[2025-06-24 08:49] LABS: UACC Culture Trigger YES
[2025-06-24 09:12] LABS: Alanine Aminotransferase 12 U/L (0-31); Albumin Level 4.1 g/dL (3.5-5.0); Alkaline Phosphatase 84 U/L (39-117); Anion Gap 13 (12-20); Aspartate Amino Transferase 21 U/L (5-31); Blood Urea Nitrogen 10 mg/dL (9-16); Calcium 9.0 mg/dL (8.4-10.2); Carbon Dioxide 28 mmol/L (22-29); Chloride 107 mmol/L (96-108); Cholesterol 191 mg/dL (<200); Estimated Glomerular Filt Rate > 60; HDL Cholesterol 59 mg/dL (>40); Potassium 4.1 mmol/L (3.3-5.1); Sodium 144 mmol/L (135-145); Total Protein 6.8 g/dL (6.5-8.0); Triglycerides 118 mg/dL (<150)
== END 2025-06-24 07:17 | disposition home or self-care (01) ==
LOC: HO.LAB 07:16
PROVIDERS: Visit Provider Internal Medicine
DX: Z00.00 Encounter for general adult medical examination without abnormal findings (principal); E78.00 Pure hypercholesterolemia, unspecified; E55.9 Vitamin D deficiency, unspecified; E89.0 Postprocedural hypothyroidism; I10 Essential (primary) hypertension
CPT/HCPCS: 36415; 80053; 80061; 81001; 82306; 84443; 85025; 87086

== ENCOUNTER 2025-07-02 07:41 | Outpatient (REF) | payer OTHER, SELFPAY ==
--- NOTE | ~2025-07-02 | US_ITS ---
EXAMINATION: US TRIPLEX LOWER EXTREMITY, LEFT CLINICAL INFORMATION: Old/chronic thrombus extending from the left popliteal vein to the left superficial femoral vein. Follow-up. COMPARISON: April 08, 2025. TECHNIQUE: Color-flow triplex imaging with spectral analysis and compression Doppler were performed on the left lower extremity. FINDINGS: Respiratory variation, normal compression and augmented flow are demonstrated in the left common femoral vein, superficial femoral vein, and profunda femoral vein. There is no compressibility in the left popliteal vein. There is normal respiratory variation compression and augmentation in the mid calf peroneal and posterior tibial venous segments.. There is no Boykin's cyst. US/US venous duplex LE LT IMPRESSION: Nonocclusive thrombus, left popliteal vein, old/chronic. Overall improved since April 08, 2025. Electronically signed by: Case Sprague MD 07/02/2025 08:54 AM EDT
--- OUTSIDE RECORDS SUMMARY | 2025-07-02 07:44 | XMS_ITS | Clinical Summary ---
Author Organization [facility] Address [address] [place] [address] Care Team Providers Care Grain Elevator Agent Name Role Phone Wili Caballero MD Primary [...] to [place] this [place] [address] [employer] - OUT OF STATE MEDICARE PART A ONLY Care Teams Grain Elevator Agent Relationship Specialty Start Date End Date Wili Caballero MD [address] [place] [address] [address]IVE [address] [place] [address] PCP - General Internal Medicine 03/31/22
== END 2025-07-02 07:42 | disposition home or self-care (01) ==
LOC: HO.US 07:41
PROVIDERS: PCP Internal Medicine; Visit Provider Internal Medicine Medical Oncology
DX: I82.432 Acute embolism and thrombosis of left popliteal vein (principal); K21.9 Gastro-esophageal reflux disease without esophagitis; D12.6 Benign neoplasm of colon, unspecified; K58.2 Mixed irritable bowel syndrome; R10.84 Generalized abdominal pain; I10 Essential (primary) hypertension; Z79.01 Long term (current) use of anticoagulants; Z79.899 Other long term (current) drug therapy; Z87.891 Personal history of nicotine dependence
CPT/HCPCS: 93971

== ENCOUNTER → 2025-07-02 07:42 | Outpatient (BNV) | payer OTHER, SELFPAY | PROVIDERS: PCP Internal Medicine; Visit Provider Radiology Diagnostic Radiology | DX: Z86.718 Personal history of other venous thrombosis and embolism (principal) | CPT/HCPCS: 93971 ==

== ENCOUNTER 2025-07-02 08:33 | Outpatient (AMB) | payer OTHER, SELFPAY ==
--- NOTE | 2025-07-02 08:36 | A.OFFVIS_ITS ---
Vital Signs 07/02/25 08:38 Height 5 ft 4 in Weight 180 lb BMI 30.9 BP 134/64 Blood Pressure Location Rt brachial Position Sitting Pulse 58 Pulse Source Pulse Oximeter Pulse Oximetry (%) 97 Oxygen Delivery Method Room Air Intake Visit Reasons: S/p double Gagandeep Intake Note: Est pt for mgmt of celiac. Hx of positive cologuard. S/P Double. CC: C.O. bloating persistence, pt denies any additional sx or concerns. Activity Therapist Required: No Accompanied by: Self / Same As Patient Allergies aspirin (Aspirin) Allergy (Severe, Verified 07/02/25 08:37) TROUBLE BREATHING, vomiting peanut Allergy (Severe, Verified 07/02/25 08:37) Angioedema Penicillins Allergy (Severe, Verified 07/02/25 08:37) THROAT CLOSES adhesive tape (ADHESIVE TAPE) Allergy (Intermediate, Verified 07/02/25 08:37) RASH/ITCH banana Allergy (Intermediate, Verified 07/02/25 08:37) Hives chlorhexidine Allergy (Intermediate, Verified 07/02/25 08:37) Rash, itchiness ibuprofen (From MOTRIN) Allergy (Intermediate, Verified 07/02/25 08:37) VOMITING latex (LATEX) Allergy (Intermediate, Verified 07/02/25 08:37) RASH spider venom (SPIDER BITES) Allergy (Intermediate, Verified 07/02/25 08:37) SWELLING garlic Allergy (Mild, Verified 07/02/25 08:37) Sneezing penicillin V Allergy (Mild, Verified 07/02/25 08:37) rash clarithromycin (From Biaxin) Adverse Reaction (Intermediate, Verified 07/02/25 08:37) PROJECTILE VOMITING Adhesive Tape Allergy (Intermediate, Uncoded 07/02/25 08:37) rash Biaxin Allergy (Intermediate, Uncoded 07/02/25 08:37) vomiting, abd pain Latex Gloves Allergy (Intermediate, Uncoded 07/02/25 08:37) rash garlic Allergy (Mild, Uncoded 07/02/25 08:37) Flushing eggs Allergy (Unknown, Uncoded 07/02/25 08:37) Unknown Medication List - Last Reconciled 07/02/25 by Tiny Mera, BIT SANDER-BC acetaminophen (Tylenol Extra Strength) 500 mg PO Q6H PRN albuterol sulfate 2.5 mg (3 mL) inhalation Q6H PRN 30 days amlodipine 5 mg PO DAILY cholecalciferol (vitamin D3) 50 mcg PO DAILY 30 days epinephrine (EpiPen 2-Ken) 0.3 mg (0.3 mL) IM Q10M PRN 30 days famotidine 20 mg PO DAILY ipratropium-albuterol 0.5 mg-3 mg(2.5 mg base)/3 mL 0.5 mL inhalation DAILY levothyroxine 125 mcg PO DAILY metoprolol succinate ER 50 mg PO DAILY montelukast 10 mg PO BEDTIME rivaroxaban (Xarelto) 20 mg PO DAILY Held on 06/12/25. Instructions: Resume on 06/14/25. HOLD blood thinner today and tomorrow. You may resume this Monday morning. roflumilast 500 mcg PO DAILY rosuvastatin 20 mg PO BEDTIME Trelegy Ellipta 200-62.5-25 mcg (eranyeddedr-yvkeeoftb-pavpqdca) 1 ea PO DAILY NS Ventolin HFA 90 mcg/actuation (albuterol sulfate) 2 puffs inhalation Q4H PRN 30 days NS HPI HPI S/p double Gagandeep: Details: LAST VISIT Abdominal pain Screen for colon cancer Positive colorectal cancer screening using Cologuard test GERD (gastroesophageal reflux disease) Celiac disease Plan Patient denies any GI, cardiac or respiratory symptoms. However patient does reports chronic postprandial loose stools and then constipation. History of cholecystectomy in 2016.? Denies any issues with anesthesia in the past.? History of sleep apnea.? No history infectious diseases in the past or present.? Patient is on Xarelto. Patient may stop Xarelto 2 days before procedure. Message will be sent to Dr. Mackenzie for risk stratification before procedure.? No family or personal history of colon cancer or polyps.? Patient denies melena, hematochezia, unintentional weight loss or ribbon like stools.? Discussed at length the pre-procedure,? prep, diet & medications as well as what to expect prior, during and after the procedure.?? Stressed the importance of good bowel prep.? Recommended the use of Vaseline or Calmoseptine OTC & baby wipes with bowel movements to promote comfort.? ?Patient verbalizes understanding and agrees to plan of care.? She was given the opportunity to ask questions and all questions answered.? We will see her after the procedure.? Orders Transglutaminase Ab IgG Today R10.9 Vitamin B12 and Folate Today R19.7 Transglutaminase IgA Today R10.9 Vitamin D 25-OH (D2 and D3) Today E55.9 New bisacodyl (Dulcolax (bisacodyl)) Start taking 2 tablet every night 7 days before the procedure and 1 day before procedure take 4 tablets at noon time followed by MiraLax prep 10 mg (2 x 5 mg) PO BEDTIME 16 tabs 0RF Z12.11 polyethylene glycol 3350 (Miralax) As directed by gastroenterology department at [facility] 238 grams PO ONCE 238 grams 0RF Z12.11 UPPER ENDOSCOPY AND COLONOSCOPY EGD Findings:? * Esophagus:? Normal esophageal mucosa was noted. The Z-line was at 36 cm. * Stomach:?Erythema and erosions in the antrum with prominent gastric folds. Retroflexion was performed in the cardia. Cold forceps biopsies were taken from the stomach body and antrum. * Duodenum:? Normal duodenal mucosa. Cold forceps biopsies were taken from the duodenal bulb and 2nd portion of the duodenum to rule out celiac sprue. Colonoscopy Procedure:? The patient was then turned for the colonoscopy. A digital rectal exam was performed which was normal.? A distal attachment cap was affixed to the tip of the scope and the colonoscope was then inserted through the anus and advanced through the colon and advanced to the cecum at 70 cm.? Appendiceal orifice and ileocecal valve were identified. Mucosa was carefully examined under high definition white light as the instrument was slowly withdrawn in a retrograde panoramic fashion. Retroflexion was performed in rectum. The procedure was not difficult. The quality of the prep was BBPS: 3+2+3 = adequate Withdrawal time 25 minutes Limitations: No limitations Findings: Mucosa: Normal colon and terminal ileum mucosa. Protruding lesions: * 5 sessile polyps of size 2-4 mm noted in cecum. Cold snare polypectomy was performed. The polyps were completely removed and retrieved. * 1 sessile polyp of size 3 mm in ascending colon. Cold snare polypectomy was performed. The polyps were completely removed and retrieved. * 3 pedunculated polyps of size 7-15 mm in transverse colon. Hot snare polypectomy was performed. The polyps were completely removed and retrieved. The larger polyp (15 mm) site at 65 cm was tattooed with endo fay. A resolution 360 clip was also placed at the polypectomy defect to prevent post polypectomy bleeding. * 1 sessile polyp of size 2 mm in rectum. Cold snare polypectomy was performed. The polyps were completely removed and retrieved. * Medium internal hemorrhoids without stigmata of recent bleeding. Excavated lesions: * Moderate diverticulosis of left colon. Impression: 1. Normal esophagus 2. Gastritis (biopsy) 3. Normal duodenum (biopsy) 4. Normal colon mucosa 5. Total of 10 polyps removed today 6. Internal hemorrhoids 7. Diverticulosis Recommendations:?? * Follow-up path results * Avoid NSAIDs * Start famotidine 20 mg once daily x 8-12 weeks * Resume anticoagulation after 48 hours * Repeat colonoscopy for polyp surveillance in 1 year. PATHOLOGY RESULTS Diagnosis A. Duodenum, biopsy: Duodenal mucosa within normal limits; preserved villous architecture and no increased intraepithelial lymphocytes. B. Stomach, antrum, biopsy: Gastric antral mucosa with reactive gastropathy and patchy mild chronic inflammation; negative for Helicobacter pylori, intestinal metaplasia and dysplasia. C. Stomach, body, biopsy: Gastric body mucosa with moderate chronic inactive gastritis; negative for Helicobacter pylori, intestinal metaplasia and dysplasia. D. Rectum, polypectomy: Mucosal schwannoma. E. Colon, transverse, polypectomy: Tubular adenoma; negative for high-grade dysplasia. F. Colon, cecum, polypectomy x5: Tubular adenoma (5); negative for high-grade dysplasia. G. Colon, ascending, polypectomy: Tubular adenoma; negative for high-grade dysplasia. H. Colon, transverse polyp at 65 cm, polypectomy x2: Tubular adenoma (2), fragmented; negative for high-grade dysplasia TODAY'S VISIT: Patient is here today for follow-up and to discuss upper endoscopy and colonoscopy results. Patient reports no ill effects from the prep, anesthesia or procedure itself. Patient reports to be feeling fairly well. Occasional abdominal bloating. Patient tells me that she was told that she has celiac disease. However patient is eating bread almost every day denies any abdominal pain. Normal duodenal mucosa and preserved villous architecture found. Patient will go and get her blood work done today. Transglutaminase was ordered last visit. Patient reports to be doing fairly well. Mild chronic inflammation seen in his stomach. Patient was started on famotidine daily for 8 weeks. She is taking it daily. Patient denies any dyspepsia, dysphagia or odynophagia. Denies melena, hematochezia, unintentional weight loss or ribbon like stools. Patient will return for colorectal screening in 1 year as multiple tubular adenomas found. [facility] Medical History (Updated 07/02/25 @ 09:04 by Tiyn Mera [facility]) Tubular adenoma of colon CAD (coronary artery disease) AAA (abdominal aortic aneurysm) without rupture GARRET (obstructive sleep apnea) Celiac disease GERD (gastroesophageal reflux disease) Abdominal pain DVT (deep venous thrombosis) Pulmonary hypertension Asthma Obesity Neck pain Chronic respiratory failure Pulmonary nodules Nonsustained ventricular tachycardia HTN (hypertension) SVT (supraventricular tachycardia) COPD (chronic obstructive pulmonary disease) Osteoporosis Surgical History Hx of cardiac cath Hx of knee surgery History of surgery on arm Hx of hysterectomy Hx of appendectomy Hx of cholecystectomy Family History Father Lung cancer Mother CVA (cerebral vascular accident) Social History Household Members: None 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 [employer] Review of Systems Const Denies weight gain and Denies weight loss ENT Reports no additional complaints, Denies dysphagia and Denies odynophagia Card Reports no additional complaints Resp Reports no additional complaints GI Reports abdominal pain, Denies belching, Denies melena, Reports bloating, Denies change in bowel habits, Reports constipation, Denies dysphagia, Denies excessive flatus, Denies dyspepsia, Denies heartburn, Denies diarrhea, Reports loose stools (Occasional), Denies nausea, Denies odynophagia and Denies vomiting Reports no additional complaints Musc Reports no additional complaints Neuro Reports no additional complaints Psych Reports no additional complaints Endo Reports no additional complaints Physical Exam Vital Signs: Last Vital Signs Pulse 58 07/02/25 08:38 BP 134/64 07/02/25 08:38 Pulse Ox 97 07/02/25 08:38 Oxygen Delivery Method Room Air 07/02/25 08:38 BMI result Body Mass Index 30.9 Const General: healthy appearing, no acute distress and well developed Nutritional Appearance: well nourished and obese Orientation/consciousness: patient oriented x3 Resp Effort & Inspection: normal respiratory effort, able to speak in complete sent ences, no tracheal deviation and symmetric chest movement Auscultation: clear to auscultation bilaterally Cardio Rate: regular rate GI Inspection: Yes normal to inspection, No distended and Yes obesity Palpation (GI): Soft to palpation, not firm, nontender and No hepatosplenomegaly present Auscultation: normal bowel sounds General: Yes no CVA tenderness Back/Spine/Pelvis Back: no CVA tenderness Skin General skin exam: elasticity normal, turgor normal and dry skin Neuro General: patient oriented x3 Psych Appearance: grossly normal Mental Status: mental status grossly normal Assessment & Plan Assessment & Plan (1) GERD (gastroesophageal reflux disease): Code(s): K21.9 - Gastro-esophageal reflux disease without esophagitis Category: Medical Qualifiers: Esophagitis presence: esophagitis presence not specified Qualified Code(s): K21.9 - Gastro-esophageal reflux disease without esophagitis (2) Abdominal pain: Code(s): R10.9 - Unspecified abdominal pain Category: Medical Qualifiers: Abdominal location: generalized Qualified Code(s): R10.84 - Generalized abdominal pain (3) Tubular adenoma of colon: Code(s): D12.6 - Benign neoplasm of colon, unspecified Category: Medical (4) IBS (irritable bowel syndrome): Code(s): K58.9 - Irritable bowel syndrome, unspecified Qualifiers: Irritable bowel syndrome type: with both diarrhea and constipation Qualified Code(s): K58.2 - Mixed irritable bowel syndrome Plan Patient will continue famotidine until her prescription is finished. Avoid dietary triggers and late night snacking. Staying upright for minimum 3 hours after meals discussed with patient. Continue current bowel regimen. Avoid food that makes her bloated. Follow-up in 8 months, patient will be due to go for another colonoscopy. Patient was encouraged to take fiber with pre and probiotics. She is agreeable to current plan of care and verbalizes understanding of instructions. She was given the opportunity to ask questions and all questions answered. Thank you for allowing me to participate in her care Coding Level of Care Code Est Pt Level 3 (14761) Diagnoses Gastroesophageal reflux disease, unspecified whether esophagitis present K21.9 Esophagitis presence: esophagitis presence not specified Generalized abdominal pain R10.84 Abdominal location: generalized Tubular adenoma of colon D12.6 Irritable bowel syndrome with both constipation and diarrhea K58.2 Irritable bowel syndrome type: with both diarrhea and constipation Time Spent (min) 30 Comment 20 minutes spent with patient and additional 10 minutes spent reviewing her records
[2025-07-02 08:38] VITALS: BP 134/64; PULSE 58; O2SAT 97; BMI 30.9
== END 2025-07-02 09:00 | disposition home or self-care (01) ==
LOC: HO.HGI 08:34
PROVIDERS: PCP Internal Medicine; Visit Provider Nurse Practitioner Family
DX: K21.9 Gastro-esophageal reflux disease without esophagitis (principal); R10.84 Generalized abdominal pain; D12.6 Benign neoplasm of colon, unspecified; K58.2 Mixed irritable bowel syndrome
CPT/HCPCS: 99213

== ENCOUNTER 2025-07-03 07:42 | Outpatient (REF) | payer OTHER, SELFPAY ==
--- OUTSIDE RECORDS SUMMARY | 2025-07-03 07:46 | XMS_ITS | Clinical Summary ---
Author Organization [facility] Address [address] [place] [address] Care Team Providers Care Search Marketing Specialist Name Role Phone Wili Caballero MD Primary [...] [place] this [place] [address] AN[employer]M - OUT OF STATE MEDICARE PART A ONLY Care Teams Search Marketing Specialist Relationship Specialty Start Date End Date Wili Caballero MD [address] [place] [address] [address] [place] [address] PCP - General Internal Medicine 03/31/22
[2025-07-03 09:43] LABS: Folate 9.8 ng/mL (> or = 4.0); Vitamin B12 200 pg/mL (200-900)
[2025-07-04 15:47] LABS: Transglutaminase Ab IgG <1.0 U/mL
[2025-07-08 16:58] LABS: Vitamin D 25-OH, D2 <4 ng/mL; Vitamin D 25-OH, D3 42 ng/mL; Vitamin D 25-OH, Total 42 ng/mL (30-100)
== END 2025-07-03 07:43 | disposition home or self-care (01) ==
LOC: HO.LAB 07:42
PROVIDERS: PCP Internal Medicine; Visit Provider Nurse Practitioner Family
DX: R10.9 Unspecified abdominal pain (principal); R19.7 Diarrhea, unspecified; E55.9 Vitamin D deficiency, unspecified
CPT/HCPCS: 36415; 82306; 82607; 82746; 86364

== ENCOUNTER 2025-07-26 11:00 | Emergency (ER) | payer OTHER, SELFPAY ==
--- NOTE | ~2025-07-26 | CT_ITS ---
CLINICAL HISTORY: aorta dissection rule out CT angiography abdomen and pelvis with contrast. 3-D post processing. CT angiography chest with contrast Comparison: None provided Findings: Aorta, mesenteric/renal arteries, and iliofemoral systems are patent with no hemodynamically significant stenoses. The lungs are clear. Heart size is normal. Visualized pulmonary arteries are without filling defect. There are no pathological appearing mediastinal or hilar lymph nodes. Unremarkable solid organs. There are no abnormal findings in the gallbladder fossa. No urolithiasis. No bowel obstruction, pneumoperitoneum, or pneumatosis. Pelvic contents unremarkable. Normal appendix. No acute fracture. IMPRESSION: No acute findings. This document has been electronically signed by: Bryce Fagan MD on 07/26/2025 13:56:13
[2025-07-26 11:06] VITALS: BP 172/72; PULSE 54; RESP 20; TEMP 36.2; O2SAT 97; BMI 31.9
--- NOTE | 2025-07-26 11:09 | ED.GENADULT ---
HPI - General Adult General Chief complaint: Abdominal Pain Stated complaint: abdominal and back pain Time Seen by Provider: 07/26/25 11:40 Source: patient Mode of arrival: ambulatory Limitations: no limitations History of Present Illness ED Provider: Dr. Fletcher [facility] narrative: This is a 75-year-old female history of osteoarthritis CAD, COPD, lymphedema, GERD, DVT on Xarelto presented hospital today for evaluation of back pain that radiates to the abdomen. Patient stated that she does have chronic back pain however this time her abdomen is tender. Therefore patient was concerned about a AAA. That is the reason why she is here. Patient states she has been Googling the symptoms. She stated this pain does radiate substance to her chest as well. She stated that she had issue with GI bleed with the Eliquis therefore she was transitioned to Xarelto. Had a recent colonoscopy had multiple polyps removed. Related Data Home Medications ?Medication ?Instructions ?Recorded ?Confirmed levothyroxine 125 mcg tablet 125 mcg PO DAILY 12/03/20 07/02/25 rosuvastatin 20 mg tablet 20 mg PO BEDTIME 04/08/21 07/02/25 ipratropium 0.5 mg-albuterol 3 mg 0.5 ml inhalation DAILY 06/28/22 07/02/25 (2.5 mg base)/3 mL nebulization soln Previous Rx's ?Medication ?Instructions ?Recorded acetaminophen 500 mg tablet 500 mg PO Q6H PRN fever or pain 09/20/22 (Tylenol Extra Strength) #14 tabs cholecalciferol (vitamin D3) 50 50 mcg PO DAILY 30 days #30 caps 03/21/23 mcg (2,000 unit) capsule epinephrine 0.3 mg/0.3 mL 0.3 mg (0.3 mL) IM Q10M PRN 07/27/23 injection, auto-injector (EpiPen anaphylaxis 30 days #2 ea 2-Ken) albuterol sulfate 2.5 mg/3 mL 2.5 mg (3 mL) inhalation Q6H PRN 07/12/24 (0.083 %) solution for nebulization shortness of breath or wheezing 30 days #180 mL metoprolol succinate 50 mg 50 mg PO DAILY #90 tabs 09/04/24 tablet,extended release 24 hr Ventolin HFA 90 mcg/actuation 2 puff inhalation Q4H PRN for 11/21/24 aerosol inhaler (albuterol sulfate) wheezing 30 days #18 grams rivaroxaban 20 mg tablet (Xarelto) 20 mg PO DAILY #30 tabs 04/10/25 Held on 06/12/25. Instructions: Resume on 06/14/25. HOLD blood thinner today and tomorrow. You may resume this Monday morning. amlodipine 5 mg tablet 5 mg PO DAILY #90 tabs 05/29/25 famotidine 20 mg tablet 20 mg PO DAILY #90 tabs 06/12/25 Trelegy Ellipta 200 mcg-62.5 1 ea PO DAILY #60 ea 07/04/25 mcg-25 mcg powder for inhalation (lryfvjssglq-qnvldnvvq-yfxogvhf) montelukast 10 mg tablet 10 mg PO BEDTIME #30 tabs 07/24/25 roflumilast 500 mcg tablet 500 mcg PO DAILY #30 tabs 07/24/25 Allergies Allergy/AdvReac Type Severity Reaction Status Date / Time aspirin (Aspirin) Allergy Severe TROUBLE Verified 07/02/25 08:37 BREATHING, vomiting peanut Allergy Severe Angioedema Verified 07/02/25 08:37 Penicillins Allergy Severe THROAT Verified 07/02/25 08:37 CLOSES adhesive tape (ADHESIVE TAPE) Allergy Intermediate RASH/ITCH Verified 07/02/25 08:37 banana Allergy Intermediate Hives Verified 07/02/25 08:37 chlorhexidine Allergy Intermediate Rash, Verified 07/02/25 08:37 itchiness ibuprofen (From MOTRIN) Allergy Intermediate VOMITING Verified 07/02/25 08:37 latex (LATEX) Allergy Intermediate RASH Verified 07/02/25 08:37 spider venom (SPIDER BITES) Allergy Intermediate SWELLING Verified 07/02/25 08:37 garlic Allergy Mild Facial Verified 07/26/25 11:12 Swelling penicillin V Allergy Mild rash Verified 07/02/25 08:37 clarithromycin (From Biaxin) AdvReac Intermediate PROJECTILE Verified 07/02/25 08:37 VOMITING Adhesive Tape Allergy Intermediate rash Uncoded 07/02/25 08:37 Biaxin Allergy Intermediate vomiting, Uncoded 07/02/25 08:37 abd pain Latex Gloves Allergy Intermediate rash Uncoded 07/02/25 08:37 garlic Allergy Mild Flushing Uncoded 07/02/25 08:37 eggs Allergy Unknown Unknown Uncoded 07/02/25 08:37 Review of Systems Review of Systems: Pertinent review of systems as mentioned in HPI. All other system otherwise negative. [facility] Past Medical History [facility] Narrative: Medical history as mentioned in [facility] Medical History (Updated 07/26/25 @ 14:12 by Bonita Fletcher DO) Tubular adenoma of colon CAD (coronary artery disease) AAA (abdominal aortic aneurysm) without rupture GARRET (obstructive sleep apnea) Celiac disease GERD (gastroesophageal reflux disease) Abdominal pain DVT (deep venous thrombosis) Pulmonary hypertension Asthma Obesity Neck pain Chronic respiratory failure Pulmonary nodules Nonsustained ventricular tachycardia HTN (hypertension) SVT (supraventricular tachycardia) COPD (chronic obstructive pulmonary disease) Osteoporosis Surgical History Hx of cardiac cath Hx of knee surgery History of surgery on arm Hx of hysterectomy Hx of appendectomy Hx of cholecystectomy Family History Family History Father Lung cancer Mother CVA (cerebral vascular accident) Social History Social History Household Members: None [facility]: [facility] Are you a primary acute care certified nursing assistant to a significant other at home: Yes Do you presently have visiting nurse or other home services: No Alcohol intake: never Patient Tobacco Use Status: Former Tobacco user Tobacco use type: Cigarette Years Smoked: 30 Second Hand Smoke Exposure: No service: No Current occupational status: employed 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 Diffuse tenderness on palpation, no guarding. Extremities: Low back pain on palpation near the SI joints. Tender and reproducible on exam. Neurological: Awake and alert, no facial droop noted Skin: Warm and dry Psychiatric: Appropriate mood and thoughts Vital Signs: Vital Signs - 24 hr 07/26/25 11:06 07/26/25 15:12 Temperature 97.2 F 97.8 F Pulse Rate 54 56 Respiratory Rate 20 20 Blood Pressure 172/72 H 168/76 H Pulse Oximetry 97 97 Oxygen Delivery Method Room Air Room Air BMI result Body Mass Index 31.9 Course Course Course Narrative: Medical screening exam performed. Please refer to detailed history, exam, evaluation, and management by primary provider. Three day history of back pain, lower abdominal pain, bloating and nausea. On Xarelto for previous DVT left leg. Had a colonoscopy in May and reported multiple polyps removed. JS Medications Administered Discontinued Medications Generic Name Dose Route Start Last Admin Trade Name Suhail PRN Reason Stop Dose Admin Famotidine 20 mg 07/26/25 12:02 07/26/25 13:59 Famotidine/Pf 20 Mg/2 Ml Vial IVPUSH 07/26/25 12:03 Not Given ONCE ONE Lactated Ringer's 1,000 mls @ 999 mls/hr 07/26/25 12:15 07/26/25 14:30 Lr IV 07/26/25 13:15 Infused .Q1H1M MARY Infusion Iohexol 100 ml 07/26/25 12:42 07/26/25 12:43 Iohexol 350 Mg/Ml 100 Ml Infus..Btl IV 07/26/25 12:43 85 ml ONCE ONE Administration Ondansetron HCl 4 mg 07/26/25 12:02 07/26/25 13:59 Ondansetron Hcl 4 Mg/2 Ml Vial IVPUSH 07/26/25 12:03 Not Given ONCE ONE Medical Decision Making Medical Decision Making MDM Narrative: This is a 75-year-old female history of osteoarthritis, CAD, COPD, GERD, DVT on Xarelto presented hospital today for back pain that radiates to the abdomen. Patient states she has family history of AAA. Patient was concerned she may have it. That is the reason why she is here today. Give her symptoms and risk factors. We will obtain a CTA of the chest and abdomen to rule out aortic dissection. I have low suspicion for dissection of the patient. She appears to be well. We will evaluate for any signs of AAA. Given her symptoms of abdominal pain that radiates to her chest we will plan to give her some IV Pepcid IV Zofran. We will also plan to start patient on IV fluid. Screening EKG will be obtained troponin will be obtained as well. EKG did not show any signs of STEMI, troponin is negative. Patient's CT imaging did not show any signs of aortic dissection or AAA. Lab work is did not show any signs of significant abnormality. We will plan to discharge patient at this time. Return precautions provided. She agrees and understands this plan all questions were addressed. Encouraged her to follow up with primary care doctor. Differential Diagnosis Differential Diagnoses: The differential diagnosis associated with the presentation includes Colonic mass, constipation, AAA, aortic dissection, ACS, STEMI Lab Data MDM Lab Attestation statement: I reviewed the patient's lab results. 07/26/25 11:28 07/26/25 11:28 Labs: Lab Results 07/26/25 07/26/25 07/26/25 Range/Units 11:28 11:29 11:55 WBC 7.9 (4.8-10.8) X10*3/uL RBC 4.51 (4.20-5.50) X10*6/uL Hgb 13.0 (12.0-16.0) g/dl Hct 39.3 (37.0-47.0) % MCV 87.1 (80.0-98.0) fL MCH 28.8 (27.0-33.0) pg MCHC 33.1 (31.0-35.0) g/dl RDW 13.2 (11.0-16.0) % Plt Count 215 (160-400) X10*3/uL MPV 10.6 (9.4-12.3) fL Immature Gran % (Auto) 0.3 (0.0-0.4) % Neut % (Auto) 66.5 (45-73) % Lymph % (Auto) 20.8 (20-40) % [place] % (Auto) 10.0 (2-11) % Eos % (Auto) 1.8 (0-4) % Baso % (Auto) 0.6 (0-2) % Lymph # (Auto) 1.6 (1.2-4.9) X10*3/uL [place] # (Auto) 0.8 (0.1-1.2) X10*3/uL Eos # (Auto) 0.1 (0.0-0.4) X10*3/uL Baso # (Auto) 0.1 (0.0-0.2) X10*3/uL Abs Immat Gran (auto) 0.02 (0.00-0.03) X10*3/uL Absolute Neuts (auto) 5.3 (2.0-8.3) x10*3/uL Absolute Nucleated RBC 0.000 (0.0-0.012) X10*3/uL Nucleated RBC % (auto) 0.0 (0.0-0.2) /100WBC Sodium 140 (135-145) mmol/L Potassium 4.7 (3.3-5.1) mmol/L Chloride 105 (96-108) mmol/L Carbon Dioxide 29 (22-29) mmol/L Anion Gap 11 L (12-20) BUN 12 (9-16) mg/dL Creatinine 0.66 (0.5-1.4) mg/dL Estim Creat Clear Calc 75.0 Estimated GFR > 60 Random Glucose 98 (60-115) mg/dL Calcium 9.5 (8.4-10.2) mg/dL Total Bilirubin 0.7 (0.0-1.0) mg/dL AST 26 (5-31) U/L ALT 12 (0-31) U/L Alkaline Phosphatase 91 (39-117) U/L Troponin I High Sens < 2.7 (<3.5-17.0) ng/L Total Protein 7.0 (6.5-8.0) g/dL Albumin 4.1 (3.5-5.0) g/dL Lipase 33 (8-78) U/L Urine Color Yellow Urine Appearance Clear Urine pH 6.0 (5.0-9.0) Ur Specific [place] 1.015 (1.005-1.025) Urine Protein Negative (Neg-Trace) mg/dL Urine Glucose (UA) Negative (Negative) mg/dL Urine Ketones Negative (Negative) mg/dL Urine Blood Negative (Negative) Urine Nitrite Negative (Negative) Ur Leukocyte Esterase Small (1+) H (Negative) Urine RBC 0-2 (0-2) /HPF Urine WBC 0-5 (0-5) /HPF Ur Squamous Epith Cells 3-5 (0-2) /HPF Urine Bacteria None Seen (None Seen) Hyaline Casts 0-2 (0-2) /LPF Independent Interpretation I performed an independent interpretation of an: CT Scan Radiology Impression Discussion of test interpretation with radiology: I have reviewed the radiologist's reading. Discharge Plan Discharge Clinical Impression: Abdominal pain Patient Disposition: Home, Self-Care Instructions: Abdominal Pain (ED) Additional Instructions: No signs of Triple AAA or dissection on CT imaging. Follow up with your primary care doctor. Prescriptions: No Action cholecalciferol (vitamin D3) 50 mcg (2,000 unit) capsule 50 mcg PO DAILY 30 Days Qty: 30 6RF metoprolol succinate 50 mg tablet extended release 24 hr 50 mg PO DAILY Qty: 90 3RF albuterol sulfate [Ventolin HFA] 90 mcg/actuation HFA aerosol inhaler 2 puff inhalation Q4H PRN (Reason: for wheezing) 30 Days Qty: 18 10RF Xarelto 20 mg tablet 20 mg PO DAILY Qty: 30 11RF Rx Instructions: must administer with evening meal amlodipine 5 mg tablet 5 mg PO DAILY Qty: 90 1RF Trelegy Ellipta 200-62.5-25 mcg blister with device 1 ea PO DAILY Qty: 60 0RF roflumilast 500 mcg tablet 500 mcg PO DAILY Qty: 30 0RF montelukast 10 mg tablet 10 mg PO BEDTIME Qty: 30 0RF acetaminophen [Tylenol Extra Strength] 500 mg tablet 500 mg PO Q6H PRN (Reason: fever or pain) Qty: 14 0RF famotidine 20 mg tablet 20 mg PO DAILY Qty: 90 0RF levothyroxine 125 mcg tablet 125 mcg PO DAILY rosuvastatin 20 mg tablet 20 mg PO BEDTIME ipratropium-albuterol 0.5 mg-3 mg(2.5 mg base)/3 mL solution for nebulization 0.5 ml inhalation DAILY epinephrine [EpiPen 2-Ken] 0.3 mg/0.3 mL auto-injector 0.3 mg IM Q10M PRN (Reason: anaphylaxis) 30 Days Qty: 2 6RF Rx Instructions: for 2 doses albuterol sulfate 2.5 mg /3 mL (0.083 %) solution for nebulization 2.5 mg inhalation Q6H PRN (Reason: shortness of breath or wheezing) 30 Days Qty: 180 11RF Interventions: ED Discharge Assessment Last Done: 07/26/25 15:12 Discharge Date/Time: 07/26/25 15:13 Print Language: Bangladeshi
[2025-07-26 11:31] LABS: MANUAL DIFF FLAG NO
[2025-07-26 11:35] LABS: Hematocrit 39.3 % (37.0-47.0); Hemoglobin 13.0 g/dl (12.0-16.0); Imm Gran Abs Auto 0.02 X10*3/uL (0.00-0.03); Imm Gran Pct Auto 0.3 % (0.0-0.4); Lymphocytes Absolute Auto 1.6 X10*3/uL (1.2-4.9); Mean Corpuscular HGB Conc 33.1 g/dl (31.0-35.0); Mean Corpuscular Hemoglobin 28.8 pg (27.0-33.0); Mean Corpuscular Volume 87.1 fL (80.0-98.0); NRBC Abs Auto 0.000 X10*3/uL (0.0-0.012); NRBC Pct Auto 0.0 /100WBC (0.0-0.2); Platelet Count 215 X10*3/uL (160-400); Red Blood Count 4.51 X10*6/uL (4.20-5.50); White Blood Count 7.9 X10*3/uL (4.8-10.8)
[2025-07-26 11:38] LABS: Appearance Urine Clear; Glucose Urine UA Negative (Negative); PH 6.0 (5.0-9.0); Specific Gravity - Urine 1.015 (1.005-1.025); UMIC TRIGGER UA YES
--- NOTE | 2025-07-26 11:45 | PC.NURSE ---
patient a&ox3, rr equal/non labored, vss, pt states she has 8/10 abd pain, iv inserted, labs previously drawn, pt awaiting ct scan, call perez within reach, plan of care ongoing
--- OUTSIDE RECORDS SUMMARY | 2025-07-26 11:48 | XMS_ITS | Clinical Summary ---
Author Organization [facility] Address [address] [place] [address] Care Team Providers Care Equipment Planner Name Role Phone Wili Caballero MD Primary Care Provider [phone] Social History Tobacco Use Types Packs/Day Years [...] [place] [address] ANTHEM - OUT OF STATE MEDICARE PART A ONLY Care Teams Equipment Planner Relationship Specialty Start Date End Date Wili Caballero MD [address] [place] [address] [address] [place] [address] PCP - General Internal Medicine 03/31/22
[2025-07-26 11:53] LABS: Alanine Aminotransferase 12 U/L (0-31); Albumin Level 4.1 g/dL (3.5-5.0); Alkaline Phosphatase 91 U/L (39-117); Anion Gap 11 (12-20); Aspartate Amino Transferase 26 U/L (5-31); Blood Urea Nitrogen 12 mg/dL (9-16); Calcium 9.5 mg/dL (8.4-10.2); Carbon Dioxide 29 mmol/L (22-29); Chloride 105 mmol/L (96-108); Creatinine Clr Calc Pharmacy 75.0; Estimated Glomerular Filt Rate > 60; Potassium 4.7 mmol/L (3.3-5.1); Sodium 140 mmol/L (135-145); Total Protein 7.0 g/dL (6.5-8.0)
--- NOTE | 2025-07-26 12:03 | ECG_ITS ---
Test Reason : ABD PAIN Blood Pressure : */* mmHG Vent. Rate : 57 BPM Atrial Rate : 57 BPM P-R Int : 116 ms QRS Dur : 82 ms QT Int : 408 ms P-R-T Axes : 32 -13 6 degrees QTcB Int : 397 ms Sinus bradycardia with sinus arrhythmia Minimal voltage criteria for LVH, may be normal variant ( R in aVL ) Borderline ECG When compared with ECG of 24-Nov-2024 16:27, No significant change was found Referred By: Bonita Fletcher Electronically Signed By: CHUY WISE
[2025-07-26] MEDS: iohexoL 350 MG/ML 100 ML INFUS..BTL IV (12:43)
[2025-07-26 12:46] LABS: Troponin-I High Sensitivity < 2.7 ng/L (<3.5-17.0)
[2025-07-26 13:20] LABS: Lipase 33 U/L (8-78)
[2025-07-26] MEDS: Lactated Ringers 1,000 ML 999 ML IV (14:00)
--- NOTE | 2025-07-26 14:07 | PC.NURSE ---
pt refused medications but agreed to IVF
[2025-07-26 15:12] VITALS: BP 168/76; PULSE 56; RESP 20; TEMP 36.6; O2SAT 97
== END 2025-07-26 15:13 | disposition home or self-care (01) ==
PROVIDERS: Physician Assistant; Emergency Provider Student in an Organized Health Care Education/Training Program; PCP Internal Medicine
DX: R10.22 Pelvic and perineal pain left side (principal); R00.1 Bradycardia, unspecified; M54.50 Low back pain, unspecified; I49.8 Other specified cardiac arrhythmias; I25.10 Atherosclerotic heart disease of native coronary artery without angina pectoris; Z79.899 Other long term (current) drug therapy; Z79.01 Long term (current) use of anticoagulants
CPT/HCPCS: 36415; 71275; 74174; 80053; 81001; 83690; 84484; 85025; 93005; 99285; J7120; Q9967

== ENCOUNTER → 2025-07-26 12:01 | Outpatient (BNV) | payer OTHER, SELFPAY | PROVIDERS: Emergency Provider Student in an Organized Health Care Education/Training Program; PCP Internal Medicine; Visit Provider Specialist | DX: R10.30 Lower abdominal pain, unspecified (principal); R07.9 Chest pain, unspecified | CPT/HCPCS: 71275; 74174 ==

== ENCOUNTER → 2025-07-26 12:03 | Outpatient (BNV) | payer OTHER, SELFPAY | PROVIDERS: Emergency Provider Student in an Organized Health Care Education/Training Program; PCP Internal Medicine; Visit Provider Internal Medicine | DX: I49.9 Cardiac arrhythmia, unspecified (principal); R00.1 Bradycardia, unspecified | CPT/HCPCS: 93010 ==

== ENCOUNTER 2025-08-14 07:30 | Outpatient (REF) | payer OTHER, SELFPAY ==
--- OUTSIDE RECORDS SUMMARY | 2025-08-14 07:33 | XMS_ITS | Clinical Summary ---
Author Organization [facility] Address [address] [place] [address] Care Team Providers Care Merchandising Lead Name Role Phone Wili Caballero MD Primary Care Provider [phone] Social History Tobacco Use Types Packs/Day Years [...] to [place] [address] AN[employer]M - OUT OF STATE MEDICARE PART A ONLY Care Teams Merchandising Lead Relationship Specialty Start Date End Date Wili Caballero MD [address] [place] [address] [address] [place] [address] PCP - General Internal Medicine 03/31/22
== END 2025-08-14 07:31 | disposition home or self-care (01) ==
LOC: HO.MAMMO 07:30
PROVIDERS: PCP Internal Medicine; Visit Provider Internal Medicine
DX: Z12.31 Encounter for screening mammogram for malignant neoplasm of breast (principal)
CPT/HCPCS: 77063; 77067

== ENCOUNTER → 2025-08-14 07:45 | Outpatient (BNV) | payer OTHER, SELFPAY | PROVIDERS: PCP Internal Medicine; Visit Provider Radiology Body Imaging | DX: Z12.31 Encounter for screening mammogram for malignant neoplasm of breast (principal) | CPT/HCPCS: 77063; 77067 ==

== ENCOUNTER 2025-09-29 15:05 | Outpatient (AMB) | payer OTHER, SELFPAY ==
[2025-09-29 15:09] VITALS: BP 120/72; PULSE 46; BMI 32.9
--- NOTE | 2025-09-29 15:09 | A.OFFVIS_ITS ---
Vital Signs 09/29/25 15:09 Height 5 ft 4 in Weight 191 lb 12.835 oz BMI 32.9 BP 120/72 Blood Pressure Location Lt brachial Position Sitting Pulse 46 L Intake Visit Reasons: follow-up with ekg Intake Note: Follow-up with ekg hearts doing ok Track Equipment Operator Required: No Allergies aspirin (Aspirin) Allergy (Severe, Verified 08/21/25 14:50) TROUBLE BREATHING, vomiting peanut Allergy (Severe, Verified 08/21/25 14:50) Angioedema Penicillins Allergy (Severe, Verified 08/21/25 14:50) THROAT CLOSES adhesive tape (ADHESIVE TAPE) Allergy (Intermediate, Verified 08/21/25 14:50) RASH/ITCH banana Allergy (Intermediate, Verified 08/21/25 14:50) Hives chlorhexidine Allergy (Intermediate, Verified 08/21/25 14:50) Rash, itchiness ibuprofen (From MOTRIN) Allergy (Intermediate, Verified 08/21/25 14:50) VOMITING latex (LATEX) Allergy (Intermediate, Verified 08/21/25 14:50) RASH spider venom (SPIDER BITES) Allergy (Intermediate, Verified 08/21/25 14:50) SWELLING garlic Allergy (Mild, Verified 08/21/25 14:50) Facial Swelling penicillin V Allergy (Mild, Verified 08/21/25 14:50) rash clarithromycin (From Biaxin) Adverse Reaction (Intermediate, Verified 08/21/25 14:50) PROJECTILE VOMITING Adhesive Tape Allergy (Intermediate, Uncoded 08/21/25 14:50) rash Biaxin Allergy (Intermediate, Uncoded 08/21/25 14:50) vomiting, abd pain Latex Gloves Allergy (Intermediate, Uncoded 08/21/25 14:50) rash garlic Allergy (Mild, Uncoded 08/21/25 14:50) Flushing eggs Allergy (Unknown, Uncoded 08/21/25 14:50) Unknown Medication List - Last Reconciled 09/29/25 by Nabeel Mackenzie MD acetaminophen (Tylenol Extra Strength) 500 mg PO Q6H PRN albuterol sulfate 2.5 mg (3 mL) inhalation Q6H PRN 30 days amlodipine 5 mg PO DAILY cholecalciferol (vitamin D3) 50 mcg PO DAILY 30 days epinephrine (EpiPen 2-Ken) 0.3 mg (0.3 mL) IM Q10M PRN 30 days famotidine 20 mg PO DAILY hyoscyamine sulfate 0.125 mg PO BID ipratropium-albuterol 0.5 mg-3 mg(2.5 mg base)/3 mL 0.5 mL inhalation DAILY levothyroxine 125 mcg PO DAILY metoprolol succinate ER 50 mg PO DAILY montelukast 10 mg PO BEDTIME rivaroxaban 10 mg PO DAILY roflumilast 500 mcg PO DAILY rosuvastatin 20 mg PO BEDTIME Trelegy Ellipta 200-62.5-25 mcg (piosmgcsmzx-ovrotcipg-zjylzxyu) 1 ea PO DAILY NS Ventolin HFA 90 mcg/actuation (albuterol sulfate) 2 puffs inhalation Q4H PRN 30 days NS HPI Comments Details: Sabine comes for regular cardiology follow-up. Since I last saw her she has not had any significant cardiac issues. She developed DVT and is bothered by it. Currently on maintenance dose for prophylaxis to prevent recurrent DVT. She is not happy about it. She thinks this gives her back pain. Her main issues back pain with moving around. She denies any lightheadedness, syncope. No exertional chest pain. No orthopnea, PND, leg edema. She says however since starting her oral anticoagulation therapy she has required lesser inhaler the rapy for her lungs PFS Medical History Tubular adenoma of colon CAD (coronary artery disease) AAA (abdominal aortic aneurysm) without rupture GARRET (obstructive sleep apnea) Celiac disease GERD (gastroesophageal reflux disease) Abdominal pain DVT (deep venous thrombosis) Pulmonary hypertension Asthma Obesity Neck pain Chronic respiratory failure Pulmonary nodules Nonsustained ventricular tachycardia HTN (hypertension) SVT (supraventricular tachycardia) COPD (chronic obstructive pulmonary disease) Osteoporosis Surgical History Hx of cardiac cath Hx of knee surgery History of surgery on arm Hx of hysterectomy Hx of appendectomy Hx of cholecystectomy Family History Father Lung cancer Mother CVA (cerebral vascular accident) Social History Household Members: None Housing: Condominium Are you a primary direct care professional to a significant other at home: Yes Do you presently have visiting nurse or other home services: No Alcohol intake: never Patient Tobacco Use Status: Former Tobacco user Tobacco use type: Cigarette Years Smoked: 30 Second Hand Smoke Exposure: No service: No Current occupational status: employed 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 [employer] Review of Systems Const Denies chills, Denies fatigue, Denies fever(s), Denies frequent falls, Denies weakness, Denies weight gain and Denies weight loss ENT Denies dizziness Card Denies chest pain, Denies leg edema, Denies lightheadedness, Denies palpitations, Denies dyspnea, Denies dyspnea on exertion, Denies orthopnea and Denies other (loss of consciousness) Resp Denies cough, Denies dyspnea and Denies dyspnea on exertion GI Denies hematochezia and Denies change in stool character Musc Denies abnormal gait, Denies muscle weakness, Denies numbness, Denies radiating pain into limb and Denies tingling Neuro Denies abnormal gait, Denies dizziness, Denies frequent falls, Denies numbness, Denies tingling and Denies weakness Endo Denies fatigue and Denies palpitations Physical Exam Vital Signs: Last Vital Signs Pulse 46 L 09/29/25 15:09 BP 120/72 09/29/25 15:09 BMI result Body Mass Index 32.9 Const General: cooperative, comfortable, no acute distress, alert, awake and well groomed Nutritional Appearance: obese Orientation/consciousness: patient oriented x3 Limitations: no limitations Neck Neck: Yes trachea midline, Yes supple and Yes no JVD Resp Effort & Inspection: normal respiratory effort Auscultation: no rales, no wheezes and diminished lung sounds Cardio Jugular venous distension: no JVD Palpation: normal PMI Rate: regular rate Rhythm: regular rhythm Heart sounds: S1 normal heart sound present and S2 normal heart sound present GI Auscultation: normal bowel sounds Skin General skin exam: no rashes or lesions noted Neuro General: patient oriented x3 and no focal motor deficits Extrem General: Yes no clubbing, cyanosis or edema Office Procedures EKG Details: EKG shows sinus bradycardia otherwise normal EKGs [id number], Complete Assessment & Plan Assessment & Plan (1) SVT (supraventricular tachycardia): Code(s): I47.1 - Supraventricular tachycardia Category: Medical Plan: Supraventricular tachycardia without any obvious recurrence at this point time. Currently on metoprolol therapy with noted sinus bradycardia although he is not having any symptoms. Continue monitor them. If she develops any significant symptoms may need reduction dose of metoprolol. No indication pacing therapy (2) CAD (coronary artery disease): Code(s): I25.10 - Atherosclerotic heart disease of [place] coronary artery without angina pectoris Category: Medical Plan: CAD nonobstructive without any new symptoms. Continue current aggressive blood pressure control. Currently on oral anticoagulation Xarelto for secondary prophylaxis for VT. Avoid antiplatelet therapy. Continue risk factor modification with target goal LDL less than 70 mg/dL. Continue aggressive blood pressure control which is currently well optimized. (3) HTN (hypertension): Code(s): I10 - Essential (primary) hypertension Category: Medical Plan: Hypertension which is currently well optimized on metoprolol amlodipine therapy. Continue the same. Importance of good blood pressure control was discussed. Low-salt diet was discussed. Target goal blood pressure less than 130/84. Will follow up in the clinic in 1 year's time, sooner PRN. Thank you for allowing me to partake in her care Coding Level of Care Code Complex visit Add On G2211 Diagnoses SVT (supraventricular tachycardia) I47.1 CAD (coronary artery disease) I25.10 HTN (hypertension) I10 CPT Codes EKG - CPT: [id number], Complete ([id number])
--- OUTSIDE RECORDS SUMMARY | 2025-09-30 00:36 | XMS_ITS | Clinical Summary ---
Author Organization [facility] Address [address] [place] [address] Care Team Providers Care Senior Consultant Name Role Phone Wili Caballero MD Primary [...] of 2) 1998 COVID-19 Vaccine ( - 2024-2 6 season) 2025 Influenza Vaccine (#1) 2025 Colorectal [...] patient's age to [place] [id number] ANTHEM - OUT OF STATE MEDICARE PART A ONLY Care Teams Senior Consultant Relationship Specialty Start Date End Date Wili Caballero MD [address] [place] [address] [address]IVE [address] [place] [address] PCP - General Internal Medicine 03/31/22
== END 2025-09-29 15:38 | disposition home or self-care (01) ==
LOC: HO.HCS 15:06
PROVIDERS: PCP Internal Medicine; Visit Provider Internal Medicine Cardiovascular Disease
DX: I47.10 Supraventricular tachycardia, unspecified (principal); I25.10 Atherosclerotic heart disease of native coronary artery without angina pectoris; I10 Essential (primary) hypertension
CPT/HCPCS: 93010; 99214

== ENCOUNTER → 2025-09-29 15:05 | Outpatient (BNVA) | payer OTHER, SELFPAY | PROVIDERS: PCP Internal Medicine; Visit Provider Internal Medicine Cardiovascular Disease | DX: I25.10 Atherosclerotic heart disease of native coronary artery without angina pectoris (principal); I47.10 Supraventricular tachycardia, unspecified; I10 Essential (primary) hypertension; Z79.899 Other long term (current) drug therapy; Z79.01 Long term (current) use of anticoagulants; Z87.891 Personal history of nicotine dependence | CPT/HCPCS: 93005 ==

== ENCOUNTER 2025-10-21 09:47 | Outpatient (AMB) | payer OTHER, SELFPAY ==
--- NOTE | 2025-10-21 09:56 | MHC.OFFVIS ---
Vital Signs 10/21/25 10:03 Height 5 ft 4 in Weight 191 lb BMI 32.8 BP 140/66 H Blood Pressure Location Rt brachial Position Sitting Pulse 64 Pulse Source Pulse Oximeter Pulse Oximetry (%) 95 Oxygen Delivery Method Room Air Intake Visit Reasons: ^ frequency of BMs. Discuss fiber supplement. Intake Note: Est pt for mgmt of celiac. CC: C/O Increased BM frequency, and lower abd pain B/L despite current therapies. Pt denies any additional sx or concerns. Generator Switchboard Operator Required: No Accompanied by: Self / Same As Patient Allergies aspirin (Aspirin) Allergy (Severe, Verified 10/21/25 10:00) TROUBLE BREATHING, vomiting peanut Allergy (Severe, Verified 10/21/25 10:00) Angioedema Penicillins Allergy (Severe, Verified 10/21/25 10:00) THROAT CLOSES adhesive tape (ADHESIVE TAPE) Allergy (Intermediate, Verified 10/21/25 10:00) RASH/ITCH banana Allergy (Intermediate, Verified 10/21/25 10:00) Hives chlorhexidine Allergy (Intermediate, Verified 10/21/25 10:00) Rash, itchiness ibuprofen (From MOTRIN) Allergy (Intermediate, Verified 10/21/25 10:00) VOMITING latex (LATEX) Allergy (Intermediate, Verified 10/21/25 10:00) RASH spider venom (SPIDER BITES) Allergy (Intermediate, Verified 10/21/25 10:00) SWELLING garlic Allergy (Mild, Verified 10/21/25 10:00) Facial Swelling penicillin V Allergy (Mild, Verified 10/21/25 10:00) rash clarithromycin (From Biaxin) Adverse Reaction (Intermediate, Verified 10/21/25 10:00) PROJECTILE VOMITING Adhesive Tape Allergy (Intermediate, Uncoded 10/21/25 10:00) rash Biaxin Allergy (Intermediate, Uncoded 10/21/25 10:00) vomiting, abd pain Latex Gloves Allergy (Intermediate, Uncoded 10/21/25 10:00) rash garlic Allergy (Mild, Uncoded 10/21/25 10:00) Flushing eggs Allergy (Unknown, Uncoded 10/21/25 10:00) Unknown HPI HPI ^ frequency of BMs. Discuss fiber supplement.: Details: LAST VISIT: GERD (gastroesophageal reflux disease) Abdominal pain Tubular adenoma of colon IBS (irritable bowel syndrome) Plan Patient will continue famotidine until her prescription is finished. Avoid dietary triggers and late night snacking. Staying upright for minimum 3 hours after meals discussed with patient. Continue current bowel regimen. Avoid food that makes her bloated. Follow-up in 8 months, patient will be due to go for another colonoscopy. Patient was encouraged to take fiber with pre and probiotics. She is agreeable to current plan of care and verbalizes understanding of instructions. She was given the opportunity to ask questions and all questions answered. TODAY'S VISIT Patient is here today for requested visit. Patient reports that her diarrhea is getting worse. Patient is trying to take fiber, however she continues to have diarrhea. Patient reports abdominal bloating and postprandially loose stools. Patient reports that this has been going on worse since her colonoscopy. Patient denies melena, hematochezia, unintentional weight loss or ribbon like stools. Patient also reports acid reflux and epigastric pain postprandially. Patient denies any nausea or vomiting. Denies any mucus in her stools very rarely solid stool. Patient denies any fever or chills. Not around anyone that has similar symptoms. Patient also reports abdominal cramping before bowel movements ? [facility] Medical History Tubular adenoma of colon CAD (coronary artery disease) AAA (abdominal aortic aneurysm) without rupture GARRET (obstructive sleep apnea) Celiac disease GERD (gastroesophageal reflux disease) Abdominal pain DVT (deep venous thrombosis) Pulmonary hypertension Asthma Obesity Neck pain Chronic respiratory failure Pulmonary nodules Nonsustained ventricular tachycardia HTN (hypertension) SVT (supraventricular tachycardia) COPD (chronic obstructive pulmonary disease) Osteoporosis Surgical History Hx of cardiac cath Hx of knee surgery History of surgery on arm Hx of hysterectomy Hx of appendectomy Hx of cholecystectomy Family History Father Lung cancer Mother CVA (cerebral vascular accident) Social History Household Members: None Housing: Condominium Are you a primary animal care specialist to a significant other at home: Yes Do you presently have visiting nurse or other home services: No Alcohol intake: never Patient Tobacco Use Status: Former Tobacco user Tobacco use type: Cigarette Years Smoked: 30 Second Hand Smoke Exposure: No service: No Current occupational status: employed 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[employer] [place] Review of Systems Const Denies weight gain and Denies weight loss ENT Reports no additional complaints, Denies dysphagia and Denies odynophagia Card Reports no additional complaints Resp Reports no additional complaints GI Reports abdominal pain, Denies belching, Denies melena, Reports bloating, Denies change in bowel habits, Reports constipation, Denies dysphagia, Denies excessive flatus, Denies dyspepsia, Denies heartburn, Denies diarrhea, Reports loose stools (Occasional), Denies nausea, Denies odynophagia and Denies vomiting Reports no additional complaints Musc Reports no additional complaints Neuro Reports no additional complaints Psych Reports no additional complaints Endo Reports no additional complaints Physical Exam Vital Signs: Last Vital Signs Pulse 64 10/21/25 10:03 BP 140/66 H 10/21/25 10:03 Pulse Ox 95 10/21/25 10:03 Oxygen Delivery Method Room Air 10/21/25 10:03 BMI result Body Mass Index 32.8 Const General: healthy appearing, no acute distress and well developed Nutritional Appearance: well nourished and obese Orientation/consciousness: patient oriented x3 Resp Effort & Inspection: normal respiratory effort, able to speak in complete sentences, no tracheal deviation and symmetric chest movement Auscultation: clear to auscultation bilaterally Cardio Rate: regular rate GI Inspection: Yes normal to inspection, No distended and Yes obesity Palpation (GI): Soft to palpation, not firm, nontender and No hepatosplenomegaly present Auscultation: normal bowel sounds General: Yes no CVA tenderness Back/Spine/Pelvis Back: no CVA tenderness Skin General skin exam: elasticity normal, turgor normal and dry skin Neuro General: patient oriented x3 Psych Appearance: grossly normal Mental Status: mental status grossly normal Assessment & Plan Assessment & Plan (1) GERD (gastroesophageal reflux disease): Code(s): K21.9 - Gastro-esophageal reflux disease without esophagitis Category: Medical Qualifiers: Esophagitis presence: esophagitis presence not specified Qualified Code(s): K21.9 - Gastro-esophageal reflux disease without esophagitis (2) Abdominal pain: Code(s): R10.9 - Unspecified abdominal pain Category: Medical Qualifiers: Abdominal location: generalized Qualified Code(s): R10.84 - Generalized abdominal pain (3) Tubular adenoma of colon: Code(s): D12.6 - Benign neoplasm of colon, unspecified Category: Medical (4) Postprandial diarrhea: Code(s): K52.9 - Noninfective gastroenteritis and colitis, unspecified (5) Postprandial abdominal bloating: Code(s): R14.0 - Abdominal distension (gaseous) Plan Will check GI panel as well as fecal calprotectin to rule out IBD. Patient was encouraged to take Citrucel 2 tabs daily. Discussed with patient dietary changes. Follow low FODMAP diet. List of food recommended as well as list of food to avoid discussed with patient. Patient will increase fluid intake. Patient will start taking omeprazole daily. Avoid dietary triggers and late night snacking staying upright for minimum 3 hours after meals discussed with patient. Patient has appointment in the office in February. She was encouraged to call if her symptoms will continue or if she will have worsening symptoms. Patient is agreeable to current plan of care and verbalizes understanding of instructions. She was given the opportunity to ask questions and all questions answered. Thank you for allowing me to participate in her care Orders: Orders GI Panel 10/21/25 R19.7 - Diarrhea, unspecified Calprotectin, Fecal 10/21/25 R15.9 - Full incontinence of feces Medications: New methylcellulose (laxative) (Citrucel) take it with full glass of water 1,000 mg (2 x 500 mg) PO DAILY 180 tabs 2RF K52.9 - Noninfective gastroenteritis and colitis, unspecified omeprazole 20 mg PO DAILY 30 caps 3RF K21.9 - Gastro-esophageal reflux disease without esophagitis Coding Level of Care Code Est Pt Level 4 (24476) Diagnoses Gastroesophageal reflux disease, unspecified whether esophagitis present K21.9 Esophagitis presence: esophagitis presence not specified Generalized abdominal pain R10.84 Abdominal location: generalized Tubular adenoma of colon D12.6 Postprandial diarrhea K52.9 Postprandial abdominal bloating R14.0 Time Spent (min) 35 Comment 25 minutes spent with patient and additional 10 minutes spent reviewing her records
[2025-10-21 10:03] VITALS: BP 140/66; PULSE 64; O2SAT 95; BMI 32.8
--- OUTSIDE RECORDS SUMMARY | 2025-10-21 12:37 | XMS_ITS | Clinical Summary ---
Author Organization Formerly [facility] Address [address] [place] [address] Care Team Providers Care Senior Technical Business Analyst Name Role Phone Wili Caballero MD Primary [...] age to [place] this [place] [id number] [employer] - OUT OF STATE MEDICARE PART A ONLY Care Teams Senior Technical Business Analyst Relationship Specialty Start Date End Date Wili Caballero MD [address] [place] [address] [address] [place] [address] PCP - General Internal Medicine 03/31/22
== END 2025-10-21 10:34 | disposition home or self-care (01) ==
LOC: HO.HGI 09:47
PROVIDERS: PCP Internal Medicine; Visit Provider Nurse Practitioner Family
DX: K21.9 Gastro-esophageal reflux disease without esophagitis (principal); R10.84 Generalized abdominal pain; D12.6 Benign neoplasm of colon, unspecified; K52.9 Noninfective gastroenteritis and colitis, unspecified; R14.0 Abdominal distension (gaseous)
CPT/HCPCS: 99214